=== PATIENT | female | born 1940 | race Caucasian/White ===

== ENCOUNTER 2021-05-23 02:06 | Emergency (ER) | payer MEDICARE, OTHER, SELFPAY ==
[2021-05-23 02:07] VITALS: BP 158/82; PULSE 76; RESP 21; TEMP 36.7; O2SAT 98; BMI 24.7
--- NOTE | 2021-05-23 02:25 | ECG_ITS ---
APPROVED REPORT Exam: Resting ECG HR:74 bpm ECG Measurements Heart Rate 74 AXES AR 174 P 32 QRSd 86 QRS 45 QT 436 T 42 QTc 483 Conclusion Normal sinus rhythm Nonspecific T wave abnormality Prolonged QT Abnormal ECG Electronically signed by : Lamont Dennison MD 05/25/2021 17:30:41
[2021-05-23 02:32] VITALS: BMI 24.7
--- NOTE | 2021-05-23 02:34 | XR_ITS ---
PROCEDURE INFORMATION: Exam: XR Chest Exam date and time: 05/23/2021 2:34 AM Age: 81 years old Clinical indication: Pain; Left-sided; Prior surgery; Surgery date: 6+ months; Surgery type: Stents; Additional info: Chest pain TECHNIQUE: Imaging protocol: XR of the chest. Views: 2 views. COMPARISON: No relevant prior studies available. FINDINGS: Lungs: Bilateral apical scarring. Peripheral reticular pulmonary opacities in the lower lungs may correlate with pulmonary venous congestion in the appropriate clinical setting. Pleural spaces: Unremarkable. No pleural effusion. No pneumothorax. Heart/Mediastinum: Unremarkable. No cardiomegaly. Vasculature: Vascular calcifications. Bones/joints: Unremarkable. IMPRESSION: Peripheral reticular pulmonary opacities in the lower lungs may correlate with pulmonary venous congestion in the appropriate clinical setting.
[2021-05-23 02:43] LABS: Basophils % 0.4 % (0.1-2.0); Eosinophils # 0.1 K/mm3 (0.0-0.4); Hematocrit 40.4 % (37.0-47.0); Lymphocytes % 35.8 % (10-50); Mean Corpuscular HGB Conc 32.3 g/dL (31.8-35.4); Mean Corpuscular Hemoglobin 29.5 pg (27.0-31.2); Mean Corpuscular Volume 91.4 fl (81-99); Mean Platelet Volume 7.7 fl (7.4-10.4); Monocytes # 0.5 K/mm3 (0.1-1.0); Neutrophils # 3.1 K/mm3 (1.8-7.8); Neutrophils % 53.8 % (37.0-80.0); Platelet Count 321 K/mm3 (142-424); Red Blood Count 4.41 M/mm3 (4.20-5.40); Red Cell Distribution Width 13.2 % (11.5-17.5); White Blood Count 5.7 K/mm3 (4.8-10.8)
[2021-05-23 02:53] LABS: Alanine Aminotransferase 7 U/L (12-78); Albumin Level 4.3 g/dl (3.5-5.0); Albumin/Globulin Ratio 1.3 (1.1-1.8); Alkaline Phosphatase 79 U/L (38-126); Anion Gap 10.8 mEq/L (5-15); Aspartate Amino Transferase 29 U/L (14-36); Bilirubin,Total 0.4 mg/dl (0.2-1.3); Blood Urea Nitrogen 13 mg/dl (7-17); Calcium 9.6 mg/dl (8.4-10.2); Carbon Dioxide 28 mmol/L (22.0-30.0); Chloride 105 mmol/L (98-107); Creatinine Clearance Estimated 40 mL/min (50-200); Estimated Glomerular Filt Rate 48 ml/min (>60); GFR (African American) 58 ML/MIN (>60); Globulin 3.2 g/dL (1.3-3.2); Glucose 126 mg/dl (74-100); Potassium 3.8 mmoL/L (3.5-5.1); Sodium 140 mmol/L (136-145); Total Protein,Serum 7.5 g/dl (6.3-8.2)
[2021-05-23 02:58] LABS: C-Reactive Protein 2.4 mg/L (0-4)
[2021-05-23 03:06] LABS: Erythrocyte Sedimentation Rate 26 mm/hr (0-30)
[2021-05-23 03:08] LABS: Troponin I < 0.01 ng/ml (0.00-0.034)
[2021-05-23 03:13] LABS: Procalcitonin 0.074 ng/mL (0.0-2.0)
[2021-05-23 03:29] VITALS: BP 151/71; PULSE 68; RESP 18; TEMP 36.8; O2SAT 96
--- NOTE | 2021-05-23 03:29 | [facility].EDCP ---
ED Disposition Clinical Impression: Chest pain Qualifiers: Chest pain type: precordial pain Qualified Code(s): R07.2 - Precordial pain Disposition: Home, Self-Care Condition on Discharge: Good Instructions: DI for Atypical Chest Pain Additional Instructions: call pcp for follow up Referrals: Kip Jordan [Primary Care Provider] - - Critical Care Critical Care Time: No Attestation: On 05/23/21, the high probability of a clinically significant, sudden or life threatening deterioration of the following system(s) required my full and direct attention, intervention and personal management. The time I documented below is in addition to time spent performing reported procedures but includes the following listed in this critical care notation. Medical Decision Making - Medical Records Medical records reviewed: Yes: I reviewed the patient's medical records. - [place] Inquiry Pt receiving controlled substance: No Vital Signs: 05/23/21 02:07 Temperature 98.1 F Temperature Source Oral Pulse Rate [Right] 76 Respiratory Rate 21 Blood Pressure [Right Arm] 158/82 H Blood Pressure Mean [Right Arm] 107 02 Sat by Pulse Oximetry 98 Oxygen Delivery Method Room Air - Lab Data Lab results reviewed: Yes: I reviewed the patient's lab results. Lab Results 05/23/21 02:20: WBC 5.7, RBC 4.41, Hgb 13.0, Hct 40.4, MCV 91.4, MCH 29.5, MCHC 32.3, RDW 13.2, Plt Count 321, MPV 7.7, Neut % (Auto) 53.8, Lymph % (Auto) 35.8, Trinity % (Auto) 9.0, Eos % (Auto) 1.0, Baso % (Auto) 0.4, Neut # (Auto) 3.1, Lymph # (Auto) 2.0, Trinity # (Auto) 0.5, Eos # (Auto) 0.1, Baso # (Auto) 0.0, ESR 26 05/23/21 02:20: Sodium 140, Potassium 3.8, Chloride 105, Carbon Dioxide 28, Anion Gap 10.8, BUN 13, Creatinine 1.10 H, Estimated Creat Clear 40, Estimated GFR 48 L, Est GFR ( Amer) 58 L, Glucose 126 H, Calcium 9.6, Magnesium 2.0, Total Bilirubin 0.4, AST 29, ALT 7 L, Alkaline Phosphatase 79, Troponin I < 0.01, C-Reactive Protein 2.4, Total Protein 7.5, Albumin 4.3, Globulin 3.2, Albumin/Globulin Ratio 1.3 Result diagrams: 05/23/21 02:20 05/23/21 02:20 Orders (Tests/Meds): ED MEDICATIONS Generic Name Dose Route Start Last Admin Trade Name Freq PRN Reason Stop Dose Admin Sodium Chloride 1,000 mls @ 999 mls/hr 05/23/21 03:00 05/23/21 03:18 Sod Chlor 0.9% 1000ml Bag IV 05/23/21 04:00 999 mls/hr .Q1H1M NALINI Administration ORDERS Category Date Time Status XR chest 2V Stat Exams 05/23/21 02:34 Taken Procalcitonin Stat Lab 05/23/21 02:20 Received Troponin I Q3H Lab 05/23/21 05:45 Ordered Troponin I Q3H Lab 05/23/21 08:45 Ordered ECG Request by /Aleksandar Stat Y 05/23/21 02:34 Ordered - Radiology Data #1 Image(s): Chest Image Reviewed: Yes I reviewed the patient's radiology image Preliminary Findings: Normal/NAD - ECG Data Tracing #1 Normal Sinus Rhythm: Yes Ischemic changes: non-specific ST-T wave changes Medical Decision Narrative: stable exam and labs Chest Pain HPI - General Chief Complaint: Anxiety Stated Complaint: High Blood Pressure Time Seen by Provider: 05/23/21 03:00 Mode of Arrival: Wheelchair Source of Information: Patient, Medical Record Limitations: No Limitations Description of Symptoms (Recalled from ER Triage Doc. by RN): Pt c/o shakiness, headache, and pain to her left axilla area that now is only numb. Pt states she normally takes Metoprolol tartrate 50mg BID but her new prescription is Metoprolol ER 50mg PO. She did take the 1st pill ~1am before attempting to go to bed and about 10 min later is when her symtoms started. Pt took her BP and it was SBP 190s and reports it is never that high . She denies any n/v/d, SOA, dizziness, or vision changes. - History of Present Illness HPI narrative: took different form of metoprolol and had episode of not feeling well has seen card recently with elevated bp but no focal changes MD complaint: chest pain indicative of cardiac Onset (ago)
== END 2021-05-23 03:42 | disposition home or self-care (01) ==
PROVIDERS: Emergency Provider Emergency Medicine; PCP Family Medicine
DX: R07.2 Precordial pain (principal); E78.5 Hyperlipidemia, unspecified; E03.9 Hypothyroidism, unspecified
CPT/HCPCS: 71046; 80053; 83735; 84145; 84484; 85025; 85651; 86140; 93005; 96365; 99283

== ENCOUNTER 2025-03-24 13:29 | Emergency (ER) | payer MEDICARE, SELFPAY ==
[2025-03-24] VITALS (9 sets, daily range): BP systolic 126–179; BP diastolic 54–88; PULSE 73–95; RESP 15–22; TEMP 37.1; O2SAT 95–98; BMI 24.7
--- NOTE | 2025-03-24 13:31 | ECG_ITS ---
APPROVED REPORT Exam: Resting ECG HR:83 bpm ECG Measurements Heart Rate 83 AXES OH 187 P 60 QRSd 86 QRS 75 QT 377 T 66 QTc 417 Conclusion Normal sinus rhythm Normal axis Normal intervals No STEMI Electronically signed by : Kenneth Wyman, 03/24/2025 16:31:49
--- NOTE | 2025-03-24 13:35 | ED_ITS ---
<Statement entered by Kenneth Wyman DO - 03/28/25 01:16> I was consulted by the DEN, and we discussed the complexity of problems being addressed. I approved the treatment and management plan for this patient's care in the emergency department, thus performing a substantive portion of the medical decision making. Kenneth Wyman DO Discharge Plan Disposition Patient Disposition: Home, Self-Care Condition: Good Prescriptions Prescriptions: No Action metoprolol succinate 50 MG tablet extended release 24 hr 50 mg PO DAILY omeprazole 40 MG capsule,delayed release(DR/EC) 40 mg PO DAILY levothyroxine 88 MCG tablet 88 mcg PO DAILY losartan 25 MG tablet 25 mg PO DAILY aspirin 81 MG tablet,chewable 81 mg PO DAILY rosuvastatin 40 MG tablet 40 mg PO DAILY niacin (inositol niacinate) 500 MG capsule 500 mg PO DAILY linaclotide 145 MCG capsule 145 mcg PO DAILY Referrals Follow up/Referrals: Kip Jordan [Primary Care Provider, Medical] - See instructions Nikita Mtz MD [Physician, Ear, Nose, Throat] - See instructions Activity Restrictions/Add. Instructions Additional Instructions/Restrictions: Please follow-up with your family physician in the upcoming days/weeks, please follow-up with/make appointment with ear nose throat doctor above. Please take your meclizine as prescribed. Please return to the emergency department with any worsening signs or symptoms. Clinical Impressions Clinical Impression: Vertigo Instructions Patient Instructions: DI for Vertigo, Combating Dizziness in Older Adults Print Language Print Language: Brazilian Discharge ED Provider: Kenneth Wyman General Adult HPI <MANUEL Rollins - Last Filed: 03/24/25 17:59> General Chief complaint: Dizziness Stated complaint: Dizziness Time Seen by Provider: 03/24/25 13:30 Mode of Arrival: EMS Source of Information: Patient Limitations: No Limitations History of Present Illness HPI narrative: 85-year-old female presents the emergency department via EMS for dizziness for the last 3 days, patient states she is has a difficulty ambulating due to the dizziness, patient is somewhat of a poor historian and has some degree of presbycusis, but is GCS of 15, patient tells me that she has had dizziness on and off for 20 years , worsened within the last 3 days, patient denies any fall, states that it is worse with certain movements especially movements of her head, denies any neck pain, admits to lightheadedness, but denies any presyncopal or syncopal event, does admit to headache, she tells me my head is about to explode , she denies any fever chills chest pain shortness of breath, some nausea no vomiting no abdominal pain no constipation no diarrhea no urinary type symptomatology, patient is a current everyday smoker, denies any alcohol or drug use, other past medical history is consistent with atrial fibrillation on Xarelto, and metoprolol, hypertension, IBS, CAD, status post 11 stents , GERD, hyperlipidemia. Initial triage vitals are unremarkable. Patient was recently seen by what sounds like her PCP, started on meclizine, unsure if she is taking medication as prescribed, also recently started on Keflex, for 2 lower extremity wounds/concern for cellulitis, patient has bilateral lower extremities bandaged, on her left knee, as well as her left posterior tibial region, with some active drainage and skin tear/wound on the right. Of note patient tells me that she had what sounds like a remote MRI of the brain performed several years ago at [facility] , she tells me that they said there is nothing wrong . Please note that above description of symptoms, in this electronic medical record under categorization of recalled from ER triage doctor by RN are reflective of an initial nursing assessment, however, is not reflective of my full history and physical exam that was personally taken and clarified. Consequentially, this preceding description of symptoms, which may include the patient's categorized chief complaint in the EMR, do not reflect my personal clinical impression, and the ultimate description of history of present illness and patient stated complaints should be deferred to this section of the note. Unless stated otherwise or congruent with this section of the note, additional signs, symptoms, or incongruence should be interpreted as inaccurate with my clinical impression. Onset (ago): day(s) Related Data Home Medications ?Medication ?Instructions ?Recorded ?Confirmed aspirin 81 mg chewable tablet 81 mg PO DAILY cardiac 1 05/23/21 levothyroxine 88 mcg tablet 88 mcg PO DAILY htypothy 1 05/23/21 linaclotide 145 mcg capsule 145 mcg PO DAILY . 1 05/23/21 losartan 25 mg tablet 25 mg PO DAILY . 05/23/21 metoprolol succinate 50 mg 50 mg PO DAILY bp 05/23/21 05/23/21 tablet,extended release 24 hr niacin (inositol niacinate) 500 mg 500 mg PO DAILY . 1 05/23/21 capsule omeprazole 40 mg capsule,delayed 40 mg PO DAILY GERD 1 05/23/21 release rosuvastatin 40 mg tablet 40 mg PO DAILY hld 05/23/21 05/23/21 Allergies Allergy/AdvReac Type Severity Reaction Status Date / Time Sulfa (Sulfonamide Allergy Verified 12/21/17 17:10 Antibiotics) [facility] <MANUEL Rollins - Last Filed: 03/24/25 17:59> [facility] Disclaimer: The information contained in this section may have been updated after the patient was seen, as this information can be updated by other users. Social History Smoking Status: Current every day smoker tobacco type: cigarettes alcohol intake: never current occupational status: other Travel in the last 8 weeks?: None Other Medical History Have you received the Flu Vaccine for this season: No Have you received the Pneumonia Vaccine: No <MANUEL Rollins - Last Filed: 03/24/25 17:59> ROS Obtained: Yes All systems reviewed & no additional complaints except as documented Physical Exam <MANUEL Rollins - Last Filed: 03/24/25 17:59> General General appearance: alert and in no apparent distress Comment: Somewhat of a poor historian but alert and oriented Head Head exam: atraumatic and normocephalic Eye Eye exam: Present PERRL and EOMI ENT ENT exam: Present mucous membranes moist Neck Neck exam: Present normal inspection Chest Chest inspection: Present normal inspection and symmetric chest wall rise Respiratory Respiratory exam: Present normal lung sounds bilaterally; Absent respiratory distress Cardiovascular Cardiovascular exam: Present regular rate and normal rhythm Abdominal Exam Abdominal exam: Present soft; Absent tenderness, guarding, rebound or rigidity Extremities Exam Extremities exam: Present normal inspection Neurological Exam Neurological exam: Present alert, oriented X3 and other (Moves extremities to command, no real global weakness noted and no focal neurological deficit noted, negative Irasema sign bilaterally) Psychiatric Psychiatric exam: Present normal affect Skin Skin exam: Present warm, dry and other (Area of skin breakdown and active drainage from wound/skin tear on the posterior tibial region on the right lower extremity) Medical Decision Making <MANUEL Rollins - Last Filed: 03/24/25 17:59> Medical Records Medical records reviewed: Yes I reviewed the patient's medical records. Screening: Per USPSTF and CDC recommendations, given the prevalence of disease in our region, it is our hospital?s policy to screen for HIV and viral Hepatitis for all patients aged 18 and over and those with ongoing risk factors. Tenzin Inquiry Pt receiving controlled substance: No Tenzin was queried for this patient: No Vital Signs: 03/24/25 13:39 03/24/25 13:45 03/24/25 14:31 Temperature 98.8 F Temperature Source Oral Pulse Rate 83 84 Pulse Rate [Right Brachial] 84 Respiratory Rate 18 22 22 Blood Pressure 142/68 H 126/80 Blood Pressure [Right Arm] 142/68 H Blood Pressure Mean [Right Arm] 92 Blood Pressure Source [Right Arm] Automatic Cuff Blood Pressure Position [Right Arm] Sitting 02 Sat by Pulse Oximetry 98 97 95 Oxygen Delivery Method Room Air Room Air Room Air 03/24/25 15:00 03/24/25 15:33 03/24/25 16:01 Temperature Temperature Source Pulse Rate 88 95 H 78 Pulse Rate [Right Brachial] Respiratory Rate 17 18 15 Blood Pressure 179/83 H 178/88 H 145/62 H Blood Pressure [Right Arm] Blood Pressure Mean [Right Arm] Blood Pressure Source [Right Arm] Blood Pressure Position [Right Arm] 02 Sat by Pulse Oximetry 95 98 96 Oxygen Delivery Method Room Air 03/24/25 17:02 03/24/25 17:49 Temperature Temperature Source Pulse Rate 91 H 73 Pulse Rate [Right Brachial] Respiratory Rate 20 21 Blood Pressure 130/54 L 126/59 L Blood Pressure [Right Arm] Blood Pressure Mean [Right Arm] Blood Pressure Source [Right Arm] Blood Pressure Position [Right Arm] 02 Sat by Pulse Oximetry 98 97 Oxygen Delivery Method Room Air Room Air Lab Data Lab results reviewed: Yes I reviewed the patient's lab results. Lab Results 03/24/25 13:26: WBC 12.9 H, RBC 2.92 L, Hgb 8.2 L, Hct 25.8 L, MCV 88.4, MCH 28.1, MCHC 31.8, RDW 17.1, Plt Count 458 H, MPV 9.4, Neut % (Auto) 66.5, Lymph % (Auto) 21.7, [place] % (Auto) 9.1, Eos % (Auto) 0.5, Baso % (Auto) 0.4, Neut # (Auto) 8.5 H, Lymph # (Auto) 2.8, [place] # (Auto) 1.2 H, Eos # (Auto) 0.1, Baso # (Auto) 0.1, D-Dimer 0.75 H, Sodium 132 L, Potassium 4.7, Chloride 98, Carbon Dioxide 27, Anion Gap 11.7, BUN 30 H, Creatinine 1.40 H, Estimated Creat Clear 29, Estimated GFR 36 L, Est GFR ( Amer) 43 L, Glucose 102 H, Calcium 8.9, Magnesium 3.0 H, Total Bilirubin 0.4, AST 28, ALT 8 L, Alkaline Phosphatase 76, Troponin I < 0.01, NT-Pro-B Natriuret Pep 268, Total Protein 6.4, Albumin 4.0, Globulin 2.4, Albumin/Globulin Ratio 1.7 03/24/25 15:33: Urine Color Yellow, Urine Appearance Clear, Urine pH 8.0, Ur Specific [place] 1.010, Urine Protein Negative, Urine Glucose (UA) Negative, Urine Ketones Negative, Urine Blood Negative, Urine Nitrate Negative, Urine Bilirubin Negative, Urine Urobilinogen 0.2, Ur Leukocyte Esterase Negative, Urine RBC None, Urine WBC None, Ur Squamous Epith Cells 5-10, Urine Bacteria Trace, Urine Opiates Screen Negative, Urine Methadone Screen Negative, Ur Barbituates Screen Negative, Ur Phencyclidine Scrn Negative, Ur Amphetamines Screen Negative, U Benzodiazepines Scrn Negative, Urine Cocaine Screen Negative, U Marijuana (THC) Screen Negative 03/24/25 16:55: Troponin I < 0.01 03/24/25 13:26 03/24/25 13:26 Orders (Tests/Meds): ED MEDICATIONS Discontinued Medications Generic Name Dose Route Start Last Admin Trade Name Freq PRN Reason Stop Dose Admin Sodium Chloride 1,000 mls @ 999 mls/hr 03/24/25 14:39 03/24/25 16:56 Sod Chlor 0.9% 1000ml Bag IV 03/24/25 15:39 Infused .Q1H1M ONE Infusion Iopamidol 80 ml 03/24/25 14:44 03/24/25 14:52 Iopamidol-370 (76%);100ml Bottle IV 03/24/25 14:45 80 ml ONCE ONE Administration Meclizine HCl 50 mg 03/24/25 16:42 03/24/25 17:19 Meclizine 25mg Tablet PO 03/24/25 16:43 50 mg ONCE ONE Administration Ondansetron HCl 4 mg 03/24/25 14:07 03/24/25 14:20 Ondansetron 4mg/2ml Vial IV 03/24/25 14:08 4 mg ONCE ONE Administration Sodium Chloride 50 ml 03/24/25 14:44 03/24/25 14:52 0.9 % Sodium Chloride 50 Ml Vial IV 03/24/25 14:45 50 ml ONCE ONE Administration ORDERS Category Date Time Status CT angio head Stat Cat Scan 03/24/25 14:[address] angio neck Stat Cat Scan 03/24/25 14:[address] head/brain wo con Stat Cat Scan 03/24/25 14:05 Completed Complete Blood Count Auto Diff Stat Lab 03/24/25 13:26 Completed Comprehensive Metabolic Panel Stat Lab 03/24/25 13:26 Completed D-Dimer Stat Lab 03/24/25 13:26 Completed Drug Screen,Urine Stat Lab 03/24/25 15:33 Completed Magnesium Stat Lab 03/24/25 13:26 Completed NT Pro Brain Natriuretic Pep. Stat Lab 03/24/25 13:26 Completed Troponin I Q3H Lab 03/24/25 16:55 Completed Troponin I Q3H Lab 03/24/25 20:00 Ordered Troponin I Stat Lab 03/24/25 13:26 Completed Urinalysis and Microscopic Stat Lab 03/24/25 15:33 Completed Medical Decision Narrative: 85-year-old female presents emerged part with dizziness and lightheadedness as well as headache, differential diagnose include but not limited to, cardiac arrhythmia, electrolyte disturbance, peripheral vertigo, central vertigo, hypovolemia, cellulitis, infection, medication side effect, acute UTI among others. I discussed this patient's case with the attending physician Dr. Wyman and Dr. Bunn they saw and examined the patient as well Obtain basic laboratory studies, UDS, urinalysis, magnesium, BNP, troponin, EKG, CT head without contrast, CTA head and neck without contrast, will give 4 mg Zofran for nausea. CBC is notable for leukocytosis 12.9, decreased hemoglobin hematocrit 8.2/25.8, thrombocytosis at 458, otherwise unremarkable CBC. CMP is notable for hyponatremia at 132, BUN and creatinine are elevated at 30/1.4, hypermagnesia at 3, thus will give IVF 1 L NS, for acute kidney injury and hypomagnesia. D-dimer is elevated at 0.75, however utilizing age-adjusted D-dimer criteria, negative for PE/VTE Initial troponin and proBNP within normal limits UA is unremarkable Of note, patient after returning from CT scan experience some chest pain, and had some belching , EKG was obtained, see interpretation by attending physician. UDS is unremarkable Reexamination of the patient at approximately 4:30 PM, patient still complaining of some dizziness, will give 50 mg p.o. meclizine for dizziness. I reviewed the patient's CT head without contrast along the corresponding radiologic report, no acute intracranial process I reviewed the patient's CTA head and neck without contrast, no acute process in the intracranial vessels,, there is 50% stenosis proximal right internal carotid artery, no significant stenosis on the left. Repeat troponin within normal limits at less than 0.01 Reexamination of the patient at 5:50 PM, patient states her dizziness is improved, after meclizine administration, walk test was able to ambulate with minimal assistance, I was also discussed this patient's case with the daughter at the bedside, patient's daughter states that she has had what sounds like multiple neurological workups, ruled out stroke, MRI brain, and seeing neurologist, thought to be more of an inner ear pathology/vertigo, has not yet seen ear nose throat provider, with relief with meclizine, and acute on chronic clinical manifestations I do believe this is more peripheral vertigo, as well as patient's symptoms get worse with certain head movements. Recommend follow-up with ear nose throat provider, continue take meclizine as prescribed, patient voiced understanding and agreement with the current treatment plan/discharge plan. Strict ED return precaution were given. <Kenneth Wyman, - Last Filed: 03/24/25 16:25> Vital Signs: 03/24/25 13:39 03/24/25 13:45 03/24/25 14:31 Temperature 98.8 F Temperature Source Oral Pulse Rate 83 84 Pulse Rate [Right Brachial] 84 Respiratory Rate 18 22 22 Blood Pressure 142/68 H 126/80 Blood Pressure [Right Arm] 142/68 H Blood Pressure Mean [Right Arm] 92 Blood Pressure Source [Right Arm] Automatic Cuff Blood Pressure Position [Right Arm] Sitting 02 Sat by Pulse Oximetry 98 97 95 Oxygen Delivery Method Room Air Room Air Room Air 03/24/25 15:00 03/24/25 15:33 03/24/25 16:01 Temperature Temperature Source Pulse Rate 88 95 H 78 Pulse Rate [Right Brachial] Respiratory Rate 17 18 15 Blood Pressure 179/83 H 178/88 H 145/62 H Blood Pressure [Right Arm] Blood Pressure Mean [Right Arm] Blood Pressure Source [Right Arm] Blood Pressure Position [Right Arm] 02 Sat by Pulse Oximetry 95 98 96 Oxygen Delivery Method Room Air 03/24/25 17:02 03/24/25 17:49 Temperature Temperature Source Pulse Rate 91 H 73 Pulse Rate [Right Brachial] Respiratory Rate 20 21 Blood Pressure 130/54 L 126/59 L Blood Pressure [Right Arm] Blood Pressure Mean [Right Arm] Blood Pressure Source [Right Arm] Blood Pressure Position [Right Arm] 02 Sat by Pulse Oximetry 98 97 Oxygen Delivery Method Room Air Room Air Lab Data Lab Results 03/24/25 13:26: WBC 12.9 H, RBC 2.92 L, Hgb 8.2 L, Hct 25.8 L, MCV 88.4, MCH 28.1, MCHC 31.8, RDW 17.1, Plt Count 458 H, MPV 9.4, Neut % (Auto) 66.5, Lymph % (Auto) 21.7, [place] % (Auto) 9.1, Eos % (Auto) 0.5, Baso % (Auto) 0.4, Neut # (Auto) 8.5 H, Lymph # (Auto) 2.8, [place] # (Auto) 1.2 H, Eos # (Auto) 0.1, Baso # (Auto) 0.1, D-Dimer 0.75 H, Sodium 132 L, Potassium 4.7, Chloride 98, Carbon Dioxide 27, Anion Gap 11.7, BUN 30 H, Creatinine 1.40 H, Estimated Creat Clear 29, Estimated GFR 36 L, Est GFR ( Amer) 43 L, Glucose 102 H, Calcium 8.9, Magnesium 3.0 H, Total Bilirubin 0.4, AST 28, ALT 8 L, Alkaline Phosphatase 76, Troponin I < 0.01, NT-Pro-B Natriuret Pep 268, Total Protein 6.4, Albumin 4.0, Globulin 2.4, Albumin/Globulin Ratio 1.7 03/24/25 15:33: Urine Color Yellow, Urine Appearance Clear, Urine pH 8.0, Ur Specific [place] 1.010, Urine Protein Negative, Urine Glucose (UA) Negative, Urine Ketones Negative, Urine Blood Negative, Urine Nitrate Negative, Urine Bilirubin Negative, Urine Urobilinogen 0.2, Ur Leukocyte Esterase Negative, Urine RBC None, Urine WBC None, Ur Squamous Epith Cells 5-10, Urine Bacteria Trace, Urine Opiates Screen Negative, Urine Methadone Screen Negative, Ur Barbituates Screen Negative, Ur Phencyclidine Scrn Negative, Ur Amphetamines Screen Negative, U Benzodiazepines Scrn Negative, Urine Cocaine Screen Negative, U Marijuana (THC) Screen Negative 03/24/25 16:55: Troponin I < 0.01 Orders (Tests/Meds): ED MEDICATIONS Discontinued Medications Generic Name Dose Route Start Last Admin Trade Name Freq PRN Reason Stop Dose Admin Sodium Chloride 1,000 mls @ 999 mls/hr 03/24/25 14:39 03/24/25 16:56 Sod Chlor 0.9% 1000ml Bag IV 03/24/25 15:39 Infused .Q1H1M ONE Infusion Iopamidol 80 ml 03/24/25 14:44 03/24/25 14:52 Iopamidol-370 (76%);100ml Bottle IV 03/24/25 14:45 80 ml ONCE ONE Administration Meclizine HCl 50 mg 03/24/25 16:42 03/24/25 17:19 Meclizine 25mg Tablet PO 03/24/25 16:43 50 mg ONCE ONE Administration Ondansetron HCl 4 mg 03/24/25 14:07 03/24/25 14:20 Ondansetron 4mg/2ml Vial IV 03/24/25 14:08 4 mg ONCE ONE Administration Sodium Chloride 50 ml 03/24/25 14:44 03/24/25 14:52 0.9 % Sodium Chloride 50 Ml Vial IV 03/24/25 14:45 50 ml ONCE ONE Administration ORDERS Category Date Time Status CT angio head Stat Cat Scan 03/24/25 14:[address] angio neck Stat Cat Scan 03/24/25 14:[address] head/brain wo con Stat Cat Scan 08/19/25 14:05 Completed Complete Blood Count Auto Diff Stat Lab 03/24/25 13:26 Completed Comprehensive Metabolic Panel Stat Lab 03/24/25 13:26 Completed D-Dimer Stat Lab 03/24/25 13:26 Completed Drug Screen,Urine Stat Lab 03/24/25 15:33 Completed Magnesium Stat Lab 03/24/25 13:26 Completed NT Pro Brain Natriuretic Pep. Stat Lab 03/24/25 13:26 Completed Troponin I Q3H Lab 03/24/25 16:55 Completed Troponin I Q3H Lab 03/24/25 20:00 Ordered Troponin I Stat Lab 03/24/25 13:26 Completed Urinalysis and Microscopic Stat Lab 03/24/25 15:33 Completed ECG Data Tracing #1: I reviewed this ECG and interpreted as documented below: EKG personally interpreted by me demonstrates normal sinus rhythm with a rate of 83 bpm, normal axis, no MD prolongation, narrow QRS, no QTc prolongation. No ST elevation or depression. No overt signs of ischemia or arrhythmia. Tracing #2: I reviewed this ECG and interpreted as documented below: Patient did begin having active chest pain on the way back from the CT scanner. At this time we did repeat an EKG EKG personally interpreted by me demonstrates normal sinus rhythm with a rate of 88 bpm, normal axis, no MD prolongation, narrow QRS, no QTc prolongation. There is now ST depression in leads II, III and aVF as well as leads V3 through V6. Critical Care <MANUEL Rollins - Last Filed: 03/24/25 17:59> Critical Care Time Critical Care Time: No
--- OUTSIDE RECORDS SUMMARY | 2025-03-24 13:40 | XMS_ITS | Clinical Summary ---
Author Organization [facility] Address [address] [place] [address] Care Team Providers Care Wire Transfer Clerk Name Role Phone Kip Jordan MD Primary Care Provider [phone] Allergies Active Allergy Reactions Criticality Noted Date Comments Sulfa Drugs Hives High 01/17/2019 Medications aspirin 81 MG EC tablet Take 1 tablet (81 mg) by mouth 1 (one) time each day. Active clopidogrel (Plavix) 75 MG tablet Take 1 tablet (75 mg) by mouth 1 (one) time each day. Active Docusate Sodium (DSS) 100 MG capsule Take 100 mg by mouth twice a day. Active ezetimibe (Zetia) 10 MG tablet Take 1 tablet (10 mg) by mouth 1 (one) time each day. Active metoprolol tartrate (Lopressor) 25 MG tablet Take 1 tablet (25 mg) by mouth 2 (two) times a day. 12/01/2023 Active omeprazole (PriLOSEC) [address] capsule Take 1 capsule (40 mg) by mouth 1 (one) time each day. Active simvastatin (Zocor) 80 MG tablet Take 1 tablet (80 mg) by mouth 1 (one) time each day in the evening. Active Multiple Vitamins-Minera ls (multivitamin with minerals) tablet Take 1 tablet by mouth 1 (one) time each day. Active levothyroxine (Synthroid, Levoxyl) 88 MCG tablet Take 1 tablet (88 mcg) by mouth 1 (one) time each day in the morning. 30 tablet 01/14/2024 Active Active Problems Problem Noted Date Diagnosed Date Altered mental status 01/04/2024 Social History Tobacco Use Types Packs/Day Years Used Date Smoking Tobacco: Every Day Cigarettes Smokeless Tobacco: Never Tobacco Cessation:Ready to Q uit: Not Asked; Counseling Given: Not Answered Alcohol Use Standard Drinks/Week Comments Never 0 (1 standard drink = 0.6 oz pur e alcohol) Humiliation, Afraid, Rape, and Kick questionnair e Answer Date Recorded Within the last year, have y ou been afraid of your partner or ex-partner? No 01/04/2024 Within the last year, have y ou been humiliated or emotionally abused in other ways by your partner or ex-partner? No Within the last year, have y ou been kicked, hit, slapped, or otherwise physically hurt by your partner or ex-partner? No 01/04/2024 Within the last year, have y ou been raped or forced to have any kind of sexual activity by your partner or ex-partner? No 01/04/2024 Hunger Vital Sign Answer Date Recorded Within the past 12 months, y ou worried that your food would run out before you got the money to buy more. Never true 01/04/20 24 Within the past 12 months, t he food you bought just didn't last and you didn't have money to get more. Never true 01/04/2024 PRAPARE - Transportation Answer Date Re corded In the past 12 months, has l ack of transportation kept you from medical appointments or from getting medications? No 12/06 In the past 12 months, has l ack of transportation kept you from meetings, work, or from getting things needed for daily living? No 01/04/2024 Housing Stability Vital Sign Answer Jaime e Recorded In the last 12 months, was t here a time when you were not able to pay the mortgage or rent on time? No 01/04/2024 In the last 12 months, how many places have you lived? 2 01/04/2024 In the last 12 months, was t here a time when you did not have a steady place to sleep or slept in a assisted (including now)? No 01/04/2024 Utilities Answer Date Recorded In the past 12 months has th e [employer], gas, oil, or water [employer] threatened to shut off services in your home? No 01/04/2024 Comments Unknown Sex and Gender Information Value Date Recorded Sex Assigned at Not on file Legal Sex Female 6:01 PM EDT Gender Identity Not on file Sexual Orientation Not on file Last Filed Vital Signs Vital Sign Reading Time Taken Comments Blood Pressure 143/73 01/13/2024 2:31 AM EDT Pulse 67 01/13/2024 2:31 AM EDT Temperature 36.7 C (98 F) 01/13/2024 2:31 AM EDT Respiratory Rate 16 01/13/2024 2:31 AM EDT Oxygen Saturation 93% 01/13/2024 2:31 AM EDT Inhaled Oxygen Concentration - - Weight 57.7 kg (127 lb 3.3 oz) 01/10/2024 3:00 P M EDT Height 172.7 cm (5' 7.99 ) 01/10/2024 3:00 PM ED T Body Mass Index 19.35 01/10/2024 3:00 PM EDT Plan of Treatment Health Maintenance Due Date Last Done Comments [facility]-Bone Density Scan 1942 [facility]-Depression Screening 1942 [facility]-Medicare Annual Wellness (AWV) 1942 [facility]-/Child/Adol SDOH Screenings 1942 [facility]- SDOH Screenings 1960 [facility]-Adult SDOH Screenings 1960 [facility]-DTaP,Tdap,and Td Vaccines (1 - Tdap) 1961 [facility]-Pneumococcal Vaccine: 50+ Years (1 of 1 - PCV) 1992 [facility]-RSV Vaccine: 60+ Years or (1 - 1-dose 75+ series) 2017 [id number] Vaccine (2 - season) 2024 10/14/2020 [facility]-Influenza Vaccine (#1) 04/06/202506/06, 06/25/2021, 06/16/2020 [facility]-Zoster Vaccines Completed 05/24/2023, 12/21/2022 HPV Vaccines Aged Out No longer eligi ble based on patient's age to complete this topic [facility]-HIB Vaccines Aged Out No longer e ligible based on patient's age to complete this topic [facility]-Hepatitis A Vaccines Aged Out No longer eligible based on patient's age to complete this topic [facility]-IPV Vaccines Aged Out No longer e ligible based on patient's age to complete this topic [facility]-Rotavirus Vaccines Aged Out No lo nger eligible based on patient's age to complete this topic Insurance MEDICARE Member Subscriber Plan / Payer (Ef fective 2007-Present) Name:Kathia Jordan Member ID:[id number] Relation to Subscriber:Self Name:Kathia Jordan Subscriber ID:[id number] Payer ID:MEDICARE Group ID:Not on file Type:Medicare Address: [address] [facility] Advance Directives Documents on File Type Date Recorded Patient Teaching Assistant Expl anation Advance Directives and Livin g Will 01/14/2024 8:59 AM * DNR/DNI (Latest Code Status on File) Date Activated Date Inactivated Comments 01/10/2024 12:30 PM 01/13/2024 12:25 PM Question Answer Comments DNR determined on/before admission date? No Patient has decision-making capacity? No Healthcare Surrogate: Adult child of the patient Name of Healthcare Surrogate: Son, daughter PAT * Full Code Date Activated Date Inactivated Comments 01/04/2024 12:43 AM 01/10/2024 12:30 PM Question Answer Comments Patient has decision-making capacity? Yes Care Teams Wire Transfer Clerk Relationship Specialty Start Date End Date Kip Jordan MD [facility] [place] [id number] [facility] - General 01/03/24
[2025-03-24 14:04] LABS: Hematocrit 25.8 % (37.0-47.0); Hemoglobin 8.2 g/dL (12.2-16.2); Immature Granulocytes % 1.8 %; Mean Corpuscular HGB Conc 31.8 g/dL (31.8-35.4); Mean Corpuscular Hemoglobin 28.1 pg (27.0-31.2); Mean Corpuscular Volume 88.4 fl (81-99); Nucleated Red Blood Cells % 0.2 %; Platelet Count 458 K/mm3 (142-424); Red Blood Count 2.92 M/mm3 (4.20-5.40); Red Cell Distribution Width-SD 54.6 fL; White Blood Count 12.9 K/mm3 (4.8-10.8)
--- NOTE | 2025-03-24 14:05 | CT_ITS ---
FINAL REPORT TECHNIQUE: NASCET technique utilized for stenosis evaluation. CLINICAL HISTORY: Dizziness COMPARISON: None FINDINGS: There are mild changes of centrilobular emphysema. RIGHT CAROTID: Moderate vascular calcifications. There is 50% stenosis of the proximal right internal carotid artery. LEFT CAROTID: [id number] vascular calcifications. No significant stenosis seen of the cervical common or internal carotid artery. VERTEBRALS: The vertebrals are patent. The right vertebral artery is dominant. No significant stenosis is present. IMPRESSION: 50% stenosis proximal right internal carotid artery. No significant stenosis on the left. Reviewed, Interpreted and Dictated by Gal Shaver MD Transcribed by Tess Gonzalez Authenticated and [facility]
--- NOTE | 2025-03-24 14:05 | CT_ITS ---
FINAL REPORT TECHNIQUE: Axial CT images were performed through the head. Coronal reformatted images were submitted. This study was performed with techniques to keep radiation doses as low as reasonably achievable (ALARA). Individualized dose reduction techniques using automated exposure control or adjustment of mA and/or kV according to the patient's size were employed. CLINICAL HISTORY: Altered mental status/dizziness FINDINGS: There is moderate atrophy with proportional ventriculomegaly. Decreased attenuation in the deep white matter is noted. There is no evidence of hemorrhage. There is no mass or edema identified. There is no abnormal extra-axial fluid seen. The paranasal sinuses are well aerated. IMPRESSION: No acute intracranial process. Reviewed, Interpreted and Dictated by Gal Shaver MD Transcribed by Tess Gonzalez Authenticated and . [facility]
--- NOTE | 2025-03-24 14:05 | CT_ITS ---
FINAL REPORT TECHNIQUE: thin section axial CT with and without IV contrast supplemented with multiplanar 3-D reconstruction of the head. This study was performed with techniques to keep radiation doses as low as reasonably achievable, (ALARA)individualized dose reduction techniques using automated exposure control or adjustment of mA and/or kV according to the patient's size were employed. CLINICAL HISTORY: Dizziness COMPARISON: None FINDINGS: CTA: The cranial circulation is unremarkable. The intracranial branching pattern is normal. There is no significant stenosis, aneurysm or occlusion. The paranasal sinuses are well aerated. IMPRESSION: No acute process. Reviewed, Interpreted and Dictated by Gal Shaver MD Transcribed by Tess Gonzalez Authenticated and [facility]
[2025-03-24] MEDS: ONDANSETRON 4MG/2ML VIAL 4 MG IV (14:20)
[2025-03-24 14:28] LABS: Alanine Aminotransferase 8 U/L (12-78); Albumin Level 4.0 g/dl (3.5-5.0); Albumin/Globulin Ratio 1.7 (1.1-1.8); Alkaline Phosphatase 76 U/L (38-126); Anion Gap 11.7 mEq/L (5-15); Aspartate Amino Transferase 28 U/L (14-36); Bilirubin,Total 0.4 mg/dl (0.2-1.3); Blood Urea Nitrogen 30 mg/dl (7-17); Calcium 8.9 mg/dl (8.4-10.2); Carbon Dioxide 27 mmol/L (22.0-30.0); Chloride 98 mmol/L (98-107); Creatinine Clearance Estimated 29 mL/min (50-200); Creatinine,Serum 1.40 mg/dl (0.52-1.04); Estimated Glomerular Filt Rate 36 ml/min (>60); GFR (African American) 43 ML/MIN (>60); Globulin 2.4 g/dL (1.3-3.2); Glucose 102 mg/dl (74-100); Magnesium 3.0 mg/dl (1.6-2.3); Potassium 4.7 mmoL/L (3.5-5.1); Sodium 132 mmol/L (136-145); Total Protein,Serum 6.4 g/dl (6.3-8.2)
[2025-03-24 14:33] LABS: D-Dimer 0.75 ug/mL (0.0-0.5)
[2025-03-24 14:39] LABS: NT Pro Brain Natriuretic Pep. 268 pg/mL (0-450)
[2025-03-24 14:46] LABS: Troponin I < 0.01 ng/ml (0.00-0.034)
[2025-03-24] MEDS: IOPAMIDOL-370 (76%);100ML BOTTLE 80 ML IV (14:52)
[2025-03-24] MEDS: 0.9 % SODIUM CHLORIDE 50 ML VIAL IV (14:52)
[2025-03-24] MEDS: 0.9 % SODIUM CHLORIDE 1000ML 1,000 ML 999 ML IV (14:56)
--- NOTE | 2025-03-24 14:59 | ECG_ITS ---
APPROVED REPORT Exam: Resting ECG HR:88 bpm ECG Measurements Heart Rate 88 AXES MI 184 P 34 QRSd 87 QRS 75 QT 371 T 33 QTc 417 Conclusion Normal sinus rhythm Normal axis Normal intervals ST depression in II, III, AVF, V3-V6 Electronically signed by : Kenneth Wyman, 03/24/2025 16:24:35
--- NOTE | 2025-03-24 14:59 | PC.NURSE ---
pt c/o being SOA, belching and chest pain. Provider notified and EKG obtain. VSS
--- NOTE | 2025-03-24 15:27 | PC.NURSE ---
pt ambulatory to restroom with assistance
[2025-03-24 15:36] LABS: Microscopic, Urine URINE MICROSCOPIC (MICROSCOPIC)
[2025-03-24 15:40] LABS: Bilirubin,Urine Negative (Negative); Color,Urine YELLOW (Yellow); Glucose,Urine (UA) Negative (Negative); Ketones,Urine Negative (Negative); Leukocyte Esterase,Urine Negative (Negative); PH,Urine 8.0 (5.0-8.5); Protein,Urine Negative (Negative); Specific Gravity, Urine 1.010 (1.005-1.030); Urobilinogen,Urine 0.2 EU/dl (0.2)
[2025-03-24 15:52] LABS: Barbiturates Screen,Urine Negative ng/ml (<200); Benzodiazepines Screen,Urine Negative ng/ml (<200)
[2025-03-24 15:53] LABS: Amphetamine/Metha Screen,Urine Negative ng/ml (<1000)
[2025-03-24 15:54] LABS: Methadone Screen,Urine Negative ng/ml (<300)
[2025-03-24 15:55] LABS: Bacteria,Urine Trace /lpf
[2025-03-24 15:56] LABS: Opiate Screen,Urine Negative ng/ml (<300); Phencyclidine Screen,Urine Negative ng/ml (<25)
[2025-03-24] MEDS: MECLIZINE 25MG TABLET 50 MG PO (17:19)
[2025-03-24 17:40] LABS: Troponin I < 0.01 ng/ml (0.00-0.034)
== END 2025-03-24 18:26 | disposition home or self-care (01) ==
PROVIDERS: Physician Assistant; Emergency Provider Student in an Organized Health Care Education/Training Program; PCP Family Medicine
DX: R42 Dizziness and giddiness (principal); E83.41 Hypermagnesemia; E87.1 Hypo-osmolality and hyponatremia; F17.210 Nicotine dependence, cigarettes, uncomplicated; I10 Essential (primary) hypertension; E78.5 Hyperlipidemia, unspecified; Z86.79 Personal history of other diseases of the circulatory system; Z79.01 Long term (current) use of anticoagulants
CPT/HCPCS: 70450; 70496; 70498; 80053; 80307; 81001; 83735; 83880; 84484; 85025; 85378; 93005; 96361; 96374; 99284; 99285; J2405; J7030; Q9967

== ENCOUNTER 2025-04-13 22:36 | Inpatient (IN) | payer MEDICARE, SELFPAY ==
--- NOTE | 2025-04-13 22:38 | HMH.EDGENADL ---
Discharge Plan Disposition Chief Complaint: Altered Mental Status Prescriptions Prescriptions: No Action meclizine 25 mg tablet PO TID PRN Patient Comments: TAKE 1 TABLET BY MOUTH THREE TIMES DAILY NEEDED FOR DIZZINESS cephalexin 500 mg capsule PO BID Patient Comments: TAKE 2 CAPSULES BY MOUTH TWICE DAILY Zyrtec 10 mg capsule 10 mg PO DAILY Xarelto 20 mg tablet PO DAILY Patient Comments: TAKE 1 TABLET BY MOUTH ONCE DAILY IN PLACE OF PLAVIX metoprolol succinate 50 MG tablet extended release 24 hr 50 mg PO DAILY omeprazole 40 MG capsule,delayed release(DR/EC) 40 mg PO DAILY levothyroxine 88 MCG tablet 88 mcg PO DAILY aspirin 81 MG tablet,chewable 81 mg PO DAILY rosuvastatin 40 MG tablet 40 mg PO DAILY Referrals Follow up/Referrals: Provider,Referral, [Primary Care Provider, Medical] - See instructions Instructions Patient Instructions: DI for Altered Mental Status Print Language Print Language: Sami Discharge ED Provider: Yesenia Hein General Adult HPI General Chief complaint: Altered Mental Status Stated complaint: AMS Time Seen by Provider: 04/13/25 22:38 History of Present Illness HPI narrative: Patient is a 85-year-old female with a past medical history of coronary artery disease with 11 stents, current smoker, thyroid disease, hypertension, on Xarelto who presented to the emergency department with altered mental status from home. For EMS, patient began screaming at home daughter went to bedside patient stiffened up, continued to yell help and became altered. When son arrived who lived across the street he said that she was fighting them and was not acting like herself. On arrival in the emergency department, patient was alert and oriented x 2 was reporting chest pain but denied any other symptoms. When son and daughter arrived, they state that patient had just gone to bed when she started yelling help. They state that she threw herself back on the bed there may have been a moment of loss of consciousness and patient was not acting like herself afterwards. Patient was fighting with the son when he arrived. They state that she is currently still not at her baseline. They deny that she has had any blood in her stools or any other symptoms. He has not had any recent fevers or other infectious symptoms. She has been taking her medications as prescribed no recent medication changes. Related Data Home Medications ?Medication ?Instructions ?Recorded ?Confirmed aspirin 81 mg chewable tablet 81 mg PO DAILY cardiac 05/23/21 03/31/25 levothyroxine 88 mcg tablet 88 mcg PO DAILY htypothy 05/23/21 03/31/25 metoprolol succinate 50 mg 50 mg PO DAILY bp 05/23/21 03/31/25 tablet,extended release 24 hr omeprazole 40 mg capsule,delayed 40 mg PO DAILY GERD 05/23/21 03/31/25 release rosuvastatin 40 mg tablet 40 mg PO DAILY hld 05/23/21 03/31/25 cephalexin 500 mg capsule mg PO BID 03/31/25 03/31/25 cetirizine 10 mg capsule (Zyrtec) 10 mg PO DAILY 03/31/25 03/31/25 meclizine 25 mg tablet mg PO TID PRN 03/31/25 03/31/25 rivaroxaban 20 mg tablet (Xarelto) mg PO DAILY 03/31/25 03/31/25 Allergies Allergy/AdvReac Type Severity Reaction Status Date / Time Sulfa (Sulfonamide Allergy Verified 03/31/25 13:16 Antibiotics) [facility] Disclaimer: The information contained in this section may have been updated after the patient was seen, as this information can be updated by other users. Social History Smoking Status: Smoker, status unknown tobacco type: cigarettes alcohol intake: never current occupational status: other Travel in the last 8 weeks?: None Have you lived/traveled outside US in past 30 days?: No Contact w/someone who lives/traveled outside US past 30 days?: No Exposure to someone with infectious disease in past 14 days?: No Do you have a fever (greater than 100.4 F or 38 C)?: No Have you tested positive for COVID-19?: No Exposed to someone with COVID-19 in past 14 days?: No Do you have a sore throat?: No Do you have a cough?: No Do you have any weakness?: No Do you have any diarrhea?: No Are you experiencing any unusual bleeding?: No Do you have any muscle aches/pain?: No Do you have any abdominal pain?: No Are you experiencing loss of taste or smell?: No Other Medical History Have you received the Flu Vaccine for this season: No Have you received the Pneumonia Vaccine: No ROS Obtained: Yes All systems reviewed & no additional complaints except as documented and Yes Systems reviewed as appropriate & no additional complaints except as documented Physical Exam General General appearance: alert and in distress Head Head exam: atraumatic, normocephalic and normal inspection Eye Eye exam: Present normal appearance, PERRL and EOMI; Absent scleral icterus ENT ENT exam: Present normal exam and normal external ear exam Neck Neck exam: Present normal inspection and full ROM Chest Chest inspection: Present normal inspection and symmetric chest wall rise Respiratory Respiratory exam: Present normal lung sounds bilaterally; Absent respiratory distress or wheezes Cardiovascular Cardiovascular exam: Present regular rate, normal rhythm and normal heart sounds Abdominal Exam Abdominal exam: Present soft and distention; Absent tenderness, guarding or rebound Extremities Exam Extremities exam: Present normal inspection and full ROM Back Exam Back exam: Present normal inspection and full ROM Neurological Exam Neurological exam: Present alert and other (AxOx2, non-focal exam, full strength and sensation) Psychiatric Psychiatric exam: Present normal affect and normal mood Skin Skin exam: Present warm and dry Medical Decision Making Medical Records Medical records reviewed: Yes I reviewed the patient's medical records. Screening: Per USPSTF and CDC recommendations, given the prevalence of disease in our region, it is our hospital?s policy to screen for HIV and viral Hepatitis for all patients aged 18 and over and those with ongoing risk factors. [place] Inquiry Pt receiving controlled substance: No Vital Signs: 04/13/25 23:02 04/13/25 23:12 Temperature 96.4 F L Temperature Source Core Oral Pulse Rate 98 H Pulse Rate [Left] 97 H Respiratory Rate 22 22 Blood Pressure 148/68 H Blood Pressure [Right Arm] 148/68 H Blood Pressure Mean [Right Arm] 94 Blood Pressure Source Automatic Cuff Blood Pressure Source [Right Arm] Automatic Cuff Blood Pressure Position Sitting 02 Sat by Pulse Oximetry 93 L 93 L Oxygen Delivery Method Room Air Room Air Lab Data Lab results reviewed: Yes I reviewed the patient's lab results. Lab Results 04/13/25 22:44: WBC 6.2, RBC 1.94 L*, Hgb 5.0 L*, Hct 16.4 L*, MCV 84.5, MCH 25.8 L, MCHC 30.5 L, RDW 16.2, Plt Count 423, MPV 9.2, Neut % (Auto) 65.4, Lymph % (Auto) 20.5, [place] % (Auto) 11.5 H, Eos % (Auto) 1.0, Baso % (Auto) 0.3, Neut # (Auto) 4.1, Lymph # (Auto) 1.3, [place] # (Auto) 0.7, Eos # (Auto) 0.1, Baso # (Auto) 0.0, PT 13.1 H, INR 1.20 H, VBG pH 7.38, VBG pCO2 34.3 L, VBG pO2 71.7 H, VBG HCO3 19.6 L, VBG Total CO2 20.7 L, VBG O2 Saturation 92.8 H, VBG Base Excess -5.6 L, VBG Lactic Acid 6.2 H, Sodium 135 L, Potassium 3.4 L, Chloride 104, Carbon Dioxide 19 L, Anion Gap 15.4 H, BUN 18 H, Creatinine 1.60 H, Estimated Creat Clear 30, Estimated GFR 31 L, Est GFR ( Amer) 37 L, Glucose 139 H, Calcium 9.5, Phosphorus 3.9, Magnesium 2.2, Total Bilirubin 0.3, AST 33, ALT 17, Alkaline Phosphatase 58, Troponin I 0.09 H, NT-Pro-B Natriuret Pep 1270 H, Total Protein 6.1 L, Albumin 3.8, Globulin 2.3, Albumin/Globulin Ratio 1.7, Lipase 149, TSH 12.20 H, Free T4 1.52, Salicylates < 1.0 L, Acetaminophen < 10 L 04/13/25 23:00: Urine Color Yellow, Urine Appearance Clear, Urine pH 6.0, Ur Specific [place] 1.025, Urine Protein 1+ A, Urine Glucose (UA) Negative, Urine Ketones Negative, Urine Blood Negative, Urine Nitrate Negative, Urine Bilirubin Negative, Urine Urobilinogen 0.2, Ur Leukocyte Esterase Negative, Urine RBC 5-10, Urine WBC 3-5, Ur Squamous Epith Cells 3-5, Urine Bacteria 1+, Hyaline Casts 3-5, Urine Mucus 1+ 04/13/25 23:02: Urine Opiates Screen Negative, Urine Methadone Screen Negative, Ur Barbituates Screen Negative, Ur Phencyclidine Scrn Negative, Ur Amphetamines Screen Negative, U Benzodiazepines Scrn Negative, Urine Cocaine Screen Negative, U Marijuana (THC) Screen Negative 04/13/25 22:44 04/13/25 22:44 Orders (Tests/Meds): ED MEDICATIONS Generic Name Dose Route Start Last Admin Trade Name Freq PRN Reason Stop Dose Admin Sodium Chloride 250 mls @ 25 mls/hr 04/13/25 23:30 Sod Chlor 0.9% 250ml Bag IV 04/14/25 23:29 .Q10H NALINI Sodium Chloride 250 mls @ 25 mls/hr 04/13/25 23:30 Sod Chlor 0.9% 250ml Bag IV 04/14/25 23:29 .Q10H NALINI Vancomycin/PEG/NADA/Lysine/Water 1.5 gm in 300 mls @ 150 mls/hr 04/14/25 23:45 Vancomycin 1.5gm/300ml (Peg) Premix IV 04/15/25 01:44 ONCE ONE Pantoprazole Sodium 80 mg/ 100 mls @ 100 mls/hr 04/14/25 00:16 Sodium Chloride IV 04/14/25 01:15 ONCE ONE Miscellaneous 1 each 04/13/25 23:45 Vancomycin Consult Request NOTAPPLIC 05/13/25 23:44 CONSULT PHARMACY [facility] Discontinued Medications Generic Name Dose Route Start Last Admin Trade Name Freq PRN Reason Stop Dose Admin Piperacillin Sod/Tazobactam 100 mls @ 200 mls/hr 04/13/25 23:45 Sod 4.5 gm/ Sodium Chloride IV 04/14/25 00:14 ONCE ONE Iopamidol 160 ml 04/13/25 23:46 04/13/25 23:47 Iopamidol-370 (76%);100ml Bottle IV 04/13/25 23:47 160 ml ONCE ONE Administration Midazolam HCl 2 mg 04/13/25 23:28 04/13/25 23:30 Midazolam 2mg/2ml Vial IV 04/13/25 23:29 2 mg ONCE ONE Administration Sodium Chloride 100 ml 04/13/25 23:46 04/13/25 23:48 0.9 % Sodium Chloride 50 Ml Vial IV 04/13/25 23:47 100 ml ONCE ONE Administration Sodium Chloride 10 ml 04/13/25 23:46 04/13/25 23:48 Sodium Chloride 0.9% 10ml Syr (Rad Only) IV 04/13/25 23:47 10 ml ONCE ONE Administration ORDERS Category Date Time Status Transfuse RBC's [Red Blood Cells] Stat BBK 04/13/25 23:27 Ordered Type and Screen Stat BBK 04/13/25 23:[address] abdomen pelvis w con Stat Cat Scan 04/13/25 22:[address] angio chest PE protocol Stat Cat Scan 04/13/25 22:[address] angio head Stat Cat Scan 04/13/25 22:[address] angio neck Stat Cat Scan 04/13/25 22:[address] head/brain wo con Stat Cat Scan 04/13/25 22:51 Completed Acetaminophen Stat Lab 04/13/25 22:44 Completed BNP [NT Pro Brain Natriuretic Pep.] Stat Lab 04/13/25 22:44 Completed Complete Blood Count Auto Diff Stat Lab 04/13/25 22:44 Completed Comprehensive Metabolic Panel Stat Lab 04/13/25 22:44 Completed Free T4 (Free Thyroxine) Stat Lab 04/13/25 22:44 Completed Lipase Stat Lab 04/13/25 22:44 Completed MAG [Magnesium] Stat Lab 04/13/25 22:44 Completed PHOS [Phosphorous] Stat Lab 04/13/25 22:44 Completed PT INR [Prothrombin Time INR] Stat Lab 04/13/25 22:44 Completed Salicylate Stat Lab 04/13/25 22:44 Completed TSH [Thyroid Stimulating Hormone] Stat Lab 04/13/25 22:44 Completed Trop I [Troponin I] Stat Lab 04/13/25 22:44 Completed Troponin I Q3H Lab 04/14/25 02:00 Ordered Troponin I Q3H Lab 04/14/25 05:00 Ordered UA [Urinalysis and Microscopic] Stat Lab 04/13/25 23:00 Completed UDS [Drug Screen,Urine] Stat Lab 04/13/25 23:02 Completed Blood Culture Stat Micro 04/14/25 00:09 Received Urine Culture Stat Micro 04/13/25 23:02 Received Venous Blood Gas Stat RT 04/13/25 22:44 Completed Medical Decision Narrative: Patient is an 85-year-old female with a past medical history of coronary artery disease with 11 stents, hypertension, current smoker, thyroid disease, on Xarelto who presented to the emergency department with concern for altered mental status from home. On arrival, patient was hemodynamically stable with unremarkable vital signs. Patient was afebrile. Differential included but not limited to: ACS/MO, pneumonia, pulmonary embolism, intra-abdominal process, electrolyte abnormalities, intracranial process including hemorrhage versus ischemia, polypharmacy, ingestion, amongst others. Patient's labs were reviewed and interpreted by myself: Patient's hemoglobin was 5 was 8.2 3 weeks ago. Patient's INR was 1.2. VBG showed no acidosis but did show an elevated lactate of 6.2. CMP was unremarkable except for mildly elevated anion gap of 15.4. Patient's initial troponin was 0.09. BNP mildly elevated at 1270. TSH elevated but free T4 normal. UA showed no evidence of infection. Tylenol aspirin level normal. Urine drug screen negative. CT head, CTA head and neck reviewed and interpreted by myself and showed no acute pathology per radiology there was no acute findings. EKG was reviewed and interpreted by myself and showed depressions in 2 3 aVF as well as V4 V5 and V6 however this is unchanged from prior EKG. Given patient significant anemia, patient was typed and crossed and patient was given 2 units of emergent blood. Patient CT scan of her chest was reviewed and interpreted by myself and showed concern for possible pneumonia therefore patient was treated with broad-spectrum antibiotics with vancomycin and Zosyn. Was given 80 of IV Protonix given concern for possible GI bleed or other source of acute anemia. Per patient's son who is patient's POA, she would want to be a DNR/DNI but does not have official paperwork. After discussion with the hospitalist team, patient was admitted to their service for significant anemia, altered mental status, possible sepsis. Patient CT scans of her chest and abdomen were not formally read by radiology prior to admission. Critical Care Critical Care Time Critical Care Time: Yes Attestation: On 04/13/25, the high probability of a clinically significant, sudden or life threatening deterioration of the following system(s) required my full and direct attention, intervention and personal management. The time I documented below is in addition to time spent performing reported procedures but includes the following listed in this critical care notation. Total Time Total Critical Care Time: 60
--- OUTSIDE RECORDS SUMMARY | 2025-04-13 22:40 | XMS_ITS | Clinical Summary ---
Author Organization [facility] Address [address] [place] [address] Care Team Providers Care Field Party Manager Name Role Phone Kip Jordan MD Primary Care Provider Allergies Active Allergy Reactions Criticality Noted Date [...] place to sleep or slept in a senior care (including now)? No 01/04/2024 Utilities Answer Date Recorded In the past 12 months has th e [employer], gas, oil, or water [employer] threatened to shut off services in your [...] Screening 1942 [facility]-Medicare Annual Wellness (AWV) 1942 [facility]-Infant/Child/Adol SDOH Screenings 1942 [facility]- SDOH Screenings 1960 [facility]-Adult SDOH Screenings 1960 [facility]-DTaP,Tdap,and Td Vaccines (1 - Tdap) 1961 [facility]-Pneumococcal Vaccine: 50+ Years (1 of 1 - PCV) 1992 [facility]-RSV Vaccine: 60+ Years or (1 - 1-dose 75+ series) 2017 [id number] Vaccine (2 - season) 2025 10/14/2020 [facility]-Influenza Vaccine (#1) 04/06/202506/06, 06/25/2021, 06/16/2020 [...] Payer (Ef fective 2007-Present) Name:Kathia Jordan Member ID:[id number] Relation to Subscriber:Self Name:Kathia Jordan Subscriber ID:[id number] Payer ID:MEDICARE Group ID:Not on file Type:Medicare Address: [address] [facility] Advance Directives Documents on File Type Date 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 Yes Care Teams Field Party Manager Relationship Specialty Start Date End Date Kip Jordan MD [facility] [place] [id number] [facility] - General 01/03/24
--- OUTSIDE RECORDS SUMMARY | 2025-04-13 22:40 | XMS_ITS | Clinical Summary ---
Author Organization [facility] Address [address] [place] [address] Care Team Providers Care Director Of Knowledge Management Name Role Phone Kip Jordan MD Primary Care Provider Allergies Active Allergy Reactions Criticality Noted Date Comments Sulfa Antibiotics Hives 01/17/2019 Medications rosuvastatin (CRESTOR) 40 MG tablet Take 40 mg by mouth Daily. Active metoprolol tartrate (LOPRESSOR) 50 MG tablet Take 50 mg by mouth 2 (Two) Times a Day. Active losartan (COZAAR) 25 MG tablet Take 25 mg by mouth Daily. Active omeprazole (priLOSEC) 40 MG capsule Take 40 mg by mouth Daily. Active levothyroxine (SYNTHROID, LEVOTHROID) 88 MCG tablet Take 88 mcg by mouth Daily. Active ezetimibe (ZETIA) 10 MG tablet Take 10 mg by mouth Daily. Active aspirin 81 MG EC tablet Take 325 mg by mouth Every 6 (Six) Hours As Needed. Active nitroglycerin (NITROSTAT) 0.[address] 0.4 mg under the tongue Every 5 (Five) Minutes As Needed for Chest Pain. Take no more than 3 doses in 15 minutes. Active acetaminophen-c odeine (TYLENOL #3) 300-30 MG per tablet Take 1 tablet by mouth Every 4 (Four) Hours As Needed for Moderate Pain . Active meloxicam (MOBIC) 15 MG tablet Take 1 tablet by mouth Daily. 30 tablet 1 09/07/2020 Active Active Problems Problem Noted Date Diagnosed Date Neck pain 08/11/2020 Family History Medical History Relation Name Comments No Known Problems Father No Known Problems Mother Relation Name Status Comments Father Mother Social History Tobacco Use Types Packs/Day Years Used Date Smoking Tobacco: Every Day Cigarettes Smokeless Tobacco: Never Alcohol Use Standard Drinks/Week Comments Yes 0 (1 standard drink = 0.6 oz pur e alcohol) Abuse Screen Answer Date Recorded Unsafe at Home or Work/School Not on file Feels Threatened by Someone? Not on file 04/2023 Does Anyone Keep You from Co ntacting Others or Doint Things Outside the Home? Not on file 05/14/2023 Physical Sign of Abuse Present Not on file 1 Housing Stability Answer Date Recorded Current Living Arrangements Not on file 04/2023 Potentially Unsafe Housing Conditions Not on jennifer e 05/14/2023 Family and Community Support Answer Jaime e Recorded Help with Day-to-Day Activities Not on file 05/14/2023 Lonely or Isolated Not on file 05/14/2023 Employment Answer Date Recorded Do you want help finding or keeping work or a bren b? Not on file 05/14/2023 Disabilities Answer Date Recorded Concentrating, Remembering, or Making Decisions Difficulty Not on file 05/14/2023 Doing Errands Independently Difficulty Not on fi le 05/14/2023 Education Answer Date Recorded Help with school or training? Not on file Preferred Language Not on file 05/14/2023 Comments No Sex and Gender Information Value Date Recorded Sex Assigned at Not on file Legal Sex Female 11:09 AM EDT Gender Identity Not on file Sexual Orientation Not on file Last Filed Vital Signs Vital Sign Reading Time Taken Comments Blood Pressure 130/78 09/07/2020 3:46 PM EST Pulse - - Temperature 35.8 C (96.4 F) 09/07/2020 3:46 PM EST Respiratory Rate - - Oxygen Saturation - - Inhaled Oxygen Concentration - - Weight 66 kg (145 lb 9.6 oz) 09/07/2020 3:46 PM EST Height 157.5 cm (5' 2 ) 09/07/2020 3:46 PM EST Body Mass Index 26.63 09/07/2020 3:46 PM EST Plan of Treatment Health Maintenance Due Date Last Done Comments DXA SCAN 1942 TDAP/TD VACCINES (1 - Tdap) 1961 Pneumococcal Vaccine 50+ (1 of 1 - PCV) 1992 ZOSTER VACCINE (1 of 2) 1992 RSV Vaccine - Adults (1 - 1- dose 75+ series) 2017 ANNUAL PHYSICAL 01/16/2019 COVID-19 Vaccine (2023-2 5 season) 2025 INFLUENZA VACCINE 05/06/2025 06/03/2019, , 05/16/2017, Additional history exists Insurance [id number] [id number] MEDICARE A & B Member Subscriber Plan / Payer (Ef fective 2007-Present) Name:Kathia Jordan Member ID:[id number] Relation to Subscriber:Self Name:Kathia Jordan Subscriber ID:[id number] Payer ID:[id number] Group ID:Not on file Type:Not on file Address: [address] Care Teams Director Of Knowledge Management Relationship Specialty Start Date End Date Kip Jordan MD [address] [place], [place] [id number] [place] [address] PCP - General Family Medicine 12/18/18
--- NOTE | 2025-04-13 22:47 | ECG_ITS ---
APPROVED REPORT Exam: Resting ECG HR:96 bpm ECG Measurements Heart Rate 96 AXES MA 186 P 63 QRSd 105 QRS 79 QT 380 T -22 QTc 434 Conclusion Normal sinus rhythm without acute ST or T wave changes concerning for ischemia Electronically signed by : Yesenia Hein, 04/15/2025 00:22:31
[2025-04-13 22:49] VITALS: BMI 24.7
--- NOTE | 2025-04-13 22:51 | CT_ITS ---
PROCEDURE INFORMATION: Exam: CTA Head With Contrast, Arteriography Exam date and time: 04/13/2025 11:24 PM Age: 85 years old Clinical indication: Stroke-like symptoms; Altered mental status/memory loss; Additional info: Confusion TECHNIQUE: Imaging protocol: Computed tomographic angiography of the head with contrast. Exam focused on the arteries. 3D rendering (Not supervised by radiologist): MIP and/or 3D reconstructed images were created by the technologist. Radiation optimization: All CT scans at this facility use at least one of these dose optimization techniques: automated exposure control; mA and/or kV adjustment per patient size (includes targeted exams where dose is matched to clinical indication); or iterative reconstruction. 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 There is no evidence of rupture. Right middle cerebral artery: No occlusion or significant stenosis. No aneurysm. Right anterior cerebral artery: Short segment narrowing of the distal branches of the right anterior cerebral artery. Good distal flow. Left internal carotid artery: Intracranial segment is patent with no significant stenosis. No aneurysm. Left middle cerebral artery: No occlusion or significant stenosis. No aneurysm. Left anterior cerebral artery: Short segment narrowing of the distal branches of the left anterior cerebral artery. Good distal flow. POSTERIOR CIRCULATION: Right vertebral artery: No occlusion or significant stenosis. No aneurysm. Left vertebral artery: No occlusion or significant stenosis. No aneurysm. Basilar artery: No occlusion or significant stenosis. No aneurysm. Right posterior cerebral artery: Mild narrowing of the mid to distal branches of the right posterior cerebral artery. There is good distal flow. Left posterior cerebral artery: No occlusion or significant stenosis. No aneurysm. Veins: No venous sinus thrombosis. Brain: Normal. No hemorrhage. Unremarkable white matter. No mass effect. Cerebral ventricles: Normal. No ventriculomegaly. Bones/joints: Unremarkable. No acute fracture. Soft tissues: Unremarkable. IMPRESSION: 1. 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 There is no evidence of rupture. 2. Mild narrowing of the mid to distal branches of the right posterior cerebral artery. There is good distal flow. 3. Mild stenoses of the distal bilateral anterior cerebral arteries. 4. The remainder of the vascular structures are unremarkable. There is no other significant stenosis or aneurysm. There is no occlusion.
--- NOTE | 2025-04-13 22:51 | CT_ITS ---
PROCEDURE INFORMATION: Exam: CT Head Without Contrast Exam date and time: 04/13/2025 11:20 PM Age: 85 years old Clinical indication: Stroke-like symptoms; Altered mental status/memory loss; Additional info: Confusion TECHNIQUE: Imaging protocol: Computed tomography of the head without contrast. Radiation optimization: All CT scans at this facility use at least one of these dose optimization techniques: automated exposure control; mA and/or kV adjustment per patient size (includes targeted exams where dose is matched to clinical indication); or iterative reconstruction. Other technique: STROKE PROTOCOL was implemented. COMPARISON: CT ANGIO HEAD 03/24/2025 2:46 PM FINDINGS: Brain: Small area of encephalomalacia of the right parietal lobe. Mild amount of periventricular white matter disease. No area of intraparenchymal or extra-axial hemorrhage. No intra-axial mass. No midline shift. Rooney-white matter junction is intact. Cerebral ventricles: No ventriculomegaly. Paranasal sinuses: Visualized sinuses are unremarkable. No fluid levels. Mastoid air cells: Visualized mastoid air cells are well aerated. Bones: Unremarkable. No acute fracture. Soft tissues: Unremarkable. IMPRESSION: 1. 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 2. Mild amount of periventricular white matter disease. 3. Otherwise unremarkable examination of the brain. There is no acute intracranial abnormality seen. ASSESSMENT: ASPECTS (Liz Stroke Program Early CT Score) is 10
--- NOTE | 2025-04-13 22:51 | CT_ITS ---
PROCEDURE INFORMATION: Exam: CTA Neck With Contrast Exam date and time: 04/13/2025 11:24 PM Age: 85 years old Clinical indication: Stroke-like symptoms; Altered mental status/memory loss; Additional info: Confusion TECHNIQUE: Imaging protocol: Computed tomographic angiography of the neck with contrast. Exam focused on the cervical segments of the vasculature. 3D rendering (Not supervised by radiologist): MIP and/or 3D reconstructed images were created by the technologist. Radiation optimization: All CT scans at this facility use at least one of these dose optimization techniques: automated exposure control; mA and/or kV adjustment per patient size (includes targeted exams where dose is matched to clinical indication); or iterative reconstruction. Contrast material: ISOVUE; Contrast volume: 80 ml; Contrast route: INTRAVENOUS (IV); COMPARISON: CT ANGIO NECK 03/24/2025 2:46 PM FINDINGS: Right common carotid artery: No stenosis. No dissection or occlusion. Right internal carotid artery: Moderate atherosclerotic disease of the right internal carotid artery bulb that results in stenosis measuring 60%. There is good distal flow. Right external carotid artery: No occlusion or stenosis of the origin. Left common carotid artery: No stenosis. No dissection or occlusion. Left internal carotid artery: Atherosclerotic disease of the left internal carotid bulb the results in stenosis measuring 70%. There is good distal flow. Left external carotid artery: No occlusion or stenosis of the origin. Right vertebral artery: No stenosis. No dissection or occlusion. Left vertebral artery: Atherosclerotic disease at the origin of left vertebral artery the results and stenosis measuring 60%. Good distal flow. Left subclavian artery: Moderate atherosclerotic disease at the origin of the left subclavian artery with stenosis measuring updated %. There is good distal flow. Soft tissues: Normal. No significant soft tissue swelling. Bones/joints: No acute fracture. IMPRESSION: 1. Moderate atherosclerotic disease at the origin of the left subclavian artery with stenosis measuring updated %. There is good distal flow. 2. Atherosclerotic disease of the left internal carotid bulb the results in stenosis measuring 70%. There is good distal flow. 3. Moderate atherosclerotic disease of the right internal carotid artery bulb that results in stenosis measuring 60%. There is good distal flow. 4. Atherosclerotic disease at the origin of left vertebral artery the results and stenosis measuring 60%. Good distal flow. 5. The remainder of the vascular structures are unremarkable. There is no other significant stenosis. There is no occlusion or aneurysm. REFERENCES: NASCET CRITERIA. The degree of stenosis in the cervical segment of the internal carotid artery is based on NASCET criteria. Normal is no stenosis. Mild is less than 50% stenosis. Moderate is 50-69% stenosis. Severe is 70% to 99% stenosis. Total occlusion is no detectable patent lumen.
--- NOTE | 2025-04-13 22:51 | CT_ITS ---
PROCEDURE INFORMATION: Exam: CTA Chest With Contrast Exam date and time: 04/13/2025 11:36 PM Age: 85 years old Clinical indication: Pain; Chest pressure; Additional info: Chest pain, hypoxia TECHNIQUE: Imaging protocol: Computed tomographic angiography of the chest with contrast. Exam focused on the arteries. 3D rendering (Not supervised by radiologist): MIP and/or 3D reconstructed images were created by the technologist. Radiation optimization: All CT scans at this facility use at least one of these dose optimization techniques: automated exposure control; mA and/or kV adjustment per patient size (includes targeted exams where dose is matched to clinical indication); or iterative reconstruction. Contrast material: ISOVUE; Contrast volume: 80 ml; Contrast route: INTRAVENOUS (IV); COMPARISON: CR XR CHEST 2V 05/23/2021 2:35 AM FINDINGS: Pulmonary arteries: Normal. No pulmonary emboli. Aorta: Dense atherosclerotic calcification throughout the aorta. No evidence of aneurysm or dissection. Lungs: There is complete right middle lobe atelectasis. Mild dependent atelectasis in the bilateral lower lobes. Lungs are otherwise clear. Pleural spaces: Unremarkable. No pneumothorax. No pleural effusion. Heart: Unremarkable. No cardiomegaly. No pericardial effusion. Lymph nodes: Unremarkable. No enlarged lymph nodes. Bones/joints: Multilevel degenerative disc changes in the lower cervical spine and upper lumbar spine. No acute fracture. Soft tissues: Unremarkable. IMPRESSION: Complete right middle lobe atelectasis. This raises concern for small endobronchial obstructing lesion such as mucous plug or small mass lesion. Otherwise incidental chronic appearing findings as noted
--- NOTE | 2025-04-13 22:51 | CT_ITS ---
PROCEDURE INFORMATION: Exam: CT Abdomen And Pelvis With Contrast Exam date and time: 04/13/2025 11:36 PM Age: 85 years old Clinical indication: Abdominal pain TECHNIQUE: Imaging protocol: Computed tomography of the abdomen and pelvis with contrast. 3D rendering (Not supervised by radiologist): MIP and/or 3D reconstructed images were created by the technologist. Radiation optimization: All CT scans at this facility use at least one of these dose optimization techniques: automated exposure control; mA and/or kV adjustment per patient size (includes targeted exams where dose is matched to clinical indication); or iterative reconstruction. Contrast material: ISOVUE; Contrast volume: 80 ml; Contrast route: IV; COMPARISON: CT ANGIO CHEST PE PROTOCOL 04/13/2025 11:36 PM FINDINGS: Liver: Normal. No mass. Gallbladder and biliary ducts: Normal. No calcified stones. No ductal dilation. Pancreas: Normal. No ductal dilation. Spleen: Normal. No splenomegaly. Adrenal glands: Normal. No mass. Kidneys and ureters: Normal. No hydronephrosis. Stomach and bowel: Significant diverticulosis throughout the distal colon. Fluid-filled proximal colon with diffuse mucosal enhancement raising concern for acute colitis. Small bowel loops are normal in caliber. No evidence of bowel obstruction. Appendix: The appendix is visualized and appears normal. Intraperitoneal space: Unremarkable. No free air. No significant fluid collection. Vasculature: Dense atherosclerotic calcification throughout the abdominal aorta and iliac arteries. Aneurysmal dilation of the distal abdominal aorta measuring maximum diameter 3.5 cm. No evidence of aortic dissection. Lymph nodes: Unremarkable. No enlarged lymph nodes. Urinary bladder: Cazares catheter in the urinary bladder. Anterior portion of the bladder wall appears thickened. Otherwise unremarkable appearance. Reproductive: Unremarkable as visualized. Bones/joints: Moderate to severe degenerative disc changes throughout the lumbar spine, most pronounced at the L1-L2 level where there is severe disc space narrowing and disc bulge producing at least moderate central canal stenosis. No vertebral body compression. No acute fracture. Soft tissues: Unremarkable. IMPRESSION: 1. Findings concerning for mild proximal colitis. 2. Anterior bladder wall thickening. This may be due to underdistention or represent cystitis 3. Other incidental chronic appearing findings as noted.
[2025-04-13 22:56] LABS: VBG HCO3 19.6 mmol/L (23-30); VBG PCO2 34.3 mmol/L (35-51); VBG PH 7.38 mmol/L (7.31-7.41); VBG PO2 71.7 mmol/L (28-40)
[2025-04-13 22:59] LABS: Lactate Venous 6.2 mmol/L (0.4-2.0)
--- NOTE | 2025-04-13 22:59 | PC.NURSE ---
reported lactic 6.[address] Hein
[2025-04-13 23:01] LABS: Albumin Level 3.8 g/dl (3.5-5.0); Chloride 104 mmol/L (98-107); Sodium 135 mmol/L (136-145)
[2025-04-13 23:02] VITALS: BP 148/68; PULSE 97; RESP 22; O2SAT 93; BMI 25.7
[2025-04-13 23:02] LABS: Potassium 3.4 mmoL/L (3.5-5.1)
[2025-04-13 23:04] LABS: Alanine Aminotransferase 17 U/L (12-78); Anion Gap 15.4 mEq/L (5-15); Aspartate Amino Transferase 33 U/L (14-36); Blood Urea Nitrogen 18 mg/dl (7-17); Carbon Dioxide 19 mmol/L (22.0-30.0); Creatinine,Serum 1.60 mg/dl (0.52-1.04); Estimated Glomerular Filt Rate 31 ml/min (>60); GFR (African American) 37 ML/MIN (>60)
[2025-04-13 23:05] LABS: Microscopic, Urine URINE MICROSCOPIC (MICROSCOPIC)
[2025-04-13 23:05] LABS: Albumin/Globulin Ratio 1.7 (1.1-1.8); Alkaline Phosphatase 58 U/L (38-126); Bilirubin,Total 0.3 mg/dl (0.2-1.3); Calcium 9.5 mg/dl (8.4-10.2); Globulin 2.3 g/dL (1.3-3.2); Glucose 139 mg/dl (74-100); Total Protein,Serum 6.1 g/dl (6.3-8.2)
[2025-04-13 23:06] LABS: INR 1.20 (0.9-1.1); Prothrombin Time 13.1 seconds (10.1-12.5)
--- NOTE | 2025-04-13 23:11 | PC.NURSE ---
SRNA at bedside attempting to collect 2nd set of blood cultures.
[2025-04-13 23:12] VITALS: BP 148/68; PULSE 98; RESP 22; TEMP 35.8; O2SAT 93
[2025-04-13 23:15] LABS: Lipase 149 U/L (23-300); Magnesium 2.2 mg/dl (1.6-2.3); Phosphorous 3.9 mg/dl (2.5-4.5)
[2025-04-13 23:17] LABS: Troponin I 0.09 ng/ml (0.00-0.034)
[2025-04-13 23:22] LABS: Acetaminophen < 10 ug/ml (10-30); Salicylate < 1.0 mg/dL (2.0-20.0)
[2025-04-13 23:23] LABS: Creatinine Clearance Estimated 30 mL/min (50-200); Immature Granulocytes % 1.3 %; Mean Corpuscular HGB Conc 30.5 g/dL (31.8-35.4); Mean Corpuscular Hemoglobin 25.8 pg (27.0-31.2); Mean Corpuscular Volume 84.5 fl (81-99); Nucleated Red Blood Cells % 0 %; Platelet Count 423 K/mm3 (142-424); Red Blood Count 1.94 M/mm3 (4.20-5.40); Red Cell Distribution Width-SD 49.7 fL; White Blood Count 6.2 K/mm3 (4.8-10.8)
[2025-04-13 23:25] LABS: Hematocrit 16.4 % (37.0-47.0)
--- NOTE | 2025-04-13 23:25 | PC.NURSE ---
reported critical H/H to to Dr Morillo
[2025-04-13 23:28] LABS: Bilirubin,Urine Negative (Negative); Color,Urine YELLOW (Yellow); Glucose,Urine (UA) Negative (Negative); Ketones,Urine Negative (Negative); Leukocyte Esterase,Urine Negative (Negative); PH,Urine 6.0 (5.0-8.5); Protein,Urine 1+ (Negative); Specific Gravity, Urine 1.025 (1.005-1.030); Urobilinogen,Urine 0.2 EU/dl (0.2)
[2025-04-13] MEDS: MIDAZOLAM 2MG/2ML VIAL 2 MG IV (23:30)
[2025-04-13 23:32] LABS: Free T4 (Free Thyroxine) 1.52 ng/dl (0.78-2.19)
[2025-04-13 23:35] LABS: Thyroid Stimulating Hormone 12.20 uIU/mL (0.465-4.68)
[2025-04-13 23:41] LABS: Barbiturates Screen,Urine Negative ng/ml (<200)
[2025-04-13 23:42] LABS: Amphetamine/Metha Screen,Urine Negative ng/ml (<1000); Benzodiazepines Screen,Urine Negative ng/ml (<200)
[2025-04-13 23:44] LABS: Methadone Screen,Urine Negative ng/ml (<300)
[2025-04-13 23:45] LABS: Opiate Screen,Urine Negative ng/ml (<300)
[2025-04-13 23:46] LABS: Phencyclidine Screen,Urine Negative ng/ml (<25)
[2025-04-13] MEDS: IOPAMIDOL-370 (76%);100ML BOTTLE 160 ML IV (23:47)
[2025-04-13] MEDS: 0.9 % SODIUM CHLORIDE 50 ML VIAL 100 ML IV (23:48)
[2025-04-13] MEDS: SODIUM CHLORIDE 0.9% 10ML SYR (RAD ONLY) 10 ML IV (23:48)
[2025-04-13 23:49] LABS: Hemoglobin 5.0 g/dL (12.2-16.2)
[2025-04-13 23:56] LABS: Bacteria,Urine 1+ /lpf; Mucus,Urine 1+ /lpf
[2025-04-14] VITALS (19 sets, daily range): BP systolic 96–169; BP diastolic 49–80; PULSE 80–94; RESP 14–23; TEMP 36.3–38.5; O2SAT 91–97; BMI 22.4
[2025-04-14 00:06] LABS: NT Pro Brain Natriuretic Pep. 1270 pg/mL (0-450)
[2025-04-14] MEDS: PIPERACILLIN/TAZO 4.5 GM in 0.9 % SODIUM CHLORIDE 100 ML IV (00:27)
--- NOTE | 2025-04-14 00:34 | P.HP_ITS ---
History of Present Illness *Admission Date: 04/14/25 *Reason for visit:: altered mental status *History of present illness: History obtained from ER documentation. Patient poor historian with no family at bedside by the time my evaluation. Ms. Jordan is an 85-year-old female with a past medical history of coronary artery disease with 11 stents, current smoker, thyroid disease, hypertension, on Xarelto who presented to the emergency department with altered mental status from home. For EMS, patient began screaming at home daughter went to bedside patient stiffened up, continued to yell help and became altered. When son arrived who lived across the street he said that she was fighting them and was not acting like herself. On arrival in the emergency department, patient was alert and oriented x 2 was reporting chest pain but denied any other symptoms. When son and daughter arrived, they state that patient had just gone to bed when she started yelling help. They state that she threw herself back on the bed there may have been a moment of loss of consciousness and patient was not acting like herself afterwards. Patient was fighting with the son when he arrived. They state that she is currently still not at her baseline. They deny that she has had any blood in her stools or any other symptoms. He has not had any recent fevers or other infectious symptoms. She has been taking her medications as prescribed no recent medication changes. Workup in the ER found severe anemia with hemoglobin of 5. Chest imaging showing right middle lobe consolidation. Meeting SIRS criteria with hypothermia and tachycardia. Transfused 2 units in the ED. Started on broad-spectrum antibiotics. Medicine consulted for further management of suspected sepsis, anemia of unknown etiology, and encephalopathy. On my evaluation she just tells me she hurts in her back and feels nauseous. Does not know where she is or why. Was pleasant on exam but is in mild to moderate discomfort. On 3 L nasal cannula oxygen satting 93%. Systolic blood pressure 150-160 PFSH [facility] Disclaimer: The information contained in this section may have been updated after the patient was seen, as this information can be updated by other users. Medical History (Updated 04/14/25 @ 01:52 by Nadeem Bellamy MD) Hypothyroid Social History Smoking Status: Smoker, status unknown tobacco type: cigarettes alcohol intake: never current occupational status: other Travel in the last 8 weeks?: None Have you lived/traveled outside US in past 30 days?: No Contact w/someone who lives/traveled outside US past 30 days?: No Exposure to someone with infectious disease in past 14 days?: No Do you have a fever (greater than 100.4 F or 38 C)?: No Have you tested positive for COVID-19?: No Exposed to someone with COVID-19 in past 14 days?: No Do you have a sore throat?: No Do you have a cough?: No Do you have any weakness?: No Do you have any diarrhea?: No Are you experiencing any unusual bleeding?: No Do you have any muscle aches/pain?: No Do you have any abdominal pain?: No Are you experiencing loss of taste or smell?: No Other Medical History Have you received the Flu Vaccine for this season: No Have you received the Pneumonia Vaccine: No Review of Systems Review of Systems Review of systems (narrative): 14 point review of systems performed, pertinent positives and negatives as per [facility] Meds Home Medications and Allergies Home Medications ?Medication ?Instructions ?Recorded ?Confirmed ?Type aspirin 81 mg chewable tablet 81 mg PO DAILY cardiac 1 03/31/25 History levothyroxine 88 mcg tablet 88 mcg PO DAILY htypothy 1 03/31/25 History metoprolol succinate 50 mg 50 mg PO DAILY bp 05/23/21 03/31/25 History tablet,extended release 24 hr omeprazole 40 mg capsule,delayed 40 mg PO DAILY GERD 1 03/31/25 History release rosuvastatin 40 mg tablet 40 mg PO DAILY hld 05/23/21 03/31/25 History cephalexin 500 mg capsule mg PO BID 03/31/25 03/31/25 History cetirizine 10 mg capsule (Zyrtec) 10 mg PO DAILY 03/3103/31/25 History meclizine 25 mg tablet mg PO TID PRN 03/31/2503/31 History rivaroxaban 20 mg tablet (Xarelto) mg PO DAILY 5 03/31/25 History New Prescriptions to Start Prescriptions: Allergies Allergy/AdvReac Type Severity Reaction Status Date / Time Sulfa (Sulfonamide Allergy Verified 08/26/25 13:16 Antibiotics) Exam Data for Last 24 hours Vital signs and Labs for Last 24 Hours: Temp Pulse Resp BP Pulse Ox O2 Del Method 96.4 F L 98 H 22 148/68 H 93 L Room Air 04/13/25 23:12 04/13/25 23:12 04/13/25 23:12 04/13/25 23:12 04/13/25 23:12 04/13/25 23:12 Laboratory Results - last 24 hr 04/13/25 22:44: WBC 6.2, RBC 1.94 L*, Hgb 5.0 L*, Hct 16.4 L*, MCV 84.5, MCH 25.8 L, MCHC 30.5 L, RDW 16.2, Plt Count 423, MPV 9.2, Neut % (Auto) 65.4, Lymph % (Auto) 20.5, [place] % (Auto) 11.5 H, Eos % (Auto) 1.0, Baso % (Auto) 0.3, Neut # (Auto) 4.1, Lymph # (Auto) 1.3, [place] # (Auto) 0.7, Eos # (Auto) 0.1, Baso # (Auto) 0.0, PT 13.1 H, INR 1.20 H, VBG pH 7.38, VBG pCO2 34.3 L, VBG pO2 71.7 H, VBG HCO3 19.6 L, VBG Total CO2 20.7 L, VBG O2 Saturation 92.8 H, VBG Base Excess -5.6 L, VBG Lactic Acid 6.2 H, Sodium 135 L, Potassium 3.4 L, Chloride 104, Carbon Dioxide 19 L, Anion Gap 15.4 H, BUN 18 H, Creatinine 1.60 H, Estimated Creat Clear 30, Estimated GFR 31 L, Est GFR ( Amer) 37 L, Glucose 139 H, Calcium 9.5, Phosphorus 3.9, Magnesium 2.2, Total Bilirubin 0.3, AST 33, ALT 17, Alkaline Phosphatase 58, Troponin I 0.09 H, NT-Pro-B Natriuret Pep 1270 H, Total Protein 6.1 L, Albumin 3.8, Globulin 2.3, Albumin/Globulin Ratio 1.7, Lipase 149, TSH 12.20 H, Free T4 1.52, Salicylates < 1.0 L, Acetaminophen < 10 L 04/13/25 23:00: Urine Color Yellow, Urine Appearance Clear, Urine pH 6.0, Ur Specific Maryneal 1.025, Urine Protein 1+ A, Urine Glucose (UA) Negative, Urine Ketones Negative, Urine Blood Negative, Urine Nitrate Negative, Urine Bilirubin Negative, Urine Urobilinogen 0.2, Ur Leukocyte Esterase Negative, Urine RBC 5- 10, Urine WBC 3-5, Ur Squamous Epith Cells 3-5, Urine Bacteria 1+, Hyaline Casts 3-5, Urine Mucus 1+ 04/13/25 23:02: Urine Opiates Screen Negative, Urine Methadone Screen Negative, Ur Barbituates Screen Negative, Ur Phencyclidine Scrn Negative, Ur Amphetamines Screen Negative, U Benzodiazepines Scrn Negative, Urine Cocaine Screen Negative, U Marijuana (THC) Screen Negative I & O for Last 24 hours: Intake & Output 04/11/25 04/12/25 04/13/25 04/14/25 23:59 23:59 23:59 23:59 Weight 70.307 kg Constitutional Constitutional: mild distress, average body habitus, chronically ill appearing and cooperative *Routine HEENT Exam Head: Present normocephalic Eye: Present EOMI and PERRL ENT: Present mucous membranes moist *Routine Neck Exam Neck: Present supple; Absent lymphadenopathy *Routine Respiratory Exam Respiratory: Present crackles (posterior lung gardiner) and normal respiratory effort; Absent rhonchi *Routine Cardiovascular Exam Cardiovascular: Present tachycardia *Routine Abdominal Exam Abdominal: Present soft, normoactive bowel sounds and tenderness (nonfocal); Absent distended *Routine Rectal Exam Rectal:: deferred *Routine Genitalia Exam Genitalia:: deferred Comment:: davis in place *Routine Extremities Exam Extremities: Present edema (1+ in LLE); Absent cyanosis or clubbing *Routine Skin Exam Skin: Present warm; Absent rash Comments: wound on left knee (abrasion dime sized) *Routine Neurological Exam Neurological: Present alert, altered mental status and moving all extremities Comments: oriented to self, confused on where she is and why, just says she hurts Assessment and Plan *Assessment and plan (1) Acute metabolic encephalopathy: Status: Acute Category: Medical Code(s): G93.41 - Metabolic encephalopathy (2) Anemia: Status: Acute Category: Medical Code(s): D64.9 - Anemia, unspecified (3) Hypothyroid: Status: Acute Category: Medical Code(s): E03.9 - Hypothyroidism, unspecified (4) Sepsis: Status: Suspected Category: Medical Code(s): A41.9 - Sepsis, unspecified organism (5) Right middle lobe pneumonia: Status: Acute Category: Medical Code(s): J18.9 - Pneumonia, unspecified organism (6) UTI (urinary tract infection): Status: Acute Category: Medical Code(s): N39.0 - Urinary tract infection, site not specified Plan 85-year-old female was brought to the ER because of confusion per family. On arrival, was found to be anemic, had elevated lactate on VBG, also concern for infection with possible pneumonia versus UTI. Meeting sepsis criteria with tachycardia in the 90s, body temperature 96.4 (less than 36 Celsius), right middle lobe consolidation and urine that is grossly abnormal suspicious for UTI. Initiated on vancomycin and Zosyn in the ED. Discussed case with ER physician, request admission for further management and workup of anemia, confusion, suspected sepsis. I decided to admit to stepdown for further care. Received 2 units in the ED. Awaiting repeat labs. Will monitor in stepdown level due to severity of current illness. Problems addressed as follows: SIRS for sepsis, present on admission Suspected pneumonia Suspected UTI Acute metabolic encephalopathy - White count normal at 6.2, urinalysis grossly abnormal, chest imaging with a right middle lobe consolidation, patient tachycardic with new oxygen requirement, lactate of 6, hypothermic. Blood cultures obtained - Received vancomycin and Zosyn in the ED. Will continue on renally dosed at 2.25 g every 6 hours - Treat for at least 48 hours pending culture results. - Tylenol IV for fever given patient's nausea. - Patient appears confused on exam. Not at baseline per family's report. Concern for this being secondary to infection and anemia. Monitor for improvement with treatment of infections and improvement in hemoglobin. - PT and OT to evaluate the morning - Initial lactate was 6, repeat lactate pending with 2-hour post H&H labs. Also has CBC, CMP, magnesium ordered for the morning along with procalcitonin and CRP Anemia Suspected blood loss secondary to anticoagulation - MCV normal at 84. Hemoglobin 5.0. White count 6.2. Platelets 423. Patient is on aspirin and appears to have been started on Xarelto within the past month. Unclear as to why at this time. - Will clarify with family when available. During history in the ER, denied melenic stools or bright red blood per rectum. BUN not disproportionately elevated to creatinine suggestive of upper GI bleed. - Initiated on Protonix however with 80 mg IV bolus in ED, continue 40 mg IV twice daily - Transfusion threshold hemoglobin less than 7. Received 2 units in the ED. - Hemoglobin 8.2 three months ago - Iron, TIBC, ferritin ordered for the morning Pneumonia versus pulmonary edema - Chest imaging per my review with bilateral dependent reticular density and complete opacification of right middle lobe. - In light of BNP of 1200, administer 80 mg IV once of Lasix after transfusion. Also has new oxygen requirement. Currently on 3 L in the ER for goal sats greater than 90%. Wean as tolerated Hypothyroid: TSH 12.2. Supposed to be on levothyroxine 88 mcg daily at home. Will increase to 100 mcg daily. Needs repeat TSH in 6-week Back pain: Appears to have significant degenerative L1/L2 disease on CT of her abdomen per my review. Initiate Tylenol IV as above due to n.p.o. status and nausea. Also consider morphine for more severe breakthrough pain. Monitor for toxicity with morphine 2 mg IV as needed every 4 hours DNR/DNI N.p.o. SCDs, VTE contraindicated given unclear etiology of anemia
--- NOTE | 2025-04-14 00:35 | PC.NURSE ---
EMERGENT RELEASED BLOOD DOCUMENTATION Product Unit Number: [id number], [id number] Start Time: 04/13/2025 23:57 Stop Time: 04/14/2025 00:29 Volume Infused 500 ml Vitals: Pre: 23:55 BP:153/75: Resp 16, O2:98%, Pulse 97, Temp 97.2 Start: 23:57 BP:145/68. Resp: 18, O2:95%, Pulse 97, 5 Minute: 00:02 BP: 141/74, Resp: 17, O2:95% Pulse:95 10 Minute 00:07 BP: 147/70, Resp:17, O2 :95%, Pulse 92 15 Minutes 00:12 BP 157/74, Resp:17, O2:95%, Pulse 91 30 Minutes 00:27 BP 147/74, Resp: 18, O2:96%, Pulse:92 Complete: 00:29 BP: 148/76, Resp: 18, O2: 96%, Pulse:90, Temp: 97.2 Pt shows not signs of reactions and tolerated blood transfusion well. Emergent Blood Transfusion Note Complete
[2025-04-14] MEDS: PANTOPRAZOLE SODIUM 80 MG in 0.9 % SODIUM CHLORIDE 100 ML 100 MG IV (01:12)
--- NOTE | 2025-04-14 01:54 | PC.NURSE ---
pt to icu unit via stretcher at 7140
[2025-04-14] MEDS: MORPHINE 2MG/ML SYRINGE 2 MG IV ×2 (02:19→12:28)
[2025-04-14] MEDS: FUROSEMIDE 40MG/4ML VIAL 80 MG IV (02:36)
[2025-04-14] MEDS: ONDANSETRON 4MG/2ML VIAL 4 MG IV ×2 (02:49→12:31)
[2025-04-14 02:56] LABS: Reflex Lactic Add Lactic Reflex
[2025-04-14 03:10] LABS: Hematocrit 30.3 % (37.0-47.0)
[2025-04-14 03:21] LABS: Hemoglobin 9.2 g/dL (12.2-16.2)
[2025-04-14 03:56] LABS: Lactic Acid Follow Up (RFLX 1) 2.2 mmol/L (0.7-2.1)
[2025-04-14 03:57] LABS: Troponin I 0.31 ng/ml (0.00-0.034)
--- NOTE | 2025-04-14 04:04 | ECG_ITS ---
APPROVED REPORT Exam: Resting ECG HR:85 bpm ECG Measurements Heart Rate 85 AXES NE 102 P 216 QRSd 102 QRS 58 QT 395 T -77 QTc 437 [address] ATRIAL PACEMAKER [address] DEVIATION AND MODERATE T-WAVE ABNORMALITY, CONSIDER ANTEROLATERAL ISCHEMIA [-0.1+ mV T-WAVE IN V3-V6] ST DEVIATION AND MODERATE T-WAVE ABNORMALITY, CONSIDER INFERIOR ISCHEMIA [-0.1+ mV T-WAVE IN II/aVF] ABNORMAL ECG UNCONFIRMED REPORT Electronically signed by : Lamont Dennison MD 04/14/2025 09:08:34
[2025-04-14] MEDS: METOCLOPRAMIDE HCL 10MG/2ML VIAL 5 MG IVP (04:14)
[2025-04-14] MEDS: NITROGLYCERIN 0.4MG SL TABLET 0.4 MG SL (04:17)
--- NOTE | 2025-04-14 04:24 | PC.NURSE ---
around 0300 pt started vomiting and complaining of LUQ pain in the abdomen. Zofran was given at that time. Pts vomiting subsided for a little while but pt started vomiting again. Provider was notified. See MAR for new orders. Provider also ordered an EKG at this time (0405) due to pts troponin. After the EKG was obtained provider then placed more orders. See MAR.
[2025-04-14 05:07] LABS: Reflex Lactic (2 hrs) Add Lactic Reflex
[2025-04-14 06:16] LABS: Hematocrit 29.2 % (37.0-47.0); Hemoglobin 9.1 g/dL (12.2-16.2); Immature Granulocytes % 0.9 %; Mean Corpuscular HGB Conc 31.2 g/dL (31.8-35.4); Mean Corpuscular Hemoglobin 27.2 pg (27.0-31.2); Mean Corpuscular Volume 87.2 fl (81-99); Nucleated Red Blood Cells % 0.3 %; Platelet Count 356 K/mm3 (142-424); Red Blood Count 3.35 M/mm3 (4.20-5.40); Red Cell Distribution Width-SD 49.1 fL; White Blood Count 9.1 K/mm3 (4.8-10.8)
[2025-04-14] MEDS: PIPERACILLIN/TAZO 2.25 GM in 0.9 % SODIUM CHLORIDE 50 ML IV ×4 (06:18→23:27)
[2025-04-14 06:26] LABS: Alanine Aminotransferase 13 U/L (12-78); Albumin Level 4.2 g/dl (3.5-5.0); Albumin/Globulin Ratio 1.6 (1.1-1.8); Alkaline Phosphatase 77 U/L (38-126); Anion Gap 14.3 mEq/L (5-15); Aspartate Amino Transferase 50 U/L (14-36); Bilirubin,Total 1.4 mg/dl (0.2-1.3); Blood Urea Nitrogen 17 mg/dl (7-17); Calcium 9.4 mg/dl (8.4-10.2); Carbon Dioxide 22 mmol/L (22.0-30.0); Chloride 102 mmol/L (98-107); Creatinine Clearance Estimated 26 mL/min (50-200); Creatinine,Serum 1.60 mg/dl (0.52-1.04); Estimated Glomerular Filt Rate 31 ml/min (>60); GFR (African American) 37 ML/MIN (>60); Globulin 2.7 g/dL (1.3-3.2); Glucose 131 mg/dl (74-100); Magnesium 2.2 mg/dl (1.6-2.3); Potassium 3.3 mmoL/L (3.5-5.1); Sodium 135 mmol/L (136-145); Total Protein,Serum 6.9 g/dl (6.3-8.2)
[2025-04-14 06:27] LABS: Lactic Acid Follow up (RFLX 2) 2.6 mmol/L (0.7-2.1)
[2025-04-14 06:33] LABS: C-Reactive Protein 4.9 mg/L (0-4)
[2025-04-14 07:05] LABS: Procalcitonin 0.180 ng/mL (0.0-2.0)
[2025-04-14 07:09] LABS: Troponin I 1.49 ng/ml (0.00-0.034)
--- NOTE | 2025-04-14 07:36 | CA_ITS ---
APPROVED REPORT EXAM: Comprehensive 2D, Doppler, and color-flow Echocardiogram Car Sealer: CYNTHIA Mendoza, RVS Ht: 5 ft 4 in Wt: 134lbs BSA: 1.65 BP: 130/69 mmHg Indications: CAD, Smoker, elevated troponin, anemia Hgb=5, Dizziness/vertigo, HTN, Hypothyroidism Echo Enhancing Agent Comments: TDS: due to patient factors scanned supine throughout exam. 2D Dimensions Left Atrium 3.54 cm LA Volume 38.80 mL LA Volume Index 23.00 mL/m2 (M/F) 16-34 M-Mode Dimensions RVDd 2.43 cm (0.9-2.6) LA Diam 3.26 cm (1.9-4.0) LVDd 4.52 cm (3.5-5.7) LVDs 3.24 cm (3.5-5.7) IVSd 1.09 cm (0.6-1.1) PWd 1.00 cm (0.6-1.1) EF (Teich) 54.80% EPSs 0.82 cm FS 28.30% EDV (Teich) 93.40 mL TAPSE 1.97 (<1.7) ESV (Teich) 42.20 mL LV Diastology E Decel Time 137 (160-240 msec) E/A Ratio 0.63 MED A' 10.10 cm/s LAT A' 10.60 cm/s Aortic Valve MACK Index 0.82 cm2/m2 AoV Peak Abelino. 212.0 (50-130 cm/s) AO Peak GR. 18.00 mmHg AO Mean GR. 10.80 (<5 mmHg) AO VTI 42.9 (18-25 cm) MACK (VTI) 1.39 (2.5-4.5 cm2) Mitral Valve MV A Velocity 101.0 (40-130 cm/s) E/A Ratio 0.63 Tricuspid Valve TR P. Velocity 250.00 cm/s RAP Estimate 10.00 mmHg RVSP 35.00 mmHg Left Ventricle The left ventricle is normal size. Left ventricular systolic function is normal. The left ventricular ejection fraction is within the normal range. There is increased left ventricular wall thickness. The septum is asynchronous. Transmitral Doppler flow pattern suggests impaired LV relaxation. LVEF is 50-55% Right Ventricle The right ventricle is mildly dilated. The right ventricular systolic function is mildly reduced. Atria The left atrium is mildly dilated. The right atrium is mildly dilated. There is no color Doppler evidence of interatrial shunt. Aortic Valve The aortic valve is mildly thickened. Mild aortic stenosis is present. MACK by continuity equation is 1.6 cm???. Peak velocity 2.1 m/s. Mean AV gradient 11 mmHg. Max AV gradient 16 mmHg. Trace aortic regurgitation is present. Mitral Valve The mitral valve is mildly thickened. No evidence of mitral valve stenosis. Moderate mitral regurgitation is present. Tricuspid Valve The tricuspid valve leaflets are thin and pliable. Mild tricuspid regurgitation. RVSP is 30-35 mmHg. Pulmonic Valve The pulmonary valve is grossly normal in structure. Trace pulmonic valve regurgitation is present. Great Vessels The aortic root is normal in size. IVC is normal in size and collapses >50% with inspiration. Pericardium There is no pericardial effusion. Other Information Study Quality: Fair Conclusion Normal LV systolic function. Mild RV dilation with mild reduction in RV function. Biatrial dilation. Mild (MACK by continuity equation is 1.6 cm???. Peak velocity 2.1 m/s. Mean AV gradient 11 mmHg. Max AV gradient 16 mmHg). Moderate MR. Mild TR. Electronically signed by : Kellie Waller MD 04/14/2025 12:19:24
[2025-04-14 07:54] LABS: Total Cells Counted 100
[2025-04-14 07:55] LABS: Hypochromasia 1+
[2025-04-14] MEDS: LEVOTHYROXINE 100MCG (0.1MG) TAB 100 MCG PO (08:17)
[2025-04-14] MEDS: PANTOPRAZOLE 40MG VIAL 40 MG IV ×2 (08:18→21:29)
[2025-04-14] MEDS: SODIUM CHLORIDE 0.9% 10ML VIAL 10 ML IV ×2 (08:18→21:29)
[2025-04-14] MEDS: POTASSIUM CHLORIDE 10 MEQ, LIDOCAINE HCL/PF 3 ML in 0.9 % SODIUM CHLORIDE 100 ML 108 MEQ IV ×6 (08:18→14:20)
[2025-04-14 08:29] LABS: Iron 127 ug/dL (37-170)
--- NOTE | 2025-04-14 08:41 | HMH.PHAINT1 ---
Pharmacy Intervention Comments: MEDICATION RECONCILIATION COMPLETED ON PATIENT USING EXTERNAL FILL HISTORY FROM PHARMACY AND LIST FROM PCP OFFICE. -[facility], PAC[facility]
[2025-04-14 08:56] LABS: Total Iron Binding Capacity 433 ug/dL (265-497)
[2025-04-14 09:22] LABS: Ferritin 10.6 ng/ml (11.1-264)
[2025-04-14 09:54] LABS: Lipase 139 U/L (23-300)
--- NOTE | 2025-04-14 09:55 | HMH.OTEV ---
OT Evaluation Rehab OT IP Evaluation Start: 04/14/25 01:53 Freq: ONCE Status: Active Protocol: Document 04/14/25 09:40 [place] (Rec: 04/14/25 09:55 [facility] [id number]) Rehab OT IP Assessment Subjective History Pt oriented x 2 on arrival. Pt admitted on 04/14/25 due to altered mental status and anemia. History and physical: Ms. Jordan is an 85-year-old female with a past medical history of coronary artery disease with 11 stents, current smoker, thyroid disease, hypertension, on Xarelto who presented to the emergency department with altered mental status from home. For EMS, patient began screaming at home daughter went to bedside patient stiffened up, continued to yell help and became altered. When son arrived who lived across the street he said that she was fighting them and was not acting like herself. On arrival in the emergency department, patient was alert and oriented x 2 was reporting chest pain but denied any other symptoms. When son and daughter arrived, they state that patient had just gone to bed when she started yelling help. They state that she threw herself back on the bed there may have been a moment of loss of consciousness and patient was not acting like herself afterwards. Patient was fighting with the son when he arrived. They state that she is currently still not at her baseline. They deny that she has had any blood in her stools or any other symptoms. He has not had any recent fevers or other infectious symptoms. She has been taking her medications as prescribed no recent medication changes. Workup in the ER found severe anemia with hemoglobin of 5. Chest imaging showing right middle lobe consolidation. Meeting SIRS criteria with hypothermia and tachycardia. Transfused 2 units in the ED. Started on broad-spectrum antibiotics. Medicine consulted for further management of suspected sepsis, anemia of unknown etiology, and encephalopathy. On my evaluation she just tells me she hurts in her back and feels nauseous. Does not know where she is or why. Was pleasant on exam but is in mild to moderate discomfort. On 3 L nasal cannula oxygen satting 93%. Systolic blood pressure 150-160 Subjective Pt unable to provide any prior level of functioning due to altered mental status I have edelmira cat in my garage. Pt was supine in bed and appeared to be confused upon arrival. Pt willingly participated in therapy session and engaged in transition from supine to sitting EoB Mod x2 requiring Max A verbal cueing for sequencing throughout task. Pt able to maintain static sitting balance with cga for ~3 minutes with cga; pt demonstrated fair activity tolerance. After sitting EoB, pt transitioned back to supine in bed with Mod A x2. Pt was left safely in bed with call button in reach . Objective Patient Orientation Name,Birthday Right Upper WFL Extremity Gross ROM Left Upper Extremity WFL Gross ROM Bed Mobility bed mobility-scooting,bed mobility - supine/sit Assist Level Moderate x 2 (50% assist) Rehab OT IP prob,goals,plan Problems Date of Evaluation: 04/14/25 OT IP Problems Bed Mobility,Transfers,Balance,Self care,Safety Rehab Potential Rehab Potential Fair Plan OT intervention Plan Bed Mobility,Transfers,Balance,Self care,Safety OT Plan Frequency Daily Duration LOS Discharge Goals Bed Mobility Ability Assistance x1 Sit to Stand Chair Moderate x 1 (50% assist) Transfer Ability Chair Transfer Moderate x 1 (50% assist) Ability Chair Transfer Stand Step Pivot Technique Chair Transfer Rolling Walker Assistive Devices Lower Body Dressing Moderate Assistance Ability Performing Toilet Moderate Assistance Hygiene Ability Overall Commode/ Moderate Assistance Toilet Transfer Ability Commode/Toilet Stand Step Pivot Transfer Technique Discharge Plan OT Discharge Plan Pt will continue to be seen for OT services while at [facility]. At this time, pt would benefit most from short term rehab at [facility]. Continued skilled therapy is important in order for patient to improve strength, safety, endurance, ADL independence, and functional transfers to reach PLOF. Eval Complexity Eval Charge Codes 52982 - Moderate Complexity PHYSICIAN CERTIFICATION: I certify the specified therapy services for Kathia Jordan are required, authorized, and reviewed every 30 days.
--- NOTE | 2025-04-14 09:59 | HMH.PTEV ---
Physical Therapy Evaluation Rehab PT IP Evaluation Start: 04/14/25 02:15 Freq: ONCE Status: Active Protocol: Document 04/14/25 09:56 GUY (Rec: 04/14/25 09:59 GUY [id number]) Subjective/History History History Per H&P: Ms. Jordan is an 85-year-old female with a past medical history of coronary artery disease with 11 stents, current smoker, thyroid disease, hypertension, on Xarelto who presented to the emergency department with altered mental status from home. For EMS, patient began screaming at home daughter went to bedside patient stiffened up, continued to yell help and became altered. When son arrived who lived across the street he said that she was fighting them and was not acting like herself. On arrival in the emergency department, patient was alert and oriented x 2 was reporting chest pain but denied any other symptoms. When son and daughter arrived, they state that patient had just gone to bed when she started yelling help. They state that she threw herself back on the bed there may have been a moment of loss of consciousness and patient was not acting like herself afterwards. Patient was fighting with the son when he arrived. They state that she is currently still not at her baseline. They deny that she has had any blood in her stools or any other symptoms. He has not had any recent fevers or other infectious symptoms. She has been taking her medications as prescribed no recent medication changes. Subjective Subjective Pt presents supine in bed and confused. No family at beside to provide hx. Pt reports I don't remember to most history questions . Confirm social history with CM. [facility] How much help from another person do you currently need... Turning from your A little back to your side while in a flat bed without using bedrails? Moving from lying on A little back to sitting on the side of a flat bed without using bedrails? Moving to and from a A little bed to a chair ( including a wheelchair)? Standing up from a A lot chair using your arms? (e.g., wheelchair, bedside chair) Walking in hospital A lot room? Climbing 3-5 steps A lot with a railing? Mobility Score 15 Mobility Level [facility] Mobility 4 Move to chair/commode Mobility Calculator Rehab PT IP Eval Objective Appearance Patient Behavior Appropriate,Cooperative Patient Orientation Person,Birthday Difficulty following moderate instructions Speech Pattern Mumbled Ambulation Patient Able to No Ambulate Balance Ability to Arise Able, uses arms to help Sitting Balance Steady, safe Standing Balance Unsteady Transfers Bed Transfer Ability Minimal x 2 (25% assist) Rehab PT IP prob,goals,plan Problems Date of Evaluation: 04/14/25 PT IP Problems Bed Mobility,Transfers,Gait,Balance,Self care,Safety Rehab Potential Rehab Potential Good Plan PT Intervention Plan Bed Mobility,Transfers,Gait,Balance,Self care,Safety, Therapeutic Exercise Other Intervention 1-2 times Plan PT Plan Frequency Daily Duration LOS Discharge Goals Bed Transfer Ability Minimal x 1 (25% assist) Sit to Stand Chair Minimal x 1 (25% assist) Transfer Ability Discharge Plan PT Discharge Plan Initial physical therapy evaluation performed. Patient presents below baseline at this time in functional mobility, transfers, and strength. Pt not safe to return home at this time d/t current level of functional mobility. PT recommending rehabilitation placement upon d/c from [facility]. Pt would benefit from skilled PT while at [facility] to prevent further functional decline and maximize safety with mobility. Eval Complexity Eval Charge Codes 33516 - Moderate Complexity PHYSICIAN CERTIFICATION: I certify the specified therapy services for Kathia Jordan are required, authorized, and reviewed every 30 days.
[2025-04-14] MEDS: SODIUM CHLORIDE 3% 15ML NEB 3 ML IH (10:05)
--- NOTE | 2025-04-14 10:52 | SW/DCPLANNER ---
Addendum entered by [facility] 04/17/25 11:55: I have updated patient's son regarding situation. Addendum entered by [facility] 04/17/25 09:35: Per Pro patient has been approved by insurance. I did update Pro that patient required restraints throughout the night due to agitation. Pro asked that we continue to monitor patient for 24 hours and if improved w/ mild confusion they do have a Memory Care bed open they could obtain for this patient under skilled care. I will continue to follow up w/ patient, family, and [facility]. Per Pro auth is good thru 04/20. Addendum entered by [facility] 04/16/25 12:35: Pro w/ [facility] has started auth on this patient. Addendum entered by [facility] 04/16/25 10:58: Pro pennington/ [facility] and Suri pennington/ [facility] will be at bedside today to evaluate this patient. Addendum entered by [facility] 04/15/25 13:55: I have updated [facility] and [facility] that patient is now more alert. Updated patient information has been faxed to both facilities. Addendum entered by [facility] 04/15/25 11:14: I spoke w/ patient's daughter at bedside regarding placement. Patient's children are still agreeable to placement at this time. [facility] is not able to accept due to insurance. [facility] and [facility] are reviewing information and waiting to see if AMS clears. CM will continue to follow up. Addendum entered by [facility] 04/14/25 11:15: [facility] plans to visit patient for evaluation tomorrow morning. Original Note: Due to patient's confusion this AM I spoke w/ her son regarding plans once medically stable for discharge. PT/OT evaluated patient and recommended SNF level of care. Son is agreeable to placement and prefers [facility], [facility] or [facility]. I will fax information to all facilities and continue to follow up. I will also follow up w/ patient once she is more alert. Discharge date is unknown at this time.
[2025-04-14 11:14] LABS: Vitamin B12 719 pg/mL (239-931)
--- NOTE | 2025-04-14 11:42 | P.CONCA_ITS ---
History of Present Illness History of Present Illness Consult date: 04/14/25 Requesting physician: Mingo Lim Chief complaint: AMS History of present illness: This is an 84-year-old white female who was brought to the emergency department due to an altered mental status. She has a past medical history of coronary artery disease with 11 stents per her family, hypertension and current tobacco user. She is on Xarelto but it is unclear why she takes Xarelto. Per EMS the patient was screaming at home and stiffened up her body. She was yelling for help and became mentally altered. Her care son who lives across the street came over and said that she was fighting them and not acting like herself. Her children then called EMS and had her transported to the hospital due to an altered mental status. When she got here to [facility] she was alert and oriented x 2 and reporting chest pain. During my evaluation today the patient states that she has been having a headache and abdominal pain. She states that this has been severe. She thinks she might be short of breath at times as well. She states that she has just not felt good. She states that she has been really tired and fatigued and does not feel good. In the emergency department she reported chest pain but she only complains of a headache and abdominal pain to me today and does not report having chest pain. She is alert and oriented x 3 today but she is very confused and cannot give me any of her medical history. All of her medical history had to be obtained from her chart. The patient was able to tell me that she has coronary disease but she does not know when she had her last stenting. She does report that she has seen Dr. Marie in the past but she does not know if she has seen a senior accounting associate recently or where she would have seen his senior accounting associate. No family is available at bedside to answer these questions today. She appears to be in no distress and her vital signs are stable this morning. On admission the patient had a hemoglobin of 5 in the emergency department. She was transfused with 2 units of packed red blood cells. Her hemoglobin is up to 9.1 this morning. The patient has had an elevated troponin with a troponin max of 1.49. Her lactate was elevated at 2.2 and went up to 2.6. Her TSH was also elevated at 12.2. She had an elevated BNP at 1270. The patient was started on IV antibiotics as well in the emergency department. She states that she is feeling better today but still feels very tired. [facility] Disclaimer: The information contained in this section may have been updated after the patient was seen, as this information can be updated by other users. Medical History (Updated 04/14/25 @ 12:22 by Sarahy Zarate APRN) NSTEMI (non-ST elevated myocardial infarction) Stenosis of carotid artery Hyperlipidemia HTN (hypertension) Smoker CAD (coronary artery disease) Hypothyroid Surgical History (Updated 04/14/25 @ 02:10 by Maggie Chavez, RN) Stented coronary artery Social History (Updated 04/14/25 @ 02:11 by Maggie Chavez RN) Smoking Status: Current every day smoker tobacco type: cigarettes alcohol intake: never current occupational status: other Travel in the last 8 weeks?: None Have you lived/traveled outside [place] in past 30 days?: No Contact w/someone who lives/traveled outside US past 30 days?: No Exposure to someone with infectious disease in past 14 days?: No Do you have a fever (greater than 100.4 F or 38 C)?: No Have you tested positive for COVID-19?: No Exposed to someone with COVID-19 in past 14 days?: No Do you have a sore throat?: No Do you have a cough?: No Do you have any weakness?: No Do you have any diarrhea?: No Are you experiencing any unusual bleeding?: No Do you have any muscle aches/pain?: No Do you have any abdominal pain?: No Are you experiencing loss of taste or smell?: No Review of Systems Review of Systems Review of systems:: pertinent systems reviewed and negative unless documented below Constitutional Constitutional: Reports system reviewed and no additional complaints, except as documented, Reports fatigue, Reports headache(s), Reports lethargy and Reports weakness Eyes Eyes: Reports system reviewed and no additional complaints, except as documented ENT Ears, Nose, Mouth, and Throat: Reports system reviewed and no additional complaints, except as documented and Reports headache(s) *Cardiovascular Cardiovascular: Reports system reviewed and no additional complaints, except as documented, Denies chest pain and Reports dyspnea *Respiratory Respiratory: Reports system reviewed and no additional complaints, except as documented and Reports dyspnea *Gastrointestinal Gastrointestinal: Reports system reviewed and no additional complaints, except as documented and Reports abdominal pain *Genitourinary Genitourinary: Reports system reviewed and no additional complaints, except as documented *Musculoskeletal Musculoskeletal: Reports system reviewed and no additional complaints, except as documented Integumentary/Breasts Skin/Breast: Reports system reviewed and no additional complaints, except as documented *Neurologic Neurologic: Reports system reviewed and no additional complaints, except as d ocumented, Reports headache(s) and Reports weakness Psychiatric Psychiatric: Reports system reviewed and no additional complaints, except as documented and Reports other (Altered mental status) Endocrine Endocrine: Reports system reviewed and no additional complaints, except as documented and Reports fatigue Hematologic/Lymphatic Hematologic/Lymphatic: Reports system reviewed and no additional complaints, except as documented Allergic/Immunologic Allergic/Immunologic: Reports system reviewed and no additional complaints, except as documented Exam Data for Last 24 hours Vital signs and Labs for Last 24 Hours: Temp Pulse Resp BP Pulse Ox O2 Del Method O2 Flow Rate 100.8 F H 89 18 121/52 L 95 Nasal Cannula 2 04/14/25 10:00 04/14/25 10:04/14/25 10:04/14/25 10:00 04/14/25 10:04/14/25 10:04/14/25 10:00 Laboratory Results - last 24 hr 04/13/25 22:44: WBC 6.2, RBC 1.94 L*, Hgb 5.0 L*, Hct 16.4 L*, MCV 84.5, MCH 25.8 L, MCHC 30.5 L, RDW 16.2, Plt Count 423, MPV 9.2, Neut % (Auto) 65.4, Lymph % (Auto) 20.5, [place] % (Auto) 11.5 H, Eos % (Auto) 1.0, Baso % (Auto) 0.3, Neut # (Auto) 4.1, Lymph # (Auto) 1.3, [place] # (Auto) 0.7, Eos # (Auto) 0.1, Baso # (Auto) 0.0, PT 13.1 H, INR 1.20 H, VBG pH 7.38, VBG pCO2 34.3 L, VBG pO2 71.7 H, VBG HCO3 19.6 L, VBG Total CO2 20.7 L, VBG O2 Saturation 92.8 H, VBG Base Excess -5.6 L, VBG Lactic Acid 6.2 H, Sodium 135 L, Potassium 3.4 L, Chloride 104, Carbon Dioxide 19 L, Anion Gap 15.4 H, BUN 18 H, Creatinine 1.60 H, Estimated Creat Clear 30, Estimated GFR 31 L, Est GFR ( Amer) 37 L, Glucose 139 H, Calcium 9.5, Phosphorus 3.9, Magnesium 2.2, Total Bilirubin 0.3, AST 33, ALT 17, Alkaline Phosphatase 58, Troponin I 0.09 H, NT-Pro-B Natriuret Pep 1270 H, Total Protein 6.1 L, Albumin 3.8, Globulin 2.3, Albumin/Globulin Ratio 1.7, Lipase 149, TSH 12.20 H, Free T4 1.52, Salicylates < 1.0 L, Acetaminophen < 10 L, Blood Type Confirm A Positive 04/13/25 23:00: Urine Color Yellow, Urine Appearance Clear, Urine pH 6.0, Ur Specific [place] 1.025, Urine Protein 1+ A, Urine Glucose (UA) Negative, Urine Ketones Negative, Urine Blood Negative, Urine Nitrate Negative, Urine Bilirubin Negative, Urine Urobilinogen 0.2, Ur Leukocyte Esterase Negative, Urine RBC 5- 10, Urine WBC 3-5, Ur Squamous Epith Cells 3-5, Urine Bacteria 1+, Hyaline Casts 3-5, Urine Mucus 1+ 04/13/25 23:02: Urine Opiates Screen Negative, Urine Methadone Screen Negative, Ur Barbituates Screen Negative, Ur Phencyclidine Scrn Negative, Ur Amphetamines Screen Negative, U Benzodiazepines Scrn Negative, Urine Cocaine Screen Negative, U Marijuana (THC) Screen Negative 04/13/25 23:53: Blood Type A Positive, Antibody Screen Negative, Crossmatch (AHG) See Detail 04/14/25 02:45: Hgb 9.2 L D, Hct 30.3 L, Lactate 2.2 H, Troponin I 0.31 H 04/14/25 05:01: WBC 9.1 D, RBC 3.35 L D, Hgb 9.1 L, Hct 29.2 L, MCV 87.2, MCH 27.2, MCHC 31.2 L, RDW 15.6, Plt Count 356, MPV 9.1, Neut % (Auto) 86.7 H, Lymph % (Auto) 5.8 L, [place] % (Auto) 6.3, Eos % (Auto) 0.2, Baso % (Auto) 0.1, Neut # (Auto) 7.9 H, Lymph # (Auto) 0.5 L, [place] # (Auto) 0.6, Eos # (Auto) 0.0, Baso # (Auto) 0.0, Total Counted 100, Neutrophils % (Manual) 89 H, Lymphocytes % (Manual) 8 L, Monocytes % (Manual) 3, Platelet Estimate Normal, Hypochromasia 1+, Sodium 135 L, Potassium 3.3 L, Chloride 102, Carbon Dioxide 22, Anion Gap 14.3, BUN 17, Creatinine 1.60 H, Estimated Creat Clear 26, Estimated GFR 31 L, Est GFR ( Amer) 37 L, Glucose 131 H, Lactate 2.6 H, Calcium 9.4, Magnesium 2.2, Iron 127, TIBC 433, Iron Saturation 29.03136, Ferritin 10.6 L, Total Bilirubin 1.4 H, AST 50 H D, ALT 13, Alkaline Phosphatase 77, Troponin I 1 .49 H, C-Reactive Protein 4.9 H, Total Protein 6.9, Albumin 4.2 D, Globulin 2.7, Albumin/Globulin Ratio 1.6, Lipase 139, Vitamin B12 719, Procalcitonin 0.180 I & O for Last 24 hours: Intake & Output 04/11/25 04/12/25 04/13/25 04/14/25 23:59 23:59 23:59 23:59 Intake Total 466.000 / 466.000 Output Total 1700 / 1700 Balance -1234.000 / -1234.000 Weight 155 lb 134 lb 7.994 oz Constitutional Constitutional: no acute distress and average body habitus *Routine HEENT Exam Head: Present normocephalic and atraumatic ENT: Present mucous membranes moist *Routine Neck Exam Neck: Present supple, full ROM and normal carotid upstroke; Absent JVD, carotid bruit or lymphadenopathy *Routine Respiratory Exam Respiratory: Present CTA bilaterally, normal respiratory effort, able to speak in complete sentences and symmetric chest movement *Routine Cardiovascular Exam Cardiovascular: Present RRR, Normal S1 and Normal S2; Absent murmur or gallop *Routine Abdominal Exam Abdominal: Present soft and normoactive bowel sounds; Absent tenderness, distended or organomegaly *Routine Extremities Exam Extremities: Present full ROM, pulses intact and normal capillary refill; Absent cyanosis, clubbing or edema *Routine Skin Exam Skin: Present intact and warm; Absent erythema *Routine Neurological Exam Neurological: Present alert, oriented X3 and altered mental status Routine Psychiatric Exam Psychiatric: Present normal affect Meds Home Medications and Allergies Home Medications ?Medication ?Instructions ?Recorded ?Confirmed ?Type aspirin 81 mg chewable tablet 81 mg PO DAILY 05/23/21 04/14/25 History levothyroxine 88 mcg tablet 88 mcg PO DAILY 05/23/21 0 04/14/25 History omeprazole 40 mg capsule,delayed 40 mg PO DAILY 04/14/25 History release rivaroxaban 20 mg tablet (Xarelto) 20 mg PO QPMWITHMEA L 03/31/25 04/14/25 Histo ry clopidogrel 75 mg tablet 75 mg PO DAILY 04/14/2504/30 History metoprolol tartrate 25 mg tablet 25 mg PO BID 04/14/25 04/14/25 History rosuvastatin 10 mg tablet 10 mg PO DAILY 04/14/2504/30 History New Prescriptions to Start Prescriptions: Allergies Allergy/AdvReac Type Severity Reaction Status Date / Time Sulfa (Sulfonamide Allergy Verified 03/31/25 13:16 Antibiotics) Assessment and Plan *Assessment and plan (1) NSTEMI (non-ST elevated myocardial infarction): Status: Acute Category: Medical Code(s): I21.4 - Non-ST elevation (NSTEMI) myocardial infarction (2) Anemia: Status: Acute Qualifiers: Anemia type: unspecified type Qualified Code(s): D64.9 - Anemia, unspecified Category: Medical Code(s): D64.9 - Anemia, unspecified (3) Sepsis: Status: Suspected Qualifiers: Sepsis acute organ dysfunction status: without acute organ dysfunction Sepsis type: sepsis due to unspecified organism Qualified Code(s): A41.9 - Sepsis, unspecified organism Category: Medical Code(s): A41.9 - Sepsis, unspecified organism (4) Right middle lobe pneumonia: Status: Acute Qualifiers: Pneumonia type: due to unspecified organism Qualified Code(s): J18.9 - Pneumonia, unspecified organism Category: Medical Code(s): J18.9 - Pneumonia, unspecified organism (5) UTI (urinary tract infection): Status: Acute Qualifiers: Hematuria presence: without hematuria Urinary tract infection type: site unspecified Qualified Code(s): N39.0 - Urinary tract infection, site not specified Category: Medical Code(s): N39.0 - Urinary tract infection, site not specified (6) HTN (hypertension): Status: Acute Qualifiers: Hypertension type: primary hypertension Qualified Code(s): I10 - Essential (primary) hypertension Category: Medical Code(s): I10 - Essential (primary) hypertension (7) CAD (coronary artery disease): Status: Acute Qualifiers: Associated angina: without angina Coronary Disease-Associated Artery/Lesion type: [place] artery [place] vs. transplanted heart: [place] heart Qualified Code(s): I25.10 - Atherosclerotic heart disease of [place] coronary artery without angina pectoris Category: Medical Code(s): I25.10 - Atherosclerotic heart disease of [place] coronary artery without angina pectoris (8) Smoker: Status: Acute Category: Social Hx Code(s): F17.200 - Nicotine dependence, unspecified, uncomplicated (9) Hyperlipidemia: Status: Acute Qualifiers: Hyperlipidemia type: mixed hyperlipidemia Qualified Code(s): E78.2 - Mixed hyperlipidemia Category: Medical Code(s): E78.5 - Hyperlipidemia, unspecified (10) Stenosis of carotid artery: Status: Acute Qualifiers: Laterality: bilateral Qualified Code(s): I65.23 - Occlusion and stenosis of bilateral carotid arteries Category: Medical Code(s): I65.29 - Occlusion and stenosis of unspecified carotid artery Plan Plan: 1. This is an [age]-year-old female who presented to the emergency department due to an altered mental status. She was found to have profound anemia with a hemoglobin of 5.0. She was transfused 2 units of packed red blood cells and her hemoglobin is 9.1 today. She does have a GI consult for her profound anemia. 2. The patient is currently being treated for UTI and pneumonia. She does have a fever today. She is getting IV antibiotics. Her lactate is elevated. Sepsis protocol has been initiated. 3. The patient did have an elevated troponin on admission with a troponin max of 1.49. She does have a history of coronary artery disease with reportedly 11 stents placed per her family. She does have an abnormal EKG but it is unclear whether or not this is her baseline. She is currently denying any chest pain or pressure. However, in the emergency department the patient indicated that she was having chest pain. Will obtain an echocardiogram to evaluate her LV functi on. 4. No plans for invasive left cardiac catheterization at this time until she recovers from her anemia, sepsis, pneumonia, UTI. It may be reasonable to proceed with further ischemic evaluation during this hospitalization once she is recovered from her acute illness and anemia, or wait and have this completed on an outpatient basis depending on the patient's symptoms and recovery. 5. Coronary artery disease is present. Her Plavix and aspirin are currently being held due to her anemia. 6. Her blood pressure is well-controlled. Once we know her ejection fraction and if it is normal we can restart her metoprolol as well. 7. Her LDL goal is less than 55. Will get a lipid panel in the morning. Continue her statin. 8. Her BNP was elevated on admission. She would likely benefit from diuresis. Will start her on Lasix 40 mg IV twice daily. 9. The patient is listed on Xarelto at home. It is unclear why she takes this medication. It is currently being held due to her anemia. 10. Carotid artery stenosis is present. This can be followed up on as an outpatient. 11. Further recommendations were made pending the patient's response to treatment and results of her echocardiogram. Thank you for the opportunity to help participate in the care of this patient. All recommendations and orders are per Dr. Waller. Addendum: Echocardiogram shows an ejection fraction of 55% with mild RV dilatation. There is mild and moderate MR. As mentioned above she would benefit from IV diuresis at this time. Will try to contact the patient's family to see what senior accounting associate she sees to [facility] records, and more specifically why she is taking Xarelto.
--- NOTE | 2025-04-14 12:04 | PC.NURSE ---
Pt left unit at 1158. attempted to call pt daughter Maureen to notify of room change, call [facility] to [employer] contacted pt son Gilbert at 1203 and notified him that pt was transferring to [facility] and will be in room [id number].
[2025-04-14 12:49] LABS: Adenovirus,PCR Not Detected (NotDetected); Chlamydophila Pneumoniae, PCR Not Detected (NotDetected); Coronavirus 19, PCR Not Detected (NotDetected); Coronovirus HKU1,PCR Not Detected (NotDetected); Influenza A, PCR Not Detected (NotDetected); Influenza AH1, 2009 Not Detected (NotDetected); Influenza AH1, PCR Not Detected (NotDetected); Influenza AH3,PCR Not Detected (NotDetected); Influenza B, PCR Not Detected (NotDetected); Mycoplasma Pneumoniae, PCR Not Detected (NotDetected); Parainfluenza 1, PCR Not Detected (NotDetected); Parainfluenza 2, PCR Not Detected (NotDetected); Parainfluenza 3, PCR Not Detected (NotDetected); Parainfluenza 4, PCR Not Detected (NotDetected)
--- NOTE | 2025-04-14 13:25 | EXP.GE.CONS ---
History of Present Illness *Admission Date: 04/14/25 *History of present illness: History obtained from ER documentation. Patient poor historian with no family at bedside by the time my evaluation. Ms. Jordan is an 85-year-old female with a past medical history of coronary artery disease with 11 stents, current smoker, thyroid disease, hypertension, on Xarelto who presented to the emergency department with altered mental status from home. For EMS, patient began screaming at home daughter went to bedside patient stiffened up, continued to yell help and became altered. When son arrived who lived across the street he said that she was fighting them and was not acting like herself. On arrival in the emergency department, patient was alert and oriented x 2 was reporting chest pain but denied any other symptoms. When son and daughter arrived, they state that patient had just gone to bed when she started yelling help. They state that she threw herself back on the bed there may have been a moment of loss of consciousness and patient was not acting like herself afterwards. Patient was fighting with the son when he arrived. They state that she is currently still not at her baseline. They deny that she has had any blood in her stools or any other symptoms. He has not had any recent fevers or other infectious symptoms. She has been taking her medications as prescribed no recent medication changes. Workup in the ER found severe anemia with hemoglobin of 5. Chest imaging showing right middle lobe consolidation. Meeting SIRS criteria with hypothermia and tachycardia. Transfused 2 units in the ED. Started on broad-spectrum antibiotics. Medicine consulted for further management of suspected sepsis, anemia of unknown etiology, and encephalopathy. Per admission H & P This is an 85-year-old female who presented to the ER from home with altered mental status. See above. She was found to have anemia with a hemoglobin of 5.0 and hematocrit of 16.4. 3 weeks ago the patient's hemoglobin was 8.2. INR 1.2 platelets 423. BUN within normal limits. LFTs within normal limits on initial lab draw. TSH is elevated at 12.2 with a normal free T4. She is iron deficient with a ferritin of 10.6. We are awaiting Hemoccult testing. She has been treated with Protonix 80 mg IV initially and now [address] noted fluid-filled proximal colon with diffuse mucosal enhancement concerning for acute colitis. She has had no vomiting or diarrhea or fever since admission and son denies that she has had any diarrhea at home that he is aware of. Initially the daughter denied that the patient had any blood in her stools or black stools at home. Son does not think she had any diarrhea or fevers. The patient is asleep but easily awakened and and oriented x 2. She has some nonsensical conversation but currently denies any pain. Nursing reports she received some morphine for her generalized pain. She complained of burning in her chest arm pain general body pain. Currently she reports being asymptomatic and is nontender to palpation throughout her abdomen. Her son is at bedside and has some minimal history for the patient. Her daughter is her caregiver at night and knows the full history and she is unfortunately not available currently. Per the son and medical history, patient is on Xarelto and has recently been struggling with a headache and diagnosed with vertigo through ENT. Had a single episode of confusion and stool accident a couple of weeks ago. Had much worsening altered mental status yesterday which prompted the visit to the ER. Son does not know when her last colonoscopy or EGD was. Reportedly the patient plan to be made DNI DNR. [facility] Disclaimer: The information contained in this section may have been updated after the patient was seen, as this information can be updated by other users. Medical History (Updated 04/14/25 @ 13:26 by Yvette Seals APRN) NSTEMI (non-ST elevated myocardial infarction) Stenosis of carotid artery Hyperlipidemia HTN (hypertension) Smoker CAD (coronary artery disease) Hypothyroid Surgical History (Updated 04/14/25 @ 02:10 by Maggie Chavez, RN) Stented coronary artery Social History (Updated 04/14/25 @ 02:11 by Maggie Chavez RN) Smoking Status: Current every day smoker tobacco type: cigarettes alcohol intake: never current occupational status: other Travel in the last 8 weeks?: None Have you lived/traveled outside [place] in past 30 days?: No Contact w/someone who lives/traveled outside US past 30 days?: No Exposure to someone with infectious disease in past 14 days?: No Do you have a fever (greater than 100.4 F or 38 C)?: No Have you tested positive for COVID-19?: No Exposed to someone with COVID-19 in past 14 days?: No Do you have a sore throat?: No Do you have a cough?: No Do you have any weakness?: No Do you have any diarrhea?: No Are you experiencing any unusual bleeding?: No Do you have any muscle aches/pain?: No Do you have any abdominal pain?: No Are you experiencing loss of taste or smell?: No Review of Systems Review of Systems Review of systems (narrative): Unable to obtain review of systems from patient due to altered mental status. Son can give some information and the remainder gleaned from medical records Constitutional Constitutional: Reports fatigue, Reports headache(s) and Reports weakness ENT Ears, Nose, Mouth, and Throat: Reports headache(s) *Gastrointestinal Gastrointestinal: Denies hematochezia and Denies melena *Neurologic Neurologic: Reports system reviewed and no additional complaints, except as documented, Reports headache(s) and Reports weakness Endocrine Endocrine: Reports fatigue Meds Home Medications and Allergies Home Medications ?Medication ?Instructions ?Recorded ?Confirmed ?Type aspirin 81 mg chewable tablet 81 mg PO DAILY 05/23/21 04/14/25 History levothyroxine 88 mcg tablet 88 mcg PO DAILY 05/23/21 04/14/25 History omeprazole 40 mg capsule,delayed 40 mg PO DAILY 05/23/21 04/14/25 History release rivaroxaban 20 mg tablet (Xarelto) 20 mg PO QPMWITHMEAL 03/31/25 04/14/25 History clopidogrel 75 mg tablet 75 mg PO DAILY 04/14/25 04/14/25 History metoprolol tartrate 25 mg tablet 25 mg PO BID 04/14/25 04/14/25 History rosuvastatin 10 mg tablet 10 mg PO DAILY 04/14/25 04/14/25 History New Prescriptions to Start Prescriptions: Allergies Allergy/AdvReac Type Severity Reaction Status Date / Time Sulfa (Sulfonamide Allergy Verified 03/31/25 13:16 Antibiotics) Exam (Inpt) Vital signs and Labs for Last 24 Hours: Temp Pulse Resp BP Pulse Ox O2 Del Method O2 Flow Rate 100.8 F H 89 18 121/52 L 95 Room Air 2 04/14/25 10:00 04/14/25 10:06 04/14/25 10:06 04/14/25 10:00 04/14/25 10:00 04/14/25 12:48 04/14/25 11:25 Laboratory Results - last 24 hr 04/13/25 22:44: WBC 6.2, RBC 1.94 L*, Hgb 5.0 L*, Hct 16.4 L*, MCV 84.5, MCH 25.8 L, MCHC 30.5 L, RDW 16.2, Plt Count 423, MPV 9.2, Neut % (Auto) 65.4, Lymph % (Auto) 20.5, Cameron % (Auto) 11.5 H, Eos % (Auto) 1.0, Baso % (Auto) 0.3, Neut # (Auto) 4.1, Lymph # (Auto) 1.3, Cameron # (Auto) 0.7, Eos # (Auto) 0.1, Baso # (Auto) 0.0, PT 13.1 H, INR 1.20 H, VBG pH 7.38, VBG pCO2 34.3 L, VBG pO2 71.7 H, VBG HCO3 19.6 L, VBG Total CO2 20.7 L, VBG O2 Saturation 92.8 H, VBG Base Excess -5.6 L, VBG Lactic Acid 6.2 H, Sodium 135 L, Potassium 3.4 L, Chloride 104, Carbon Dioxide 19 L, Anion Gap 15.4 H, BUN 18 H, Creatinine 1.60 H, Estimated Creat Clear 30, Estimated GFR 31 L, Est GFR ( Amer) 37 L, Glucose 139 H, Calcium 9.5, Phosphorus 3.9, Magnesium 2.2, Total Bilirubin 0.3, AST 33, ALT 17, Alkaline Phosphatase 58, Troponin I 0.09 H, NT-Pro-B Natriuret Pep 1270 H, Total Protein 6.1 L, Albumin 3.8, Globulin 2.3, Albumin/Globulin Ratio 1.7, Lipase 149, TSH 12.20 H, Free T4 1.52, Salicylates < 1.0 L, Acetaminophen < 10 L, Blood Type Confirm A Positive 04/13/25 23:00: Urine Color Yellow, Urine Appearance Clear, Urine pH 6.0, Ur Specific [place] 1.025, Urine Protein 1+ A, Urine Glucose (UA) Negative, Urine Ketones Negative, Urine Blood Negative, Urine Nitrate Negative, Urine Bilirubin Negative, Urine Urobilinogen 0.2, Ur Leukocyte Esterase Negative, Urine RBC 5-10, Urine WBC 3-5, Ur Squamous Epith Cells 3-5, Urine Bacteria 1+, Hyaline Casts 3-5, Urine Mucus 1+ 04/13/25 23:02: Urine Opiates Screen Negative, Urine Methadone Screen Negative, Ur Barbituates Screen Negative, Ur Phencyclidine Scrn Negative, Ur Amphetamines Screen Negative, U Benzodiazepines Scrn Negative, Urine Cocaine Screen Negative, U Marijuana (THC) Screen Negative 04/13/25 23:53: Blood Type A Positive, Antibody Screen Negative, Crossmatch (AHG) See Detail 04/14/25 02:45: Hgb 9.2 L D, Hct 30.3 L, Lactate 2.2 H, Troponin I 0.31 H 04/14/25 05:01: WBC 9.1 D, RBC 3.35 L D, Hgb 9.1 L, Hct 29.2 L, MCV 87.2, MCH 27.2, MCHC 31.2 L, RDW 15.6, Plt Count 356, MPV 9.1, Neut % (Auto) 86.7 H, Lymph % (Auto) 5.8 L, Cameron % (Auto) 6.3, Eos % (Auto) 0.2, Baso % (Auto) 0.1, Neut # (Auto) 7.9 H, Lymph # (Auto) 0.5 L, Cameron # (Auto) 0.6, Eos # (Auto) 0.0, Baso # (Auto) 0.0, Total Counted 100, Neutrophils % (Manual) 89 H, Lymphocytes % (Manual) 8 L, Monocytes % (Manual) 3, Platelet Estimate Normal, Hypochromasia 1+, Sodium 135 L, Potassium 3.3 L, Chloride 102, Carbon Dioxide 22, Anion Gap 14.3, BUN 17, Creatinine 1.60 H, Estimated Creat Clear 26, Estimated GFR 31 L, Est GFR ( Amer) 37 L, Glucose 131 H, Lactate 2.6 H, Calcium 9.4, Magnesium 2.2, Iron 127, TIBC 433, Iron Saturation 29.59639, Ferritin 10.6 L, Total Bilirubin 1.4 H, AST 50 H D, ALT 13, Alkaline Phosphatase 77, Troponin I 1.49 H, C-Reactive Protein 4.9 H, Total Protein 6.9, Albumin 4.2 D, Globulin 2.7, Albumin/Globulin Ratio 1.6, Lipase 139, Vitamin B12 719, Procalcitonin 0.180 I & O for Labs for Last 24 Hours: Intake & Output 04/12/25 04/13/25 04/14/25 04/15/25 11:59 11:59 11:59 11:59 Intake Total 574.000 108 Output Total 1700 900 Balance -1126.000 -792 Weight 61.008 kg Constitutional: no acute distress Comment:: Acutely confused Head: Present normocephalic and atraumatic Respiratory: Present CTA bilaterally Cardiac: Present Reg Rate and Rhythm and Audible Murmur GI: Present soft, distention (Mild soft distention) and normal bowel sounds; Absent tenderness Comment:: Extensive bruising bilateral upper extremities Neuro: Present awake Comment:: Oriented x 2 when fully awake but has some delusion/hallucinations confused conversation and nonsensical conversation currently Results Labs 04/14/25 05:01 04/14/25 05:01 Labs: Laboratory Results - last 24 hr 04/13/25 22:44: WBC 6.2, RBC 1.94 L*, Hgb 5.0 L*, Hct 16.4 L*, MCV 84.5, MCH 25.8 L, MCHC 30.5 L, RDW 16.2, Plt Count 423, MPV 9.2, Neut % (Auto) 65.4, Lymph % (Auto) 20.5, Cameron % (Auto) 11.5 H, Eos % (Auto) 1.0, Baso % (Auto) 0.3, Neut # (Auto) 4.1, Lymph # (Auto) 1.3, Cameron # (Auto) 0.7, Eos # (Auto) 0.1, Baso # (Auto) 0.0, PT 13.1 H, INR 1.20 H, VBG pH 7.38, VBG pCO2 34.3 L, VBG pO2 71.7 H, VBG HCO3 19.6 L, VBG Total CO2 20.7 L, VBG O2 Saturation 92.8 H, VBG Base Excess -5.6 L, VBG Lactic Acid 6.2 H, Sodium 135 L, Potassium 3.4 L, Chloride 104, Carbon Dioxide 19 L, Anion Gap 15.4 H, BUN 18 H, Creatinine 1.60 H, Estimated Creat Clear 30, Estimated GFR 31 L, Est GFR ( Amer) 37 L, Glucose 139 H, Calcium 9.5, Phosphorus 3.9, Magnesium 2.2, Total Bilirubin 0.3, AST 33, ALT 17, Alkaline Phosphatase 58, Troponin I 0.09 H, NT-Pro-B Natriuret Pep 1270 H, Total Protein 6.1 L, Albumin 3.8, Globulin 2.3, Albumin/Globulin Ratio 1.7, Lipase 149, TSH 12.20 H, Free T4 1.52, Salicylates < 1.0 L, Acetaminophen < 10 L, Blood Type Confirm A Positive 04/13/25 23:00: Urine Color Yellow, Urine Appearance Clear, Urine pH 6.0, Ur Specific [place] 1.025, Urine Protein 1+ A, Urine Glucose (UA) Negative, Urine Ketones Negative, Urine Blood Negative, Urine Nitrate Negative, Urine Bilirubin Negative, Urine Urobilinogen 0.2, Ur Leukocyte Esterase Negative, Urine RBC 5-10, Urine WBC 3-5, Ur Squamous Epith Cells 3-5, Urine Bacteria 1+, Hyaline Casts 3-5, Urine Mucus 1+ 04/13/25 23:02: Urine Opiates Screen Negative, Urine Methadone Screen Negative, Ur Barbituates Screen Negative, Ur Phencyclidine Scrn Negative, Ur Amphetamines Screen Negative, U Benzodiazepines Scrn Negative, Urine Cocaine Screen Negative, U Marijuana (THC) Screen Negative 04/13/25 23:53: Blood Type A Positive, Antibody Screen Negative, Crossmatch (AHG) See Detail 04/14/25 02:45: Hgb 9.2 L D, Hct 30.3 L, Lactate 2.2 H, Troponin I 0.31 H 04/14/25 05:01: WBC 9.1 D, RBC 3.35 L D, Hgb 9.1 L, Hct 29.2 L, MCV 87.2, MCH 27.2, MCHC 31.2 L, RDW 15.6, Plt Count 356, MPV 9.1, Neut % (Auto) 86.7 H, Lymph % (Auto) 5.8 L, Cameron % (Auto) 6.3, Eos % (Auto) 0.2, Baso % (Auto) 0.1, Neut # (Auto) 7.9 H, Lymph # (Auto) 0.5 L, Cameron # (Auto) 0.6, Eos # (Auto) 0.0, Baso # (Auto) 0.0, Total Counted 100, Neutrophils % (Manual) 89 H, Lymphocytes % (Manual) 8 L, Monocytes % (Manual) 3, Platelet Estimate Normal, Hypochromasia 1+, Sodium 135 L, Potassium 3.3 L, Chloride 102, Carbon Dioxide 22, Anion Gap 14.3, BUN 17, Creatinine 1.60 H, Estimated Creat Clear 26, Estimated GFR 31 L, Est GFR ( Amer) 37 L, Glucose 131 H, Lactate 2.6 H, Calcium 9.4, Magnesium 2.2, Iron 127, TIBC 433, Iron Saturation 29.76734, Ferritin 10.6 L, Total Bilirubin 1.4 H, AST 50 H D, ALT 13, Alkaline Phosphatase 77, Troponin I 1.49 H, C-Reactive Protein 4.9 H, Total Protein 6.9, Albumin 4.2 D, Globulin 2.7, Albumin/Globulin Ratio 1.6, Lipase 139, Vitamin B12 719, Procalcitonin 0.180 Assessment and Plan *Assessment and plan (1) Anemia: Status: Acute Qualifiers: Anemia type: unspecified type Qualified Code(s): D64.9 - Anemia, unspecified Category: Medical Code(s): D64.9 - Anemia, unspecified (2) Acute colitis: Status: Acute Category: Medical Code(s): K52.9 - Noninfective gastroenteritis and colitis, unspecified Plan 1. anemia Hemoglobin dropped from 8.2 to 5.0 in 3 weeks in a patient on Xarelto. No melena or hematochezia seen at home. Patient unable to answer most questions secondary to AMS. She is iron deficient. Received 2 units PRBC. We are awaiting Hemoccult testing. Discussed with Dr. Heck who feels like this might be inflammatory second to pneumonia. If Hemoccult positive, then an EGD. May check CEA and then if elevated may consider colonoscopy depending on when her last one was. Son does not know when her last colonoscopy was. I will try and speak with the daughter who has more information when she is available. Continue Protonix. Recommend n.p.o. at midnight. 2. Acute colitis Fluid-filled proximal colon with diffuse mucosal enhancement concerning for acute colitis seen on CT scan. Patient has not had diarrhea and is not complaining of abdominal pain she is nontender to palpation throughout her abdomen. No vomiting since admission no diarrhea since admission. No fever. She is already on Zosyn for pneumonia. I do not know that I would pursue this further unless symptoms change.
--- NOTE | 2025-04-14 13:49 | [facility].PTWOUND ---
Rehab Wound Evaluation Rehab IP Wound Evaluation Start: 04/14/25 02:15 Freq: ONCE Status: Active Protocol: Document 04/14/25 13:46 TEE (Rec: 04/14/25 13:49 TEE [id number]) Rehab PT Wound Assessment Subjective Subjective 85-year-old female with a past medical history of coronary artery disease with 11 stents, current smoker, thyroid disease, hypertension, on Xarelto who presented to the emergency department with altered mental status from home. For EMS, patient began screaming at home daughter went to bedside patient stiffened up, continued to yell help and became altered . When son arrived who lived across the street he said that she was fighting them and was not acting like herself. On arrival in the emergency department, patient was alert and oriented x 2 was reporting chest pain but denied any other symptoms. When son and daughter arrived, they state that patient had just gone to bed when she started yelling help. They state that she threw herself back on the bed there may have been a moment of loss of consciousness and patient was not acting like herself afterwards. Patient was fighting with the son when he arrived. They state that she is currently still not at her baseline. They deny that she has had any blood in her stools or any other symptoms. He has not had any recent fevers or other infectious symptoms. She has been taking her medications as prescribed no recent medication changes. Also presents upon adm with multiple skin tears to Saeed OTTO. Plan/Recommendation Comment Multiple skin tears noted with the largest being ~ 2.0 cm x 1.0 cm. [facility] [place] staff already dressing skin tears appropriately. No current need for acute PT wound care treatment. Eval Complexity Eval Charge Codes 33026 - Low Complexity PHYSICIAN CERTIFICATION: I certify the specified therapy services for Kathia Jordan are required, authorized, and reviewed every 30 days.
--- NOTE | 2025-04-14 17:29 | PC.NURSE ---
Pt remains confused. Has been restless at times. Family at bedside. Pt asks for coffee and cigarettes. Will get nicotine patch for pt. IV potassium and ABX administered. Call light within reach. Safety measures in place.
[2025-04-14] MEDS: NICOTINE 21MG/24HR PATCH 21 MG TD (17:42)
[2025-04-14] MEDS: FUROSEMIDE 40MG/4ML VIAL 40 MG IV (17:42)
--- NOTE | 2025-04-14 18:55 | PC.NURSE ---
skin tear to LLE skin tear to (L) leg skin tear to (R) wrist
[2025-04-14] MEDS: POLYETHYLENE GLYCOL 3350 17 GM PACKET PO (21:23)
[2025-04-14] MEDS: OLANZapine 5 MG ODT TABLET SL (23:04)
[2025-04-15] VITALS (11 sets, daily range): BP systolic 121–153; BP diastolic 55–78; PULSE 80–93; RESP 16–17; TEMP 36.4–37.1; O2SAT 90–97; BMI 22.5
[2025-04-15] MEDS: PIPERACILLIN/TAZO 2.25 GM in 0.9 % SODIUM CHLORIDE 50 ML IV ×3 (05:33→17:15)
[2025-04-15 08:52] LABS: Hematocrit 26.0 % (37.0-47.0); Hemoglobin 8.6 g/dL (12.2-16.2); Immature Granulocytes % 0.6 %; Mean Corpuscular HGB Conc 33.1 g/dL (31.8-35.4); Mean Corpuscular Hemoglobin 27.5 pg (27.0-31.2); Mean Corpuscular Volume 83.1 fl (81-99); Nucleated Red Blood Cells % 0 %; Platelet Count 326 K/mm3 (142-424); Red Blood Count 3.13 M/mm3 (4.20-5.40); Red Cell Distribution Width-SD 48.0 fL; White Blood Count 9.9 K/mm3 (4.8-10.8)
[2025-04-15 09:02] LABS: Alanine Aminotransferase 11 U/L (12-78); Albumin Level 3.7 g/dl (3.5-5.0); Alkaline Phosphatase 49 U/L (38-126); Anion Gap 12.3 mEq/L (5-15); Aspartate Amino Transferase 43 U/L (14-36); Bilirubin,Direct 0.2 mg/dl (0.0-0.4); Bilirubin,Indirect 0.6 mg/dL (0.0-0.9); Bilirubin,Total 0.8 mg/dl (0.2-1.3); Bilirubin,Unconjugated 0.6 mg/dL (0.0-1.1); Blood Urea Nitrogen 23 mg/dl (7-17); Calcium 9.5 mg/dl (8.4-10.2); Carbon Dioxide 28 mmol/L (22.0-30.0); Chloride 104 mmol/L (98-107); Cholesterol 111 mg/dl (140-200); Creatinine Clearance Estimated 23 mL/min (50-200); Creatinine,Serum 1.80 mg/dl (0.52-1.04); Estimated Glomerular Filt Rate 27 ml/min (>60); GFR (African American) 33 ML/MIN (>60); Glucose 92 mg/dl (74-100); HDL Cholesterol 33 mg/dl (40-60); Potassium 4.3 mmoL/L (3.5-5.1); Sodium 140 mmol/L (136-145); Total Protein,Serum 6.3 g/dl (6.3-8.2); Triglycerides 165 mg/dl (30-150)
[2025-04-15] MEDS: LEVOTHYROXINE 100MCG (0.1MG) TAB 100 MCG PO (09:28)
[2025-04-15] MEDS: POLYETHYLENE GLYCOL 3350 17 GM PACKET PO ×2 (09:29→17:15)
[2025-04-15] MEDS: PANTOPRAZOLE 40MG VIAL 40 MG IV ×2 (09:29→20:33)
[2025-04-15 09:32] LABS: Thyroid Stimulating Hormone 1.83 uIU/mL (0.465-4.68)
[2025-04-15] MEDS: NICOTINE 21MG/24HR PATCH 21 MG TD (09:32)
[2025-04-15] MEDS: FUROSEMIDE 40MG/4ML VIAL 40 MG IV ×2 (09:32→17:14)
--- NOTE | 2025-04-15 09:40 | EXP.PULM.CON ---
History of Present Illness History of present illness: Ms. Jordan is a 85-year-old male with prior history of COPD greater than [id number] smoking history CAD status post stenting presented to the ER with altered mentation, found to having the right middle lobe collapse on her CT chest and pulmonary was called for further evaluation and management. [facility] Disclaimer: The information contained in this section may have been updated after the patient was seen, as this information can be updated by other users. Medical History (Updated 04/15/25 @ 10:44 by Odalis Tatum MD) Atelectasis of right lung NSTEMI (non-ST elevated myocardial infarction) Stenosis of carotid artery Hyperlipidemia HTN (hypertension) Smoker CAD (coronary artery disease) Hypothyroid Surgical History (Updated 04/14/25 @ 02:10 by Maggie Chavez RN) Stented coronary artery Social History (Updated 04/14/25 @ 02:11 by Maggie Chavez RN) Smoking Status: Current every day smoker tobacco type: cigarettes alcohol intake: never current occupational status: other Travel in the last 8 weeks?: None Have you lived/traveled outside US in past 30 days?: No Contact w/someone who lives/traveled outside US past 30 days?: No Exposure to someone with infectious disease in past 14 days?: No Do you have a fever (greater than 100.4 F or 38 C)?: No Have you tested positive for COVID-19?: No Exposed to someone with COVID-19 in past 14 days?: No Do you have a sore throat?: No Do you have a cough?: No Do you have any weakness?: No Do you have any diarrhea?: No Are you experiencing any unusual bleeding?: No Do you have any muscle aches/pain?: No Do you have any abdominal pain?: No Are you experiencing loss of taste or smell?: No Review of Systems Review of Systems Review of systems (narrative): Limited given patient's confusion and not responding appropriately to verbal commands Constitutional Constitutional: Reports fatigue Eyes Eyes: Denies eye discharge, Denies dry eyes, Denies irritation and Denies itchy eyes ENT Ears, Nose, Mouth, and Throat: Denies lip swelling and Denies throat swelling *Cardiovascular Cardiovascular: Reports dyspnea on exertion *Respiratory Respiratory: Reports chest congestion, Reports cough, Reports dyspnea on exertion, Denies excessive phlegm production, Denies hemoptysis, Denies pain on inspiration, Denies pain with cough and Denies wheezing *Gastrointestinal Gastrointestinal: Denies abdominal pain, Denies belching and Denies cramping *Neurologic Neurologic: Reports system reviewed and no additional complaints, except as documented Psychiatric Psychiatric: Denies homicidal ideation and Denies suicidal ideation Endocrine Endocrine: Reports fatigue and Denies heat intolerance Hematologic/Lymphatic Hematologic/Lymphatic: Denies easy bleeding and Denies lymphadenopathy Allergic/Immunologic Allergic/Immunologic: Denies itchy eyes, Denies lip swelling, Denies throat swelling and Denies wheezing Pulmonology Exam Inpatient Vital signs and Labs for Last 24 Hours: Temp Pulse Resp BP Pulse Ox O2 Del Method O2 Flow Rate 97.9 F 90 17 146/68 H 92 L Nasal Cannula 2 04/15/25 08:00 04/15/25 08:00 04/15/25 08:00 04/15/25 08:00 04/15/25 08:00 04/15/25 08:00 04/15/25 08:00 Laboratory Results - last 24 hr 04/14/25 05:01: Lipase 139, Vitamin B12 719 04/14/25 12:48: Chlamy pneumoniae PCR Not detected, Adenovirus (PCR) Not detected, B. pertussis DNA (PCR) Not detected, Coronavirus OC43 (PCR) Not detected, Coronavirus HKU1 (PCR) Not detected, Coronavirus 229E (PCR) Not detected, SARS-CoV-2 (PCR) Not detected, Coronavirus NL63 (PCR) Not detected, Human Metapneumovir PCR Not detected, Influenza A (H1) PCR Not detected, Influ A (H1N1/09) PCR Not detected, Influenza A (H3) PCR Not detected, Influenza Type A (PCR) Not detected, Influenza Type B (PCR) Not detected, M. pneumoniae (PCR) Not detected, Parainfluenza 1 (PCR) Not detected, Parainfluenza 2 (PCR) Not detected, Parainfluenza 3 (PCR) Not detected, Parainfluenza 4 (PCR) Not detected, RSV (PCR) Not detected, Entero/Rhino (PCR) Not detected 04/15/25 08:41: WBC 9.9, RBC 3.13 L, Hgb 8.6 L, Hct 26.0 L, MCV 83.1, MCH 27.5, MCHC 33.1, RDW 15.9, Plt Count 326, MPV 9.2, Neut % (Auto) 66.5, Lymph % (Auto) 18.2, [place] % (Auto) 14.0 H, Eos % (Auto) 0.5, Baso % (Auto) 0.2, Neut # (Auto) 6.6, Lymph # (Auto) 1.8, [place] # (Auto) 1.4 H, Eos # (Auto) 0.1, Baso # (Auto) 0.0, Sodium 140, Potassium 4.3 D, Chloride 104, Carbon Dioxide 28, Anion Gap 12.3, BUN 23 H D, Creatinine 1.80 H, Estimated Creat Clear 23, Estimated GFR 27 L, Est GFR ( Amer) 33 L, Glucose 92, Calcium 9.5, Total Bilirubin 0.8, Direct Bilirubin 0.2, Conjugated Bilirubin 0.0, Indirect Bilirubin 0.6, Unconjugated Bilirubin 0.6, AST 43 H, ALT 11 L, Alkaline Phosphatase 49, Total Protein 6.3, Albumin 3.7 D, Triglycerides 165 H, Cholesterol 111 L, LDL Cholesterol Direct 40.83 L, VLDL Cholesterol 33, HDL Cholesterol 33 L, Cholesterol/HDL Ratio 3.4, TSH 1.83 D I & O for Labs for Last 24 Hours: Intake & Output 04/12/25 04/13/25 04/14/25 04/15/25 23:59 23:59 23:59 23:59 Intake Total 1048.000 / 1048.000 50 / 50 Output Total 2600 / 6225 3925 / 3925 Balance -1552.000 / -5177.000 -3875 / -3875 Weight 155 lb 134 lb 7.994 oz 135 lb 3.2 oz Microbiology Reports for the Last 24 Hours: Microbiology 04/14/25 00:09 Blood Blood Culture - Preliminary NO GROWTH AFTER 24 HOURS 04/13/25 23:09 Blood Blood Culture - Preliminary NO GROWTH AFTER 24 HOURS Constitutional: Present moderate distress Head: Present normocephalic and atraumatic ENT: Present normal exam, normal oropharynx and mucous membranes moist Neck: Present normal inspection and full ROM Respiratory: Present normal respiratory effort and able to speak in complete sentences; Absent respiratory distress, rhonchi, wheezes, crackles or diminished air movement Cardiac: Present S1/S2, Tachycardia and radial pulses present GI: Present soft and distention; Absent tenderness or guarding Rectal (female): Present deferred (female): Present deferred Skin: Present intact; Absent cyanosis or jaundice Neuro: Absent alert, awake or oriented x 3 Extremities: Present normal inspection; Absent clubbing or cyanosis Psychiatric: Present normal affect and cooperative Meds Home Medications and Allergies Home Medications ?Medication ?Instructions ?Recorded ?Confirmed ?Type aspirin 81 mg chewable tablet 81 mg PO DAILY 05/23/21 04/14/25 History levothyroxine 88 mcg tablet 88 mcg PO DAILY 05/23/21 04/14/25 History omeprazole 40 mg capsule,delayed 40 mg PO DAILY 05/23/21 04/14/25 History release rivaroxaban 20 mg tablet (Xarelto) 20 mg PO QPMWITHMEAL 03/31/25 04/14/25 History clopidogrel 75 mg tablet 75 mg PO DAILY 04/14/25 04/14/25 History metoprolol tartrate 25 mg tablet 25 mg PO BID 04/14/25 04/14/25 History rosuvastatin 10 mg tablet 10 mg PO DAILY 04/14/25 04/14/25 History New Prescriptions to Start Prescriptions: Allergies Allergy/AdvReac Type Severity Reaction Status Date / Time Sulfa (Sulfonamide Allergy Verified 03/31/25 13:16 Antibiotics) Results Laboratory Findings 04/15/25 08:41 04/15/25 08:41 PT/INR, D-dimer PT 13.1 seconds (10.1-12.5) H 04/13/25 22:44 INR 1.20 (0.9-1.1) H 04/13/25 22:44 Abnormal lab findings: Abnormal Labs 04/13/25 04/13/25 04/13/25 22:44 23:00 23:53 RBC 1.94 L* Hgb 5.0 L* Hct 16.4 L* MCH 25.8 L MCHC 30.5 L Neut % (Auto) Lymph % (Auto) [place] % (Auto) 11.5 H Neut # (Auto) Lymph # (Auto) [place] # (Auto) Neutrophils % (Manual) Lymphocytes % (Manual) PT 13.1 H INR 1.20 H VBG pCO2 34.3 L VBG pO2 71.7 H VBG HCO3 19.6 L VBG Total CO2 20.7 L VBG O2 Saturation 92.8 H VBG Base Excess -5.6 L VBG Lactic Acid 6.2 H Sodium 135 L Potassium 3.4 L Carbon Dioxide 19 L Anion Gap 15.4 H BUN 18 H Creatinine 1.60 H Estimated GFR 31 L Est GFR ( Amer) 37 L Glucose 139 H Lactate Ferritin Total Bilirubin AST ALT Troponin I 0.09 H C-Reactive Protein NT-Pro-B Natriuret Pep 1270 H Total Protein 6.1 L Triglycerides Cholesterol LDL Cholesterol Direct HDL Cholesterol TSH 12.20 H Urine Protein 1+ A Salicylates < 1.0 L Acetaminophen < 10 L Crossmatch (AHG) See Detail 04/14/25 04/14/25 04/15/25 02:45 05:01 08:41 RBC 3.35 L D 3.13 L Hgb 9.2 L D 9.1 L 8.6 L Hct 30.3 L 29.2 L 26.0 L MCH MCHC 31.2 L Neut % (Auto) 86.7 H Lymph % (Auto) 5.8 L [place] % (Auto) 14.0 H Neut # (Auto) 7.9 H Lymph # (Auto) 0.5 L [place] # (Auto) 1.4 H Neutrophils % (Manual) 89 H Lymphocytes % (Manual) 8 L PT INR VBG pCO2 VBG pO2 VBG HCO3 VBG Total CO2 VBG O2 Saturation VBG Base Excess VBG Lactic Acid Sodium 135 L Potassium 3.3 L Carbon Dioxide Anion Gap BUN 23 H D Creatinine 1.60 H 1.80 H Estimated GFR 31 L 27 L Est GFR ( Amer) 37 L 33 L Glucose 131 H Lactate 2.2 H 2.6 H Ferritin 10.6 L Total Bilirubin 1.4 H AST 50 H D 43 H ALT 11 L Troponin I 0.31 H 1.49 H C-Reactive Protein 4.9 H NT-Pro-B Natriuret Pep Total Protein Triglycerides 165 H Cholesterol 111 L LDL Cholesterol Direct 40.83 L HDL Cholesterol 33 L TSH Urine Protein Salicylates Acetaminophen Crossmatch (AHG) Assessment and Plan *Assessment and plan (1) Atelectasis of right lung: Status: Acute Category: Medical Code(s): J98.11 - Atelectasis Plan Ms. Jordan is a 85-year-old male with prior history of COPD greater than 30-ccnn-lzsv smoking history CAD status post stenting presented to the ER with altered mentation, found to having the right middle lobe collapse on her CT chest and pulmonary was called for further evaluation and management. Afebrile. Hemodynamically stable. No evidence of leukocytosis. Comprehensive respiratory viral PCR panel negative. Anemia s/p transfusion. Blood gas venous upon admission did not show any evidence of hypercarbic respiratory failure, 7.38, pCO2 34.3 and O2 of 71.7 CTA PE protocol upon admission no evidence of pulmonary embolism. Right middle lobe collapse. Bilateral lower lobe interstitial changes. No dense consolidative changes noted. Near complete occlusion of the right middle lobe bronchus noted.. No mediastinal or hilar lymphadenopathy appreciated. No recent prior imaging available for review. Chest x-ray from 2020 within normal limits. On examination confused. Arousable to verbal commands. Not responding appropriately. Chest clear to auscultate with no significant wheezing. On room air saturating 90% and above Plan: -Antibiotics can be weaned to Augmentin to complete a total of 5-day course from pulmonary standpoint -DuoNebs every 6 hours on a scheduled basis -Incentive spirometry and flutter valve -Evaluate for other possible etiologies of altered mentation as per primary team # For the noted right middle lobe collapse and possible endobronchial lesion will evaluate as an outpatient basis and determine further need for bronchoscopy airway examination.
--- NOTE | 2025-04-15 09:58 | P.PN_ITS ---
Subjective Subjective Date: 04/15/25 Time: 10:00 Principal diagnosis: nonstemi, GI bleed Interval history: This is an 84-year-old white female who was brought to the emergency department due to an altered mental status. She is alert and oriented x 1 today, she is more confused today than yesterday. All of her medical history had to be obtained from her chart. On admission the patient had a hemoglobin of 5 in the emergency department. She was transfused with 2 units of packed red blood cells. Her hemoglobin is 8.6 this morning. The patient has had an elevated troponin with a troponin max of 1.49. Her lactate was elevated at 2.2 and went up to 2.6. Her TSH was also elevated at 12.2. She had an elevated BNP at 1270. The patient has had a blood transfusion and has been consulted by GI. They are waiting on an occult stool. If this is positive they will likely plan for EGD and/or colonoscopy. She is getting IV antibiotics for questionable pneumonia. Patient is also getting diuresed for acute on chronic HFpEF. This morning she denies any chest pain, pressure, shortness of breath or edema. She denies any fever, chills, nausea, vomiting, diarrhea, PND or orthopnea. She is more confused today and slightly combative at times. Exam Data for Last 24 hours Vital signs and Labs for Last 24 Hours: Temp Pulse Resp BP Pulse Ox O2 Del Method O2 Flow Rate 97.9 F 90 17 146/68 H 92 L Nasal Cannula 2 04/15/25 08:00 04/15/25 08:00 04/15/25 08:00 04/15/25 08:00 04/15/25 08:00 04/15/25 08:00 04/15/25 08:00 Laboratory Results - last 24 hr 04/14/25 05:01: Vitamin B12 719 04/14/25 12:48: Chlamy pneumoniae PCR Not detected, Adenovirus (PCR) Not detected, B. pertussis DNA (PCR) Not detected, Coronavirus OC43 (PCR) Not detected, Coronavirus HKU1 (PCR) Not detected, Coronavirus 229E (PCR) Not detected, SARS-CoV-2 (PCR) Not detected, Coronavirus NL63 (PCR) Not detected, Human Metapneumovir PCR Not detected, Influenza A (H1) PCR Not detected, Influ A (H1N1/09) PCR Not detected, Influenza A (H3) PCR Not detected, Influenza Type A (PCR) Not detected, Influenza Type B (PCR) Not detected, M. pneumoniae (PCR) Not detected, Parainfluenza 1 (PCR) Not detected, Parainfluenza 2 (PCR) Not detected, Parainfluenza 3 (PCR) Not detected, Parainfluenza 4 (PCR) Not detected, RSV (PCR) Not detected, Entero/Rhino (PCR) Not detected 04/15/25 08:41: WBC 9.9, RBC 3.13 L, Hgb 8.6 L, Hct 26.0 L, MCV 83.1, MCH 27.5, MCHC 33.1, RDW 15.9, Plt Count 326, MPV 9.2, Neut % (Auto) 66.5, Lymph % (Auto) 18.2, [place] % (Auto) 14.0 H, Eos % (Auto) 0.5, Baso % (Auto) 0.2, Neut # (Auto) 6.6, Lymph # (Auto) 1.8, [place] # (Auto) 1.4 H, Eos # (Auto) 0.1, Baso # (Auto) 0.0, Sodium 140, Potassium 4.3 D, Chloride 104, Carbon Dioxide 28, Anion Gap 12.3, BUN 23 H D, Creatinine 1.80 H, Estimated Creat Clear 23, Estimated GFR 27 L, Est GFR ( Amer) 33 L, Glucose 92, Calcium 9.5, Total Bilirubin 0.8, Direct Bilirubin 0.2, Conjugated Bilirubin 0.0, Indirect Bilirubin 0.6, Unconjugated Bilirubin 0.6, AST 43 H, ALT 11 L, Alkaline Phosphatase 49, Total Protein 6.3, Albumin 3.7 D, Triglycerides 165 H, Cholesterol 111 L, LDL Cholesterol Direct 40.83 L, VLDL Cholesterol 33, HDL Cholesterol 33 L, Cholesterol/HDL Ratio 3.4, TSH 1.83 D I & O for Last 24 hours: Intake & Output 04/12/25 04/13/25 04/14/25 04/15/25 23:59 23:59 23:59 23:59 Intake Total 1048.000 / 1048.000 50 / 50 Output Total 2600 / 6225 3925 / 3925 Balance -1552.000 / -5177.000 -3875 / -3875 Weight 155 lb 134 lb 7.994 oz 135 lb 3.2 oz Microbiology Reports for the Last 24 Hours: Microbiology 04/14/25 00:09 Blood Blood Culture - Preliminary NO GROWTH AFTER 24 HOURS 04/13/25 23:09 Blood Blood Culture - Preliminary NO GROWTH AFTER 24 HOURS Constitutional Constitutional: no acute distress, average body habitus and agitated *Routine HEENT Exam Head: Present normocephalic and atraumatic ENT: Present mucous membranes moist *Routine Neck Exam Neck: Present supple, full ROM and normal carotid upstroke; Absent JVD, carotid bruit or lymphadenopathy *Routine Respiratory Exam Respiratory: Present CTA bilaterally, normal respiratory effort, able to speak in complete sentences and symmetric chest movement *Routine Cardiovascular Exam Cardiovascular: Present RRR, Normal S1 and Normal S2; Absent murmur or gallop *Routine Abdominal Exam Abdominal: Present soft and normoactive bowel sounds; Absent tenderness, distended or organomegaly *Routine Extremities Exam Extremities: Present full ROM, pulses intact and normal capillary refill; Absent cyanosis, clubbing or edema *Routine Skin Exam Skin: Present intact and warm; Absent erythema *Routine Neurological Exam Neurological: Present alert and altered mental status Routine Psychiatric Exam Psychiatric: Present agitated Progress Note: A&P Assessment and plan (1) NSTEMI (non-ST elevated myocardial infarction): Status: Acute (2) Anemia: Status: Acute (3) Acute colitis: Status: Acute (4) Sepsis: Status: Suspected (5) CAD (coronary artery disease): Status: Acute (6) HTN (hypertension): Status: Acute (7) Stenosis of carotid artery: Status: Acute (8) Hyperlipidemia: Status: Acute (9) Smoker: Status: Acute (10) UTI (urinary tract infection): Status: Acute (11) Right middle lobe pneumonia: Status: Acute Assessment and Plan Assessment and Plan for All Diagnoses:: Plan: 1. This is an 85-year-old female who presented to the emergency department due to an altered mental status. She was found to have profound anemia with a hemoglobin of 5.0. She was transfused 2 units of packed red blood cells and her hemoglobin is 8.6 today. She was evaluated by GI yesterday. If she has a positive occult stool then they will consider EGD/colonoscopy. 2. The patient is currently being treated for UTI and pneumonia. She has been afebrile overnight. She is getting IV antibiotics. Her lactate is elevated. Sepsis protocol has been initiated. 3. The patient also appears to have a right middle lobe collapse. She may undergo bronchoscopy today. However this will be left up to pulmonology. 4. The patient did have an elevated troponin on admission with a troponin max of 1.49. She does have a history of coronary artery disease with reportedly 11 stents placed per her family. She does have an abnormal EKG but it is unclear whether or not this is her baseline. She is currently denying any chest pain or pressure. However, in the emergency department the patient indicated that she was having chest pain. Her EF is normal. No plans for invasive left cardiac catheterization at this time until she recovers from her anemia, sepsis, pneumonia and UTI 5. It may be reasonable to proceed with further ischemic evaluation during this hospitalization once she is recovered from her acute illness and anemia, or wait and have this completed on an outpatient basis depending on the patient's symptoms and recovery. 6. Coronary artery disease is present. Her Plavix and aspirin are currently being held due to her anemia. 7. Her blood pressure is well-controlled. Will restart metoprolol. 8. Her LDL goal is less than 55. Her LDL is 40. Continue her statin. 9. Her BNP was elevated on admission. She is getting IV diuresis. Will continue IV Lasix. 10. Her creatinine is 1.8 today. Will continue to follow. 11. The patient is listed on Xarelto at home. It is unclear why she takes this medication. It is currently being held due to her anemia. We are still awaiting records on this patient to see why she is on triple therapy. 12. Carotid artery stenosis is present. This can be followed up on as an outpatient. 13. Further recommendations will be made pending the patient's response to treatment. Thank you for the opportunity to help participate in the care of this patient. All recommendations and orders are per Dr. Waller.
[2025-04-15] MEDS: METOPROLOL TARTRATE 25MG TABLET 25 MG PO ×2 (10:44→20:33)
[2025-04-15] MEDS: IPRATROPIUM/ALBUTEROL 3 ML NEB IH ×3 (11:08→23:04)
--- NOTE | 2025-04-15 12:49 | P.PN_ITS ---
Subjective *Date: 04/15/25 *Time: 12:49 Interval history: Patient asleep but easily awoken. Has no complaints of pain. Benign abdominal exam. Daughter is in the room today who knows her history. Denies any melena or hematochezia. No NSAIDs or alcohol. Has been complaining of epigastric pain and reflux that is worsening more recently, especially at night. Resolves with [place] chewables or sitting up in a chair. Reports her last colonoscopy was between 5 and 10 years ago. Hemoglobin gone from 9.1 down to 8.6 today. No bowel movement yet. Awaiting Hemoccult. Exam Data for Last 24 hours Vital signs and Labs for Last 24 Hours: Temp Pulse Resp BP Pulse Ox O2 Del Method O2 Flow Rate 97.9 F 88 17 146/68 H 92 L Nasal Cannula 2 04/15/25 08:00 04/15/25 11:12 04/15/25 08:00 04/15/25 08:00 04/15/25 08:00 04/15/25 08:00 04/15/25 08:00 Laboratory Results - last 24 hr 04/14/25 12:48: Chlamy pneumoniae PCR Not detected, Adenovirus (PCR) Not detected, B. pertussis DNA (PCR) Not detected, Coronavirus OC43 (PCR) Not detected, Coronavirus HKU1 (PCR) Not detected, Coronavirus 229E (PCR) Not detected, SARS-CoV-2 (PCR) Not detected, Coronavirus NL63 (PCR) Not detected, Human Metapneumovir PCR Not detected, Influenza A (H1) PCR Not detected, Influ A (H1N1/09) PCR Not detected, Influenza A (H3) PCR Not detected, Influenza Type A (PCR) Not detected, Influenza Type B (PCR) Not detected, M. pneumoniae (PCR) Not detected, Parainfluenza 1 (PCR) Not detected, Parainfluenza 2 (PCR) Not detected, Parainfluenza 3 (PCR) Not detected, Parainfluenza 4 (PCR) Not detected, RSV (PCR) Not detected, Entero/Rhino (PCR) Not detected 04/15/25 08:41: WBC 9.9, RBC 3.13 L, Hgb 8.6 L, Hct 26.0 L, MCV 83.1, MCH 27.5, MCHC 33.1, RDW 15.9, Plt Count 326, MPV 9.2, Neut % (Auto) 66.5, Lymph % (Auto) 18.2, [place] % (Auto) 14.0 H, Eos % (Auto) 0.5, Baso % (Auto) 0.2, Neut # (Auto) 6.6, Lymph # (Auto) 1.8, [place] # (Auto) 1.4 H, Eos # (Auto) 0.1, Baso # (Auto) 0.0, Sodium 140, Potassium 4.3 D, Chloride 104, Carbon Dioxide 28, Anion Gap 12.3, BUN 23 H D, Creatinine 1.80 H, Estimated Creat Clear 23, Estimated GFR 27 L, Est GFR ( Amer) 33 L, Glucose 92, Calcium 9.5, Total Bilirubin 0.8, Direct Bilirubin 0.2, Conjugated Bilirubin 0.0, Indirect Bilirubin 0.6, Unconjugated Bilirubin 0.6, AST 43 H, ALT 11 L, Alkaline Phosphatase 49, Total Protein 6.3, Albumin 3.7 D, Triglycerides 165 H, Cholesterol 111 L, LDL Cholesterol Direct 40.83 L, VLDL Cholesterol 33, HDL Cholesterol 33 L, Cholesterol/HDL Ratio 3.4, TSH 1.83 D I & O for Last 24 hours: Intake & Output 04/13/25 04/14/25 04/15/25 04/16/25 11:59 11:59 11:59 11:59 Intake Total 574.000 524 Output Total 1700 4825 Balance -1126.000 -4301 Weight 61.008 kg 61.326 kg Microbiology Reports for the Last 24 Hours: Microbiology 04/14/25 00:09 Blood Blood Culture - Preliminary NO GROWTH AFTER 24 HOURS 04/13/25 23:09 Blood Blood Culture - Preliminary NO GROWTH AFTER 24 HOURS Constitutional Constitutional: no acute distress and cooperative Comments: ANO x 1. *Routine HEENT Exam Head: Present normocephalic and atraumatic *Routine Neck Exam Neck: Present supple and full ROM *Routine Respiratory Exam Respiratory: Present rhonchi (Mild bilateral lower lobe) *Routine Cardiovascular Exam Cardiovascular: Present Normal S1 and Normal S2 *Routine Abdominal Exam Abdominal: Present soft and distended (Mild soft distention); Absent tenderness *Routine Neurological Exam Comments: Asleep but easily awoken, oriented x 1. Can follow some directions. Assessment and Plan *Assessment and plan (1) Anemia: Status: Acute Qualifiers: Anemia type: unspecified type Qualified Code(s): D64.9 - Anemia, unspecified Category: Medical Code(s): D64.9 - Anemia, unspecified (2) Acid reflux: Status: Acute Category: Medical Code(s): K21.9 - Gastro-esophageal reflux disease without esophagitis (3) Epigastric pain: Status: Acute Category: Medical Code(s): R10.13 - Epigastric pain Plan 1. Anemia Hemoglobin dropped from 8.2 to 5.0 in 3 weeks in a patient on Xarelto. Went up to 9.2 with 2 units packed red cells. At 8.6 today. No melena or hematochezia seen at home. Has had acid reflux that had been getting progressively worse with some epigastric pain that resolves with [place] chewables at night. Patient unable to answer most questions secondary to AMS but daughter is at bedside and knows most of her history. She is iron deficient. Received 2 units PRBC. Nursing denies bowel movement since admission but is on MiraLAX. We are still awaiting Hemoccult testing and CEA result. Continue Protonix. Again recommend n.p.o. at midnight. Daughter does not think patient is ever had an EGD. If Hemoccult is negative, patient may still benefit from an outpatient EGD given her persistent acid reflux.
[2025-04-15 14:11] LABS: Folate 7.62 ng/mL
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
--- NOTE | 2025-04-15 16:50 | EXP.PN ---
Subjective *Date: 04/15/25 *Time: 16:57 Interval history: Patient pleasantly confused this morning, but not in acute distress. No overnight events. Mentation improved this afternoon. Follow-up FOBT. Possible EGD in the morning if positive. Exam Data for Last 24 hours Vital signs and Labs for Last 24 Hours: Temp Pulse Resp BP Pulse Ox O2 Del Method O2 Flow Rate 98 F 80 16 135/55 L 96 Nasal Cannula 2 04/15/25 15:52 04/15/25 16:00 04/15/25 15:52 04/15/25 15:52 04/15/25 15:52 04/15/25 15:52 04/15/25 08:00 Laboratory Results - last 24 hr 04/15/25 08:41: WBC 9.9, RBC 3.13 L, Hgb 8.6 L, Hct 26.0 L, MCV 83.1, MCH 27.5, MCHC 33.1, RDW 15.9, Plt Count 326, MPV 9.2, Neut % (Auto) 66.5, Lymph % (Auto) 18.2, [place] % (Auto) 14.0 H, Eos % (Auto) 0.5, Baso % (Auto) 0.2, Neut # (Auto) 6.6, Lymph # (Auto) 1.8, [place] # (Auto) 1.4 H, Eos # (Auto) 0.1, Baso # (Auto) 0.0, Sodium 140, Potassium 4.3 D, Chloride 104, Carbon Dioxide 28, Anion Gap 12.3, BUN 23 H D, Creatinine 1.80 H, Estimated Creat Clear 23, Estimated GFR 27 L, Est GFR ( Amer) 33 L, Glucose 92, Calcium 9.5, Total Bilirubin 0.8, Direct Bilirubin 0.2, Conjugated Bilirubin 0.0, Indirect Bilirubin 0.6, Unconjugated Bilirubin 0.6, AST 43 H, ALT 11 L, Alkaline Phosphatase 49, Total Protein 6.3, Albumin 3.7 D, Triglycerides 165 H, Cholesterol 111 L, LDL Cholesterol Direct 40.83 L, VLDL Cholesterol 33, HDL Cholesterol 33 L, Cholesterol/HDL Ratio 3.4, Folate 7.62, TSH 1.83 D I & O for Last 24 hours: Intake & Output 04/12/25 04/13/25 04/14/25 04/15/25 23:59 23:59 23:59 23:59 Intake Total 1048.000 / 1048.000 100 / 100 Output Total 2600 / 6225 4825 / 4825 Balance -1552.000 / -5177.000 -4725 / -4725 Weight 70.307 kg 61.008 kg 61.326 kg Microbiology Reports for the Last 24 Hours: Microbiology 04/14/25 00:09 Blood Blood Culture - Preliminary NO GROWTH AFTER 24 HOURS 04/13/25 23:09 Blood Blood Culture - Preliminary NO GROWTH AFTER 24 HOURS Constitutional Constitutional: no acute distress Comments: Pleasantly confused. *Routine HEENT Exam Head: Present normocephalic Eye: Present EOMI and PERRL ENT: Present mucous membranes moist *Routine Neck Exam Neck: Present supple; Absent lymphadenopathy *Routine Respiratory Exam Respiratory: Present CTA bilaterally *Routine Cardiovascular Exam Cardiovascular: Present RRR *Routine Abdominal Exam Abdominal: Present soft and normoactive bowel sounds; Absent tenderness *Routine Extremities Exam Extremities: Absent cyanosis, clubbing or edema *Routine Skin Exam Skin: Present warm; Absent rash *Routine Neurological Exam Neurological: Present alert Assessment and Plan *Assessment and plan (1) Acute metabolic encephalopathy: Status: Acute Category: Medical Code(s): G93.41 - Metabolic encephalopathy (2) Anemia: Status: Acute Category: Medical Code(s): D64.9 - Anemia, unspecified (3) Hypothyroid: Status: Acute Category: Medical Code(s): E03.9 - Hypothyroidism, unspecified (4) Sepsis: Status: Suspected Qualifiers: Sepsis acute organ dysfunction status: without acute organ dysfunction Sepsis type: sepsis due to unspecified organism Qualified Code(s): A41.9 - Sepsis, unspecified organism Category: Medical Code(s): A41.9 - Sepsis, unspecified organism (5) Right middle lobe pneumonia: Status: Acute Qualifiers: Pneumonia type: due to unspecified organism Qualified Code(s): J18.9 - Pneumonia, unspecified organism Category: Medical Code(s): J18.9 - Pneumonia, unspecified organism (6) UTI (urinary tract infection): Status: Acute Qualifiers: Hematuria presence: without hematuria Urinary tract infection type: site unspecified Qualified Code(s): N39.0 - Urinary tract infection, site not specified Category: Medical Code(s): N39.0 - Urinary tract infection, site not specified Plan Kathia Jordan is a 85-year-old female was brought to the ER because of confusion per family, found to be profoundly anemic hemoglobin 5.0 with RML collapse/pneumonia, mild proximal colitis with NSTEMI. #Sepsis, resolved #Right middle lobe collapse, suspected underlying pneumonia #Colitis #Acute metabolic encephalopathy ? Presented with confusion, CT chest shows right middle lobe collapse. Unable to rule out underlying pneumonia. Patient was initially hypothermic, with fever of 101.3. Received vancomycin, Zosyn in the ED. - WBC stable, 9.9 today. Afebrile last 24 hours. Mentation improved this afternoon. Respiratory panel normal. ? Discussed with pulmonology today, no plans for bronchoscopy as RML atelectasis is chronic. Recommended weaning antibiotics from Zosyn to Augmentin. ? Started Augmentin 500 mg 3 times daily day 2 antibiotics. - PT/OT consulted, recommend SNF. Case management assisting with placement. ? Follow-up morning CBC, CMP, CRP. #Acute on chronic anemia #Suspected blood loss secondary to anticoagulation - Initial hemoglobin 5.0. Patient is on aspirin and appears to have been started on Xarelto within the past month. Unclear as to why at this time, cardiology is assisting with investigation. ? Patient received 2 units PRBC transfusion, hemoglobin improved to 9.2. Hemoglobin 8.6 today. Stable. No signs of obvious bleeding. ? GI consulted, recommended FOBT and if positive and EGD in the morning. Patient has not had a bowel movement, ordered MiraLAX, bisacodyl, lactulose. - Family denied melenic stools or bright red blood per rectum. BUN not disproportionately elevated to creatinine suggestive of upper GI bleed. - Initiated on Protonix however with 80 mg IV bolus in ED, continue 40 mg IV twice daily - Ferritin low at 10.6, B12 and folate normal. ? Ordered IV Venofer 200 mg. ? N.p.o. at midnight for possible EGD if FOBT positive. #NSTEMI likely type II #History of CAD with 11 stents ? Troponins peaked at 1.49, in the setting of profound anemia. ? Cardiology consulted, considering inpatient ischemic versus outpatient workup with [facility] once more stable. #HFpEF #Mild reduction in RV function ? BNP elevated to 1270, patient has new oxygen requirement. Cardiology recommends IV Lasix 40 mg twice daily at this time. ? Net -6 L. Creatinine bumped from 1.6-1.8 today. Will transition from IV Lasix to p.o. tomorrow. Hypothyroid: TSH 12.2. Supposed to be on levothyroxine 88 mcg daily at home. Will increase to 100 mcg daily. Needs repeat TSH in 6-week. 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 Initiate Tylenol IV as above due to n.p.o. status and nausea. Also consider morphine for more severe breakthrough pain. Monitor for toxicity with morphine 2 mg IV as needed every 4 hours DNR/DNI N.p.o. SCDs, VTE contraindicated given unclear etiology of anemia
[2025-04-15] MEDS: BISACODYL 5MG TABLET 10 MG PO (17:15)
[2025-04-15] MEDS: AMOXICILLIN/POT CLAVULAN 500MG TABLET 1 EACH PO (20:33)
[2025-04-15] MEDS: SODIUM CHLORIDE 0.9% 10ML VIAL 10 ML IV (20:33)
[2025-04-16] VITALS (23 sets, daily range): BP systolic 111–152; BP diastolic 51–85; PULSE 78–96; RESP 16–20; TEMP 36.3–37; O2SAT 2–99; BMI 20.5
[2025-04-16] MEDS: IPRATROPIUM/ALBUTEROL 3 ML NEB IH ×3 (06:11→18:57)
[2025-04-16] MEDS: LEVOTHYROXINE 100MCG (0.1MG) TAB 100 MCG PO (06:33)
[2025-04-16] MEDS: AMOXICILLIN/POT CLAVULAN 500MG TABLET 1 EACH PO ×3 (08:31→20:26)
[2025-04-16] MEDS: NICOTINE 21MG/24HR PATCH 21 MG TD (08:31)
[2025-04-16] MEDS: METOPROLOL TARTRATE 25MG TABLET 25 MG PO ×2 (08:31→20:26)
[2025-04-16] MEDS: IRON SUCROSE COMPLEX 200 MG in 0.9 % SODIUM CHLORIDE 100 ML 220 MG IV (08:31)
[2025-04-16] MEDS: PANTOPRAZOLE 40MG VIAL 40 MG IV ×2 (08:32→20:25)
[2025-04-16] MEDS: SODIUM CHLORIDE 0.9% 10ML VIAL 10 ML IV ×2 (08:32→20:25)
[2025-04-16] MEDS: POLYETHYLENE GLYCOL 3350 17 GM PACKET PO (08:32)
[2025-04-16 08:42] LABS: Alanine Aminotransferase 16 U/L (12-78); Albumin Level 4.2 g/dl (3.5-5.0); Albumin/Globulin Ratio 1.4 (1.1-1.8); Alkaline Phosphatase 51 U/L (38-126); Anion Gap 14.2 mEq/L (5-15); Aspartate Amino Transferase 41 U/L (14-36); Bilirubin,Total 0.9 mg/dl (0.2-1.3); Blood Urea Nitrogen 25 mg/dl (7-17); Calcium 9.3 mg/dl (8.4-10.2); Carbon Dioxide 29 mmol/L (22.0-30.0); Chloride 96 mmol/L (98-107); Creatinine Clearance Estimated 22 mL/min (50-200); Creatinine,Serum 1.70 mg/dl (0.52-1.04); Estimated Glomerular Filt Rate 29 ml/min (>60); GFR (African American) 35 ML/MIN (>60); Globulin 3.1 g/dL (1.3-3.2); Glucose 119 mg/dl (74-100); Potassium 3.2 mmoL/L (3.5-5.1); Sodium 136 mmol/L (136-145); Total Protein,Serum 7.3 g/dl (6.3-8.2)
[2025-04-16 08:47] LABS: Hematocrit 31.0 % (37.0-47.0); Immature Granulocytes % 0.7 %; Mean Corpuscular HGB Conc 31.3 g/dL (31.8-35.4); Mean Corpuscular Hemoglobin 26.4 pg (27.0-31.2); Mean Corpuscular Volume 84.5 fl (81-99); Nucleated Red Blood Cells % 0.2 %; Platelet Count 384 K/mm3 (142-424); Red Blood Count 3.67 M/mm3 (4.20-5.40); Red Cell Distribution Width-SD 48.6 fL; White Blood Count 12.2 K/mm3 (4.8-10.8)
[2025-04-16 09:20] LABS: Occult Blood,Stool Positive (Negative)
[2025-04-16 09:40] LABS: Hemoglobin 9.7 g/dL (12.2-16.2)
--- NOTE | 2025-04-16 09:42 | P.PN_ITS ---
Subjective *Date: 04/16/25 *Time: 10:56 Interval history: No acute respiratory events overnight. Patient more awake today. However not oriented Pulmonology Exam Inpatient Vital signs and Labs for Last 24 Hours: Temp Pulse Resp BP Pulse Ox O2 Del Method O2 Flow Rate 98.6 F 80 17 115/59 L 90 L Room Air 2 04/16/25 07:26 04/16/25 08:00 04/16/25 07:26 04/16/25 07:26 04/16/25 08:00 04/16/25 09:00 04/16/25 06:45 Laboratory Results - last 24 hr 04/13/25 23:53: Blood Type A Positive, Antibody Screen Negative, Crossmatch (AHG) See Detail 04/15/25 08:41: Folate 7.62 04/16/25 08:25: WBC 12.2 H, RBC 3.67 L, Hgb 9.7 L D, Hct 31.0 L, MCV 84.5, MCH 26.4 L, MCHC 31.3 L, RDW 15.9, Plt Count 384, MPV 9.3, Neut % (Auto) 71.9, Lymph % (Auto) 14.1, [place] % (Auto) 12.5 H, Eos % (Auto) 0.6, Baso % (Auto) 0.2, Neut # (Auto) 8.8 H, Lymph # (Auto) 1.7, [place] # (Auto) 1.5 H, Eos # (Auto) 0.1, Baso # (Auto) 0.0, Sodium 136, Potassium 3.2 L D, Chloride 96 L, Carbon Dioxide 29, Anion Gap 14.2, BUN 25 H, Creatinine 1.70 H, Estimated Creat Clear 22, Estimated GFR 29 L, Est GFR ( Amer) 35 L, Glucose 119 H D, Calcium 9.3, Total [place] irubin 0.9, AST 41 H, ALT 16 D, Alkaline Phosphatase 51, Total Protein 7.3, Albumin 4.2 D, Globulin 3.1, Albumin/Globulin Ratio 1.4, Stool Occult Blood Positive A Temp Pulse Resp BP Pulse Ox O2 Del Method O2 Flow Rate 97.9 F 90 17 146/68 H 92 L Nasal Cannula 2 04/15/25 08:00 04/15/25 08:00 04/15/25 08:00 04/15/25 08:00 04/15/25 08:00 04/15/25 08:00 04/15/25 08:00 Laboratory Results - last 24 hr 04/14/25 05:01: Lipase 139, Vitamin B12 719 04/14/25 12:48: Chlamy pneumoniae PCR Not detected, Adenovirus (PCR) Not detected, B. pertussis DNA (PCR) Not detected, Coronavirus OC43 (PCR) Not d etected, Coronavirus HKU1 (PCR) Not detected, Coronavirus 229E (PCR) Not detected, SARS-CoV-2 (PCR) Not detected, Coronavirus NL63 (PCR) Not detected, Human Metapneumovir PCR Not detected, Influenza A (H1) PCR Not detected, Influ A (H1N1/09) PCR Not detected, Influenza A (H3) PCR Not detected, Influenza Type A (PCR) Not detected, Influenza Type B (PCR) Not detected, M. pneumoniae (PCR) Not detected, Parainfluenza 1 (PCR) Not detected, Parainfluenza 2 (PCR) Not detected, Parainfluenza 3 (PCR) Not detected, Parainfluenza 4 (PCR) Not detected, RSV (PCR) Not detected, Entero/Rhino (PCR) Not detected 04/15/25 08:41: WBC 9.9, RBC 3.13 L, Hgb 8.6 L, Hct 26.0 L, MCV 83.1, MCH 27.5, MCHC 33.1, RDW 15.9, Plt Count 326, MPV 9.2, Neut % (Auto) 66.5, Lymph % (Auto) 18.2, [place] % (Auto) 14.0 H, Eos % (Auto) 0.5, Baso % (Auto) 0.2, Neut # (Auto) 6.6, Lymph # (Auto) 1.8, [place] # (Auto) 1.4 H, Eos # (Auto) 0.1, Baso # (Auto) 0.0, Sodium 140, Potassium 4.3 D, Chloride 104, Carbon Dioxide 28, Anion Gap 12.3, BUN 23 H D, Creatinine 1.80 H, Estimated Creat Clear 23, Estimated GFR 27 L, Est GFR ( Amer) 33 L, Glucose 92, Calcium 9.5, Total Bilirubin 0.8, Direct Bilirubin 0.2, Conjugated Bilirubin 0.0, Indirect Bilirubin 0.6, Unconjugated Bilirubin 0.6, AST 43 H, ALT 11 L, Alkaline Phosphatase 49, Total Protein 6.3, Albumin 3.7 D, Triglycerides 165 H, Cholesterol 111 L, LDL Cholesterol Direct 40.83 L, VLDL Cholesterol 33, HDL Cholesterol 33 L, Cholesterol/HDL Ratio 3.4, TSH 1.83 D I & O for Labs for Last 24 Hours: Intake & Output 04/13/25 04/14/25 04/15/25 04/16/25 23:59 23:59 23:59 23:59 Intake Total 1048.000 / 1048.000 350 / 700 1000 / 1000 Output Total 2600 / 6225 5250 / 5250 900 / 900 Balance -1552.000 / -5177.000 -4900 / -4550 100 / 100 Weight 155 lb 134 lb 7.994 oz 135 lb 3.2 oz 123 lb 5 oz Intake & Output 04/12/25 04/13/25 04/14/25 04/15/25 23:59 23:59 23:59 23:59 Intake Total 1048.000 / 1048.000 50 / 50 Output Total 2600 / 6225 3925 / 3925 Balance -1552.000 / -5177.000 -3875 / -3875 Weight 155 lb 134 lb 7.994 oz 135 lb 3.2 oz Microbiology Reports for the Last 24 Hours: Microbiology 04/14/25 00:09 Blood Blood Culture - Preliminary NO GROWTH AFTER 48 HOURS 04/13/25 23:09 Blood Blood Culture - Preliminary NO GROWTH AFTER 48 HOURS 04/13/25 23:02 Urine,Catheterized Urine Culture - Final No growth. Microbiology 04/14/25 00:09 Blood Blood Culture - Preliminary NO GROWTH AFTER 24 HOURS 04/13/25 23:09 Blood Blood Culture - Preliminary NO GROWTH AFTER 24 HOURS Constitutional: Present mild distress Head: Present normocephalic and atraumatic ENT: Present normal exam, normal oropharynx and mucous membranes moist Neck: Present normal inspection and full ROM Respiratory: Present normal respiratory effort and able to speak in complete sentences; Absent respiratory distress, rhonchi, wheezes, crackles or diminished air movement Cardiac: Present S1/S2, Tachycardia and radial pulses present GI: Present soft and distention; Absent tenderness or guarding Rectal (female): Present deferred (female): Present deferred Skin: Present intact; Absent cyanosis or jaundice Neuro: Present alert and awake; Absent oriented x 3 Extremities: Present normal inspection; Absent clubbing or cyanosis Psychiatric: Present normal affect and cooperative Assessment and Plan *Assessment and plan (1) Atelectasis of right lung: Status: Acute Category: Medical Code(s): J98.11 - Atelectasis Plan Ms. Jordan is a 85-year-old male with prior history of COPD greater than [id number] smoking history CAD status post stenting presented to the ER with altered mentation, found to having the right middle lobe collapse on her CT ch est and pulmonary was called for further evaluation and management. Afebrile. Hemodynamically stable. No evidence of leukocytosis. Comprehensive respiratory viral PCR panel negative. Anemia s/p transfusion. Blood gas venous upon admission did not show any evidence of hypercarbic respiratory failure, 7.38, pCO2 34.3 and O2 of 71.7 CTA PE protocol upon admission no evidence of pulmonary embolism. Right middle lobe collapse. Bilateral lower lobe interstitial changes. No dense consolidative changes noted. Near complete occlusion of the right middle lobe bronchus noted.. No mediastinal or hilar lymphadenopathy appreciated. No recent prior imaging available for review. Chest x-ray from 2020 within normal limits. On examination confused. Arousable to verbal commands. Not responding a ppropriately. Chest clear to auscultate with no significant wheezing. On room air saturating 90% and above. Interval update: No acute respiratory vents overnight. Continue to remain on room air. Slight worsening leukocytosis. Blood cultures no growth 48 hours. Plan: -Augmentin to complete a total of 5-day course from pulmonary standpoint -DuoNebs every 6 hours on a scheduled basis. Can be discharged home on Anoro inhaler along with DuoNebs 4 times daily. -Incentive spirometry and flutter valve -Evaluate for other possible etiologies of altered mentation as per primary team # For the noted right middle lobe collapse and possible endobronchial lesion will evaluate as an outpatient basis and determine further need for bronchoscopy airway examination.
--- NOTE | 2025-04-16 10:51 | P.PN_ITS ---
Subjective Subjective Date: 04/16/25 Time: 09:30 Principal diagnosis: nonstemi, GI bleed Interval history: This is an 85-year-old white female who was brought to the emergency department due to an altered mental status. Today she is alert and oriented x 3. She still has some slight confusion but her mentation is much better today. All of her medical history had to be obtained from her chart. On admission the patient had a hemoglobin of 5 in the emergency department. She was transfused with 2 units of packed red blood cells. Her hemoglobin is 8.6 this morning. The patient has had an elevated troponin with a troponin max of 1.49. Her lactate was elevated at 2.2 and went up to 2.6. Her TSH was also elevated at 12.2. She had an elevated BNP at 1270. The patient has had a blood transfusion and has been consulted by GI. They are waiting on an occult stool. If this is positive they will likely plan for EGD and/or colonoscopy. She is getting IV antibiotics for questionable pneumonia. Patient is also getting diuresed for acute on chronic HFpEF. This morning she denies any chest pain, pressure, shortness of breath or edema. She denies any fever, chills, nausea, vomiting, diarrhea, PND or orthopnea. Exam Data for Last 24 hours Vital signs and Labs for Last 24 Hours: Temp Pulse Resp BP Pulse Ox O2 Del Method O2 Flow Rate 98.6 F 80 17 115/59 L 90 L Room Air 2 04/16/25 07:26 04/16/25 08:00 04/16/25 07:26 04/16/25 07:26 04/16/25 08:00 04/16/25 09:00 04/16/25 06:45 Laboratory Results - last 24 hr 04/13/25 23:53: Blood Type A Positive, Antibody Screen Negative, Crossmatch (AHG) See Detail 04/15/25 08:41: Folate 7.62 04/16/25 08:25: WBC 12.2 H, RBC 3.67 L, Hgb 9.7 L D, Hct 31.0 L, MCV 84.5, MCH 26.4 L, MCHC 31.3 L, RDW 15.9, Plt Count 384, MPV 9.3, Neut % (Auto) 71.9, Lymph % (Auto) 14.1, [place] % (Auto) 12.5 H, Eos % (Auto) 0.6, Baso % (Auto) 0.2, Neut # (Auto) 8.8 H, Lymph # (Auto) 1.7, [place] # (Auto) 1.5 H, Eos # (Auto) 0.1, Baso # (Auto) 0.0, Sodium 136, Potassium 3.2 L D, Chloride 96 L, Carbon Dioxide 29, Anion Gap 14.2, BUN 25 H, Creatinine 1.70 H, Estimated Creat Clear 22, Estimated GFR 29 L, Est GFR ( Amer) 35 L, Glucose 119 H D, Calcium 9.3, Total Bilirubin 0.9, AST 41 H, ALT 16 D, Alkaline Phosphatase 51, Total Protein 7.3, Albumin 4.2 D, Globulin 3.1, Albumin/Globulin Ratio 1.4, Stool Occult Blood Positive A I & O for Last 24 hours: Intake & Output 04/13/25 04/14/25 04/15/25 04/16/25 23:59 23:59 23:59 23:59 Intake Total 1048.000 / 1048.000 350 / 700 1000 / 1000 Output Total 2600 / 6225 5250 / 5250 900 / 900 Balance -1552.000 / -5177.000 -4900 / -4550 100 / 100 Weight 155 lb 134 lb 7.994 oz 135 lb 3.2 oz 123 lb 5 oz Microbiology Reports for the Last 24 Hours: Microbiology 04/14/25 00:09 Blood Blood Culture - Preliminary NO GROWTH AFTER 48 HOURS 04/13/25 23:09 Blood Blood Culture - Preliminary NO GROWTH AFTER 48 HOURS 04/13/25 23:02 Urine,Catheterized Urine Culture - Final No growth. Constitutional Constitutional: no acute distress and average body habitus Comments: Pleasantly confused. *Routine HEENT Exam Head: Present normocephalic Eye: Present EOMI and PERRL ENT: Present mucous membranes moist *Routine Neck Exam Neck: Present supple; Absent lymphadenopathy *Routine Respiratory Exam Respiratory: Present CTA bilaterally and normal respiratory effort *Routine Cardiovascular Exam Cardiovascular: Present RRR, Normal S1 and Normal S2; Absent murmur *Routine Abdominal Exam Abdominal: Present soft and normoactive bowel sounds; Absent tenderness *Routine Extremities Exam Extremities: Absent cyanosis, clubbing or edema *Routine Skin Exam Skin: Present warm; Absent rash *Routine Neurological Exam Neurological: Present alert and oriented X3 Routine Psychiatric Exam Psychiatric: Present normal affect Progress Note: A&P Assessment and plan (1) NSTEMI (non-ST elevated myocardial infarction): Status: Acute (2) Anemia: Status: Acute (3) CAD (coronary artery disease): Status: Acute (4) HTN (hypertension): Status: Acute (5) Hyperlipidemia: Status: Acute (6) Stenosis of carotid artery: Status: Acute (7) Smoker: Status: Acute (8) UTI (urinary tract infection): Status: Acute (9) Right middle lobe pneumonia: Status: Acute (10) Sepsis: Status: Suspected (11) Acute metabolic encephalopathy: Status: Acute (12) Atelectasis of right lung: Status: Acute Assessment and Plan Assessment and Plan for All Diagnoses:: Plan: 1. This is an 85-year-old female who presented to the emergency department due to an altered mental status. She was found to have profound anemia with a hemoglobin of 5.0. She was transfused 2 units of packed red blood cells and her hemoglobin is 9.7 today. She was evaluated by GI. The patient still febrile did come back fecal occult positive. She will likely have a scope today. 2. The patient is currently being treated for UTI and pneumonia. She has been afebrile overnight. She is getting IV antibiotics. Her lactate is elevated. Sepsis protocol has been initiated. 3. The patient also appears to have a right middle lobe collapse. She did not have a bronchoscopy. Pulmonology is following the patient. 4. The patient did have an elevated troponin on admission with a troponin max of 1.49. She does have a history of coronary artery disease with reportedly 11 stents placed per her family. She does have an abnormal EKG but it is unclear whether or not this is her baseline. She is currently denying any chest pain or pressure. However, in the emergency department the patient indicated that she was having chest pain. Her EF is normal. No plans for invasive left cardiac catheterization at this time until she recovers from her anemia, sepsis, pneumonia and UTI. 5. She will likely need left cardiac catheterization during this hospitalization once she has recovered from her anemia, sepsis, pneumonia and UTI. 6. Coronary artery disease is present. Her Plavix and aspirin are currently being held due to her anemia. 7. Her blood pressure is well-controlled. Continue metoprolol. 8. Her LDL goal is less than 55. Her LDL is 40. Continue her statin. 9. Her BNP was elevated on admission. She has been getting IV diuretics. She has diuresed significantly. Will stop IV Lasix and start Lasix 40 mg p.o. daily. 10. Her creatinine is 1.7 today. Will continue to follow. 11. The patient is listed on Xarelto at home. It is unclear why she takes this medication. It is currently being held due to her anemia. Records were received from her primary solar pool heating installer at [facility]. The patient is listed as taking Plavix and aspirin for dual antiplatelet therapy. She was not on Xarelto when she saw cardiology last. She has no history of atrial fibrillation as far as their documentation goes. There is also no evidence of a DVT or PE. The family reports that she was on Xarelto because she was not tolerating Plavix well. We can likely stop Xarelto at this time since she does not have atrial fibrillation or an active DVT or PE. 12. Carotid artery stenosis is present. This can be followed up on as an outpatient. Review of her records from her previous solar pool heating installer she has known carotid artery stenosis in the 50 to 69% range and this has been unchanged. 13. Further recommendations will be made pending the patient's response to treatment. Following her scope she will likely need to be restarted on Plavix and aspirin only. No Xarelto. Thank you for the opportunity to help participate in the care of this patient. All recommendations and orders are per Dr. Waller.
[2025-04-16 12:15] LABS: CEA 3.1 ng/mL (0.0-4.7)
[2025-04-16] MEDS: FUROSEMIDE 40 MG TABLET PO (12:17)
--- NOTE | 2025-04-16 14:56 | P.PN_ITS ---
Subjective *Date: 04/16/25 *Time: 14:56 Interval history: Patient mentating better this morning, alert and oriented x 2 this morning and x 3 this afternoon. Very pleasant, conversational. Pending EGD. Exam Data for Last 24 hours Vital signs and Labs for Last 24 Hours: Temp Pulse Resp BP Pulse Ox O2 Del Method O2 Flow Rate 98.5 F 90 19 132/73 91 L Nasal Cannula 1 04/16/25 11:36 04/16/25 12:00 04/16/25 11:36 04/16/25 11:36 04/16/25 11:36 04/16/25 13:00 04/16/25 13:00 Laboratory Results - last 24 hr 04/13/25 23:53: Blood Type A Positive, Antibody Screen Negative, Crossmatch (G) See Detail 04/14/25 05:01: Carcinoembryonic Ag 3.1 04/16/25 08:25: WBC 12.2 H, RBC 3.67 L, Hgb 9.7 L D, Hct 31.0 L, MCV 84.5, MCH 26.4 L, MCHC 31.3 L, RDW 15.9, Plt Count 384, MPV 9.3, Neut % (Auto) 71.9, Lymph % (Auto) 14.1, [place] % (Auto) 12.5 H, Eos % (Auto) 0.6, Baso % (Auto) 0.2, Neut # (Auto) 8.8 H, Lymph # (Auto) 1.7, [place] # (Auto) 1.5 H, Eos # (Auto) 0.1, Baso # (Auto) 0.0, Sodium 136, Potassium 3.2 L D, Chloride 96 L, Carbon Dioxide 29, Anion Gap 14.2, BUN 25 H, Creatinine 1.70 H, Estimated Creat Clear 22, Estimated GFR 29 L, Est GFR ( Amer) 35 L, Glucose 119 H D, Calcium 9.3, Total Bilirubin 0.9, AST 41 H, ALT 16 D, Alkaline Phosphatase 51, Total Protein 7.3, Albumin 4.2 D, Globulin 3.1, Albumin/Globulin Ratio 1.4, Stool Occult Blood Positive A I & O for Last 24 hours: Intake & Output 04/13/25 04/14/25 04/15/25 04/16/25 23:59 23:59 23:59 23:59 Intake Total 1048.000 / 1048.000 350 / 700 1000 / 1000 Output Total 2600 / 6225 5250 / 5250 1170 / 1170 Balance -1552.000 / -5177.000 -4900 / -4550 -170 / -170 Weight 70.307 kg 61.008 kg 61.326 kg 55.934 kg Microbiology Reports for the Last 24 Hours: Microbiology 04/14/25 00:09 Blood Blood Culture - Preliminary NO GROWTH AFTER 48 HOURS 04/13/25 23:09 Blood Blood Culture - Preliminary NO GROWTH AFTER 48 HOURS 04/13/25 23:02 Urine,Catheterized Urine Culture - Final No growth. Constitutional Constitutional: no acute distress Comments: Pleasantly confused. *Routine HEENT Exam Head: Present normocephalic Eye: Present EOMI and PERRL ENT: Present mucous membranes moist *Routine Neck Exam Neck: Present supple; Absent lymphadenopathy *Routine Respiratory Exam Respiratory: Present CTA bilaterally *Routine Cardiovascular Exam Cardiovascular: Present RRR *Routine Abdominal Exam Abdominal: Present soft and normoactive bowel sounds; Absent tenderness *Routine Extremities Exam Extremities: Absent cyanosis, clubbing or edema *Routine Skin Exam Skin: Present warm; Absent rash *Routine Neurological Exam Neurological: Present alert Assessment and Plan *Assessment and plan (1) Acute metabolic encephalopathy: Status: Acute Category: Medical Code(s): G93.41 - Metabolic encephalopathy (2) Anemia: Status: Acute Category: Medical Code(s): D64.9 - Anemia, unspecified (3) Hypothyroid: Status: Acute Category: Medical Code(s): E03.9 - Hypothyroidism, unspecified (4) Sepsis: Status: Suspected Qualifiers: Sepsis type: sepsis due to unspecified organism Sepsis acute organ dysfunction status: without acute organ dysfunction Qualified Code(s): A41.9 - Sepsis, unspecified organism Category: Medical Code(s): A41.9 - Sepsis, unspecified organism (5) Right middle lobe pneumonia: Status: Acute Qualifiers: Pneumonia type: due to unspecified organism Qualified Code(s): J18.9 - Pneumonia, unspecified organism Category: Medical Code(s): J18.9 - Pneumonia, unspecified organism (6) UTI (urinary tract infection): Status: Acute Qualifiers: Urinary tract infection type: site unspecified Hematuria presence: without hematuria Qualified Code(s): N39.0 - Urinary tract infection, site not specified Category: Medical Code(s): N39.0 - Urinary tract infection, site not specified Plan Kathia Jordan is a 85-year-old female was brought to the ER because of confusion per family, found to be profoundly anemic hemoglobin 5.0 with RML collapse/pneumonia, mild proximal colitis with NSTEMI. #Sepsis, resolved #Right middle lobe collapse, suspected underlying pneumonia #Colitis #Acute metabolic encephalopathy ? Presented with confusion, CT chest shows right middle lobe collapse. Unable to rule out underlying pneumonia. Patient was initially hypothermic, with fever of 96.4F. Received vancomycin, Zosyn in the ED. - WBC has been stable, bumped slightly to 12.2. Afebrile last 48 hours. Me ntation waxing and waning, but overall improving. Respiratory panel normal. ? Discussed with pulmonology, no plans for bronchoscopy as RML atelectasis is chronic. Recommended weaning antibiotics from Zosyn to Augmentin. ? Continue Augmentin 500 mg 3 times daily day 3 antibiotics. - PT/OT consulted, recommend SNF. Case management assisting with placement. ? Follow-up morning CBC, CMP. #Acute on chronic anemia #Suspected blood loss secondary to anticoagulation - Initial hemoglobin 5.0. Patient is on aspirin and appears to have been started on Xarelto within the past month reportedly for bruising. ? Patient received 2 units PRBC transfusion during admission, hemoglobin improved to 9.2. Hemoglobin improved to 9.7 today. Stable. No signs of obvious bleeding. ? GI consulted, given FOBT is nor positive mal proceed to EGD this afternoon. - Family denied melanotic stools or bright red blood per rectum. BUN not disproportionately elevated to creatinine suggestive of upper GI bleed. - Continue 40 mg IV twice daily pending EGD - Ferritin low at 10.6, B12 and folate normal. ? Given IV Venofer 200 mg. #NSTEMI likely type II #History of CAD with 11 stents ? Troponins peaked at 1.49, in the setting of profound anemia. ? Cardiology consulted, considering inpatient ischemic versus outpatient workup with [facility] once more stable. ? Recommend restarting aspirin, Plavix and discontinuing Xarelto after EGD. No indication found for Xarelto per [facility] obtained by cardiology. #HFpEF #Mild reduction in RV function ? BNP elevated to 1270, patient has new oxygen requirement. ? Net -6 L. Creatinine stabilized at 1.7 today. ? Transitioned to Lasix 40 mg daily. Diuresed with IV Lasix 40 mg twice daily during admission. Hypothyroid: TSH 12.2. Free T4 normal. Supposed to be on levothyroxine 88 mcg daily at home. Will increase to 100 mcg daily. Needs repeat TSH in 6-week. 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 Initiate Tylenol IV as above due to n.p.o. status and nausea. Also consider morphine for more severe breakthrough pain. Monitor for toxicity with morphine 2 mg IV as needed every 4 hours DNR/DNI N.p.o. SCDs, VTE contraindicated given unclear etiology of anemia
--- NOTE | 2025-04-16 15:15 | P.PCN_ITS ---
[facility] Procedure Note Date: 04/16/25 Time: 15:45 Procedure Note:: Upper Endoscopy Procedure Report: Esophagogastroduodenoscopy with cold biopsies Endoscopost: Kendell Heck II, MD Referring Physician: Nadeem Bellamy MD Date of Procedure: April 16, 2025 Equipment: Olympus GIF-1100 standard upper endoscope Sedation: MAC sedation Indications: Mrs. Jordan is an 85-year-old female who is here for diagnostic EGD because of profound anemia on admission. On 04/13/2025 she presented to the ED with hemoglobin 5.0 and hematocrit 16.4. Her serum iron was 127, ferritin 10.6 and iron saturation of 29.33%. This was still most suggestive of iron deficiency anemia because of the low ferritin. The patient did have a CT scan of the abdomen and pelvis that showed what appeared to be mild proximal colitis and extensive diverticulosis in the left colon. Her pancreas and liver were normal. The patient reports no melena, hematochezia or bright red blood per rectum. She has been complaining of some epigastric abdominal pain especially at night according to her daughter. She was also on Plavix and Xarelto. Hemoccult testing at [facility] shows Hemoccult positive stools. She has had a colonoscopy within the last 5 to 10 years. The patient's CEA level was 3.1. Procedure: Prior to the procedure, a history and physical exam was performed, and patient's medications and allergies were reviewed. The risks, benefits and alternatives of the sedation and procedure were discussed with the patient. All questions were answered and informed consent was obtained. The patient was brought to the procedure room. Patient identification and proposed procedure were verified by the physician and the nurse. The patient was placed in a left lateral decubitus position and the scope was passed under direct vision. Throughout the procedure, the patient's blood pressure, pulse, and oxygen saturations were monitored continuously. The upper GI endoscopy was accomplished without difficulty. The patient tolerated the procedure well. Findings: The scope was passed directly into the upper esophagus and advanced to the third portion of the duodenum. The post bulbar duodenum, ampulla and duodenal bulb were normal with normal mucosa and conniventes. There were no duodenal ulcerations, AVMs or erosions.. The scope was withdrawn through a normal duodenal bulb and pylorus into the stomach. There was some linear antral gastropathy. The body and fundus of the stomach were normal. There was no evidence of any gastric ulcerations, AVMs, Tho's erosions, or any bleeding etiology. Upon retroflexion there was no hiatal hernia. Cold biopsies were taken from the lesser curvature in the antrum. The scope was then withdrawn into the esophagus. There was no evidence of reflux esophagitis or Harris's. The remainder of the esophageal mucosa was normal. Impression: 1. Mild linear antral gastropathy with bile reflux Plan: There was no clear source for the patient's iron deficiency and anemia. The next step would be bidirectional evaluation with colonoscopy. This will certainly depend on patient's advanced directives and wishes of family. Her CEA level was normal at 3.1. I do not expect any advanced pathology of the colon based upon her normal colonoscopy within the last 5 to 10 years, normal CEA level and CAT scan showing no colonic masses. However, most sensitive and specific way to ascertain etiology would be colonoscopy.
--- NOTE | 2025-04-16 15:21 | P.PNANES_ITS ---
[facility] Disclaimer: The information contained in this section may have been updated after the patient was seen, as this information can be updated by other users. Medical History Atelectasis of right lung NSTEMI (non-ST elevated myocardial infarction) Stenosis of carotid artery Hyperlipidemia HTN (hypertension) Smoker CAD (coronary artery disease) Hypothyroid Surgical History Stented coronary artery Social History Smoking Status: Current every day smoker tobacco type: cigarettes alcohol intake: never substance use type: unknown current occupational status: other Travel in the last 8 weeks?: None [facility] Anesthesia Checklist Patient Identification Patient Identification: Arm Band and Verbal (Name & ) Structural Data Admitted From: Home Planned Operative Procedure/s: EGD Consent for Planned Operative Procedure(s) Verified: Yes Verified Documents: Surgical Consent and History and Physical NPO Status Verified Time NPO: 07:30 Additional verifications Anesthesia Reactions: No Previous Colonoscopy: Yes Airway Assessment Mallampati Score:: Class II Dentition: Good Dentition Neurological Assessment Level of Consciousness: Awake, Alert and Appropriate Hx Seizures: No Numbness or tingling in extremities: No Anesthesia Plan Anesthesia Risk discussed: Yes Anesthesia Plan: Verified ASA Class: III Anesthesia Type: MAC
[2025-04-16] MEDS: OLANZapine 5 MG ODT TABLET 2.5 MG SL (18:49)
--- NOTE | 2025-04-16 19:00 | PC.NURSE ---
Pt placed on 1:1 observation due to increasing agitation, pt is at risk for harm to self and other as she is unstable and continues to attempt to get out of bed by herself. Pt is combative with staff, and is refusing all care. Attempts to redirect pt are unsuccessful.
[2025-04-16] MEDS: OLANZapine 10 MG VIAL 5 MG IM (19:55)
--- NOTE | 2025-04-16 20:45 | PC.NURSE ---
Pt was agitated with a 1:1 sitter upon the beginning of this shift, in an attempt to calm pt SRNA was walking with pt in hallway. SRNA assisted pt to floor as pt lost her balance and began to fall. Pt has no injuries nor any complaints. Charge nurse, lead warehouse associate, and hospitalist contacted and present. Pt remains on 1:1 observation, medications for agitation given.
[2025-04-16] MEDS: HALOPERIDOL LACTATE 5 MG/ML VIAL 1 MG IV (20:57)
--- NOTE | 2025-04-16 22:30 | PC.NURSE ---
Pt remains agitated and combative with staff. Sade antonio contacted due to pt increasing agitation additional dose of medication given for agitation.
[2025-04-16] MEDS: HALOPERIDOL LACTATE 5 MG/ML VIAL 2 MG IV (22:34)
[2025-04-17] VITALS (8 sets, daily range): BP systolic 120–154; BP diastolic 49–102; PULSE 75–92; RESP 14–19; TEMP 36.4–36.9; O2SAT 90–99; BMI 20.9
--- NOTE | 2025-04-17 00:03 | PC.NURSE ---
Addendum entered by Regina Saxena RN 04/17/25 02:03: 0041: 2nd attempt made to contact pt next of kin was unsuccessful. Original Note: Attempted to contact Pt next of kin (daughter) and son. No answer at either number.
--- NOTE | 2025-04-17 00:33 | PC.NURSE ---
Pt increased agitation, Jtravis at bedside to assess pt, additional meds given and restraints applied (upper extremities), charge nurse and warehouse analyst notified. continued 1:1 obs.
[2025-04-17] MEDS: diazePAM 10MG/2ML SYRINGE 2 MG IV (00:35)
--- NOTE | 2025-04-17 04:45 | PC.NURSE ---
restraints removed at this time, pt is resting and calm
[2025-04-17] MEDS: IPRATROPIUM/ALBUTEROL 3 ML NEB IH ×2 (06:39→23:56)
--- NOTE | 2025-04-17 06:47 | EXP.EVENT.NO ---
Patient with substantial combativeness overnight and high risk for falls even with one-to-one sitter at bedside. Medications attempted Zyprexa, Haldol and Valium without agitation relief. Upon my arrival to the bedside at approximately 00 30, patient with 4 staff members at bedside attempting to keep patient in bed. At this time decision was made to place patient in upper limb soft restraints. Oxygen applied to patient with continuous pulse oximeter attached to foot. Patient oxygenating at 98% on 4 L nasal cannula. Per nursing, restraints removed that a 0500 AM and rested well For couple hours until patient required restraint replacement around 6:45 AM. Upon reassessment, patient oxygenating well but altered and agitated.
--- NOTE | 2025-04-17 06:53 | PC.NURSE ---
Contacted Gabriel Masters, USABILITY STRATEGIST, Restraints reapplied @ [phone] due to pt hitting and kicking staff and a risk to harm self.
[2025-04-17 08:14] LABS: Hematocrit 29.0 % (37.0-47.0); Hemoglobin 9.4 g/dL (12.2-16.2); Immature Granulocytes % 1.3 %; Mean Corpuscular HGB Conc 32.4 g/dL (31.8-35.4); Mean Corpuscular Hemoglobin 26.8 pg (27.0-31.2); Mean Corpuscular Volume 82.6 fl (81-99); Nucleated Red Blood Cells % 0.3 %; Platelet Count 323 K/mm3 (142-424); Red Blood Count 3.51 M/mm3 (4.20-5.40); Red Cell Distribution Width-SD 46.3 fL; White Blood Count 7.8 K/mm3 (4.8-10.8)
[2025-04-17 08:21] LABS: Alanine Aminotransferase 10 U/L (12-78); Albumin Level 4.1 g/dl (3.5-5.0); Albumin/Globulin Ratio 1.5 (1.1-1.8); Alkaline Phosphatase 66 U/L (38-126); Anion Gap 12.0 mEq/L (5-15); Aspartate Amino Transferase 29 U/L (14-36); Bilirubin,Total 0.9 mg/dl (0.2-1.3); Blood Urea Nitrogen 19 mg/dl (7-17); Calcium 9.3 mg/dl (8.4-10.2); Carbon Dioxide 28 mmol/L (22.0-30.0); Chloride 99 mmol/L (98-107); Creatinine Clearance Estimated 24 mL/min (50-200); Creatinine,Serum 1.60 mg/dl (0.52-1.04); Estimated Glomerular Filt Rate 31 ml/min (>60); GFR (African American) 37 ML/MIN (>60); Globulin 2.8 g/dL (1.3-3.2); Glucose 92 mg/dl (74-100); Sodium 136 mmol/L (136-145); Total Protein,Serum 6.9 g/dl (6.3-8.2)
[2025-04-17 08:27] LABS: Potassium 3.0 mmoL/L (3.5-5.1)
--- NOTE | 2025-04-17 08:33 | EXP.PULM.PN ---
Subjective *Date: 04/17/25 *Time: 12:50 Interval history: No aggressive events overnight. Patient appears more confused today. Pulmonology Exam Inpatient Vital signs and Labs for Last 24 Hours: Temp Pulse Resp BP Pulse Ox O2 Del Method O2 Flow Rate 98.4 F 91 H 18 133/62 97 Nasal Cannula 4 04/17/25 07:35 04/17/25 07:35 04/17/25 07:35 04/17/25 07:35 04/17/25 07:35 04/17/25 07:35 04/17/25 07:35 Laboratory Results - last 24 hr 04/14/25 05:01: Carcinoembryonic Ag 3.1 04/16/25 08:25: WBC 12.2 H, RBC 3.67 L, Hgb 9.7 L D, Hct 31.0 L, MCV 84.5, MCH 26.4 L, MCHC 31.3 L, RDW 15.9, Plt Count 384, MPV 9.3, Neut % (Auto) 71.9, Lymph % (Auto) 14.1, [place] % (Auto) 12.5 H, Eos % (Auto) 0.6, Baso % (Auto) 0.2, Neut # (Auto) 8.8 H, Lymph # (Auto) 1.7, [place] # (Auto) 1.5 H, Eos # (Auto) 0.1, Baso # (Auto) 0.0, Sodium 136, Potassium 3.2 L D, Chloride 96 L, Carbon Dioxide 29, Anion Gap 14.2, BUN 25 H, Creatinine 1.70 H, Estimated Creat Clear 22, Estimated GFR 29 L, Est GFR ( Amer) 35 L, Glucose 119 H D, Calcium 9.3, Total Bilirubin 0.9, AST 41 H, ALT 16 D, Alkaline Phosphatase 51, Total Protein 7.3, Albumin 4.2 D, Globulin 3.1, Albumin/Globulin Ratio 1.4, Stool Occult Blood Positive A 04/17/25 07:55: WBC 7.8 D, RBC 3.51 L, Hgb 9.4 L, Hct 29.0 L, MCV 82.6, MCH 26.8 L, MCHC 32.4, RDW 15.4, Plt Count 323, MPV 9.3, Neut % (Auto) 68.1, Lymph % (Auto) 12.8, [place] % (Auto) 16.9 H, Eos % (Auto) 0.6, Baso % (Auto) 0.3, Neut # (Auto) 5.3, Lymph # (Auto) 1.0, [place] # (Auto) 1.3 H, Eos # (Auto) 0.1, Baso # (Auto) 0.0, Sodium 136, Potassium 3.0 L, Chloride 99, Carbon Dioxide 28, Anion Gap 12.0, BUN 19 H, Creatinine 1.60 H, Estimated Creat Clear 24, Estimated GFR 31 L, Est GFR ( Amer) 37 L, Glucose 92 D, Calcium 9.3, Total Bilirubin 0.9, AST 29 D, ALT 10 L D, Alkaline Phosphatase 66, Total Protein 6.9, Albumin 4.1, Globulin 2.8, Albumin/Globulin Ratio 1.5 Temp Pulse Resp BP Pulse Ox O2 Del Method O2 Flow Rate 97.9 F 90 17 146/68 H 92 L Nasal Cannula 2 04/15/25 08:00 04/15/25 08:00 04/15/25 08:00 04/15/25 08:00 04/15/25 08:00 04/15/25 08:00 04/15/25 08:00 Laboratory Results - last 24 hr 04/14/25 05:01: Lipase 139, Vitamin B12 719 04/14/25 12:48: Chlamy pneumoniae PCR Not detected, Adenovirus (PCR) Not detected, B. pertussis DNA (PCR) Not detected, Coronavirus OC43 (PCR) Not detected, Coronavirus HKU1 (PCR) Not detected, Coronavirus 229E (PCR) Not detected, SARS-CoV-2 (PCR) Not detected, Coronavirus NL63 (PCR) Not detected, Human Metapneumovir PCR Not detected, Influenza A (H1) PCR Not detected, Influ A (H1N1/09) PCR Not detected, Influenza A (H3) PCR Not detected, Influenza Type A (PCR) Not detected, Influenza Type B (PCR) Not detected, M. pneumoniae (PCR) Not detected, Parainfluenza 1 (PCR) Not detected, Parainfluenza 2 (PCR) Not detected, Parainfluenza 3 (PCR) Not detected, Parainfluenza 4 (PCR) Not detected, RSV (PCR) Not detected, Entero/Rhino (PCR) Not detected 04/15/25 08:41: WBC 9.9, RBC 3.13 L, Hgb 8.6 L, Hct 26.0 L, MCV 83.1, MCH 27.5, MCHC 33.1, RDW 15.9, Plt Count 326, MPV 9.2, Neut % (Auto) 66.5, Lymph % (Auto) 18.2, [place] % (Auto) 14.0 H, Eos % (Auto) 0.5, Baso % (Auto) 0.2, Neut # (Auto) 6.6, Lymph # (Auto) 1.8, [place] # (Auto) 1.4 H, Eos # (Auto) 0.1, Baso # (Auto) 0.0, Sodium 140, Potassium 4.3 D, Chloride 104, Carbon Dioxide 28, Anion Gap 12.3, BUN 23 H D, Creatinine 1.80 H, Estimated Creat Clear 23, Estimated GFR 27 L, Est GFR ( Amer) 33 L, Glucose 92, Calcium 9.5, Total Bilirubin 0.8, Direct Bilirubin 0.2, Conjugated Bilirubin 0.0, Indirect Bilirubin 0.6, Unconjugated Bilirubin 0.6, AST 43 H, ALT 11 L, Alkaline Phosphatase 49, Total Protein 6.3, Albumin 3.7 D, Triglycerides 165 H, Cholesterol 111 L, LDL Cholesterol Direct 40.83 L, VLDL Cholesterol 33, HDL Cholesterol 33 L, Cholesterol/HDL Ratio 3.4, TSH 1.83 D I & O for Labs for Last 24 Hours: Intake & Output 04/14/25 04/15/25 04/16/25 04/17/25 23:59 23:59 23:59 23:59 Intake Total 1048.000 / 1048.000 350 / 700 1000 / 1000 Output Total 2600 / 6225 5250 / 5250 1170 / 1170 Balance -1552.000 / -5177.000 -4900 / -4550 -170 / -170 Weight 134 lb 7.994 oz 135 lb 3.2 oz 123 lb 5 oz 126 lb Intake & Output 04/12/25 04/13/25 04/14/25 04/15/25 23:59 23:59 23:59 23:59 Intake Total 1048.000 / 1048.000 50 / 50 Output Total 2600 / 6225 3925 / 3925 Balance -1552.000 / -5177.000 -3875 / -3875 Weight 155 lb 134 lb 7.994 oz 135 lb 3.2 oz Microbiology Reports for the Last 24 Hours: Microbiology 04/14/25 00:09 Blood Blood Culture - Preliminary NO GROWTH AFTER 24 HOURS 04/13/25 23:09 Blood Blood Culture - Preliminary NO GROWTH AFTER 24 HOURS Constitutional: Present mild distress Head: Present normocephalic and atraumatic ENT: Present normal exam, normal oropharynx and mucous membranes moist Neck: Present normal inspection and full ROM Respiratory: Present normal respiratory effort and able to speak in complete sentences; Absent respiratory distress, rhonchi, wheezes, crackles or diminished air movement Cardiac: Present S1/S2, Tachycardia and radial pulses present GI: Present soft and distention; Absent tenderness or guarding Rectal (female): Present deferred (female): Present deferred Skin: Present intact; Absent cyanosis or jaundice Neuro: Present alert and awake; Absent oriented x 3 Extremities: Present normal inspection; Absent clubbing or cyanosis Psychiatric: Present normal affect and cooperative Assessment and Plan *Assessment and plan (1) Atelectasis of right lung: Status: Acute Category: Medical Code(s): J98.11 - Atelectasis Plan Ms. Jordan is a 85-year-old male with prior history of COPD greater than [id number] smoking history CAD status post stenting presented to the ER with altered mentation, found to having the right middle lobe collapse on her CT chest and pulmonary was called for further evaluation and management. Afebrile. Hemodynamically stable. No evidence of leukocytosis. Comprehensive respiratory viral PCR panel negative. Anemia s/p transfusion. Blood gas venous upon admission did not show any evidence of hypercarbic respiratory failure, 7.38, pCO2 34.3 and O2 of 71.7 CTA PE protocol upon admission no evidence of pulmonary embolism. Right middle lobe collapse. Bilateral lower lobe interstitial changes. No dense consolidative changes noted. Near complete occlusion of the right middle lobe bronchus noted.. No mediastinal or hilar lymphadenopathy appreciated. No recent prior imaging available for review. Chest x-ray from 2020 within normal limits. On examination confused. Arousable to verbal commands. Not responding appropriately. Chest clear to auscultate with no significant wheezing. On room air saturating 90% and above. Interval update: No acute respiratory events overnight. Normalized white count. Continue to receive Augmentin along with DuoNebs every 6 hours on a scheduled basis. Intermittently needing oxygen supplementation to maintain O2 saturation goal of 90% and above. Plan: Chest x-ray PA lateral Encouraged to use Incentive spirometry and flutter valve. -Augmentin to complete a total of 5-day course from pulmonary standpoint -DuoNebs every 6 hours on a scheduled basis. Can be discharged home on Anoro inhaler along with DuoNebs 4 times daily. -Evaluate for other possible etiologies of altered mentation as per primary team # For the noted right middle lobe collapse and possible endobronchial lesion will evaluate as an outpatient basis and determine further need for bronchoscopy airway examination.
--- NOTE | 2025-04-17 08:50 | P.PN_ITS ---
Subjective Subjective Date: 04/17/25 Time: 07:00 Principal diagnosis: nonstemi, GI bleed Interval history: This is an 85-year-old female who was brought to the emergency department due to altered mental status. Today she is oriented to self and time. She is disoriented to place. She is very combative and in restraints this morning. She is babbling and mumbling incomprehensible words. She is just randomly talking about things and not really answering my questions appropriately today. She appears to be in no distress. I was unable to complete a review of systems this morning. She was found to be profoundly anemic on admission and did receive 2 units of packed red blood cells. She underwent EGD yesterday with no active signs of bleeding. The patient will likely need a colonoscopy to further evaluate her anemia. She did have an elevated troponin consistent with a non- STEMI. She is also being treated for acute on chronic HFpEF. Her IV diuretics were switched over to oral Lasix yesterday. Exam Data for Last 24 hours Vital signs and Labs for Last 24 Hours: Temp Pulse Resp BP Pulse Ox O2 Del Method O2 Flow Rate 98.4 F 91 H 18 133/62 97 Nasal Cannula 4 04/17/25 07:35 04/17/25 07:35 04/17/25 07:35 04/17/25 07:35 04/17/25 07:35 04/17/25 07:35 04/17/25 07:35 Laboratory Results - last 24 hr 04/14/25 05:01: Carcinoembryonic Ag 3.1 04/16/25 08:25: WBC 12.2 H, RBC 3.67 L, Hgb 9.7 L D, Hct 31.0 L, MCV 84.5, MCH 26.4 L, MCHC 31.3 L, RDW 15.9, Plt Count 384, MPV 9.3, Neut % (Auto) 71.9, Lymph % (Auto) 14.1, [place] % (Auto) 12.5 H, Eos % (Auto) 0.6, Baso % (Auto) 0.2, Neut # (Auto) 8.8 H, Lymph # (Auto) 1.7, [place] # (Auto) 1.5 H, Eos # (Auto) 0.1, Baso # (Auto) 0.0, Stool Occult Blood Positive A 04/17/25 07:55: WBC 7.8 D, RBC 3.51 L, Hgb 9.4 L, Hct 29.0 L, MCV 82.6, MCH 26.8 L, MCHC 32.4, RDW 15.4, Plt Count 323, MPV 9.3, Neut % (Auto) 68.1, Lymph % (Auto) 12.8, [place] % (Auto) 16.9 H, Eos % (Auto) 0.6, Baso % (Auto) 0.3, Neut # (Auto) 5.3, Lymph # (Auto) 1.0, [place] # (Auto) 1.3 H, Eos # (Auto) 0.1, Baso # (Auto) 0.0, Sodium 136, Potassium 3.0 L, Chloride 99, Carbon Dioxide 28, Anion Gap 12.0, BUN 19 H, Creatinine 1.60 H, Estimated Creat Clear 24, Estimated GFR 31 L, Est GFR ( Amer) 37 L, Glucose 92 D, Calcium 9.3, Total Bilirubin 0.9, AST 29 D, ALT 10 L D, Alkaline Phosphatase 66, Total Protein 6.9, Albumin 4.1, Globulin 2.8, Albumin/Globulin Ratio 1.5 I & O for Last 24 hours: Intake & Output 04/14/25 04/15/25 04/16/25 04/17/25 23:59 23:59 23:59 23:59 Intake Total 1048.000 / 1048.000 350 / 700 1000 / 1000 Output Total 2600 / 6225 5250 / 5250 1170 / 1170 Balance -1552.000 / -5177.000 -4900 / -4550 -170 / -170 Weight 134 lb 7.994 oz 135 lb 3.2 oz 123 lb 5 oz 126 lb Constitutional Constitutional: no acute distress, average body habitus, combative and agitated Comments: Pleasantly confused. *Routine HEENT Exam Head: Present normocephalic Eye: Present EOMI and PERRL ENT: Present mucous membranes moist *Routine Neck Exam Neck: Present supple; Absent lymphadenopathy *Routine Respiratory Exam Respiratory: Present CTA bilaterally and normal respiratory effort *Routine Cardiovascular Exam Cardiovascular: Present RRR, Normal S1 and Normal S2; Absent murmur *Routine Abdominal Exam Abdominal: Present soft and normoactive bowel sounds; Absent tenderness *Routine Extremities Exam Extremities: Absent cyanosis, clubbing or edema *Routine Skin Exam Skin: Present warm; Absent rash *Routine Neurological Exam Neurological: Present alert and altered mental status; Absent oriented X3 Routine Psychiatric Exam Psychiatric: Present agitated Progress Note: A&P Assessment and plan (1) NSTEMI (non-ST elevated myocardial infarction): Status: Acute (2) CAD (coronary artery disease): Status: Acute (3) HTN (hypertension): Status: Acute (4) Smoker: Status: Acute (5) Hyperlipidemia: Status: Acute (6) Stenosis of carotid artery: Status: Acute (7) Acute colitis: Status: Acute (8) UTI (urinary tract infection): Status: Acute (9) Right middle lobe pneumonia: Status: Acute (10) Sepsis: Status: Suspected (11) Anemia: Status: Acute (12) Acute metabolic encephalopathy: Status: Acute (13) (HFpEF) heart failure with preserved ejection fraction: Status: Acute Assessment and Plan Assessment and Plan for All Diagnoses:: Plan: 1. This is an 85-year-old female who presented to the emergency department due to an altered mental status. She was found to have profound anemia with a hemoglobin of 5.0. She was transfused 2 units of packed red blood cells and her hemoglobin is 9.7 today. She was evaluated by GI. The patient still febrile did come back fecal occult positive. EGD showed no active signs of bleeding. She would likely need a colonoscopy for further evaluation of her profound anemia. 2. The patient is currently being treated for UTI and pneumonia. She has been afebrile overnight. She is getting IV antibiotics. 3. The patient also appears to have a right middle lobe collapse. She did not have a bronchoscopy. Pulmonology is following the patient. 4. The patient did have an elevated troponin on admission with a troponin max of 1.49. She does have a history of coronary artery disease with reportedly 11 stents placed per her family. She does have an abnormal EKG but it is unclear whether or not this is her baseline. She is currently denying any chest pain or pressure. However, in the emergency department the patient indicated that she was having chest pain. Her EF is normal. No plans for invasive left cardiac catheterization at this time until she recovers from her anemia, sepsis, pneumonia and UTI. This will likely need to be done on an outpatient basis once she has had a colonoscopy to find the source of her profound anemia. 5. Coronary artery disease is present. Restart aspirin 81 mg daily only as long as she is on a PPI. We did get records from her primary evening sitter and she has not had any stenting since before 2022. Stop Plavix. 6. Her blood pressure is well-controlled. Continue metoprolol. 7. Her LDL goal is less than 55. Her LDL is 40. Continue her statin. 8. Her BNP was elevated on admission. She is being diuresed for acute on chronic HFpEF. She is currently on oral Lasix. 9. Her creatinine is 1.6 today. Will continue to follow. 10. The patient is listed on Xarelto at home. It is unclear why she takes this medication. It is currently being held due to her anemia. Records were received from her primary evening sitter at [facility]. The patient is listed as taking Plavix and aspirin for dual antiplatelet therapy. She was not on Xarelto when she saw cardiology last. She has no history of atrial fibrillation as far as their documentation goes. There is also no evidence of a DVT or PE. The family reports that she was on Xarelto because she was not tolerating Plavix well. We can likely stop Xarelto at this time since she does not have atrial fibrillation or an active DVT or PE. 11. Carotid artery stenosis is present. This can be followed up on as an outpatient. Review of her records from her previous evening sitter she has known carotid artery stenosis in the 50 to 69% range and this has been unchanged. 12. Further recommendations will be made pending the patient's response to treatment. Following her scope she will likely need to be restarted on Plavix and aspirin only. No Xarelto. Thank you for the opportunity to help participate in the care of this patient. All recommendations and orders are per Dr. Waller.
[2025-04-17] MEDS: PANTOPRAZOLE 40MG VIAL 40 MG IV ×2 (09:15→20:27)
[2025-04-17] MEDS: AMOXICILLIN/POT CLAVULAN 500MG TABLET 1 EACH PO ×2 (09:15→20:27)
[2025-04-17] MEDS: LEVOTHYROXINE 100MCG (0.1MG) TAB 100 MCG PO (09:15)
[2025-04-17] MEDS: METOCLOPRAMIDE HCL 10MG/2ML VIAL 5 MG IVP (09:15)
[2025-04-17] MEDS: SODIUM CHLORIDE 0.9% 10ML VIAL 10 ML IV (09:15)
[2025-04-17] MEDS: FUROSEMIDE 40 MG TABLET PO (09:16)
[2025-04-17] MEDS: POLYETHYLENE GLYCOL 3350 17 GM PACKET PO (09:16)
[2025-04-17] MEDS: ASPIRIN EC 81MG TABLET 81 MG PO (09:16)
[2025-04-17] MEDS: METOPROLOL TARTRATE 25MG TABLET 25 MG PO ×2 (09:16→20:27)
[2025-04-17] MEDS: NICOTINE 21MG/24HR PATCH 21 MG TD (09:17)
--- NOTE | 2025-04-17 09:26 | EXP.ACUTE.PN ---
Subjective *Date: 04/17/25 *Time: 09:26 Interval history: Patient is lying in bed, is in one-on-one observation. Per report from last night patient was very confused and combative, ended up needing soft restraints. Patient was given multiple antipsychotic medications, which helped briefly. Patient seems to be doing better this morning, is able to tell me her name and her birthday. Still very confused as to what is going on around her or where she is. Will continue one-to-one observation. Medical Exam Vital signs and Labs for Last 24 Hours: Vital Signs Temp Pulse Pulse Resp BP Pulse Ox O2 Del Method 04/17/25 07:35 98.4 F 91 H 18 133/62 97 Nasal Cannula 04/17/25 06:52 Nasal Cannula 04/17/25 06:40 87 04/17/25 06:40 89 04/17/25 06:40 99 Nasal Cannula 04/17/25 05:00 Nasal Cannula 04/17/25 03:54 98.3 F 92 H 19 154/102 H 92 L Nasal Cannula 04/17/25 03:00 Nasal Cannula 04/17/25 00:51 Nasal Cannula 04/16/25 23:00 Room Air 04/16/25 21:00 Nasal Cannula 04/16/25 20:00 95 H 04/16/25 20:00 2 L Nasal Cannula 04/16/25 20:00 97.8 F 96 H 16 125/62 97 Nasal Cannula 04/16/25 19:00 Nasal Cannula 04/16/25 18:57 90 L Nasal Cannula 04/16/25 18:20 89 16 138/69 94 L Nasal Cannula 04/16/25 17:50 91 H 16 134/51 L 92 L Nasal Cannula 04/16/25 17:20 84 16 118/84 92 L Nasal Cannula 04/16/25 17:10 Nasal Cannula 04/16/25 17:05 85 16 111/71 95 Nasal Cannula 04/16/25 16:50 84 16 121/85 92 L Nasal Cannula 04/16/25 16:35 83 16 127/73 95 Nasal Cannula 04/16/25 16:20 98.5 F 84 16 147/67 H 93 L Nasal Cannula 04/16/25 16:19 80 139/61 91 L Room Air 04/16/25 16:09 79 137/60 90 L Room Air 04/16/25 15:59 81 151/65 H 91 L Room Air 04/16/25 15:49 97.4 F L 78 20 126/73 92 L Room Air 04/16/25 15:37 78 18 152/63 H 99 Nasal Cannula 04/16/25 15:01 98.5 F 86 19 132/73 91 L Nasal Cannula 04/16/25 15:00 Nasal Cannula 04/16/25 13:00 Nasal Cannula 04/16/25 12:00 90 04/16/25 11:36 98.5 F 86 19 132/73 91 L Room Air 04/16/25 11:26 79 04/16/25 11:26 79 04/16/25 11:26 86 L Room Air 04/16/25 11:00 Room Air O2 Flow Rate 04/17/25 07:35 4 04/17/25 06:52 4 04/17/25 06:40 04/17/25 06:40 04/17/25 06:40 4 04/17/25 05:00 4 04/17/25 03:54 4 04/17/25 03:00 4 04/17/25 00:51 4 04/16/25 23:00 04/16/25 21:00 2 04/16/25 20:00 04/16/25 20:00 04/16/25 20:00 2 04/16/25 19:00 2 04/16/25 18:57 2 04/16/25 18:20 2 04/16/25 17:50 2 04/16/25 17:20 2 04/16/25 17:10 2 04/16/25 17:05 2 04/16/25 16:50 2 04/16/25 16:35 2 04/16/25 16:20 2 04/16/25 16:19 04/16/25 16:09 04/16/25 15:59 04/16/25 15:49 04/16/25 15:37 5 04/16/25 15:01 1 04/16/25 15:00 1 04/16/25 13:00 1 04/16/25 12:00 04/16/25 11:36 04/16/25 11:26 04/16/25 11:26 04/16/25 11:26 04/16/25 11:00 Intake and Output 04/16/25 04/17/2504/17/25 23:59 07:59 15:59 Intake Total 0 / 1000 Output Total 0 1170 Balance 0 / -170 Intake: Intake, Oral Amount 0 890 Output: Output, Urine Amount 0 1170 Other: Number of Unmeasured Voids 1 Number of Bowel Movements 1 Weight 57.153 kg Patient Weight 04/17/25 23:59 Weight 57.153 kg Laboratory Results - last 24 hr 04/14/25 05:01: Carcinoembryonic Ag 3.1 04/16/25 08:25: WBC 12.2 H, RBC 3.67 L, Hgb 9.7 L D, Hct 31.0 L, MCV 84.5, MCH 26.4 L, MCHC 31.3 L, RDW 15.9, Plt Count 384, MPV 9.3, Neut % (Auto) 71.9, Lymph % (Auto) 14.1, [place] % (Auto) 12.5 H, Eos % (Auto) 0.6, Baso % (Auto) 0.2, Neut # (Auto) 8.8 H, Lymph # (Auto) 1.7, [place] # (Auto) 1.5 H, Eos # (Auto) 0.1, Baso # (Auto) 0.0 04/17/25 07:55: WBC 7.8 D, RBC 3.51 L, Hgb 9.4 L, Hct 29.0 L, MCV 82.6, MCH 26.8 L, MCHC 32.4, RDW 15.4, Plt Count 323, MPV 9.3, Neut % (Auto) 68.1, Lymph % (Auto) 12.8, [place] % (Auto) 16.9 H, Eos % (Auto) 0.6, Baso % (Auto) 0.3, Neut # (Auto) 5.3, Lymph # (Auto) 1.0, [place] # (Auto) 1.3 H, Eos # (Auto) 0.1, Baso # (Auto) 0.0, Sodium 136, Potassium 3.0 L, Chloride 99, Carbon Dioxide 28, Anion Gap 12.0, BUN 19 H, Creatinine 1.60 H, Estimated Creat Clear 24, Estimated GFR 31 L, Est GFR ( Amer) 37 L, Glucose 92 D, Calcium 9.3, Total Bilirubin 0.9, AST 29 D, ALT 10 L D, Alkaline Phosphatase 66, Total Protein 6.9, Albumin 4.1, Globulin 2.8, Albumin/Globulin Ratio 1.5 I & O for Labs for Last 24 Hours: Intake & Output 04/14/25 04/15/25 04/16/25 04/17/25 23:59 23:59 23:59 23:59 Intake Total 1048.000 / 1048.000 350 / 700 1000 / 1000 Output Total 2600 / 6225 5250 / 5250 1170 / 1170 Balance -1552.000 / -5177.000 -4900 / -4550 -170 / -170 Weight 61.008 kg 61.326 kg 55.934 kg 57.153 kg Constitutional: Present mild distress, chronically ill appearing and cooperative Head: Present atraumatic Eyes: Present as per HPI ENT: Present normal exam Neck: Present normal inspection Respiratory: Present CTA bilaterally, able to speak in complete sentences and symmetric chest movement; Absent wheezes or crackles Cardiac: Present Reg Rate and Rhythm; Absent No Murmur GI: Present soft and normal bowel sounds; Absent distention or tenderness Rectal (female): Present deferred (female): Present deferred Extremities: Present normal inspection and full ROM Skin: Present intact, dry and warm Comment:: scattered brusing Neuro: Present alert, awake and oriented x 3; Absent Weakness Assessment and Plan *Assessment and plan (1) Acute metabolic encephalopathy: Status: Acute Category: Medical Code(s): G93.41 - Metabolic encephalopathy (2) Anemia: Status: Acute Category: Medical Code(s): D64.9 - Anemia, unspecified (3) Hypothyroid: Status: Acute Category: Medical Code(s): E03.9 - Hypothyroidism, unspecified (4) Sepsis: Status: Suspected Qualifiers: Sepsis type: sepsis due to unspecified organism Sepsis acute organ dysfunction status: without acute organ dysfunction Qualified Code(s): A41.9 - Sepsis, unspecified organism Category: Medical Code(s): A41.9 - Sepsis, unspecified organism (5) Right middle lobe pneumonia: Status: Acute Qualifiers: Pneumonia type: due to unspecified organism Qualified Code(s): J18.9 - Pneumonia, unspecified organism Category: Medical Code(s): J18.9 - Pneumonia, unspecified organism (6) UTI (urinary tract infection): Status: Acute Qualifiers: Urinary tract infection type: site unspecified Hematuria presence: without hematuria Qualified Code(s): N39.0 - Urinary tract infection, site not specified Category: Medical Code(s): N39.0 - Urinary tract infection, site not specified Plan Kathia Jordan is a 85-year-old female was brought to the ER because of confusion per family, found to be profoundly anemic hemoglobin 5.0 with RML collapse/pneumonia, mild proximal colitis with NSTEMI. #Sepsis, resolved #Right middle lobe collapse, suspected underlying pneumonia #Colitis #Acute metabolic encephalopathy ?Per nursing patient was very confused and combative overnight. Patient was placed in soft restraints overnight due to combativeness. Patient assessment this morning reveals she is much more pleasant, still confused but able to tell me her name and her birthday. Discussion with Peter Fowler they require 24-hour monitoring. Hopefully plans to DC tomorrow. ? Presented with confusion, CT chest shows right middle lobe collapse. Unable to rule out underlying pneumonia. Patient was initially hypothermic, with fever of 96.4F. Received vancomycin, Zosyn in the ED. - WBC has been stable, bumped slightly to 7.8. Afebrile last 72 hours. Mentation waxing and waning, but overall improving. Respiratory panel normal. ? Discussed with pulmonology, no plans for bronchoscopy as RML atelectasis is chronic. Recommended weaning antibiotics from Zosyn to Augmentin. ? Continue Augmentin 500 mg 3 times daily day 4 antibiotics. - PT/OT consulted, recommend SNF. Case management assisting with placement. ? Follow-up morning CBC, CMP. #Acute on chronic anemia #Suspected blood loss secondary to anticoagulation - Initial hemoglobin 5.0. Patient is on aspirin and appears to have been started on Xarelto within the past month reportedly for bruising. ? Patient received 2 units PRBC transfusion during admission, hemoglobin improved to 9.2. Hemoglobin improved to 9.4 today. Stable. No signs of obvious bleeding. ? GI consulted, given FOBT is positive, EGD negative for active signs of bleeding. GI recommending possible colonoscopy based on patient and family wishes. Currently hemoglobin stable. - Ferritin low at 10.6, B12 and folate normal. ? Given IV Venofer 200 mg. #NSTEMI likely type II #History of CAD with 11 stents ? Troponins peaked at 1.49, in the setting of profound anemia. ? Cardiology consulted, considering inpatient ischemic versus outpatient workup with [facility] once more stable. ? Recommend restarting aspirin, discontinue Xarelto and Plavix per cardiology. #HFpEF #Mild reduction in RV function ? BNP elevated to 1270, patient has new oxygen requirement. Currently on 1 L nasal cannula oxygen saturation 97% wean as tolerated. ? Net -6 L. Creatinine stabilized at 1.6 today. ? Transitioned to Lasix 40 mg daily. Diuresed with IV Lasix 40 mg twice daily during admission. Hypothyroid: TSH 12.2. Free T4 normal. Supposed to be on levothyroxine 88 mcg daily at home. Will increase to 100 mcg daily. Needs repeat TSH in 6-week. 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 Initiate Tylenol IV as above due to n.p.o. status and nausea. Also consider morphine for more severe breakthrough pain. Monitor for toxicity with morphine 2 mg IV as needed every 4 hours DNR/DNI N.p.o. SCDs, VTE contraindicated given unclear etiology of anemia
--- NOTE | 2025-04-17 12:39 | DIET.NUTRFU ---
Nutrition consult for Mathew score received. Nutrition assessment completed on 04/16/25. Pt refused breakfast this morning but consumed 75% of the previous recorded meal. Pt is still confused per MD progress note. Will add Ensure at breakfast to help supplement diet and continue to monitor.
--- NOTE | 2025-04-17 12:52 | XR_ITS ---
FINAL REPORT CLINICAL HISTORY: increased SOB FINDINGS: CHEST SINGLE VIEW COMPARISON: None FINDINGS: The lungs are hyperlucent hyperexpanded with flattening of the hemidiaphragms, consistent with chronic obstructive pulmonary disease. Increased markings in lung bases are seen probably due to scarring and/or atelectasis. There is no evidence of effusion or other pleural disease. The mediastinum has a normal appearance. The cardiac silhouette is unremarkable. IMPRESSION: 1. No evidence of pneumonia or edema 2. Underlying emphysema. Mild atelectasis or scarring pick 3 Authenticated and ERN
[2025-04-17] MEDS: MELATONIN 5MG TABLET 5 MG PO (20:27)
[2025-04-17] MEDS: TRAZODONE 50MG TABLET 50 MG PO (20:27)
[2025-04-18 03:59] VITALS: BMI 20.8
[2025-04-18 04:00] VITALS: BP 124/51; PULSE 80; RESP 15; TEMP 36.8; O2SAT 95
--- NOTE | 2025-04-18 04:55 | PC.NURSE ---
Pt has remained only alert to self. She has remained on 1:1 observation. She was a bit agitated at the beginning of the shift but has slept well since. Bed alarm in place.
[2025-04-18 07:30] VITALS: BP 100/61; PULSE 83; RESP 14; TEMP 36.4; O2SAT 97
[2025-04-18 08:45] VITALS: O2SAT 97
[2025-04-18 08:57] LABS: Albumin Level 4.0 g/dl (3.5-5.0); Chloride 100 mmol/L (98-107)
[2025-04-18 08:58] LABS: Potassium 3.4 mmoL/L (3.5-5.1); Sodium 137 mmol/L (136-145)
[2025-04-18 09:00] VITALS: BMI 210068.0
[2025-04-18 09:00] LABS: Alanine Aminotransferase 8 U/L (12-78); Anion Gap 16.4 mEq/L (5-15); Aspartate Amino Transferase 32 U/L (14-36); Bilirubin,Total 0.9 mg/dl (0.2-1.3); Blood Urea Nitrogen 22 mg/dl (7-17); Carbon Dioxide 24 mmol/L (22.0-30.0); Creatinine Clearance Estimated 27 mL/min (50-200); Creatinine,Serum 1.40 mg/dl (0.52-1.04); Estimated Glomerular Filt Rate 36 ml/min (>60); GFR (African American) 43 ML/MIN (>60)
[2025-04-18 09:01] LABS: Albumin/Globulin Ratio 1.5 (1.1-1.8); Alkaline Phosphatase 58 U/L (38-126); Calcium 9.3 mg/dl (8.4-10.2); Globulin 2.7 g/dL (1.3-3.2); Glucose 83 mg/dl (74-100); Total Protein,Serum 6.7 g/dl (6.3-8.2)
[2025-04-18 09:21] LABS: Hematocrit 28.6 % (37.0-47.0); Hemoglobin 9.0 g/dL (12.2-16.2); Immature Granulocytes % 1.1 %; Mean Corpuscular HGB Conc 31.5 g/dL (31.8-35.4); Mean Corpuscular Hemoglobin 26.4 pg (27.0-31.2); Mean Corpuscular Volume 83.9 fl (81-99); Nucleated Red Blood Cells % 0 %; Platelet Count 324 K/mm3 (142-424); Red Blood Count 3.41 M/mm3 (4.20-5.40); Red Cell Distribution Width-SD 47.8 fL; White Blood Count 7.0 K/mm3 (4.8-10.8)
[2025-04-18] MEDS: METOPROLOL TARTRATE 25MG TABLET 25 MG PO (09:42)
[2025-04-18] MEDS: POLYETHYLENE GLYCOL 3350 17 GM PACKET PO (09:42)
[2025-04-18] MEDS: ASPIRIN EC 81MG TABLET 81 MG PO (09:42)
[2025-04-18] MEDS: NICOTINE 21MG/24HR PATCH 21 MG TD (09:42)
[2025-04-18] MEDS: FUROSEMIDE 40 MG TABLET PO (09:42)
[2025-04-18] MEDS: LEVOTHYROXINE 100MCG (0.1MG) TAB 100 MCG PO (09:42)
[2025-04-18] MEDS: AMOXICILLIN/POT CLAVULAN 500MG TABLET 1 EACH PO ×2 (09:42→13:55)
[2025-04-18 11:49] VITALS: BP 90/48; PULSE 79; RESP 16; TEMP 36.9; O2SAT 92
--- NOTE | 2025-04-18 12:43 | PC.NURSE ---
pt is alert this morning. she got up and walked to the bathroom and back to the bed. she is answering all questions and understands that she needs therapy to get stronger. she has not needed any one on one from the nurse aide this shift. she has been pleasant and not combative at all towards staff this shift. she has been napping on and off but arouses easily. pt has no other needs at this time. call light is within reach.
--- NOTE | 2025-04-18 15:30 | EXP.DC.SUM ---
General Admission date:: 04/14/25 HPI HPI HPI: History obtained from ER documentation. Patient poor historian with no family at bedside by the time my evaluation. Ms. Jordan is an 85-year-old female with a past medical history of coronary artery disease with 11 stents, current smoker, thyroid disease, hypertension, on Xarelto who presented to the emergency department with altered mental status from home. For EMS, patient began screaming at home daughter went to bedside patient stiffened up, continued to yell help and became altered. When son arrived who lived across the street he said that she was fighting them and was not acting like herself. On arrival in the emergency department, patient was alert and oriented x 2 was reporting chest pain but denied any other symptoms. When son and daughter arrived, they state that patient had just gone to bed when she started yelling help. They state that she threw herself back on the bed there may have been a moment of loss of consciousness and patient was not acting like herself afterwards. Patient was fighting with the son when he arrived. They state that she is currently still not at her baseline. They deny that she has had any blood in her stools or any other symptoms. He has not had any recent fevers or other infectious symptoms. She has been taking her medications as prescribed no recent medication changes. Workup in the ER found severe anemia with hemoglobin of 5. Chest imaging showing right middle lobe consolidation. Meeting SIRS criteria with hypothermia and tachycardia. Transfused 2 units in the ED. Started on broad-spectrum antibiotics. Medicine consulted for further management of suspected sepsis, anemia of unknown etiology, and encephalopathy. Per admission H & P This is an 85-year-old female who presented to the ER from home with altered mental status. See above. She was found to have anemia with a hemoglobin of 5.0 and hematocrit of 16.4. 3 weeks ago the patient's hemoglobin was 8.2. INR 1.2 platelets 423. BUN within normal limits. LFTs within normal limits on initial lab draw. TSH is elevated at 12.2 with a normal free T4. She is iron deficient with a ferritin of 10.6. We are awaiting Hemoccult testing. She has been treated with Protonix 80 mg IV initially and now [address] noted fluid-filled proximal colon with diffuse mucosal enhancement concerning for acute colitis. She has had no vomiting or diarrhea or fever since admission and son denies that she has had any diarrhea at home that he is aware of. Initially the daughter denied that the patient had any blood in her stools or black stools at home. Son does not think she had any diarrhea or fevers. The patient is asleep but easily awakened and and oriented x 2. She has some nonsensical conversation but currently denies any pain. Nursing reports she received some morphine for her generalized pain. She complained of burning in her chest arm pain general body pain. Currently she reports being asymptomatic and is nontender to palpation throughout her abdomen. Her son is at bedside and has some minimal history for the patient. Her daughter is her caregiver at night and knows the full history and she is unfortunately not available currently. Per the son and medical history, patient is on Xarelto and has recently been struggling with a headache and diagnosed with vertigo through ENT. Had a single episode of confusion and stool accident a couple of weeks ago. Had much worsening altered mental status yesterday which prompted the visit to the ER. Son does not know when her last colonoscopy or EGD was. Reportedly the patient plan to be made DNI DNR. Hospital Course Hospital Course Hospital Course: Kathia Jordan is a 85-year-old female was brought to the ER because of confusion per family, found to be profoundly anemic hemoglobin 5.0 with RML collapse/pneumonia, mild proximal colitis with NSTEMI. #Sepsis, resolved #Right middle lobe collapse, suspected underlying pneumonia #Colitis #Acute metabolic encephalopathy ? Presented with confusion, CT chest shows right middle lobe collapse, CT abdomen showing mild colitis. Unable to rule out underlying pneumonia. Patient was initially hypothermic, with fever of 96.4F. Received vancomycin, Zosyn in the ED. ? Confusion/encephalopathy likely more sequelae of sundowning and sleep deprivation. See separate problem. ? Discussed with pulmonology, no plans for bronchoscopy as RML atelectasis is chronic. Recommended weaning antibiotics from Zosyn to Augmentin. ? Treated with Augmentin and Zosyn, will need 1 more day of Augmentin, no milligrams 3 times daily. #Physical deconditioning ? PT/OT recommended SNF, graciously accepted by [facility]. Patient will be transported in stable condition. #Sundowning #Insomnia #Hospital-acquired delirium ? Patient had significant sundowning on admission, in addition to hospital-acquired delirium. Very pleasant, but became confused and agitated later in the afternoon and overnight. ? Compounded and complicated by sleep deprivation, insomnia. ? Symptoms significantly improved with a good night sleep with melatonin 5 mg, trazodone 50 mg. Patient did have residual drowsiness, so we will decrease dosages. ? Discharged with melatonin 3 mg nightly, can start trazodone 25 mg as needed for insomnia. #Acute on chronic anemia #Suspected blood loss secondary to anticoagulation #Iron deficiency anemia - Initial hemoglobin 5.0. Patient was on aspirin and Plavix, appears to have been started on Xarelto and discontinued on DAPT within the past month reportedly for bruising. ? Patient received 2 units PRBC transfusion during admission, hemoglobin improved to 9.2. Hemoglobin improved to 9.8 on day of discharge. Stable. No signs of obvious bleeding. ? GI consulted, EGD 04/16/2025 negative for active signs of bleeding. GI recommends outpatient colonoscopy if patient continues to have worsening anemia. - Ferritin low at 10.6, B12 and folate normal. Given IV Venofer 200 mg. ? Discharged with ferrous sulfate 325 mg daily, MiraLAX daily. #NSTEMI likely type II #History of CAD with 11 stents ? Troponins peaked at 1.49, in the setting of profound anemia. ? Cardiology consulted, recommend further outpatient ischemic workup. Follow-up within 2 weeks. ? Recommend restarting aspirin, discontinue Xarelto and Plavix per cardiology as there is no indication for Xarelto. #HFpEF #Mild reduction in RV function ? BNP elevated to 1270, patient had new oxygen requirement. Improved with IV Lasix diuresis. ? Cardiology recommended Lasix 40 mg daily. Hypothyroid: TSH 12.2. Free T4 normal. Supposed to be on levothyroxine 88 mcg daily at home. Will increase to 100 mcg daily. Needs repeat TSH in 6 weeks. Total time spent on discharge: 35 minutes on chart review, counseling, documentation, and direct care with patient. Exam Data for Last 24 hours Vital signs and Labs for Last 24 Hours: Temp Pulse Resp BP Pulse Ox O2 Del Method O2 Flow Rate 98.5 F 79 16 90/48 L 92 L Room Air 1 04/18/25 11:49 04/18/25 11:49 04/18/25 11:49 04/18/25 11:49 04/18/25 11:49 04/18/25 15:10 04/17/25 09:00 Laboratory Results - last 24 hr 04/18/25 08:15: WBC 7.0, RBC 3.41 L, Hgb 9.0 L, Hct 28.6 L, MCV 83.9, MCH 26.4 L, MCHC 31.5 L, RDW 15.6, Plt Count 324, MPV 9.5, Neut % (Auto) 62.4, Lymph % (Auto) 18.1, [place] % (Auto) 17.2 H, Eos % (Auto) 0.9, Baso % (Auto) 0.3, Neut # (Auto) 4.4, Lymph # (Auto) 1.3, [place] # (Auto) 1.2 H, Eos # (Auto) 0.1, Baso # (Auto) 0.0, Sodium 137, Potassium 3.4 L, Chloride 100, Carbon Dioxide 24, Anion Gap 16.4 H, BUN 22 H, Creatinine 1.40 H, Estimated Creat Clear 27, Estimated GFR 36 L, Est GFR ( Amer) 43 L, Glucose 83, Calcium 9.3, Total Bilirubin 0.9, AST 32, ALT 8 L, Alkaline Phosphatase 58, Total Protein 6.7, Albumin 4.0, Globulin 2.7, Albumin/Globulin Ratio 1.5 I & O for Last 24 hours: Intake & Output 04/15/25 04/16/25 04/17/25 04/18/25 23:59 23:59 23:59 23:59 Intake Total 350 / 700 1000 / 1000 120 / 120 170 / 170 Output Total 5250 / 5250 1170 / 1170 200 / 200 100 / 100 Balance -4900 / -4550 -170 / -170 -80 / -80 70 / 70 Weight 61.326 kg 55.934 kg 56.869 kg 57.266 kg Microbiology Reports for the Last 24 Hours: Microbiology 04/14/25 00:09 Blood Blood Culture - Preliminary NO GROWTH AFTER 4 DAYS 04/13/25 23:09 Blood Blood Culture - Preliminary NO GROWTH AFTER 4 DAYS Constitutional Constitutional: no acute distress *Routine HEENT Exam Head: Present normocephalic Eye: Present EOMI and PERRL ENT: Present mucous membranes moist *Routine Neck Exam Neck: Present supple; Absent lymphadenopathy *Routine Respiratory Exam Respiratory: Present CTA bilaterally *Routine Cardiovascular Exam Cardiovascular: Present RRR *Routine Abdominal Exam Abdominal: Present soft and normoactive bowel sounds; Absent tenderness *Routine Extremities Exam Extremities: Absent cyanosis, clubbing or edema *Routine Skin Exam Skin: Present warm; Absent rash Comments: Stable lower and upper extremity bruises noted. *Routine Neurological Exam Neurological: Present alert Results Data Completed and Pending Labs on day of discharge: Labs from last 24 hours 04/18/25 08:15 WBC 7.0 RBC 3.41 L Hgb 9.0 L Hct 28.6 L MCV 83.9 MCH 26.4 L MCHC 31.5 L RDW 15.6 Plt Count 324 MPV 9.5 Neut % (Auto) 62.4 Lymph % (Auto) 18.1 [place] % (Auto) 17.2 H Eos % (Auto) 0.9 Baso % (Auto) 0.3 Neut # (Auto) 4.4 Lymph # (Auto) 1.3 [place] # (Auto) 1.2 H Eos # (Auto) 0.1 Baso # (Auto) 0.0 Sodium 137 Potassium 3.4 L Chloride 100 Carbon Dioxide 24 Anion Gap 16.4 H BUN 22 H Creatinine 1.40 H Estimated Creat Clear 27 Estimated GFR 36 L Est GFR ( Amer) 43 L Glucose 83 Calcium 9.3 Total Bilirubin 0.9 AST 32 ALT 8 L Alkaline Phosphatase 58 Total Protein 6.7 Albumin 4.0 Globulin 2.7 Albumin/Globulin Ratio 1.5 Preliminary micro results at discharge 04/14/25 00:09 Blood Culture - Preliminary Blood NO GROWTH AFTER 4 DAYS 04/13/25 23:09 Blood Culture - Preliminary Blood NO GROWTH AFTER 4 DAYS DS: Diagnosis Discharge Diagnosis (1) Atelectasis of right lung: Status: Acute Code(s): J98.11 - Atelectasis Meds Home Medications and Allergies Home Medications ?Medication ?Instructions ?Recorded ?Confirmed ?Type aspirin 81 mg chewable tablet 81 mg PO DAILY 05/23/21 04/14/25 History levothyroxine 88 mcg tablet 88 mcg PO DAILY 05/23/21 04/14/25 History omeprazole 40 mg capsule,delayed 40 mg PO DAILY 05/23/21 04/14/25 History release metoprolol tartrate 25 mg tablet 25 mg PO BID 04/14/25 04/14/25 History rosuvastatin 10 mg tablet 10 mg PO DAILY 04/14/25 04/14/25 History amoxicillin 500 mg-potassium 1 tab PO TID 1 day #3 tabs 04/18/25 Rx clavulanate 125 mg tablet ferrous sulfate 325 mg (65 mg 325 mg PO DAILY #30 tabs 04/18/25 Rx iron) tablet furosemide 40 mg tablet 40 mg PO DAILY 30 days #30 tabs 04/18/25 Rx melatonin 3 mg tablet 3 mg PO HS sleep #30 tabs 04/18/25 Rx polyethylene glycol 3350 17 17 g PO DAILY #119 grams 04/18/25 Rx gram/dose oral powder (Miralax) trazodone 50 mg tablet 25 mg (1/2 x 50 mg) PO HS PRN 04/18/25 Rx insomnia 30 days #25 tabs New Prescriptions to Start Prescriptions: amoxicillin-pot clavulanate Raphael,Mingo ferrous sulfate Raphael,Mingo furosemide Raphael,Mingo melatonin Raphael,Mingo polyethylene glycol 3350 [Miralax] Raphael,Mingo trazodone Mingo Lim Allergies Allergy/AdvReac Type Severity Reaction Status Date / Time Sulfa (Sulfonamide Allergy Verified 03/31/25 13:16 Antibiotics) Discharge Plan Disposition Patient Disposition: Xfer SNF Condition: Fair Discharge Order Discharge Orders: Discharge Order (Routine); Ordered 04/18/25 Ordered By: Mingo Lim Follow up Plan Follow up with: Sarahy Zarate APRN [Nurse Practitioner, Cardiology] - 2 weeks Yvette Seals APRN [Nurse Practitioner, Gastroenterology] - 2 weeks Prescriptions/Medication Reconciliation: New furosemide 40 mg Tablet 40 mg PO DAILY 30 Days Qty: 30 0RF trazodone 50 mg Tablet 25 mg PO HS PRN (Reason: insomnia) 30 Days Qty: 25 0RF amoxicillin-pot clavulanate 500-125 mg Tablet 1 tab PO TID 1 Days Qty: 3 0RF melatonin 3 mg tablet 3 mg PO HS Qty: 30 0RF ferrous sulfate 325 mg (65 mg iron) tablet 325 mg PO DAILY Qty: 30 0RF polyethylene glycol 3350 [Miralax] 17 gram/dose powder 17 g PO DAILY Qty: 119 0RF Continued omeprazole 40 MG capsule,delayed release(DR/EC) 40 mg PO DAILY levothyroxine 88 MCG tablet 88 mcg PO DAILY aspirin 81 MG tablet,chewable 81 mg PO DAILY rosuvastatin 10 mg tablet 10 mg PO DAILY metoprolol tartrate 25 mg tablet 25 mg PO BID Discontinued Xarelto 20 mg tablet 20 mg PO QPMWITHMEAL Patient Comments: TAKE 1 TABLET BY MOUTH ONCE DAILY IN PLACE OF [place] clopidogrel 75 mg tablet 75 mg PO DAILY Problem Reconciliation Problems Reviewed?: Yes Patient Discharge Instructions Patient Instructions: Nicotine Addiction (Alternative Therapy), Urinary Tract Infection, Anemia, DI for Colitis, Catheter-Associated Urinary Tract Infection, Stop Light Infection Print Language: [place] Providers Primary Care Provider: Provider,Referral Admit Provider: Nadeem Bellamy Attending Provider: Nadeem Bellamy
[2025-04-18 16:00] VITALS: BP 116/61; PULSE 89; RESP 18; TEMP 37.2; O2SAT 95
== END 2025-04-18 17:00 | DRG 871 ==
LOC: ER 04-14 00:22 → ICU 04-14 00:33 → 2ND 04-14 11:23
PROVIDERS: Emergency Medicine; Internal Medicine Gastroenterology; Nurse Practitioner Family; Student in an Organized Health Care Education/Training Program; Admitting Provider Internal Medicine Adolescent Medicine; Emergency Provider Student in an Organized Health Care Education/Training Program; Visit Provider Internal Medicine Adolescent Medicine
PROC: 0DJ08ZZ Inspection of Upper Intestinal Tract, Via Natural or Artificial Opening Endoscopic (ICD-10-PCS; principal; 2025-04-16 15:30)
DX: A41.9 Sepsis, unspecified organism (principal); G93.41 Metabolic encephalopathy; J18.9 Pneumonia, unspecified organism; I21.A1 Myocardial infarction type 2; I50.33 Acute on chronic diastolic (congestive) heart failure; J98.11 Atelectasis; F05 Delirium due to known physiological condition; D62 Acute posthemorrhagic anemia; D68.32 Hemorrhagic disorder due to extrinsic circulating anticoagulants; N39.0 Urinary tract infection, site not specified; J44.0 Chronic obstructive pulmonary disease with (acute) lower respiratory infection; I11.0 Hypertensive heart disease with heart failure; E03.9 Hypothyroidism, unspecified; I65.23 Occlusion and stenosis of bilateral carotid arteries; I25.10 Atherosclerotic heart disease of native coronary artery without angina pectoris; K52.9 Noninfective gastroenteritis and colitis, unspecified; G47.00 Insomnia, unspecified; F17.210 Nicotine dependence, cigarettes, uncomplicated; T45.515A Adverse effect of anticoagulants, initial encounter; M51.369 Other intervertebral disc degeneration, lumbar region without mention of lumbar back pain or lower extremity pain; E78.2 Mixed hyperlipidemia; K31.9 Disease of stomach and duodenum, unspecified; K21.9 Gastro-esophageal reflux disease without esophagitis; R53.81 Other malaise; R45.1 Restlessness and agitation; Z78.1 Physical restraint status; Z66 Do not resuscitate; Z95.5 Presence of coronary angioplasty implant and graft; Z79.82 Long term (current) use of aspirin; Z79.890 Hormone replacement therapy; Z79.01 Long term (current) use of anticoagulants; Z79.899 Other long term (current) drug therapy; Z88.2 Allergy status to sulfonamides
CPT/HCPCS: 0223U; 36415; 36430; 70450; 70496; 70498; 71045; 71275; 74177; 80048; 80053; 80061; 80076; 80307; 80329; 81001; 82272; 82378; 82607; 82728; 82746; 82803; 83540; 83550; 83605; 83690; 83735; 83880; 84100; 84145; 84439; 84443; 84484; 85007; 85014; 85018; 85025; 85610; 86140; 86850; 87040; 87086; 89220; 93005; 93306; 94640; 94761; 97162; 97166; 97530; 99285; G0328; J1630; J1650; J1756; J1938; J2003; J2250; J2270; J2359; J2405; J2470; J2543; J2704; J2765; J3360; J3480; P9016; Q9967

== ENCOUNTER 2025-07-14 18:30 | Observation (INO) | payer MEDICARE, SELFPAY ==
--- OUTSIDE RECORDS SUMMARY | 2025-05-27 20:43 | XMS_ITS | Encounter Summary ---
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 05/27/2025 10:50 PM EDT documented in this encounter Results * POCT Drugs of Abuse (05/28/2025 4:37 AM EDT) POC Amphetamine Screen, Urine Negative Negative POC Amphetamine Internal QC OK? Yes Positive results should be sent to laboratory for confirmation. POC Barbiturate Screen, Urine Negative Negative POC Barbiturates Internal QC OK? Yes Positive results should be sent to laboratory for confirmation. POC Buprenorphine Screen, Urine Negative Negative POC Buprenorphine Internal QC OK? Yes Positive results should be sent to laboratory for confirmation. POC Benzodiazepines Screen, Urine Negative Negative POC Benzodiazepines Internal QC OK? Yes Positive results should be sent to laboratory for confirmation. POC Cocaine Screen, Urine Negative Negative POC Cocaine Internal QC OK? Yes Positive results should be sent to laboratory for confirmation. POC Methamphetamine Screen, Urine Negative Negative POC Methamphetamine Internal QC OK? Yes Positive results should be sent to laboratory for confirmation. POC Methadone Screen, Urine Negative Negative POC Methadone Internal QC OK? Yes Positive results should be sent to laboratory for confirmation. POC Opiate Screen, Urine Negative Negative POC Opiates Internal QC OK? Yes Positive results should be sent to laboratory for confirmation. POC Oxycodone Screen, Urine Negative Negative POC Oxycodone Internal QC OK? Yes Positive results should be sent to laboratory for confirmation. POC THC Screen, Urine Negative Negative POC THC Internal QC OK? Yes Positive results should be sent to laboratory for confirmation. POC Urine Temperature Normal Normal POC UDS Kit Lot Number [id number] POC UDS Kit Expiration 12/25/2026 POC UDS Collection Observed? Not Observed Urine 05/28/2025 4:37 AM EDT us Annette JACKSON POINT OF CARE TEST ENTER/ED IT ORDERABLES Final Result * Urine Rooney Panel (05/28/2025 1:47 AM EDT) Extra Reflex urine culture not indicated 05/28/2025 10:01 AM EDT [facility] Comment: Previously prelim verified as Specimen evaluation in progress on 05/28/2025 at 0501 EDT. Previously prelim verified as Specimen evaluation in progress on 05/28/2025 at 0601 EDT. Previously prelim verified as Specimen evaluation in progress on 05/28/2025 at 0701 EDT. Previously prelim verified as Specimen evaluation in progress on 05/28/2025 at 0802 EDT. Previously prelim verified as Specimen evaluation in progress on 05/28/2025 at 0901 EDT. Urine Urine specimen obtained by clean catch procedure / Unknown Non-blood Collection / Unknown 05/28/2025 1:47 AM EDT 05/28/2025 1:48 AM EDT us Annette JACKSON LAB URINE ORDERABLES Final Result [facility] [address] [place] [address] * Urinalysis with reflex microscopic (Culture NOT Included) (05/28/2025 1:47 AM EDT) Color, Urine Yellow LAB URINALYSIS - AUTOMATED METHOD 05/28/2025 4:41 AM EDT [facility] Clarity, Urine Clear LAB URINALYSIS - AUTOMATED METHOD 05/28/2025 4:41 AM EDT [facility] Spec [place], Urine <=1.005 1.005 - 1.030 LAB URINALYSIS - AUTOMATED METHOD 05/28/2025 4:41 AM EDT [facility] pH, Urine 6.5 5.0 - 8.0 LAB URINALYSIS - AUTOMATED METHOD 05/28/2025 4:41 AM EDT [facility] Protein, Urine Negative Negative mg/dL LAB URINALYSIS - AUTOMATED METHOD 05/28/2025 4:41 AM EDT [facility] Glucose, Urine Negative Negative mg/dL LAB URINALYSIS - AUTOMATED METHOD 05/28/2025 4:41 AM EDT [facility] Ketones, Urine Negative Negative mg/dL LAB URINALYSIS - AUTOMATED METHOD 05/28/2025 4:41 AM EDT [facility] Blood, Urine Negative Negative LAB URINALYSIS - AUTOMATED METHOD 05/28/2025 4:41 AM EDT [facility] Bilirubin, Urine Negative Negative LAB URINALYSIS - AUTOMATED METHOD 05/28/2025 4:41 AM EDT [facility] Urobilinogen, Urine 0.2 0.2 to 1.0 mg/dL LAB URINALYSIS - AUTOMATED METHOD 05/28/2025 4:41 AM EDT [facility] Leukocytes, Urine Negative Negative LAB URINALYSIS - AUTOMATED METHOD 05/28/2025 4:41 AM EDT [facility] Nitrite, Urine Negative Negative LAB URINALYSIS - AUTOMATED METHOD 05/28/2025 4:41 AM EDT [facility] Urine Urine specimen obtained by clean catch procedure / Unknown Non-blood Collection / Unknown 05/28/2025 1:47 AM EDT 05/28/2025 1:48 AM EDT us Annette JACKSON LAB URINE ORDERABLES Final Result [facility] [address] [place] [address] * HIV 1 & 2 Antibody/Antigen Screen (05/27/2025 10:50 PM EDT) Pathologist [facility] HIV 1 & 2 Antibody/Antigen Screen Non Reactive Non Reactive 05/28/2025 12:29 AM EDT [facility] Comment:Screening for HIV 1 & 2 antibodies, and P24 antigen is NONREACTIVE. No confirmatory testing is required. Blood Venous blood specimen / Unknown Venipuncture / Unknown 05/27/2025 10:50 PM EDT 05/27/2025 10:51 PM EDT us Annette JACKSON LAB BLOOD ORDERABLES Final Result [facility] [address] [place] [address] * Hepatitis C Antibody with Reflex to HCV Quant PCR - [facility] (05/27/2025 10:50 PM EDT) Hepatitis C Antibody Negative Negative 05/28/2025 12:29 AM EDT [facility] Blood Venous blood specimen / Unknown Venipuncture / Unknown 05/27/2025 10:50 PM EDT 05/27/2025 10:51 PM EDT us Annette JACKSON LAB BLOOD ORDERABLES Final Result [facility] [address] [place] [address] * Hepatitis B Surface Antigen - [facility] (05/27/2025 10:50 PM EDT) Hepatitis B Surf Antigen Negative Negative 05/28/2025 1:12 AM EDT [facility] Blood Venous blood specimen / Unknown Venipuncture / Unknown 05/27/2025 10:50 PM EDT 05/27/2025 10:51 PM EDT us Annette JACKSON LAB BLOOD ORDERABLES Final Result [facility] [address] [place] [address] documented in this encounter Visit Diagnoses Diagnosis Dementia with psychotic disturbance, unspecified dementia severity, unspecified dementia type (CMS/HCC)- Primary Dementia with psychotic disturbance (CMS/HCC) documented in this encounter Administered Medications Inactive Administered Medications - up to 3 most recent administrations Medication Order MAR Action Action Date Dose Rate Site acetaminophen (Tylenol) tablet 650 mg 650 mg, Oral, Every 6 hours PRN, Starting on Sun05/27/25 at 2026, Until Sun05/28/25 at 1948, Routine, Mild + Pain > or =1: CPOT, DVPRS, FLACC, PAINAD, NPASS, NRS, Bray-Doan Faces; > or =2: NIPS , Moderate/Severe Pain > or =3: CPOT; > or =4: FLACC, PAINAD, NPASS, NRS, Bray-Doan Faces; > or =5: DVPRS, NIPS ALPRAZolam (Xanax) tablet 0.5 mg 0.5 mg, Oral, 4 times daily PRN, Starting on Sun05/27/25 at 2248, Until Angelita 05/28/25 at 194, Routine, anxiety aluminum & magnesium hydroxide-simethicone (Mylanta) 200-200-20 MG/5ML oral suspension 10 mL 10 mL, Oral, Every 6 hours PRN, Starting on Sun05/27/25 at 2026, Until Sun05/28/25 at 1948, Routine, indigestion, heartburnIndications:UGI Symptoms aspirin chewable tablet 81 mg 81 mg, Oral, Daily, First dose on Sun05/28/25 at 0900, Until Discontinued, Routine Given 05/28/2025 9:34 AM EDT 81 mg hydrOXYzine pamoate (Vistaril) capsule 50 mg 50 mg, Oral, Every 6 hours PRN, Starting on Sun05/27/25 at 2026, Until Sun05/28/25 at 194, Routine, anxietyIndications:Anxiety levothyroxine (Synthroid, Levoxyl) tablet 100 mcg 100 mcg, Oral, Once, 1 dose, On Sun05/28/25 at 0800, Routine Given 05/28/2025 8:36 AM EDT 100 mcg magnesium hydroxide (Milk of Magnesia) 400 MG/5ML suspension 10 mL 10 mL, Oral, Daily PRN, Starting on Sun05/27/25 at 2026, Until Sun05/28/25 at 194, Routine, constipationIndications:Constipat ion metoprolol tartrate (Lopressor) tablet 25 mg 25 mg, Oral, 2 times daily, First dose on Sun05/27/25 at 2300, Until Discontinued, Routine Given 05/28/2025 9:34 AM EDT 25 mg Given 05/27/2025 10:59 PM EDT 25 mg nicotine (Nicoderm CQ) 14 MG/24HR patch 1 patch 1 patch, Transdermal, Once, 1 dose, On Sun05/28/25 at 1300, STAT Medication Applied 05/28/2025 1:41 PM EDT 1 patch Left Arm QUEtiapine (SEROquel) tablet 50 mg 50 mg, Oral, Once, 1 dose, On Sun05/27/25 at 2145, STAT Given 05/27/2025 10:59 PM EDT 50 mg traZODone (Desyrel) tablet 100 mg 100 mg, Oral, Once, 1 dose, On Sun05/27/25 at 2300, STAT Given 05/27/2025 10:59 PM EDT 100 mg documented in this encounter Active and Recently Administered Medications Times are shown in EDT. Scheduled Medication Order 05/26/2025 05/27/2025 05/28/2025 aspirin chewable tablet 81 mg 81 mg, Oral, Daily, First dose on Sun05/28/25 at 0900, Until Discontinued, Routine 933 (Given - Provid er: Julissa N House, RN) levothyroxine (Synthroid, Levoxyl) tablet 100 mcg (COMPLETED) 100 mcg, Oral, Once, 1 dose, On Sun05/28/25 at 0800, Routine 0836 (Given - Provid er: Julissa Durbin RN) metoprolol tartrate (Lopressor) tablet 25 mg 25 mg, Oral, 2 times daily, First dose on Sun05/27/25 at 2300, Until Discontinued, Routine 2259 (Given - Provider: Hardeep Bravo RN) 0934 (Given - Provider: Julissa Durbin RN) nicotine (Nicoderm CQ) 14 MG/24HR patch 1 patch 1 patch, Transdermal, Once, 1 dose, On Sun05/28/25 at 1300, STAT 1341 (Medication Den lied - Provider: Julissa Durbin RN)1600 (Due: Medication Removed - Provider: Automatic Discharge Provider - Comment: Time automatically adjusted from order being discontinued) QUEtiapine (SEROquel) tablet 50 mg (COMPLETED) 50 mg, Oral, Once, 1 dose, On Sun05/27/25 at 2145, STAT 2259 (Given - Provider: Hardeep Bravo RN) traZODone (Desyrel) tablet 100 mg (COMPLETED) 100 mg, Oral, Once, 1 dose, On Sun05/27/25 at 2300, STAT 2259 (Given - Provider: Hardeep Bravo RN) PRN Medication Order 05/26/2025 05/27/2025 05/28/2025 acetaminophen (Tylenol) tablet 650 mg 650 mg, Oral, Every 6 hours PRN, Starting on Sun05/27/25 at 2027, Until Sun05/28/25 at 1948, Routine, Mild + Pain > or =1: CPOT, DVPRS, FLACC, PAINAD, NPASS, NRS, Bray-Doan Faces; > or =2: NIPS , Moderate/Severe Pain > or =3: CPOT; > or =4: FLACC, PAINAD, NPASS, NRS, Bray-Doan Faces; > or =5: DVPRS, NIPS ALPRAZolam (Xanax) tablet 0.5 mg 0.5 mg, Oral, 4 times daily PRN, Starting on Sun05/27/25 at 2248, Until Sun05/28/25 at 1948, Routine, anxiety aluminum & magnesium hydroxide-simethicone (Mylanta) 200-200-20 MG/5ML oral suspension 10 mL 10 mL, Oral, Every 6 hours PRN, Starting on Sun05/27/25 at 2026, Until Sun05/28/25 at 1947, Routine, indigestion, heartburn hydrOXYzine pamoate (Vistaril) capsule 50 mg 50 mg, Oral, Every 6 hours PRN, Starting on Sun05/27/25 at 2026, Until Sun05/28/25 at 1947, Routine, anxiety magnesium hydroxide (Milk of Magnesia) 400 MG/5ML suspension 10 mL 10 mL, Oral, Daily PRN, Starting on Sun05/27/25 at 2026, Until Sun05/28/25 at 1947, Routine, constipation documented in this encounter Additional Health Concerns Assessment Noted Time A Body Mass Index follow-up plan has been documented for the patient 01/13/2024 9:29 AM EDT documented as of this encounter Care Teams Manager Education Relationship Specialty Start Date End Date Kip Jordan MD [facility] [place] [address] PCP - General 01/03/24 documented as of this encounter
[2025-07-14 18:32] VITALS: PULSE 89; O2SAT 95
--- OUTSIDE RECORDS SUMMARY | 2025-07-14 18:39 | XMS_ITS | Referral Summary ---
Author Organization [employer] ([place], [place], [place], [place], [place]) Address [address] [place] [address] Care Team Providers Care Clockmaker Name Role Phone Kip Jordan MD Primary Care Provider [phone] Christine Lucia PA-C Unavailable [phone] Encounters Date Type Department Care Team Description 06/08/2025 Telephone [facility] [place] [address] [place] [address] Gopal Hazel MD Appointment from Last 3 Months Allergies Active Allergy Reactions Criticality Noted Date Comments Sulfa (Sulfonamide Antibiotics) Hives High 01/04 Medications omeprazole (PriLOSEC) 40 MG capsule Take 1 capsule (40 mg total) by mouth daily. 08/31/2022 Active levothyroxine (SYNTHROID, LEVOTHROID) 75 MCG tablet Take 1 tablet (75 mcg total) by mouth Every morning on an empty stomach. 10/11/2022 Active aspirin 81 MG EC tablet Take 1 tablet (81 mg total) by mouth daily. Active cetirizine (ZyrTEC) 10 MG tablet Take 1 tablet (10 mg total) by mouth daily. Active metoprolol tartrate (LOPRESSOR) 25 MG tablet Take 1 tablet (25 mg total) by mouth 2 (two) times daily. Active melatonin 3 mg tablet Take by mouth nightly. Active Active Problems Problem Noted Date Diagnosed Date Bruit of right carotid artery 06/05/2024 Dizziness and giddiness 06/17/2023 Gastroesophageal reflux disease 05/22/2023 Thyroid disease 05/22/2023 Coronary artery disease invo lving nooksack coronary artery of nooksack heart without angina pectoris 05/22/2023 PVD (peripheral vascular disease) 05/22/2023 Arteriosclerosis of carotid artery 04/28/2021 Hyperlipidemia 04/28/2021 Intermittent claudication 04/28/2021 Hypertension 04/28/2021 Stenosis of subclavian artery 04/28/2021 Social History Tobacco Use Types Packs/Day Years Used Date Smoking Tobacco: Every Day Cigarettes Smokeless Tobacco: Never Tobacco Cessation:Ready to Q uit: Not Asked; Counseling Given: Not Answered Alcohol Use Standard Drinks/Week Comments Never 0 (1 standard drink = 0.6 oz pur e alcohol) Family and Community Support Answer Jaime e Recorded Help with Day to Day Activities Not on file 08/17/2023 Feeling Lonely or Isolated Not on file 08/17 Educational Attainment Answer Date Abdirahman rded Speak language other than Serbian at home Not on file 08/17/2023 Want help with school or training Not on file 08/17/2023 Substance Use Answer Date Recorded Used prescription meds for non-medical reasons N ot on file 08/17/2023 Used illegal drugs past 12 months Not on file 08/17/2023 Comments Unknown Sex and Gender Information Value Date Recorded Sex Assigned at Not on file Legal Sex Female 7:29 PM CDT Gender Identity Not on file Sexual Orientation Not on file Last Filed Vital Signs Vital Sign Reading Time Taken Comments Blood Pressure 112/71 06/06/2024 2:56 PM EDT Pulse 77 06/06/2024 2:56 PM EDT Temperature 36.6 C (97.9 F) 06/06/2024 2:56 PM EDT Respiratory Rate 16 06/06/2024 2:56 PM EDT Oxygen Saturation 94% 06/06/2024 2:56 PM EDT Inhaled Oxygen Concentration - - Weight 58.6 kg (129 lb 3.2 oz) 06/06/2024 2:56 P M EDT Height 157.5 cm (5' 2 ) 06/06/2024 2:56 PM EDT Body Mass Index 23.63 06/06/2024 2:56 PM EDT Functional Status * Are you deaf or do you have serious difficulty hearing? Answer Date of Assessment Author No 06/20/2023 3:44 PM Christine Devi RN * Are you blind or do you have serious difficulty seeing, even when wearing glasses? Answer Date of Assessment Author No 06/20/2023 3:44 PM Christine Devi RN Mental Status * Because of a physical, mental, or emotional condition, do you have serious difficulty concentrating, remembering, or making decisions? (5 years old or older) Answer Entry Date Author No 06/20/2023 3:44 PM Christine Devi RN Plan of Treatment Not on file Insurance [employer] [place] [id number] MEDICARE PART A B [employer] [place] [address] Care Teams Clockmaker Relationship Specialty Start Date End Date Kip Jordan MD [address] [place] [address] [place] [address] PCP - General Family Medicine 05/22/23 Christine Lucia, PA-C [address] [facility] [address] [place] [address] Cardiology 12/06/23
--- OUTSIDE RECORDS SUMMARY | 2025-07-14 18:40 | XMS_ITS | Encounter Summary ---
Author Organization [facility] Address [address] [place] [address] Care Team Providers Care Card Feeder Name Role Phone Kip Jordan MD Primary Care Provider [phone] Encounter Details Date Type Department Care Team (Latest Contact Info) Description 05/27/2025 Travel Social History Tobacco Use Types Packs/Day Years [...] place to sleep or slept in a chcf (including now)? No 01/04/2024 Utilities Answer Date [...] on file documented as of this encounter Plan of Treatment Not on file documented as of this encounter Visit Diagnoses Not on filedocumented in this encounter Additional Health Concerns Assessment Noted Time A Body Mass Index follow-up plan has been documented for the patient 01/13/2024 9:29 AM EDT documented as of this encounter Care Teams Card Feeder Relationship Specialty Start Date End Date Kip Jordan MD [address] [place] [address] PCP - General 01/03/24 documented as of this encounter
--- OUTSIDE RECORDS SUMMARY | 2025-07-14 18:40 | XMS_ITS | Clinical Summary ---
Author Organization [employer] ([place], [place], [place], [place], [place]) Address [address] [place] [address] Care Team Providers Care Ramp Supervisor Name Role Phone Kip Jordan MD Primary Care Provider [phone] Christine Lucia PA-C Unavailable [phone] Allergies Active Allergy Reactions Criticality Noted Date [...] disease 05/22/2023 Coronary artery disease invo lving craig coronary artery of craig heart without angina pectoris 05/22/2023 PVD (peripheral vascular disease) 05/22/2023 Arteriosclerosis of carotid artery 04/28/2021 Hyperlipidemia 04/28/2021 Intermittent claudication 04/28/2021 Hypertension 04/28/2021 Stenosis of subclavian artery 04/28/2021 Encounters Date Type Department Care Team Description 06/08/2025 Telephone [facility] [place] [address] [place] [address] Gopal Hazel MD Appointment from Last 3 Months Social History Tobacco Use Types Packs/Day Years [...] Date Abdirahman rded Speak language other than Albanian at home Not on file 08/17/2023 Want [...] Mass Index 23.63 06/06/2024 2:56 PM EDT Plan of Treatment Health Maintenance Due Date Last Done Comments Medicare Initial AWV G0438 DXA SCAN 1942 Depression Screening (12+) 1954 DTAP/TDAP/TD VACCINES (1 - Tdap) 1961 Pneumococcal 50+ years (1 of 2 - PCV) 1961 Shingles Vaccine (Zoster) (1 of 2) 1992 Respiratory Syncytial Virus (RSV) Adult or (1 - 1-dose 75+ series) 2017 Falls Risk Screening 08/06/2024 COVID-19 VACCINE (2 - 2024-2 6 season) 2025 10/14/2020 Influenza Vaccine (#1) 2025 , 06/25/2021, 06/16/2020, Additional history exists Tobacco Cessation Counseling and Screening (12+) 06/06/2025 06/06/2024 [place] [address] [place] [address] [address] [address] MEDICARE PPO Care Teams Ramp Supervisor Relationship Specialty Start Date End Date Kip Jordan MD [address] [place] [address] [place] [address] PCP - General Family Medicine 05/22/23 Christine Lucia PA-C [address] [place] [address] [address] Cardiology 12/06/23
[2025-07-14 18:41] VITALS: BP 123/73; PULSE 87; RESP 16; TEMP 36.4; O2SAT 95; BMI 22.8
--- OUTSIDE RECORDS SUMMARY | 2025-07-14 18:41 | XMS_ITS | Clinical Summary ---
Author Organization [facility] Address [address] [place] [address] Care Team Providers Care State Game Protector Name Role Phone Kip Jordan MD Primary Care Provider [phone] Allergies Active Allergy Reactions Criticality Noted Date [...] dose 75+ series) 2017 ANNUAL PHYSICAL 01/16/2019 INFLUENZA VACCINE 03/06/2025 06/03/2019, , 05/16/2017, Additional history exists COVID-19 Vaccine (1 - 2023-2 5 season) 2025 Insurance [id number] [id number] MEDICARE A & B Member Subscriber Plan / Payer (Ef fective 2007-Present) Name:Kathia Jordan Member ID:[id number] Relation to Subscriber:Self Name:Kathia Jordan Subscriber ID:[id number] Payer ID:[id number] Group ID:Not on file Type:Not on file Address: [address] Care Teams State Game Protector Relationship Specialty Start Date End Date Kip Jordan MD [address] [place], [place] [address] [place] [address] PCP - General Family Medicine 12/18/18
--- OUTSIDE RECORDS SUMMARY | 2025-07-14 18:41 | XMS_ITS | Clinical Summary ---
Author Organization [facility] Address [address] [place] [address] Care Team Providers Care Cleat Blanker Name Role Phone Kip Jordan MD Primary Care Provider [phone] Allergies Active Allergy Reactions Criticality Noted Date [...] Active Problems Problem Noted Date Diagnosed Date Dementia with psychotic disturbance 05/28/2025 Resolved Problems Problem Noted Date Diagnosed Date Resolved Date Altered mental status 01/04/20242024 Encounters Date Type Department Care Team Description 05/27/2025 9:43 PM EDT - 05/28/2025 4:00 PM EDT Hospital Encounter [facility] [place] [address] [place] [address] Zulay Tillman MD Dementia with psychotic disturbance, unspecified dementia severity, unspecified dementia type (CMS/HCC) (Primary Dx) Discharge Disposition: Home or Self Care 05/27/2025 Travel from Last 3 Months Social History Tobacco [...] Recorded In the past 12 months has [employer], gas, oil, or water [employer] threatened to shut off services in your [...] Mass Index 19.33 05/28/2025 11:06 AM EDT Plan of Treatment Health Maintenance Due Date Last Done Comments [facility]-Bone Density Scan 1942 [facility]-Depression Screening 1942 [facility]-Medicare Annual Wellness (AWV) 1942 [facility]-Infant/Child/Adol SDOH Screenings 1942 [facility]- SDOH Screenings 1960 [facility]-Adult SDOH Screenings 1960 [facility]-DTaP,Tdap,and Td Vaccines (1 - Tdap) 1961 [facility]-Pneumococcal Vaccine: 50+ Years (1 of 2 - PCV) 1961 [facility]-RSV Vaccine: 60+ Years or (1 - 1-dose 75+ series) 2017 UPS-[id number]-33 Vaccine (2 - season) 2025 10/14/2020 [facility]-Influenza [...] on patient's age to complete this topic Procedures Procedure Name Priority Date/Time Associated Diagnosis Comments POCT DRUGS OF ABUSE, URINE STAT 05/28/2025 4:37 AM EDT URINE ROONEY PANEL STAT 05/28/2025 1:47 AM EDT URINALYSIS WITH REFLEX MICROSCOPIC STAT 05/28/2025 1:47 AM EDT URINALYSIS WITH REFLEX MICROSCOPIC AND CULTURE STAT 05/28/2025 1:47 AM EDT HIV 1/2 ANTIBODY/ANTIGEN SCREEN WITH REFLEX TO HIV I/II DIFFERENTIATION STAT 05/27/2025 10:50 PM EDT HIV 1/2 ANTIBODY/ANTIGEN SCREEN W/REFLEX TO HIV 1/2 ANTIBODY DIFFERENTIATION STAT 05/27/2025 10:50 PM EDT HEPATITIS C ANTIBODY WITH REFLEX TO HCV QUANT PCR - EMPATH STAT 05/27/2025 10:50 PM EDT HEPATITIS B SURFACE ANTIGEN - EMPATH STAT 05/27/2025 10:50 PM EDT from Last 3 Months Results * POCT Drugs of Abuse (05/28/2025 [...] Normal Normal POC UDS Kit Lot Number [id number] POC UDS Kit Expiration 12/25/2026 POC UDS Collection Observed? Not Observed Urine 05/28/2025 4:37 AM EDT us Annette JACKSON POINT OF CARE TEST ENTER/ED IT ORDERABLES Final Result * Urine Rooney Panel (05/28/2025 1:47 AM EDT) Extra Reflex urine culture not indicated 05/28/2025 10:01 AM EDT [facility] Comment: Previously prelim verified as Specimen [...] Annette JACKSON LAB URINE ORDERABLES Final Result [facility] [address] [place] [address] * Urinalysis with reflex microscopic (Culture NOT Included) (05/28/2025 1:47 AM EDT) Color, Urine Yellow LAB URINALYSIS - AUTOMATED METHOD 05/28/2025 4:41 AM EDT [facility] Clarity, Urine Clear LAB URINALYSIS - AUTOMATED METHOD 05/28/2025 4:41 AM EDT [facility] Spec [place], Urine <=1.005 1.005 - 1.030 LAB URINALYSIS - AUTOMATED METHOD 05/28/2025 4:41 AM EDT [facility] pH, Urine 6.5 5.0 - 8.0 LAB URINALYSIS - AUTOMATED METHOD 05/28/2025 4:41 AM EDT [facility] Protein, Urine Negative Negative mg/dL LAB URINALYSIS - AUTOMATED METHOD 05/28/2025 4:41 AM EDT [facility] Glucose, Urine Negative Negative mg/dL LAB URINALYSIS - AUTOMATED METHOD 05/28/2025 4:41 AM EDT [facility] Ketones, Urine Negative Negative mg/dL LAB URINALYSIS - AUTOMATED METHOD 05/28/2025 4:41 AM EDT [facility] Blood, Urine Negative Negative LAB URINALYSIS - AUTOMATED METHOD 05/28/2025 4:41 AM EDT [facility] Bilirubin, Urine Negative Negative LAB URINALYSIS - AUTOMATED METHOD 05/28/2025 4:41 AM EDT [facility] Urobilinogen, Urine 0.2 0.2 to 1.0 mg/dL LAB URINALYSIS - AUTOMATED METHOD 05/28/2025 4:41 AM EDT [facility] Leukocytes, Urine Negative Negative LAB URINALYSIS - AUTOMATED METHOD 05/28/2025 4:41 AM EDT [facility] Nitrite, Urine Negative Negative LAB URINALYSIS - AUTOMATED METHOD 05/28/2025 4:41 AM EDT [facility] Urine Urine specimen obtained by clean catch procedure / Unknown Non-blood Collection / Unknown 05/28/2025 1:47 AM EDT 05/28/2025 1:48 AM EDT Annette JACKSON LAB URINE ORDERABLES Final Result [facility] [address] [place] [address] * Hepatitis B Surface Antigen - Empath (05/27/2025 10:50 PM EDT) Hepatitis B Surf Antigen Negative Negative 05/28/2025 1:12 AM EDT [facility] Blood Venous blood specimen / Unknown Venipuncture / Unknown 05/27/2025 10:50 PM EDT 05/27/2025 10:51 PM EDT us Annette JACKSON LAB BLOOD ORDERABLES Final Result [facility] [address] [place] [address] * Hepatitis C Antibody with Reflex to HCV Quant PCR - Empath (05/27/2025 10:50 PM EDT) Pathologist [facility] Hepatitis C Antibody Negative Negative 05/28/2025 12:29 AM EDT [facility] Blood Venous blood specimen / Unknown Venipuncture / Unknown 05/27/2025 10:50 PM EDT 05/27/2025 10:51 PM EDT us Annette JACKSON LAB BLOOD ORDERABLES Final Result Performing Organization Address City/[facility]/ZIP Co de Phone Number [facility] [address] [place] [address] * HIV 1 & 2 Antibody/Antigen Screen (05/27/2025 10:50 PM EDT) Pathologist [facility] HIV 1 & 2 Antibody/Antigen Screen Non Reactive Non Reactive 05/28/2025 12:29 AM EDT [facility] Comment:Screening for HIV 1 & 2 antibodies, and P24 antigen is NONREACTIVE. No confirmatory testing is required. Blood Venous blood specimen / Unknown Venipuncture / Unknown 05/27/2025 10:50 PM EDT 05/27/2025 10:51 PM EDT us Annette JACKSON LAB BLOOD ORDERABLES Final Result [facility] [address] [place] [address] from Last 3 Months Insurance MEDICARE Advance Directives Documents on File Type Date Recorded Patient Pipe Stripper Expl anation Advance Directives and Livin g [...] Patient has decision-making capacity? Yes Care Teams Cleat Blanker Relationship Specialty Start Date End Date Kip Jordan MD [facility] [place] [address] PCP - General 01/03/24
--- OUTSIDE RECORDS SUMMARY | 2025-07-14 18:41 | XMS_ITS | Encounter Summary ---
Author Organization [employer] ([place], [place], [place], [place], [place]) Address [address] [place] [address] Care Team Providers Care On Site Nurse Name Role Phone Kip Jordan MD Primary Care Provider [phone] Christine Lucia PA-C Unavailable [phone] Reason for Visit * Reason Onset Date Comments Appointment 06/08/2025 Encounter Details Date Type Department Care Team (Late st Contact Info) Description 06/08/2025 Telephone [facility] [address] [place] [address] [address] [place] [address] Gopal Hazel MD [address] [facility] [address] [place] [address] Appointment Social History Tobacco Use Types Packs/Day Years [...] Date Abdirahman rded Speak language other than Uzbek at home Not on file 08/17/2023 Want [...] on file documented as of this encounter Functional Status * Are you deaf or do you have serious difficulty hearing? Answer Date of Assessment Author No 06/20/2023 3:44 PM Christine Devi RN * Are you blind or do you have serious difficulty seeing, even when wearing glasses? Answer Date of Assessment Author No 06/20/2023 3:44 PM Christine Devi RN documented as of this encounter Mental Status * Because of a physical, mental, or emotional condition, do you have serious difficulty concentrating, remembering, or making decisions? (5 years old or older) Answer Entry Date Author No 06/20/2023 3:44 PM Christine Devi RN documented in this encounter Miscellaneous Notes * Telephone Encounter - Silvia Ortiz - 06/08/2025 2:44 PM EST Attempted to call pt to confirm appt on 06/09/2025 with Ilir, Pt was UR/LVM for pt to confirm appt ERSITY PRESIDENT documented in this encounter Plan of Treatment Not on file documented as of this encounter Visit Diagnoses Not on filedocumented in this encounter Care Teams On Site Nurse Relationship Specialty Start Date End Date Kip Jordan MD [address] [place] [address] PCP - General Family Medicine 05/22/23 Christine Lucia PA-C [address] [facility] [address] [place] [address] Cardiology 12/06/23 documented as of this encounter
--- NOTE | 2025-07-14 18:42 | HMH.EDGENADL ---
Discharge Plan Disposition Patient Disposition: Admitted Clinical Impressions Clinical Impression: Encephalopathy Discharge ED Provider: Yesenia Hein Adult HPI General Chief complaint: Altered Mental Status Stated complaint: Combative Time Seen by Provider: 07/14/25 18:42 History of Present Illness HPI narrative: Patient is an 85-year-old female with a past medical history of dementia who presents to the emergency department with altered mental status from [place]. Per EMS and per [place], patient has had an acute mental status change since the weekend. They state that patient is typically functionally independent but over the weekend, patient was requiring a one-to-one. They state that today patient's behavior became much more aggressive patient was attempting to bite hit and yell at staff. They attempted to give her some oral medications but patient refused to take oral medications. Patient was then brought here to the emergency department for further evaluation. Patient was able to give me her name but is unable to provide any further history. Patient's daughter is at bedside who is able to help provide for history, she states that patient has some dementia at baseline but reports that her behavior over the last weekend is a new change for her. They state that they have been trying to increase some of her medications including her risperidone which does not seem to have had any effect. Patient fell a couple weeks ago but has had no associated trauma. Patient has not been sick at all recently. Patient has not had any fevers. Related Data Home Medications ?Medication ?Instructions ?Recorded ?Confirmed aspirin 81 mg chewable tablet 81 mg PO DAILY 05/23/21 07/15/25 omeprazole 40 mg capsule,delayed 40 mg PO DAILY 05/23/21 07/15/25 release metoprolol tartrate 25 mg tablet 25 mg PO BID 04/14/25 07/15/25 rosuvastatin 10 mg tablet 10 mg PO DAILY 04/14/25 07/15/25 acetaminophen 500 mg tablet 500 mg PO QID PRN Pain (Scale 07/15/25 07/15/25 Score 1-3) lorazepam 0.5 mg tablet 0.5 mg PO HS anxiety 07/15/25 07/15/25 risperidone 1 mg tablet (Risperdal) 1 mg PO DAILY 07/15/25 07/15/25 risperidone 2 mg tablet (Risperdal) 2 mg PO HS 07/15/25 07/15/25 sodium chloride 1 gram tablet 1,000 mg PO DAILY 07/15/25 07/15/25 tramadol 50 mg tablet 50 mg PO Q6H PRN Pain (Scale Score 07/15/25 07/15/25 4-6) trazodone 50 mg tablet 100 mg PO HS PRN insomnia 07/15/25 07/15/25 Previous Rx's ?Medication ?Instructions ?Recorded ferrous sulfate 325 mg (65 mg 325 mg PO DAILY #30 tabs 04/18/25 iron) tablet melatonin 3 mg tablet 3 mg PO HS sleep #30 tabs 04/18/25 polyethylene glycol 3350 17 17 g PO DAILY #119 grams 04/18/25 gram/dose oral powder (Miralax) Allergies Allergy/AdvReac Type Severity Reaction Status Date / Time Sulfa (Sulfonamide Allergy Mild Unknown Verified 04/22/25 14:26 Antibiotics) allergy reaction PFSH [facility] Disclaimer: The information contained in this section may have been updated after the patient was seen, as this information can be updated by other users. Medical History (Updated 07/15/25 @ 00:57 by Charlotte Dunn RN) Diverticulosis Iron deficiency Myocardial infarction type 2 COPD (chronic obstructive pulmonary disease) Metabolic encephalopathy Hearing loss (HFpEF) heart failure with preserved ejection fraction Atelectasis of right lung NSTEMI (non-ST elevated myocardial infarction) Stenosis of carotid artery Hyperlipidemia HTN (hypertension) Smoker CAD (coronary artery disease) Hypothyroid Surgical History Stented coronary artery Social History Smoking Status: Never smoker alcohol intake: never substance use type: unknown current occupational status: other Travel in the last 8 weeks?: None Have you lived/traveled outside [place] in past 30 days?: No Contact w/someone who lives/traveled outside [place] past 30 days?: No Exposure to someone with infectious disease in past 14 days?: No Do you have a fever (greater than 100.4 F or 38 C)?: No Have you tested positive for COVID-19?: No Exposed to someone with COVID-19 in past 14 days?: No Do you have a sore throat?: No Do you have a cough?: No Do you have any weakness?: No Do you have any diarrhea?: No Are you experiencing any unusual bleeding?: No Do you have any muscle aches/pain?: No Do you have any abdominal pain?: No Are you experiencing loss of taste or smell?: No Other Medical History Have you received the Flu Vaccine for this season: No Have you received the Pneumonia Vaccine: No ROS Obtained: Yes All systems reviewed & no additional complaints except as documented and Yes Systems reviewed as appropriate & no additional complaints except as documented Physical Exam General General appearance: alert and in no apparent distress Head Head exam: atraumatic, normocephalic and normal inspection Eye Eye exam: Present normal appearance, PERRL and EOMI; Absent scleral icterus ENT ENT exam: Present normal exam and normal external ear exam Neck Neck exam: Present normal inspection and full ROM Chest Chest inspection: Present normal inspection and symmetric chest wall rise Respiratory Respiratory exam: Present normal lung sounds bilaterally; Absent respiratory distress or wheezes Cardiovascular Cardiovascular exam: Present regular rate, normal rhythm and normal heart sounds Abdominal Exam Abdominal exam: Present soft and distention; Absent tenderness, guarding or rebound Extremities Exam Extremities exam: Present normal inspection and full ROM Back Exam Back exam: Present normal inspection and full ROM Neurological Exam Neurological exam: Present alert and other (alert and oriented x1, non-focal exam) Psychiatric Psychiatric exam: Present normal affect and normal mood Skin Skin exam: Present warm and dry Medical Decision Making Medical Records Medical records reviewed: Yes I reviewed the patient's medical records. Screening: Per USPSTF and CDC recommendations, given the prevalence of disease in our region, it is our hospital?s policy to screen for HIV and viral Hepatitis for all patients aged 18 and over and those with ongoing risk factors. [place] Inquiry Pt receiving controlled substance: No Vital Signs: 07/14/25 18:32 07/14/25 18:41 07/14/25 21:00 Temperature 97.6 F Temperature Source Oral Pulse Rate 89 96 H Pulse Rate [Right Radial] 87 Respiratory Rate 16 20 Blood Pressure 126/78 Blood Pressure [Right Arm] 123/73 Blood Pressure Mean [Right Arm] 89 Blood Pressure Source [Right Arm] Automatic Cuff Blood Pressure Position [Right Arm] Supine 02 Sat by Pulse Oximetry 95 95 97 Oxygen Delivery Method Room Air Room Air Room Air 07/15/25 00:38 Temperature 98.0 F Temperature Source Pulse Rate 94 H Pulse Rate [Right Radial] Respiratory Rate 22 Blood Pressure 123/73 Blood Pressure [Right Arm] Blood Pressure Mean [Right Arm] Blood Pressure Source [Right Arm] Blood Pressure Position [Right Arm] 02 Sat by Pulse Oximetry Oxygen Delivery Method Room Air Lab Data Lab results reviewed: Yes I reviewed the patient's lab results. Lab Results 07/14/25 18:35: WBC 7.0, RBC 3.92 L, Hgb 10.9 L, Hct 32.9 L, MCV 83.9, MCH 27.8, MCHC 33.1, RDW 17.0, Plt Count 375, MPV 9.2, Neut % (Auto) 69.1, Lymph % (Auto) 15.0, Arroyo % (Auto) 13.6 H, Eos % (Auto) 1.0, Baso % (Auto) 0.6, Neut # (Auto) 4.9, Lymph # (Auto) 1.1, Arroyo # (Auto) 1.0, Eos # (Auto) 0.1, Baso # (Auto) 0.0, Sodium 135 L, Potassium 3.7, Chloride 100, Carbon Dioxide 22, Anion Gap 16.7 H, BUN 17, Creatinine 1.10 H, Estimated Creat Clear 35, Estimated GFR 47 L, Est GFR ( Amer) 57 L, Glucose 108 H, Calcium 9.1, Phosphorus 4.3, Magnesium 2.0, Total Bilirubin 0.5, AST 25, ALT 8 L, Alkaline Phosphatase 81, Total Protein 6.8, Albumin 3.9, Globulin 2.9, Albumin/Globulin Ratio 1.3, TSH 15.30 H, Free T4 1.32, HCV Ab MARCIE w/Rflx PCR Qn Negative, HIV Ag/Ab Combo Qual Negative 07/14/25 19:30: Urine Color Yellow, Urine Appearance Clear, Urine pH 6.5, Ur Specific [place] 1.020, Urine Protein Negative, Urine Glucose (UA) Negative, Urine Ketones Negative, Urine Blood Negative, Urine Nitrate Negative, Urine Bilirubin Negative, Urine Urobilinogen 1.0, Ur Leukocyte Esterase Negative, Urine RBC 5-10, Urine WBC 3-5, Ur Squamous Epith Cells 10-20, Urine Bacteria Trace, Urine Mucus 2+ 07/14/25 18:35 07/14/25 18:35 Orders (Tests/Meds): ED MEDICATIONS Generic Name Dose Route Start Last Admin Trade Name Freq PRN Reason Stop Dose Admin Acetaminophen 650 mg 07/14/25 23:50 Acetaminophen 325mg Tab PO 08/13/25 23:49 Q4HP PRN Fever or Mild Pain (1-3) Hydromorphone HCl 0.5 mg 07/14/25 23:30 07/14/25 23:45 Hydromorphone 2mg/Ml Syringe IV 07/14/25 23:31 0.5 mg ONCE ONE Administration Olanzapine 5 mg 07/14/25 23:50 Olanzapine 10 Mg Vial IM 07/14/25 23:51 Q2HP ONE Discontinued Medications Generic Name Dose Route Start Last Admin Trade Name Freq PRN Reason Stop Dose Admin Haloperidol Lactate 2 mg 07/14/25 19:11 07/14/25 19:30 Haloperidol Lactate 5 Mg/Ml Vial IV 07/14/25 19:12 2 mg ONCE ONE Administration Haloperidol Lactate 2 mg 07/14/25 20:18 07/14/25 20:18 Haloperidol Lactate 5 Mg/Ml Vial IV 07/14/25 20:19 2 mg ONCE ONE Administration Sodium Chloride 1,000 mls @ 999 mls/hr 07/14/25 19:12 07/14/25 21:12 Sod Chlor 0.9% 1000ml Bag IV 07/14/25 20:12 Infused .Q1H1M ONE Infusion Levothyroxine Sodium 25 mcg 07/14/25 23:35 07/15/25 00:02 Levothyroxine Sodium 100 Mcg Vial IV 07/14/25 23:36 25 mcg ONCE ONE Administration Midazolam HCl 2 mg 07/14/25 20:37 07/14/25 20:51 Midazolam 2mg/2ml Vial IV 07/14/25 20:38 2 mg ONCE ONE Administration Midazolam HCl 5 mg 07/14/25 22:00 07/14/25 22:08 Midazolam 2mg/2ml Vial IV 07/14/25 22:01 5 mg ONCE ONE Administration Olanzapine 5 mg 07/15/25 01:00 Olanzapine 10 Mg Vial IM Q2HP PRN Agitation ORDERS Category Date Time Status CT head/brain wo con Stat Cat Scan 07/14/25 18:43 Completed CXR --portable [XR chest portable] Stat Exams 07/14/25 19:11 Completed CBC w/Auto Diff [Complete Blood Count Auto Diff] Stat Lab 07/14/25 18:35 Completed CMP [Comprehensive Metabolic Panel] Stat Lab 07/14/25 18:35 Completed Free T4 (Free Thyroxine) Stat Lab 07/14/25 18:35 Completed HIV Combo Stat Lab 07/14/25 18:35 Completed Hepatitis C Ab Qual. W/ RFX Stat Lab 07/14/25 18:35 Completed MAG [Magnesium] Stat Lab 07/14/25 18:35 Completed PHOS [Phosphorous] Stat Lab 07/14/25 18:35 Completed TSH [Thyroid Stimulating Hormone] Stat Lab 07/14/25 18:35 Completed UA [Urinalysis and Microscopic] Stat Lab 07/14/25 19:30 Completed Urine Culture Stat Micro 07/14/25 19:30 Received Medical Decision Narrative: Patient is a 85-year-old female who presented to the emergency department from [place] for altered mental status. On arrival, patient was hemodynamically stable with unremarkable vital signs. Differential includes but not limited to: Progression of dementia, intracranial pathology, urinary tract infection, electrolyte abnormalities, pneumonia, arrhythmia, amongst others. Patient's labs were reviewed and interpreted by myself: CBC showed no leukocytosis, hemoglobin was stable. CMP was unremarkable. Glucose was normal. UA showed no evidence of infection. Chest x-ray was obtained which showed no acute focal consolidation, pneumothorax, pleural effusion or other acute cardiopulmonary process. CT head was obtained which showed no acute intracranial process. EKG was obtained which showed normal sinus rhythm without acute ST or T wave changes concerning for ischemia. Patient required multiple doses of Haldol as well as Versed in the emergency department. After further discussion with Peter Fowler and the daughter given patient's significant change in behavior I felt the patient warranted admission. I discussed the case with the hospitalist and patient was ultimately admitted for encephalopathy. Critical Care Critical Care Time Critical Care Time: No
--- NOTE | 2025-07-14 18:43 | CT_ITS ---
PROCEDURE INFORMATION: Exam: CT Head Without Contrast Exam date and time: 07/14/2025 10:20 PM Age: 85 years old Clinical indication: Altered mental status/memory loss; Additional info: AMS TECHNIQUE: Imaging protocol: Computed tomography of the head without contrast. Radiation optimization: All CT scans at this facility use at least one of these dose optimization techniques: automated exposure control; mA and/or kV adjustment per patient size (includes targeted exams where dose is matched to clinical indication); or iterative reconstruction. COMPARISON: CT ANGIO HEAD 04/13/2025 11:24 PM FINDINGS: Brain: There is moderate diffuse cerebral volume loss present. Multiple subcortical and deep hypoattenuating white matter foci are present, likely related to small vessel senescent changes and can also be seen with prior infectious / inflammatory insult, or prior traumatic events. No hyperattenuating foci are identified to suggest acute intracranial hemorrhage. Cerebral ventricles: No ventriculomegaly. Paranasal sinuses: Visualized sinuses are unremarkable. No fluid levels. Mastoid air cells: Visualized mastoid air cells are well aerated. Bones: Unremarkable. No acute fracture. Soft tissues: Unremarkable. IMPRESSION: 1. Multiple subcortical and deep hypoattenuating white matter foci are present, likely related to small vessel senescent changes and can also be seen with prior infectious / inflammatory insult, or prior traumatic events. 2. No hyperattenuating foci are identified to suggest acute intracranial hemorrhage.
[2025-07-14 18:48] LABS: Hematocrit 32.9 % (37.0-47.0); Hemoglobin 10.9 g/dL (12.2-16.2); Immature Granulocytes % 0.7 %; Mean Corpuscular HGB Conc 33.1 g/dL (31.8-35.4); Mean Corpuscular Hemoglobin 27.8 pg (27.0-31.2); Mean Corpuscular Volume 83.9 fl (81-99); Nucleated Red Blood Cells % 0 %; Platelet Count 375 K/mm3 (142-424); Red Blood Count 3.92 M/mm3 (4.20-5.40); Red Cell Distribution Width-SD 52.0 fL; White Blood Count 7.0 K/mm3 (4.8-10.8)
[2025-07-14 18:57] LABS: Alanine Aminotransferase 8 U/L (12-78); Albumin Level 3.9 g/dl (3.5-5.0); Albumin/Globulin Ratio 1.3 (1.1-1.8); Alkaline Phosphatase 81 U/L (38-126); Anion Gap 16.7 mEq/L (5-15); Aspartate Amino Transferase 25 U/L (14-36); Bilirubin,Total 0.5 mg/dl (0.2-1.3); Blood Urea Nitrogen 17 mg/dl (7-17); Calcium 9.1 mg/dl (8.4-10.2); Carbon Dioxide 22 mmol/L (22.0-30.0); Chloride 100 mmol/L (98-107); Creatinine Clearance Estimated 35 mL/min (50-200); Creatinine,Serum 1.10 mg/dl (0.52-1.04); Estimated Glomerular Filt Rate 47 ml/min (>60); GFR (African American) 57 ML/MIN (>60); Globulin 2.9 g/dL (1.3-3.2); Glucose 108 mg/dl (74-100); Magnesium 2.0 mg/dl (1.6-2.3); Phosphorous 4.3 mg/dl (2.5-4.5); Potassium 3.7 mmoL/L (3.5-5.1); Sodium 135 mmol/L (136-145); Total Protein,Serum 6.8 g/dl (6.3-8.2)
--- NOTE | 2025-07-14 19:11 | XR_ITS ---
PROCEDURE INFORMATION: Exam: XR Chest Exam date and time: 07/14/2025 9:57 PM Age: 85 years old Clinical indication: Other: AMS TECHNIQUE: Imaging protocol: Radiologic exam of the chest. Views: 1 view. COMPARISON: CR XR CHEST PORTABLE 04/17/2025 1:20 PM FINDINGS: Lungs: Pleuroparenchymal scarring of the lung bases with subsegmental atelectasis is present without consolidations or pleural effusions that project above the diaphragm. Pleural spaces: Unremarkable. No pleural effusion. No pneumothorax. Heart/Mediastinum: Unremarkable. No cardiomegaly. Bones/joints: Unremarkable. IMPRESSION: Pleuroparenchymal scarring of the lung bases with subsegmental atelectasis is present without consolidations or pleural effusions that project above the diaphragm.
--- NOTE | 2025-07-14 19:15 | PC.NURSE ---
pt arriving back to room with [employer] delisa. pt is attempting to get out of bed multiple times and pulled her iv out that was in her left ac and right wrist.
[2025-07-14 19:24] LABS: Free T4 (Free Thyroxine) 1.32 ng/dl (0.78-2.19)
[2025-07-14 19:27] LABS: Thyroid Stimulating Hormone 15.30 uIU/mL (0.465-4.68)
[2025-07-14] MEDS: HALOPERIDOL LACTATE 5 MG/ML VIAL 2 MG IV ×2 (19:30→20:18)
[2025-07-14] MEDS: 0.9 % SODIUM CHLORIDE 1000ML 1,000 ML 999 ML IV (19:40)
--- NOTE | 2025-07-14 19:50 | PC.NURSE ---
urine obtained via straight cath. new IV placed to Right AC and wrapped with coban and kerlix. clip/bed alarm placed as well as seizure pads to side rails for safety.
[2025-07-14 19:56] LABS: Hepatitis C Ab Qual. W/ RFX NEGATIVE (Negative)
[2025-07-14 20:02] LABS: Microscopic, Urine URINE MICROSCOPIC (MICROSCOPIC)
[2025-07-14 20:04] LABS: Bilirubin,Urine Negative (Negative); Color,Urine YELLOW (Yellow); Glucose,Urine (UA) Negative (Negative); Ketones,Urine Negative (Negative); Leukocyte Esterase,Urine Negative (Negative); PH,Urine 6.5 (5.0-8.5); Protein,Urine Negative (Negative); Specific Gravity, Urine 1.020 (1.005-1.030); Urobilinogen,Urine 1.0 EU/dl (0.2)
[2025-07-14 20:19] LABS: Bacteria,Urine Trace /lpf; Mucus,Urine 2+ /lpf
--- NOTE | 2025-07-14 20:30 | PC.NURSE ---
daughter at bedside
[2025-07-14] MEDS: MIDAZOLAM 2MG/2ML VIAL 2 MG IV (20:51)
[2025-07-14 21:00] VITALS: BP 126/78; PULSE 96; RESP 20; O2SAT 97
--- NOTE | 2025-07-14 21:23 | PC.NURSE ---
pt resting after versed. son at bedside. no needs at this time. pads on bedrails for safety and clip/bed alarm utilized
[2025-07-14] MEDS: MIDAZOLAM 2MG/2ML VIAL 5 MG IV (22:08)
--- NOTE | 2025-07-14 22:15 | PC.NURSE ---
pt's son & daughter back to bedside
--- NOTE | 2025-07-14 22:29 | ECG_ITS ---
APPROVED REPORT Exam: Resting ECG HR:81 bpm ECG Measurements Heart Rate 81 AXES VT 221 P 77 QRSd 98 QRS 80 QT 392 T 60 QTc 429 Conclusion SINUS RHYTHM WITH FIRST DEGREE AV BLOCK NONSPECIFIC ST & T-WAVE ABNORMALITY ABNORMAL ECG Artifact limits interpretation, no STEMI within the limitations of this study Electronically signed by : RUDOLPH RAMOS, 07/17/2025 06:52:22
--- NOTE | 2025-07-14 23:10 | PC.NURSE ---
Michelle Masters APRN at bedside for admission
[2025-07-14] MEDS: HYDROMORPHONE 2MG/ML SYRINGE 0.5 MG IV (23:45)
[2025-07-15] VITALS (7 sets, daily range): BP systolic 95–140; BP diastolic 40–98; PULSE 66–94; RESP 16–22; TEMP 36.4–36.7; O2SAT 90–96; BMI 22.6
[2025-07-15] MEDS: LEVOTHYROXINE SODIUM 100 MCG VIAL 25 MCG IV (00:02)
--- NOTE | 2025-07-15 01:01 | P.HP_ITS ---
<Statement entered by Nadeem Bellamy MD - 07/15/25 16:12> Rounded on patient after nurse practitioner. Personally examined and interviewed patient. Agree with exam findings and care plan as documented. History of Present Illness *Admission Date: 07/14/25 *Reason for visit:: Altered mental status *History of present illness: This is an 85-year-old female with a past medical history of dementia, behavioral disturbance, HFpEF, hypertension, hyperlipidemia, CAD, hypothyroidism who presents from [facility] for further evaluation of significant encephalopathy and agitation. Family is at bedside and provides collateral and states the patient has had a recent diagnosis of dementia and has steadily had increasing behavioral disturbances recently. They state that it is been worsening for several days and the physician at [facility] increased her risperidone but they do not feel like that it has taken effect yet. Today at [facility] she was noted to have significant behavioral disturbances and agitation requiring multiple staff members to manage to keep her safe They eventually called 911 to have her brought to the emergency department due to inability to care for her and safety. Upon arrival to the emergency department she was extremely agitated requiring multiple doses of medication to help control her agitation. Broad workup obtained including head CT chest x-ray which were both negative for infection. TSH 15 with a normal free T4. Otherwise workup negative. Patient with difficulty keeping in bed in the emergency department requiring Versed and Haldol administration with little effect. After conversation with family and attempting to send back to [facility], given concerns for her safety and ability to care for her, she is admitted to the hospitalist service here for further evaluation and management. [facility] Disclaimer: The information contained in this section may have been updated after the patient was seen, as this information can be updated by other users. Medical History (Updated 07/15/25 @ 00:57 by Charlotte Dunn RN) Diverticulosis Iron deficiency Myocardial infarction type 2 COPD (chronic obstructive pulmonary disease) Metabolic encephalopathy Hearing loss (HFpEF) heart failure with preserved ejection fraction Atelectasis of right lung NSTEMI (non-ST elevated myocardial infarction) Stenosis of carotid artery Hyperlipidemia HTN (hypertension) Smoker CAD (coronary artery disease) Hypothyroid Surgical History Stented coronary artery Social History Smoking Status: Never smoker alcohol intake: never substance use type: unknown current occupational status: other Travel in the last 8 weeks?: None Have you lived/traveled outside US in past 30 days?: No Contact w/someone who lives/traveled outside US past 30 days?: No Exposure to someone with infectious disease in past 14 days?: No Do you have a fever (greater than 100.4 F or 38 C)?: No Have you tested positive for COVID-19?: No Exposed to someone with COVID-19 in past 14 days?: No Do you have a sore throat?: No Do you have a cough?: No Do you have any weakness?: No Do you have any diarrhea?: No Are you experiencing any unusual bleeding?: No Do you have any muscle aches/pain?: No Do you have any abdominal pain?: No Are you experiencing loss of taste or smell?: No Other Medical History Have you received the Flu Vaccine for this season: No Have you received the Pneumonia Vaccine: No Review of Systems Review of Systems Review of systems:: pertinent systems reviewed and negative unless documented below Review of systems (narrative): FREDY secondary to mental status Meds Home Medications and Allergies Home Medications ?Medication ?Instructions ?Recorded ?Confirmed ?Type aspirin 81 mg chewable tablet 81 mg PO DAILY 05/23/21 07/15/25 History omeprazole 40 mg capsule,delayed 40 mg PO DAILY 07/15/25 History release metoprolol tartrate 25 mg tablet 25 mg PO BID 04/14/25 07/15/25 History rosuvastatin 10 mg tablet 10 mg PO DAILY 04/14/2507/06 History ferrous sulfate 325 mg (65 mg 325 mg PO DAILY #30 tabs 04/18/25 07/15/25 Rx iron) tablet melatonin 3 mg tablet 3 mg PO HS sleep #30 tabs 07/15/25 Rx polyethylene glycol 3350 17 17 g PO DAILY #119 grams 0 04/18/25 07/15/25 Rx gram/dose oral powder (Miralax) acetaminophen 500 mg tablet 500 mg PO QID PRN Pain (Sc liza 07/15/25 07/15/25 History Score 1-3) lorazepam 0.5 mg tablet 0.5 mg PO HS anxiety 5 07/15/25 History risperidone 1 mg tablet (Risperdal) 1 mg PO DAILY 07/0607/15/25 History risperidone 2 mg tablet (Risperdal) 2 mg PO HS 5 07/15/25 History sodium chloride 1 gram tablet 1,000 mg PO DAILY 07/15/25 History tramadol 50 mg tablet 50 mg PO Q6H PRN Pain (Scale Score 07/15/25 07/15/25 History 4-6) trazodone 50 mg tablet 100 mg PO HS PRN insomnia 07/15/25 History New Prescriptions to Start Prescriptions: Allergies Allergy/AdvReac Type Severity Reaction Status Date / Time Sulfa (Sulfonamide Allergy Mild Unknown Verified 04/22/25 14:26 Antibiotics) allergy reaction Exam Data for Last 24 hours Vital signs and Labs for Last 24 Hours: Temp Pulse Resp BP Pulse Ox O2 Del Method 98.0 F 94 H 22 123/73 97 Room Air 07/15/25 00:38 07/15/25 00:38 07/15/25 00:38 07/15/25 00:38 07/14/25 21:00 07/15/25 00:38 Laboratory Results - last 24 hr 07/14/25 18:35: WBC 7.0, RBC 3.92 L, Hgb 10.9 L, Hct 32.9 L, MCV 83.9, MCH 27.8, MCHC 33.1, RDW 17.0, Plt Count 375, MPV 9.2, Neut % (Auto) 69.1, Lymph % (Auto) 15.0, [place] % (Auto) 13.6 H, Eos % (Auto) 1.0, Baso % (Auto) 0.6, Neut # (Auto) 4.9, Lymph # (Auto) 1.1, [place] # (Auto) 1.0, Eos # (Auto) 0.1, Baso # (Auto) 0.0, Sodium 135 L, Potassium 3.7, Chloride 100, Carbon Dioxide 22, Anion Gap 16.7 H, BUN 17, Creatinine 1.10 H, Estimated Creat Clear 35, Estimated GFR 47 L, Est GFR ( Amer) 57 L, Glucose 108 H, Calcium 9.1, Phosphorus 4.3, Magnesium 2.0, Total Bilirubin 0.5, AST 25, ALT 8 L, Alkaline Phosphatase 81, Total Protein 6.8, Albumin 3.9, Globulin 2.9, Albumin/Globulin Ratio 1.3, TSH 15.30 H, Free T4 1.32, HCV Ab MARCIE w/Rflx PCR Qn Negative, HIV Ag/Ab Combo Qual Negative 07/14/25 19:30: Urine Color Yellow, Urine Appearance Clear, Urine pH 6.5, Ur Specific [place] 1.020, Urine Protein Negative, Urine Glucose (UA) Negative, Urine Ketones Negative, Urine Blood Negative, Urine Nitrate Negative, Urine Bilirubin Negative, Urine Urobilinogen 1.0, Ur Leukocyte Esterase Negative, Urine RBC 5-10, Urine WBC 3-5, Ur Squamous Epith Cells 10-20, Urine Bacteria Trace, Urine Mucus 2+ I & O for Last 24 hours: Intake & Output 07/12/25 07/13/25 07/14/25 07/15/25 23:59 23:59 23:59 23:59 Intake Total 1000 / 1000 Balance 1000 / 1000 Weight 56.699 kg Constitutional Constitutional: no acute distress *Routine HEENT Exam Head: Present normocephalic; Absent atraumatic (Area of green and yellow bruising to the left forehead/orbit) Eye: Present EOMI and PERRL ENT: Present mucous membranes moist *Routine Neck Exam Neck: Present supple; Absent lymphadenopathy *Routine Respiratory Exam Respiratory: Present CTA bilaterally *Routine Cardiovascular Exam Cardiovascular: Present RRR *Routine Abdominal Exam Abdominal: Present soft and normoactive bowel sounds; Absent tenderness *Routine Rectal Exam Rectal:: deferred *Routine Genitalia Exam Genitalia:: deferred *Routine Extremities Exam Extremities: Absent cyanosis, clubbing or edema *Routine Skin Exam Skin: Present warm; Absent rash *Routine Neurological Exam Neurological: Present alert and altered mental status Comments: Moves all extremities with good strength Assessment and Plan *Assessment and plan (1) Encephalopathy: Status: Acute Category: Medical Code(s): G93.40 - Encephalopathy, unspecified Plan #Acute metabolic encephalopathy #Dementia #Behavioral disturbances Behavior and agitation likely secondary to progressing dementia. Infectious workup thus far negative. Does have elevated TSH of 15. Will give dose of IV levothyroxine to see if patient does have improvement in symptoms. Does have some moaning and groaning on exam, 1 dose of Dilaudid given with some improvement in restlessness. Does have chronic back pain with L1/L2 disease on prior CT Patient unable to swallow medications at this time. One-to-one observation for safety Will have Zyprexa on hand as needed for worsening agitation. Spoke with family about resources for her worsening dementia. They are willing to entertain idea of palliative/hospice if that would benefit her for resource purposes. Will engage case management and social work in a.m. to facilitate further conversations regarding resources for worsening dementia #hypothyroidism TSH 15, free t4 normal sublinical hypothyroidism. unsure if pt has been able to take daily meds will give a dose of IV levothyroxine now at reduced IV dose #Iron deficiency anemia Prior history of requiring blood transfusions and IV Venofer Hemoglobin stable today #HFpEF Not in exacerbation at this time. Not hypoxic, no overt shortness of breath #Dementia Would ultimately benefit from continuing oral doses of medications, will reorder those once patient is able to swallow safe
[2025-07-15] MEDS: HYDROMORPHONE 2MG/ML SYRINGE 0.5 MG IV (03:00)
--- NOTE | 2025-07-15 08:44 | SW/DCPLANNER ---
Addendum entered by Fallon Jones 07/17/25 10:43: Per [facility] patient can return to [facility] level of care today. Addendum entered by Fallon Jones 07/17/25 10:06: Updated patient information faxed to [facility] w/ [facility]. I have updated [facility] that patient is improved and medically stable for discharge today. [facility] has requested to review updates prior to returning. Addendum entered by Fallon Jones 07/16/25 10:58: Updated patient information faxed to Sabina pennington/ [facility]. Addendum entered by Fallon Livermore 07/15/25 14:55: I did reach out to several inpatient psychiatric facilities regarding this patient. The following facilities are not able to accept patient: [facility] in [place] and [facility] is [place] are not able to accept this patient. Dr Bellamy and myself did update patient's daughter. CM will continue to follow up. Original Note: I spoke w/ [facility]ina pennington/ [facility]: patient is currently private pay retirement at [facility]. Sabina stated that pending alerted mental status patient could return once medically stable for discharge. Discharge date is unknown at this time.
--- NOTE | 2025-07-15 09:56 | HMH.PTEV ---
Physical Therapy Evaluation Rehab PT IP Evaluation Start: 07/15/25 01:10 Freq: ONCE Status: Active Protocol: Document 07/15/25 09:51 GUY (Rec: 07/15/25 09:55 GUY [id number]) Subjective/History History History Per H&P: This is an 85-year-old female with a past medical history of dementia, behavioral disturbance, HFpEF, hypertension, hyperlipidemia, CAD, hypothyroidism who presents from [facility] for further evaluation of significant encephalopathy and agitation. Family is at bedside and provides collateral and states the patient has had a recent diagnosis of dementia and has steadily had increasing behavioral disturbances recently. They state that it is been worsening for several days and the physician at [facility] increased her risperidone but they do not feel like that it has taken effect yet. Today at [facility] she was noted to have significant behavioral disturbances and agitation requiring multiple staff members to manage to keep her safe They eventually called 911 to have her brought to the emergency department due to inability to care for her and safety. Upon arrival to the emergency department she was extremely agitated requiring multiple doses of medication to help control her agitation. Broad workup obtained including head CT chest x-ray which were both negative for infection. TSH 15 with a normal free T4. Otherwise workup negative. Patient with difficulty keeping in bed in the emergency department requiring Versed and Haldol administration with little effect. After conversation with family and attempting to send back to [facility], given concerns for her safety and ability to care for her, she is admitted to the hospitalist service here for further evaluation and management. Subjective Subjective Pt not able to engage with PT, follow simple one-step commands, or answer questions at this time. Confirm hx with CM. New diagnosis of No cancer in past 12 months? [facility] How much help from another person do you currently need... Turning from your None back to your side while in a flat bed without using bedrails? Moving from lying on None back to sitting on the side of a flat bed without using bedrails? Moving to and from a None bed to a chair ( including a wheelchair)? Standing up from a A little chair using your arms? (e.g., wheelchair, bedside chair) Walking in hospital A little room? Climbing 3-5 steps A little with a railing? Mobility Score 21 Mobility Level [facility] Mobility 6 Walk 10 steps or more Mobility Calculator Rehab PT IP Eval Objective Appearance Patient Behavior Wandering,Confused Difficulty following severe instructions Speech Pattern No Speech Balance Ability to Arise Able, uses arms to help Sitting Balance Steady, safe Rehab PT IP prob,goals,plan Problems Date of Evaluation: 07/15/25 PT IP Problems Bed Mobility,Transfers,Gait,Balance,Self care,Safety Rehab Potential Rehab Potential Fair Plan PT Intervention Plan Bed Mobility,Transfers,Gait,Balance,Self care,Safety, Therapeutic Exercise Other Intervention 1-2 times Plan PT Plan Frequency Daily Duration Goals Met Discharge Goals Bed Transfer Ability Independent Sit to Stand Chair Independent Transfer Ability Ambulation Distance 15 (feet) Discharge Plan PT Discharge Plan PT evaluation limited by pt's current impaired cognition. [facility] to [facility]. Pt would benefit from skilled acute care OT while at [facility] to prevent further functional decline. Eval Complexity Eval Charge Codes 66987 - Moderate Complexity PHYSICIAN CERTIFICATION: I certify the specified therapy services for Kathia Jordan are required, authorized, and reviewed every 30 days.
--- NOTE | 2025-07-15 09:57 | HMH.PHAAMS2 ---
- Antimicrobial Stewardship Review culture & sensitivity review Stewardship interventions: culture & sensitivity review, reviewed - no change Comments: URINE CX PENDING, PATIENT STARTED ON [facility] EMPIRICALLY FOR SUSPECTED UTI.
--- NOTE | 2025-07-15 10:45 | HMH.OTEV ---
OT Evaluation Rehab OT IP Evaluation Start: 07/15/25 01:10 Freq: ONCE Status: Active Protocol: Document 07/15/25 10:40 [facility] (Rec: 07/15/25 10:45 [facility] [id number]) Rehab OT IP Assessment Subjective History Per H&P: This is an 85-year-old female with a past medical history of dementia, behavioral disturbance, HFpEF, hypertension, hyperlipidemia, CAD, hypothyroidism who presents from [facility] for further evaluation of significant encephalopathy and agitation. Family is at bedside and provides collateral and states the patient has had a recent diagnosis of dementia and has steadily had increasing behavioral disturbances recently. They state that it is been worsening for several days and the physician at [facility] increased her risperidone but they do not feel like that it has taken effect yet. Today at [facility] she was noted to have significant behavioral disturbances and agitation requiring multiple staff members to manage to keep her safe They eventually called 911 to have her brought to the emergency department due to inability to care for her and safety. Upon arrival to the emergency department she was extremely agitated requiring multiple doses of medication to help control her agitation. Broad workup obtained including head CT chest x-ray which were both negative for infection. TSH 15 with a normal free T4. Otherwise workup negative. Patient with difficulty keeping in bed in the emergency department requiring Versed and Haldol administration with little effect. After conversation with family and attempting to send back to [facility], given concerns for her safety and ability to care for her, she is admitted to the hospitalist service here for further evaluation and management. Subjective Pt very confused and agitated on arrival. Pt currently has to have 1 on 1 due to restlessness and attempting to get out of bed. Pt unable to provide any orientation questions or prior level of functioning. Pt was at [facility] prior to being admitted to hospital. Therapist unsure about prior level of functioning. Pt able to sit up at eob independently during observation, but attempts to get out of bed, grabbing at people, and moaning. Therapist unable to complete full evaluation due to pt's mentation at this time. Objective Bed Mobility bed mobility-scooting,bed mobility - supine/sit Assist Level Supervision/Stand by Rehab OT IP prob,goals,plan Problems Date of Evaluation: 07/15/25 OT IP Problems Bed Mobility,Transfers,Balance,Self care,Safety Rehab Potential Rehab Potential Fair Equipment Needs Assistive Devices Rolling / Wheeled Walker Plan OT intervention Plan Bed Mobility,Transfers,Balance,Self care,Safety, Therapeutic Exercise OT Plan Frequency Daily Duration LOS Discharge Goals Bed Mobility Ability Standby Assistance Sit to Stand Chair Minimal x 1 (25% assist) Transfer Ability Chair Transfer Minimal x 1 (25% assist) Ability Chair Transfer Sit to/from Ambulatory Technique Chair Transfer Rolling Walker Assistive Devices Lower Body Dressing Moderate Assistance Ability Upper Body Dressing Minimal Assistance Ability Performing Toilet Moderate Assistance Hygiene Ability Overall Commode/ Minimal Assistance Toilet Transfer Ability Commode/Toilet Sit to/from Ambulatory Transfer Technique Discharge Plan OT Discharge Plan Therapist will continue to see patient for OT services while at [facility] if patient becomes more appropriate for therapy and is able to follow simple commands. Once she is medically stable, pt is most appropriate to return to [facility] for continued assistance. Eval Complexity Eval Charge Codes 16881 - Moderate Complexity PHYSICIAN CERTIFICATION: I certify the specified therapy services for Kathia Jordan are required, authorized, and reviewed every 30 days.
[2025-07-15 11:29] LABS: Hematocrit 34.9 % (37.0-47.0); Hemoglobin 11.4 g/dL (12.2-16.2); Immature Granulocytes % 0.5 %; Mean Corpuscular HGB Conc 32.7 g/dL (31.8-35.4); Mean Corpuscular Hemoglobin 27.3 pg (27.0-31.2); Mean Corpuscular Volume 83.7 fl (81-99); Nucleated Red Blood Cells % 0 %; Platelet Count 350 K/mm3 (142-424); Red Blood Count 4.17 M/mm3 (4.20-5.40); Red Cell Distribution Width-SD 52.4 fL; White Blood Count 9.6 K/mm3 (4.8-10.8)
[2025-07-15 11:58] LABS: Anion Gap 13.7 mEq/L (5-15); Blood Urea Nitrogen 13 mg/dl (7-17); Calcium 9.1 mg/dl (8.4-10.2); Carbon Dioxide 22 mmol/L (22.0-30.0); Chloride 105 mmol/L (98-107); Cholesterol 132 mg/dl (140-200); Creatinine Clearance Estimated 37 mL/min (50-200); Creatinine,Serum 1.00 mg/dl (0.52-1.04); Estimated Glomerular Filt Rate 53 ml/min (>60); GFR (African American) 64 ML/MIN (>60); Glucose 107 mg/dl (74-100); HDL Cholesterol 41 mg/dl (40-60); Potassium 3.7 mmoL/L (3.5-5.1); Sodium 137 mmol/L (136-145); Triglycerides 141 mg/dl (30-150)
--- NOTE | 2025-07-15 13:20 | P.CONPHA_ITS ---
Pharmacy Intervention Comments: MEDICATION RECONCILIATION COMPLETED ON PATIENT USING [facility] -[facility]
--- NOTE | 2025-07-15 13:20 | HMH.PHAINT1 ---
Pharmacy Intervention Comments: MEDICATION RECONCILIATION COMPLETED ON PATIENT USING [facility] FROM [facility]. -[facility], [facility]
[2025-07-15] MEDS: OLANZapine 10 MG VIAL 5 MG IM ×2 (14:07→16:35)
--- NOTE | 2025-07-15 16:41 | EXP.ACUTE.PN ---
Subjective *Date: 07/15/25 *Time: 21:19 Interval history: Frankly confused today. Responding to internal stimuli. Not following commands. Agitated but not combative. Stable on room air. Afebrile Medical Exam Vital signs and Labs for Last 24 Hours: Vital Signs Temp Pulse Pulse Resp BP BP Pulse Ox 07/15/25 12:00 98.1 F 87 22 140/98 H 92 L 07/15/25 11:44 07/15/25 11:00 07/15/25 09:00 07/15/25 08:00 07/15/25 08:00 97.8 F 89 20 137/87 93 L 07/15/25 06:56 07/15/25 05:00 07/15/25 04:00 97.5 F L 85 16 95/40 L 93 L 07/15/25 03:00 07/15/25 01:00 07/15/25 00:38 98.0 F 94 H 22 123/73 07/15/25 00:00 97.5 F L 84 16 137/86 07/14/25 23:36 07/14/25 21:00 96 H 20 126/78 97 07/14/25 18:41 97.6 F 87 16 123/73 95 07/14/25 18:32 89 95 O2 Del Method 07/15/25 12:00 Room Air 07/15/25 11:44 Room Air 07/15/25 11:00 Room Air 07/15/25 09:00 Room Air 07/15/25 08:00 Room Air 07/15/25 08:00 Room Air 07/15/25 06:56 Room Air 07/15/25 05:00 Room Air 07/15/25 04:00 Room Air 07/15/25 03:00 Room Air 07/15/25 01:00 Room Air 07/15/25 00:38 Room Air 07/15/25 00:00 07/14/25 23:36 Room Air 07/14/25 21:00 Room Air 07/14/25 18:41 Room Air 07/14/25 18:32 Room Air Intake and Output 07/15/25 07/15/25 07/15/25 07:59 15:59 23:59 Output Total 0 / 0 0 / 0 Balance 0 / 0 0 / 0 Output: Output, Urine Amount 0 / 0 0 / 0 Other: Number of Voids 0 Number of Unmeasured Voids 1 1 Weight 55.656 kg Patient Weight 07/15/25 23:59 Weight 55.656 kg Laboratory Results - last 24 hr 07/14/25 18:35: WBC 7.0, RBC 3.92 L, Hgb 10.9 L, Hct 32.9 L, MCV 83.9, MCH 27.8, MCHC 33.1, RDW 17.0, Plt Count 375, MPV 9.2, Neut % (Auto) 69.1, Lymph % (Auto) 15.0, [place] % (Auto) 13.6 H, Eos % (Auto) 1.0, Baso % (Auto) 0.6, Neut # (Auto) 4.9, Lymph # (Auto) 1.1, [place] # (Auto) 1.0, Eos # (Auto) 0.1, Baso # (Auto) 0.0, Sodium 135 L, Potassium 3.7, Chloride 100, Carbon Dioxide 22, Anion Gap 16.7 H, BUN 17, Creatinine 1.10 H, Estimated Creat Clear 35, Estimated GFR 47 L, Est GFR ( Amer) 57 L, Glucose 108 H, Calcium 9.1, Phosphorus 4.3, Magnesium 2.0, Total Bilirubin 0.5, AST 25, ALT 8 L, Alkaline Phosphatase 81, Total Protein 6.8, Albumin 3.9, Globulin 2.9, Albumin/Globulin Ratio 1.3, TSH 15.30 H, Free T4 1.32, HCV Ab MARCIE w/Rflx PCR Qn Negative, HIV Ag/Ab Combo Qual Negative 07/14/25 19:30: Urine Color Yellow, Urine Appearance Clear, Urine pH 6.5, Ur Specific [place] 1.020, Urine Protein Negative, Urine Glucose (UA) Negative, Urine Ketones Negative, Urine Blood Negative, Urine Nitrate Negative, Urine Bilirubin Negative, Urine Urobilinogen 1.0, Ur Leukocyte Esterase Negative, Urine RBC 5-10, Urine WBC 3-5, Ur Squamous Epith Cells 10-20, Urine Bacteria Trace, Urine Mucus 2+ 07/15/25 11:20: WBC 9.6 D, RBC 4.17 L, Hgb 11.4 L, Hct 34.9 L, MCV 83.7, MCH 27.3, MCHC 32.7, RDW 17.1, Plt Count 350, MPV 9.1, Neut % (Auto) 72.4, Lymph % (Auto) 11.4, [place] % (Auto) 14.9 H, Eos % (Auto) 0.4, Baso % (Auto) 0.4, Neut # (Auto) 6.9, Lymph # (Auto) 1.1, [place] # (Auto) 1.4 H, Eos # (Auto) 0.0, Baso # (Auto) 0.0, Sodium 137, Potassium 3.7, Chloride 105, Carbon Dioxide 22, Anion Gap 13.7, BUN 13, Creatinine 1.00, Estimated Creat Clear 37, Estimated GFR 53 L, Est GFR ( Amer) 64, Glucose 107 H, Calcium 9.1, Triglycerides 141, Cholesterol 132 L, LDL Cholesterol Direct 68.11 L, VLDL Cholesterol 28, HDL Cholesterol 41, Cholesterol/HDL Ratio 3.2 I & O for Labs for Last 24 Hours: Intake & Output 07/12/25 07/13/25 07/14/25 07/15/25 23:59 23:59 23:59 23:59 Intake Total 1000 / 1000 Output Total 0 / 0 Balance 1000 / 1000 0 / 0 Weight 56.699 kg 55.656 kg Constitutional: Present mild distress, thin, chronically ill appearing and agitated Head: Present atraumatic Eyes: Present as per HPI ENT: Present normal exam Neck: Present normal inspection Respiratory: Present CTA bilaterally, able to speak in complete sentences and symmetric chest movement; Absent wheezes or crackles Cardiac: Present Reg Rate and Rhythm; Absent No Murmur GI: Present soft and normal bowel sounds Rectal (female): Present deferred (female): Present deferred Extremities: Present normal inspection and full ROM Skin: Present intact, dry and warm Comment:: scattered brusing Neuro: Present alert, awake and moves all extremities Comment:: Frankly altered and delirious. Not following commands. Unable to assess orientation Assessment and Plan *Assessment and plan (1) Encephalopathy: Status: Acute Category: Medical Code(s): G93.40 - Encephalopathy, unspecified (2) (HFpEF) heart failure with preserved ejection fraction: Status: Acute Category: Medical Code(s): I50.30 - Unspecified diastolic (congestive) heart failure (3) Hypothyroid: Status: Acute Category: Medical Code(s): E03.9 - Hypothyroidism, unspecified (4) HTN (hypertension): Status: Acute Qualifiers: Hypertension type: primary hypertension Qualified Code(s): I10 - Essential (primary) hypertension Category: Medical Code(s): I10 - Essential (primary) hypertension Plan 85-year-old female with progressing dementia and behavioral disturbance. Given her response to antipsychotics and benzodiazepines along with increased behavioral disturbance and inhibition, suspect dementia versus dementia with Lewy body. Continues to have significant agitation today but is not combative. Not following commands however. Has not had very much to eat today. Initially in restraints on morning rounds, restraints removed and has been without them for the rest of the day. Currently one-on-one sitter. Administer 1 L IV fluids as she has had poor p.o. intake to promote clearance of sedating meds and blood products for urine production. Afebrile, on room air. Hemodynamically stable. Labs continue to show no acute signs of infection. Cultures pending. Mother at bedside today, discussion about current condition, plan, goals of care. Continues to require patient management. Case management assisting with referral to [facility], no success as of yet for placement. Problems addressed as follows: #Acute metabolic encephalopathy #Dementia w/ Behavioral disturbances Behavior and agitation likely secondary to progressing dementia. Infectious workup thus far negative. Does have elevated TSH of 15. Received IV dose levothyroxine x 1. Transition to oral levothyroxine 100 micrograms daily - Has had worsening agitation through the day, received 2 doses of 5 mg IM olanzapine. Had short benefit for 1 to 2 hours but proceeded to have continued agitation - After discussion with daughter, concern patient may have not just dementia but potentially dementia with Lewy body given her hallucinations and increasing agitation with adjustment of medications including benzos and Resporal in the outpatient setting. - Will hold on benzodiazepines at this time. Hold on further antipsychotics. - Will attempt to treat pain as she does appear uncomfortable with morphine 2 mg IV as needed every 2-4 hours. - Does have chronic back pain with L1/L2 disease on prior CT - Patient unable to swallow medications at this time. - One-to-one observation for safety - Spoke with family about resources for her worsening dementia. They are willing to entertain idea of palliative/hospice if that would benefit her for resource purposes. - further conversations regarding resources for worsening dementia pending response over the next 1-2 days #hypothyroidism TSH 15, free t4 normal; sublinical hypothyroidism. unsure if pt has been able to take daily meds Received 1 dose IV levothyroxine. Resume 100 mcg daily p.o. in the morning. Unable to tolerate, will resume 100 mcg daily until tolerating p.o. #Iron deficiency anemia Prior history of requiring blood transfusions and IV Venofer; Hemoglobin stable today White count normal at 9.6, hemoglobin 11.4. Kidney function normal with BUN 13, creatinine 1. Potassium 3.7. No active signs of bleeding. Obtain BMP to monitor kidney function in the morning. Hold all other labs #HFpEF Not in exacerbation at this time. Not hypoxic, no overt shortness of breath DNI/DNR Regular diet
--- NOTE | 2025-07-15 17:41 | EXP.EVENT.NO ---
Advance care planning note: Active diagnosis: Dementia with behavioral disturbance, delirium, hypertension CAD, hypothyroid The patient's active diagnoses are of sufficient risk that focused discussion on advanced care planning is indicated in order to allow the patient to thoughtfully consider personal goals of care; and, if situations arise that prevent the ability to personally give input, to ensure appropriate representation of their personal desires through documentation or informed surrogate decision makers. Discussion: Persons present and participating in discussion: Daughter, patient, social work, attending (myself) Discussion: Discussed patient's diagnosis including dementia with behavioral disturbance. Explained what this means. Discussed the progressive nature of this condition. Discussed complexity of controlling her symptoms and managing her psychiatric symptoms. Discussed potential need for transfer to psychiatric hospital for further care. Discussed that as this is progressive, there are times in which considering hospice consult is of benefit. Daughter at bedside. Understanding of discussion. Asked numerous questions about current treatment plan, long-term prognosis, goals moving forward during admission. States understanding of difficulty in treating current condition. Does not appear ready to discuss hospice further at this time. Time spent: Total time spent [id number] in education and discussion directly related to advance care plannin minutes Nadeem Bellamy 07/15/2025
[2025-07-15] MEDS: LACTATED RINGERS 1000ML 1,000 ML 500 ML IV (18:03)
[2025-07-15] MEDS: MORPHINE 2MG/ML SYRINGE 2 MG IV (20:23)
[2025-07-16 04:00] VITALS: BP 148/84; PULSE 105; RESP 20; BMI 22.4
[2025-07-16 08:00] VITALS: BP 167/78; PULSE 111; RESP 16; TEMP 37; O2SAT 93
--- NOTE | 2025-07-16 09:15 | HMH.PHAAMS2 ---
- Antimicrobial Stewardship Review culture & sensitivity review Stewardship interventions: culture & sensitivity review (CURRENTLY ON ROCEPHIN FOR UTI, WBC WNL, AFEBRILE, NO GROWTH IN URINE CX)
--- NOTE | 2025-07-16 10:36 | P.PN_ITS ---
Subjective *Date: 07/16/25 *Time: 16:28 Interval history: Patient opened eyes on exam this morning. Attempted to answer questions. Stated she was hungry. Did achieve some sleep overnight. Will attempt to reset the night routine today. Encourage nursing to stimulate patient with conver sation. Would like patient out of bed today and either in a wheelchair to mobilize or bedside chair. Encourage p.o. intake. Remained stable on room air and afebrile. Not combative Medical Exam Vital signs and Labs for Last 24 Hours: Vital Signs Temp Pulse Resp BP Pulse Ox O2 Del Method 07/16/25 09:54 Room Air 07/16/25 08:36 Room Air 07/16/25 08:00 Room Air 07/16/25 08:00 98.6 F 111 H 16 167/78 H 93 L Room Air 07/16/25 06:25 Room Air 07/16/25 05:00 Room Air 07/16/25 04:00 105 H 20 148/84 H 07/16/25 02:56 Room Air 07/16/25 01:00 Room Air 07/15/25 23:30 97.5 F L 79 18 127/74 90 L Room Air 07/15/25 23:00 Room Air 07/15/25 21:00 Room Air 07/15/25 20:00 Room Air 07/15/25 20:00 97.9 F 66 17 113/70 96 Room Air 07/15/25 19:00 Room Air 07/15/25 15:00 Room Air 07/15/25 12:00 98.1 F 87 22 140/98 H 92 L Room Air 07/15/25 11:44 Room Air 07/15/25 11:00 Room Air Intake and Output 07/15/25 07/16/25 07/16/25 23:59 07:59 15:59 Intake Total 100 / 100 0 / 0 Output Total 0 / 0 0 / 0 Balance 100 / 100 0 / 0 0 / 0 Intake: Intake, Oral Amount 0 / 0 Intake, Total IV Amount 100 / 100 Ceftriaxone Sodium 2 gm In 0.9 100 / 100 % Sodium Chloride 100 ml @ 200 mls/hr IV Q24H [facility] Rx#:[id number] Output: Output, Urine Amount 0 / 0 0 / 0 Other: Number of Voids 1 Number of Unmeasured Voids 1 1 Weight 55.202 kg Patient Weight 07/16/25 23:59 Weight 55.202 kg Laboratory Results - last 24 hr 07/15/25 11:20: WBC 9.6 D, RBC 4.17 L, Hgb 11.4 L, Hct 34.9 L, MCV 83.7, MCH 27.3, MCHC 32.7, RDW 17.1, Plt Count 350, MPV 9.1, Neut % (Auto) 72.4, Lymph % (Auto) 11.4, [place] % (Auto) 14.9 H, Eos % (Auto) 0.4, Baso % (Auto) 0.4, Neut # (Auto) 6.9, Lymph # (Auto) 1.1, [place] # (Auto) 1.4 H, Eos # (Auto) 0.0, Baso # (Auto) 0.0, Sodium 137, Potassium 3.7, Chloride 105, Carbon Dioxide 22, Anion Gap 13.7, BUN 13, Creatinine 1.00, Estimated Creat Clear 37, Estimated GFR 53 L, Est GFR ( Amer) 64, Glucose 107 H, Calcium 9.1, Triglycerides 141, Cholesterol 132 L, LDL Cholesterol Direct 68.11 L, VLDL Cholesterol 28, HDL Cholesterol 41, Cholesterol/HDL Ratio 3.2 I & O for Labs for Last 24 Hours: Intake & Output 07/13/25 07/14/25 07/15/25 07/16/25 23:59 23:59 23:59 23:59 Intake Total 1000 / 1000 100 / 100 0 / 0 Output Total 0 / 0 0 / 0 Balance 1000 / 1000 100 / 100 0 / 0 Weight 56.699 kg 55.656 kg 55.202 kg Microbiology Reports for the Last 24 Hours: Microbiology 07/14/25 19:30 Urine,Clean Catch Urine Culture - Final No growth. Constitutional: Present no acute distress, thin and chronically ill appearing; Absent combative Head: Present atraumatic Eyes: Present as per HPI ENT: Present normal exam Neck: Present normal inspection Respiratory: Present CTA bilaterally, able to speak in complete sentences and symmetric chest movement; Absent wheezes or crackles Cardiac: Present Reg Rate and Rhythm; Absent No Murmur GI: Present soft and normal bowel sounds Rectal (female): Present deferred (female): Present deferred Extremities: Present normal inspection and full ROM Skin: Present intact, dry and warm Comment:: scattered brusing Neuro: Present alert, awake and moves all extremities Comment:: Alert to self. Responds to verbal stimuli Assessment and Plan *Assessment and plan (1) Encephalopathy: Status: Acute Category: Medical Code(s): G93.40 - Encephalopathy, unspecified (2) (HFpEF) heart failure with preserved ejection fraction: Status: Acute Category: Medical Code(s): I50.30 - Unspecified diastolic (congestive) heart failure (3) Hypothyroid: Status: Acute Category: Medical Code(s): E03.9 - Hypothyroidism, unspecified (4) HTN (hypertension): Status: Acute Qualifiers: Hypertension type: primary hypertension Qualified Code(s): I10 - Essential (primary) hypertension Category: Medical Code(s): I10 - Essential (primary) hypertension Plan 85-year-old female with progressing dementia and behavioral disturbance. Given her response to antipsychotics and benzodiazepines along with increased behavioral disturbance and inhibition, suspect dementia versus dementia with Lewy body. Somewhat more alert today. Still confused and demented. Not as agitated today as yesterday. Afebrile, on room air. Hemodynamically stable. Labs continue to show no acute signs of infection. Cultures pending. Daughter was at bedside yesterday, not at bedside today. Will encourage ambulation and movement. Holding on further fluids. Advance diet. Continues to require patient management. Case management assisting with referral to [facility], no success as of yet for placement. Problems addressed as follows: #Acute metabolic encephalopathy #Dementia w/ Behavioral disturbances Behavior and agitation likely secondary to progressing dementia. Infectious workup thus far negative. Does have elevated TSH of 15. Received IV dose levothyroxine x 1. Transition to oral levothyroxine 100 micrograms daily - Had worsening agitation through the day yesterday. Did receive 2 doses of olanzapine. Holding benzos and antipsychotics at this time. - Encouraged a night routine. More interactive today. - No stimulation after 10:00 PM until 6 or 7 AM. Holding on further labs. - Advance diet as tolerated - After discussion with daughter on 07/15, concern patient may have not just dementia but potentially dementia with Lewy body given her hallucinations and increasing agitation with adjustment of medications including benzos and Resporal in the outpatient setting. - Will hold on benzodiazepines at this time. Hold on further antipsychotics. - Will attempt to treat pain as she does appear uncomfortable with morphine 2 mg IV as needed every 2-4 hours. - Does have chronic back pain with L1/L2 disease on prior CT - One-to-one observation for safety #hypothyroidism TSH 15, free t4 normal; sublinical hypothyroidism. unsure if pt has been able to take daily meds Received 1 dose IV levothyroxine. Resume 100 mcg daily p.o. in the morning. #Iron deficiency anemia Prior history of requiring blood transfusions and IV Venofer; Hemoglobin stable today Unable to to obtain labs today. Will administer lab holiday. Hemoglobin stable #HFpEF Not in exacerbation at this time. Not hypoxic, no overt shortness of breath DNI/DNR Regular diet
--- NOTE | 2025-07-16 11:06 | DIET.NUTRFU ---
[facility] will start ensure with meals. She refused breakfast this morning but reported she feels hungry during rounds.
[2025-07-16 11:13] VITALS: BMI 22.4
[2025-07-16 11:56] VITALS: BP 132/97; PULSE 107; RESP 18; TEMP 36.8; O2SAT 96
[2025-07-16] MEDS: MORPHINE 2MG/ML SYRINGE 2 MG IV (14:13)
--- NOTE | 2025-07-16 14:38 | PC.NURSE ---
Confused, on RA, 20G r ac sl, bed alarm active with seizure pads and a sitter, from [facility] would like no interruptions between 10PM AND 6AM for patient to get some sleep.
[2025-07-16 20:00] VITALS: BP 136/88; PULSE 107; RESP 14; TEMP 36.6; O2SAT 96
[2025-07-16] MEDS: MELATONIN 5MG TABLET 5 MG PO (20:07)
[2025-07-16] MEDS: PANTOPRAZOLE 40MG TABLET 40 MG PO (20:07)
[2025-07-16 21:12] LABS: Chloride 101 mmol/L (98-107); Sodium 138 mmol/L (136-145)
[2025-07-16 21:13] LABS: Potassium 3.7 mmoL/L (3.5-5.1)
[2025-07-16 21:15] LABS: Blood Urea Nitrogen 13 mg/dl (7-17); Creatinine Clearance Estimated 34 mL/min (50-200); Creatinine,Serum 1.10 mg/dl (0.52-1.04); Estimated Glomerular Filt Rate 47 ml/min (>60); GFR (African American) 57 ML/MIN (>60)
[2025-07-16 21:16] LABS: Anion Gap 18.7 mEq/L (5-15); Calcium 9.1 mg/dl (8.4-10.2); Carbon Dioxide 22 mmol/L (22.0-30.0); Glucose 107 mg/dl (74-100)
[2025-07-17] VITALS: BP 149/87; PULSE 109; RESP 16; TEMP 36.2; O2SAT 92
[2025-07-17 04:00] VITALS: BP 135/76; PULSE 99; RESP 16; TEMP 35.8; O2SAT 94; BMI 22.1
[2025-07-17 08:00] VITALS: BP 113/59; PULSE 103; RESP 15; TEMP 36.5; O2SAT 94
--- NOTE | 2025-07-17 08:48 | HMH.PHAAMS2 ---
- Antimicrobial Stewardship Review culture & sensitivity review Stewardship interventions: culture & sensitivity review (CURRENTLY ON ROCEPHIN FOR UTI, WBC WNL. NO GROWTH IN URINE CX.)
--- NOTE | 2025-07-17 10:05 | PC.NURSE ---
PATIENT HAS BEEN CONFUSED BUT HAS REMAINED CALM AND COOPERATIVE SINCE MY ARRIVAL THIS MORNING. ONE ON ONE OBSERVATION CONTINUES AT THIS TIME.
--- NOTE | 2025-07-17 10:42 | EXP.DC.SUM ---
General Admission date:: 07/14/25 Discharge date: 07/17/25 HPI HPI HPI: This is an 85-year-old female with a past medical history of dementia, behavioral disturbance, HFpEF, hypertension, hyperlipidemia, CAD, hypothyroidism who presents from [facility] for further evaluation of significant encephalopathy and agitation. Family is at bedside and provides collateral and states the patient has had a recent diagnosis of dementia and has steadily had increasing behavioral disturbances recently. They state that it is been worsening for several days and the physician at [facility] increased her risperidone but they do not feel like that it has taken effect yet. Today at [facility] she was noted to have significant behavioral disturbances and agitation requiring multiple staff members to manage to keep her safe They eventually called 911 to have her brought to the emergency department due to inability to care for her and safety. Upon arrival to the emergency department she was extremely agitated requiring multiple doses of medication to help control her agitation. Broad workup obtained including head CT chest x-ray which were both negative for infection. TSH 15 with a normal free T4. Otherwise workup negative. Patient with difficulty keeping in bed in the emergency department requiring Versed and Haldol administration with little effect. After conversation with family and attempting to send back to [facility], given concerns for her safety and ability to care for her, she is admitted to the hospitalist service here for further evaluation and management. Hospital Course Hospital Course Hospital Course: 85-year-old female with progressing dementia and behavioral disturbance. Given her response to antipsychotics and benzodiazepines along with increased behavioral disturbance and inhibition, suspect dementia versus dementia with Lewy body with delirium and toxic encephalopathy secondary to medications. Held antipsychotics and benzodiazepines with gradual improvement in her mentation. By morning of discharge, patient is cooperative, answering questions, making eye contact, tolerating p.o. intake. Ambulating with assistance. Stable on room air. Workup for infectious etiology negative. Completed 3 days of empiric antibiotics with ceftriaxone. Blood and urine cultures negative. Stable discharge back to her memory care unit with adjustments made to her medications. Needs close follow-up with psychiatry at her nursing facility for further management of her dementia and behavioral symptoms. Overall pleased with her response during admission. Stable to discharge at this time. Would benefit from therapy to improve mobility. Problems addressed as follows: #Acute toxic encephalopathy secondary to antipsychotics and benzodiazepines Metabolic encephalopathy less likely. Encephalopathy superimposed on Dementia w/ Behavioral disturbances Behavior and agitation likely secondary to progressing dementia with acute toxic component secondary to her medications after improvement with holding benzodiazepines and antipsychotics. Infectious workup thus far negative. Does have elevated TSH of 15. Received IV dose levothyroxine x 1. Resumed oral levothyroxine during admission. Transition to oral levothyroxine 100 micrograms daily. Agitation initially worsened after attempting sedation with respite all and Versed. Decision made to hold antipsychotics after receiving 2 doses of olanzapine the night after admission with minimal benefit. Treated pain with morphine out of concern that pain from arthritis may be an underlying etiology for some of her confusion. Showed gradual improvement during admission. On the she was eating with the assistance of staff and walking. More cooperative. Resumed today night routine. By the morning of the , patient interactive. Making eye contact. Requiring 1 person assist to ambulate to the bathroom. Eating 25 to 50% of her trays. Overall doing well. Recommend when she returns to the nursing facility to have no stimulation between the hours of 10 PM and 8 AM if at all possible to promote day night routine and sleep. Encourage lights out and quiet environment. - Recommend discontinuing at this time the Risperdal and benzodiazepines as her agitation from conversation with family appears to have gotten worse over the past several months with addition and adjustment of these medications. - Recommend reevaluation by psychiatry within the next week at her memory care unit to evaluate for alternate modalities of treatment. - After discussion with daughter on 07/15, concern patient may have not just dementia but potentially dementia with Lewy body given her hallucinations and increasing agitation with adjustment of medications including benzos and Resporal in the outpatient setting. - Does have chronic back pain with L1/L2 disease on prior CT - Continue melatonin 3 mg nightly for sleep. Continue trazodone as needed but not scheduled. - Initiate short course of hydrocodone if patient has severe pain or agitation as treatment of her pain seem to help some of her agitation and discomfort. Short course of hydrocodone prescribed and sent to facility's pharmacy. De-escalated medications based on necessity given patient's comorbidities, age, current condition and goals of care. Recommend reevaluating medications on a monthly basis for de-escalation if possible. #hypothyroidism TSH 15, free t4 normal; subclinical hypothyroidism. unsure if pt has been able to take daily meds. Continue oral levothyroxine 100 mcg daily. Transition her PPI to nighttime to decrease interaction and improve absorption GERD: Continue omeprazole, transition to nightly #Iron deficiency anemia: Prior history of requiring blood transfusions and IV Venofer; Hemoglobin stable during admission. No transfusion needed during admission. Continue iron supplementation at discharge. #HFpEF: Not in exacerbation at this time. Not hypoxic, no overt shortness of breath Total time spent on discharge 35 minutes in counseling, documentation, chart review, medication adjustment, and direct care with patient. Exam Data for Last 24 hours Vital signs and Labs for Last 24 Hours: Temp Pulse Resp BP Pulse Ox O2 Del Method 97.7 F 103 H 15 113/59 L 94 L Room Air 07/17/25 08:00 07/17/25 08:00 07/17/25 08:00 07/17/25 08:00 07/17/25 08:00 07/17/25 09:00 Laboratory Results - last 24 hr 07/16/25 20:48: Sodium 138, Potassium 3.7, Chloride 101, Carbon Dioxide 22, Anion Gap 18.7 H, BUN 13, Creatinine 1.10 H, Estimated Creat Clear 34, Estimated GFR 47 L, Est GFR ( Amer) 57 L, Glucose 107 H, Calcium 9.1 I & O for Last 24 hours: Intake & Output 07/14/25 07/15/25 07/16/25 07/17/25 23:59 23:59 23:59 23:59 Intake Total 1000 / 1000 100 / 100 580 / 580 220 / 220 Output Total 0 / 0 0 / 0 0 / 0 Balance 1000 / 1000 100 / 100 580 / 580 220 / 220 Weight 56.699 kg 55.656 kg 55.202 kg 54.613 kg Microbiology Reports for the Last 24 Hours: Microbiology 07/14/25 19:30 Urine,Clean Catch Urine Culture - Final No growth. Constitutional Constitutional: no acute distress, thin, chronically ill appearing and cooperative *Routine HEENT Exam Head: Present normocephalic Eye: Present EOMI and PERRL ENT: Present mucous membranes moist *Routine Neck Exam Neck: Present supple; Absent lymphadenopathy *Routine Respiratory Exam Respiratory: Present CTA bilaterally; Absent respiratory distress, rhonchi or stridor *Routine Cardiovascular Exam Cardiovascular: Present RRR *Routine Abdominal Exam Abdominal: Present soft and normoactive bowel sounds; Absent tenderness *Routine Rectal Exam Patient deferred: visual exam *Routine Exam Patient deferred: external exam *Routine Extremities Exam Extremities: Absent cyanosis, clubbing or edema *Routine Skin Exam Skin: Present warm; Absent rash Comments: Stable lower and upper extremity bruises noted. *Routine Neurological Exam Neurological: Present alert and moving all extremities; Absent altered mental status Comments: Oriented to self. Interactive on exam. Making eye contact. Answering questions appropriately. Does have some tangential speech. Results Data Completed and Pending Labs on day of discharge: Labs from last 24 hours 07/16/25 20:48 Sodium 138 Potassium 3.7 Chloride 101 Carbon Dioxide 22 Anion Gap 18.7 H BUN 13 Creatinine 1.10 H Estimated Creat Clear 34 Estimated GFR 47 L Est GFR ( Amer) 57 L Glucose 107 H Calcium 9.1 DS: Diagnosis Discharge Diagnosis (1) Encephalopathy: Status: Acute Code(s): G93.40 - Encephalopathy, unspecified Problem details: Toxic secondary to medications in the setting of dementia with delirium (2) (HFpEF) heart failure with preserved ejection fraction: Status: Chronic Code(s): I50.30 - Unspecified diastolic (congestive) heart failure Qualifiers: Heart failure chronicity: chronic Qualified Code(s): I50.32 - Chronic diastolic (congestive) heart failure (3) Hypothyroid: Status: Chronic Code(s): E03.9 - Hypothyroidism, unspecified Qualifiers: Hypothyroidism type: acquired Qualified Code(s): E03.9 - Hypothyroidism, unspecified (4) HTN (hypertension): Status: Chronic Code(s): I10 - Essential (primary) hypertension Qualifiers: Hypertension type: primary hypertension Qualified Code(s): I10 - Essential (primary) hypertension (5) Severe protein-calorie malnutrition: Status: Acute Code(s): E43 - Unspecified severe protein-calorie malnutrition (6) Dementia with behavioral disturbance: Status: Acute Code(s): F03.918 - Unspecified dementia, unspecified severity, with other behavioral disturbance Meds Home Medications and Allergies Home Medications ?Medication ?Instructions ?Recorded ?Confirmed ?Type ferrous sulfate 325 mg (65 mg 325 mg PO DAILY #30 tabs 04/18/25 07/15/25 Rx iron) tablet polyethylene glycol 3350 17 17 g PO DAILY #119 grams 04/18/25 07/15/25 Rx gram/dose oral powder (Miralax) acetaminophen 500 mg tablet 500 mg PO Q4HP PRN Mild Pain 07/15/25 07/15/25 History (Scale Score 1-4) levothyroxine 100 mcg tablet 100 mcg PO DAILY 07/15/25 07/15/25 History melatonin 3 mg tablet 3 mg PO HS 07/15/25 07/15/25 History hydrocodone 5 mg-acetaminophen 325 0.5 tab PO Q8H PRN moderate pain 07/17/25 Rx mg tablet (scale score 5-6) #30 tabs metoprolol tartrate 25 mg tablet 12.5 mg (1/2 x 25 mg) PO BID 30 07/17/25 07/15/25 Rx days #0 tabs omeprazole 40 mg capsule,delayed 40 mg PO HS 30 days #0 caps 07/17/25 07/15/25 Rx release trazodone 100 mg tablet 100 mg PO HSP PRN insomnia 30 days 07/17/25 07/15/25 Rx #0 tabs New Prescriptions to Start Prescriptions: hydrocodone-acetaminophen Nadeem Bellamy Allergies Allergy/AdvReac Type Severity Reaction Status Date / Time Sulfa (Sulfonamide Allergy Mild Unknown Verified 04/22/25 14:26 Antibiotics) allergy reaction Discharge Plan Disposition Patient Disposition: [facility] Condition: Fair Discharge Order Discharge Orders: Discharge Order (Routine); Ordered 07/17/25 Ordered By: Nadeem Bellamy Follow up Plan Follow up with: Alex Zhou MD [Primary Care Provider, Medical] - Enter time for follow up Referral Note: follow at [facility], no appt needed Prescriptions/Medication Reconciliation: New hydrocodone-acetaminophen 5-325 mg tablet 0.5 tab PO Q8H PRN (Reason: moderate pain (scale score 5-6)) Qty: 30 0RF Continued ferrous sulfate 325 mg (65 mg iron) tablet 325 mg PO DAILY Qty: 30 0RF polyethylene glycol 3350 [Miralax] 17 gram/dose powder 17 g PO DAILY Qty: 119 0RF acetaminophen 500 mg Tablet 500 mg PO Q4HP PRN (Reason: Mild Pain (Scale Score 1-4)) levothyroxine 100 mcg Tablet 100 mcg PO DAILY melatonin 3 mg tablet 3 mg PO HS Changed omeprazole 40 MG capsule,delayed release(DR/EC) 40 mg PO HS 30 Days Qty: 0 0RF trazodone 100 mg Tablet 100 mg PO HSP PRN (Reason: insomnia) 30 Days Qty: 0 0RF metoprolol tartrate 25 mg tablet 12.5 mg PO BID 30 Days Qty: 0 0RF Discontinued aspirin 81 MG tablet,chewable 81 mg PO DAILY rosuvastatin 10 mg tablet 10 mg PO HS tramadol 50 mg Tablet 50 mg PO Q6HP PRN (Reason: Moderate Pain (Scale Score 5-6)) risperidone [Risperdal] 2 mg Tablet 2 mg PO HS lorazepam 0.5 mg tablet 0.5 mg PO HS risperidone [Risperdal] 1 mg Tablet 1 mg PO DAILY sodium chloride 1,000 mg Tablet,Soluble 1,000 mg PO DAILY Problem Reconciliation Problems Reviewed?: Yes Patient Discharge Instructions ACTIVITY: Continue current activity DIET: continue same diet Patient Instructions: DI for Malnutrition - Older Adults, Encephalopathy, DI for Encephalopathy Print Language: Setswana Providers Primary Care Provider: Alex Zhou Admjunie Provider: Nadeem Bellamy Attending Provider: Nadeem Bellamy
--- NOTE | 2025-07-17 11:39 | PC.NURSE ---
Current Medications Kathia Julian 1940 Acetaminophen (Acetaminophen 325mg Tab) 650 mg PO Q4HP PRN PRN Reason: Fever or Mild Pain (1-3) Stop: 08/13/25 23:49 Ceftriaxone Sodium 2 gm/ (Sodium Chloride) 100 mls @ 200 mls/hr IV Q24H NALINI Stop: 07/25/25 08:59 Last Infusion: 07/17/25 10:41 Dose: Infused Levothyroxine Sodium (Levothyroxine 100mcg (0.1mg) Tab) 100 mcg PO DAILYDM [facility] Stop: 08/15/25 06:59 Last Admin: 07/17/25 10:04 Dose: Not Given Melatonin (Melatonin 5mg Tablet) 5 mg PO HS [facility] Stop: 08/15/25 20:59 Last Admin: 07/16/25 20:07 Dose: 5 mg Morphine Sulfate (Morphine 2mg/Ml Syringe) 2 mg IV Q4HP PRN PRN Reason: Moderate to Severe Pain (4-10) Stop: 08/14/25 18:23 Last Admin: 07/16/25 14:13 Dose: 2 mg Pantoprazole Sodium (Pantoprazole 40mg Tablet) 40 mg PO HS [facility] Stop: 08/14/25 20:59 Last Admin: 07/16/25 20:07 Dose: 40 mg Sodium Chloride (Sodium Chloride 0.9% 10ml Flush Syringe) 10 ml IV NEEDED PRN PRN Reason: Maintain IV Site Stop: 08/15/25 08:13
[2025-07-17 12:00] VITALS: BP 106/51; PULSE 104; RESP 18; TEMP 36.9; O2SAT 95
== END 2025-07-17 13:15 ==
LOC: ER 18:39 → 2ND 23:33
PROVIDERS: Nurse Practitioner Acute Care; Admitting Provider Internal Medicine Adolescent Medicine; Emergency Provider Student in an Organized Health Care Education/Training Program; PCP Family Medicine Hospice and Palliative Medicine; Visit Provider Internal Medicine Adolescent Medicine
DX: G92.8 Other toxic encephalopathy (principal); E03.9 Hypothyroidism, unspecified; I50.32 Chronic diastolic (congestive) heart failure; E43 Unspecified severe protein-calorie malnutrition; F03.918 Unspecified dementia, unspecified severity, with other behavioral disturbance; I11.0 Hypertensive heart disease with heart failure; I25.10 Atherosclerotic heart disease of native coronary artery without angina pectoris; J44.9 Chronic obstructive pulmonary disease, unspecified; I25.2 Old myocardial infarction; Z88.2 Allergy status to sulfonamides; Z79.890 Hormone replacement therapy; Z79.899 Other long term (current) drug therapy; I44.0 Atrioventricular block, first degree; Z68.22 Body mass index [BMI] 22.0-22.9, adult
CPT/HCPCS: 70450; 71045; 80048; 80053; 80061; 81001; 83735; 84100; 84439; 84443; 85025; 86803; 87086; 87389; 93005; 97162; 97166; 97530; 99285; G0378; J0650; J0696; J1171; J1630; J2250; J2270; J2359; J7030; J7120

== ENCOUNTER 2025-07-26 23:14 | Emergency (ER) | payer MEDICARE, SELFPAY ==
--- OUTSIDE RECORDS SUMMARY | 2025-05-27 20:43 | XMS_ITS | Encounter Summary ---
Author Organization Healthcare Address [address] [place] [address] Care Team Providers Care Geoscience Professor Name Role Phone Kip Jordan MD Primary Care Provider [phone] Reason for Visit * Reason Comments Psychiatric Evaluation Encounter Details Date Type Department Care Team (Latest Contact Info) Description 05/27/2025 9:43 PM EDT - 05/28/2025 4:00 PM EDT Hospital Encounter [facility] [address] [place] [address] Zulay Tillman MD [address] [facility] [address] [place] [address] Dementia with psychotic disturbance, unspecified [...] place to sleep or slept in a penitentiary (including now)? No 01/04/2024 Utilities Answer Date [...] 4:00 PM EDT Pt discharged back to [facility], and transported by her family. AVS printed and reviewed and reflects change in medication dose. Belongings inventory (no belongings) signed. Pt wheeled out to family in wheelchair, in good spirits, pleasant and cooperative. Paperwork brought from [facility] returned to family as requested. * Jannet Hurley - Julissa Durbin RN - 05/28/2025 3:48 PM EDT Images from the original note were not included. [id number] Understanding Dementia Dementia is the name for [...] visit. Last Reviewed Date: 2023 00:00:00 ?? [id number] [employer]. All rights reserved. This information is not intended as a substitute for professional medical care. Always follow your healthcare professional's instructions. * Clinician Note - Dianne Fierro - 05/28/2025 9:55 AM EDT SW contacted the patient's son, Gilbert ([phone]) Gilbert reported that the patient has [place] [facility] but they have been having to help her get redirected which is why they thought she may need additional care. Gilbert reported that they have never been told that she has a diagnosis of dementia and that was their hope for Akthia's trip to [facility] to get her diagnosed. Gilbert stated he [...] PCP name and Address: Kip Jordan MD [facility] [address] I received sign-out and accepted care of [...] psychiatric complaint. Patient has been living at [facility] and the family is worried about her [...] with collateral that pt can return to [facility] long term. 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 Recommend to follow up per SW discharge note and/or follow up with outside mental health provider within 72hrs of discharge Recommend also followup with their Primary Care Physician for routine health maintenance. This would also include any follow up for infectious agents as well. You should abstain from all mood-altering substances except those prescribed by a faculty dean. Your primary supports should monitor you for evidence of substance use and should alert your outpatient provider if use is suspected or confirmed. You have received a safety plan was given at the time of discharge which included instructions to return to the nearest ER if patient becomes suicidal, homicidal, manic, psychotic, or develops any other urgent/emergent symptoms, or to call the [phone] line. Continue home medications as directed. Disposition [...] Color, Urine Yellow Clarity, Urine Clear Spec [place], Urine <=1.005 1.005 - 1.030 pH, Urine [...] Normal Normal POC UDS Kit Lot Number [id number] POC UDS Kit Expiration 12/25/2026 POC UDS [...] Insight: fair Judgment: fair Discharge Disposition/Condition Disposition: [place] Condition: Stable (s/sx potential problems absent or [...] psychiatric complaint. Patient has been living at [facility] and the family is worried about her [...] Annette Latham PA 25 mg at 05/27/25 9108 Current Outpatient Medications Medication Sig Dispense Refill [...] in the evening. Annette Latham PA 05/27/25 9944 * ED Notes - Hardeep Bravo RN - 05/27/2025 7:50 PM EDT Patient is a 85 year old female brought in by her family from [facility] in [place]. Patient denies SI, HI, AVH. Per family, [...] Normal Normal POC UDS Kit Lot Number [id number] POC UDS Kit Expiration 12/25/2026 POC UDS Collection Observed? Not Observed Urine 05/28/2025 4:37 AM EDT us Annette JACKSON POINT OF CARE TEST ENTER/ED IT ORDERABLES Final Result * Urine Rooney Panel (05/28/2025 1:47 AM EDT) Extra Reflex urine culture not indicated 05/28/2025 10:01 AM EDT [facility] Comment: Previously prelim verified as [...] Annette JACKSON LAB URINE ORDERABLES Final Result [facility] [address] [place] [address] * Urinalysis with reflex microscopic (Culture NOT Included) (05/28/2025 1:47 AM EDT) Color, Urine Yellow LAB URINALYSIS - AUTOMATED METHOD 05/28/2025 4:41 AM EDT [facility] Clarity, Urine Clear LAB URINALYSIS - AUTOMATED METHOD 05/28/2025 4:41 AM EDT [facility] Spec [place], Urine <=1.005 1.005 - 1.030 LAB URINALYSIS - AUTOMATED METHOD 05/28/2025 4:41 AM EDT [facility] pH, Urine 6.5 5.0 - 8.0 LAB URINALYSIS - AUTOMATED METHOD 05/28/2025 4:41 AM EDT [facility] Protein, Urine Negative Negative mg/dL LAB URINALYSIS - AUTOMATED METHOD 05/28/2025 4:41 AM EDT [facility] Glucose, Urine Negative Negative mg/dL LAB URINALYSIS - AUTOMATED METHOD 05/28/2025 4:41 AM EDT [facility] Ketones, Urine Negative Negative mg/dL LAB URINALYSIS - AUTOMATED METHOD 05/28/2025 4:41 AM EDT [facility] Blood, Urine Negative Negative LAB URINALYSIS - AUTOMATED METHOD 05/28/2025 4:41 AM EDT [facility] Bilirubin, Urine Negative Negative LAB URINALYSIS - AUTOMATED METHOD 05/28/2025 4:41 AM EDT [facility] Urobilinogen, Urine 0.2 0.2 to 1.0 mg/dL LAB URINALYSIS - AUTOMATED METHOD 05/28/2025 4:41 AM EDT [facility] Leukocytes, Urine Negative Negative LAB URINALYSIS - AUTOMATED METHOD 05/28/2025 4:41 AM EDT [facility] Nitrite, Urine Negative Negative LAB URINALYSIS - AUTOMATED METHOD 05/28/2025 4:41 AM EDT [facility] Urine Urine specimen obtained by clean catch procedure / Unknown Non-blood Collection / Unknown 05/28/2025 1:47 AM EDT 05/28/2025 1:48 AM EDT us Annette JACKSON LAB URINE ORDERABLES Final Result [facility] [address] [place] [address] * HIV 1 & 2 Antibody/Antigen Screen (05/27/2025 10:50 PM EDT) Pathologist [facility] HIV 1 & 2 Antibody/Antigen Screen Non Reactive Non Reactive 05/28/2025 12:29 AM EDT [facility] Comment:Screening for HIV 1 & 2 antibodies, and P24 antigen is NONREACTIVE. No confirmatory testing is required. Blood Venous blood specimen / Unknown Venipuncture / Unknown 05/27/2025 10:50 PM EDT 05/27/2025 10:51 PM EDT us Annette JACKSON LAB BLOOD ORDERABLES Final Result [facility] [address] [place] [address] * Hepatitis C Antibody with Reflex to HCV Quant PCR - [facility] (05/27/2025 10:50 PM EDT) Hepatitis C Antibody Negative Negative 05/28/2025 12:29 AM EDT [facility] Blood Venous blood specimen / Unknown Venipuncture / Unknown 05/27/2025 10:50 PM EDT 05/27/2025 10:51 PM EDT us Annette JACKSON LAB BLOOD ORDERABLES Final Result [facility] [address] [place] [address] * Hepatitis B Surface Antigen - [facility] (05/27/2025 10:50 PM EDT) Hepatitis B Surf Antigen Negative Negative 05/28/2025 1:12 AM EDT [facility] Blood Venous blood specimen / Unknown Venipuncture / Unknown 05/27/2025 10:50 PM EDT 05/27/2025 10:51 PM EDT us Annette JACKSON LAB BLOOD ORDERABLES Final Result [facility] [address] [place] [address] documented in this encounter Visit Diagnoses Diagnosis [...] 2026, Until Sun05/28/25 at 1948, Routine, Mild Plus Pain with CPOT DVPRS FLACC PAINAD NPASS NRS Bray-Doan Faces score of 1 or greater OR NIPS score 2 or greater, Moderate Severe Pain with CPOT score of 3 or greater OR FLACC PAINAD NPASS NRS Bray-Doan Faces score of 4 or greater OR DVPRS NIPS score of 5 or greater ALPRAZolam (Xanax) tablet 0.5 mg 0.5 mg, [...] on Sun05/28/25 at 0900, Until Discontinued, Routine 09 (Given - Provid er: Julissa Durbin RN) levothyroxine (Synthroid, Levoxyl) tablet 100 mcg [...] 6 hours PRN, Starting on Sun05/27/25 at 7, Until Sun05/28/25 at 194, Routine, Mild Plus Pain with CPOT DVPRS FLACC PAINAD NPASS NRS Bray-Doan Faces score of 1 or greater OR NIPS score 2 or greater, Moderate Severe Pain with CPOT score of 3 or greater OR FLACC PAINAD NPASS NRS Bray-Doan Faces score of 4 or greater OR DVPRS NIPS score of 5 or greater ALPRAZolam (Xanax) tablet 0.5 mg 0.5 mg, Oral, 4 times daily PRN, Starting on Sun05/27/25 at 2248, Until Sun05/28/25 at 1948, Routine, anxiety aluminum & magnesium hydroxide-simethicone (Mylanta) 200-200-20 MG/5ML oral suspension 10 mL 10 mL, Oral, Every 6 hours PRN, Starting on Sun05/27/25 at 2026, Until Angelita 05/28/25 at 194, Routine, indigestion, heartburn hydrOXYzine pamoate (Vistaril) capsule 50 mg 50 mg, Oral, Every 6 hours PRN, Starting on Sun05/27/25 at 2026, Until Angelita 05/28/25 at 194, Routine, anxiety magnesium hydroxide (Milk of Magnesia) 400 MG/5ML suspension 10 mL 10 mL, Oral, Daily PRN, Starting on Sun05/27/25 at 2026, Until Angelita 05/28/25 at 194, Routine, constipation documented in this encounter Additional Health Concerns Assessment Noted Time A Body Mass Index follow-up plan has been documented for the patient 01/13/2024 9:29 AM EDT documented as of this encounter Care Teams Geoscience Professor Relationship Specialty Start Date End Date Kip Jordan MD [address] [place] [address] PCP - General 01/03/24 documented as of this encounter
--- NOTE | 2025-07-26 00:56 | ECG_ITS ---
APPROVED REPORT Exam: Resting ECG HR:75 bpm ECG Measurements Heart Rate 75 AXES ME 188 P 73 QRSd 89 QRS 78 QT 421 T 60 QTc 450 Conclusion SINUS RHYTHM NORMAL ECG Electronically signed by : RUDOLPH RAMOS, 07/27/2025 05:57:31
--- NOTE | 2025-07-26 23:09 | XR_ITS ---
PROCEDURE INFORMATION: Exam: XR Chest Exam date and time: 07/27/2025 12:51 AM Age: 85 years old Clinical indication: Other: Altered mental status TECHNIQUE: Imaging protocol: Radiologic exam of the chest. Views: 1 view. COMPARISON: CR XR CHEST PORTABLE 07/14/2025 9:57 PM FINDINGS: Lungs: Diffuse interstitial prominence similar to prior comparison without focal consolidation. Some atelectasis and scarring is seen of the lung bases. Pleural spaces: Unremarkable. No pleural effusion. No pneumothorax. Heart/Mediastinum: Unremarkable. No cardiomegaly. Vasculature: Advanced atherosclerotic disease. Bones/joints: Advanced degenerative change of the visualized osseous structures with demineralization. IMPRESSION: No acute findings from prior comparison.
--- NOTE | 2025-07-26 23:10 | CT_ITS ---
PROCEDURE INFORMATION: Exam: CT Head Without Contrast Exam date and time: 07/27/2025 12:48 AM Age: 85 years old Clinical indication: Altered mental status/memory loss TECHNIQUE: Imaging protocol: Computed tomography of the head without contrast. Radiation optimization: All CT scans at this facility use at least one of these dose optimization techniques: automated exposure control; mA and/or kV adjustment per patient size (includes targeted exams where dose is matched to clinical indication); or iterative reconstruction. COMPARISON: CT HEAD/BRAIN WO CON 07/14/2025 10:20 PM FINDINGS: Brain: No acute intracranial hemorrhage, midline shift, or mass effect. Diffuse brain parenchymal volume loss. Similar pattern of hypodensities within the cerebral white matter. Small area of encephalomalacia within the right parietal lobe. Cerebral ventricles: No ventriculomegaly. Paranasal sinuses: Visualized sinuses are unremarkable. No fluid levels. Mastoid air cells: Minimal left mastoid effusion. Bones: Unremarkable. No acute fracture. Soft tissues: Unremarkable. IMPRESSION: No acute intracranial findings.
[2025-07-26 23:15] VITALS: BP 00/00; PULSE 0; RESP 18; TEMP -17.7; TEMP 0; O2SAT 0; BMI 26.4
--- OUTSIDE RECORDS SUMMARY | 2025-07-26 23:17 | XMS_ITS | Clinical Summary ---
Author Organization [facility] Address [address] [place] [address] Care Team Providers Care Vacuum Cleaner Repairer Name Role Phone Kip Jordan MD Primary Care Provider [phone] Allergies Active Allergy Reactions Criticality Noted Date [...] - 05/28/2025 4:00 PM EDT Hospital Encounter [facility] [address] [place] [address] Zulay Tillman MD Dementia with psychotic disturbance, [...] place to sleep or slept in a fpc (including now)? No 01/04/2024 Utilities Answer Date Recorded In the past 12 months has [employer], gas, oil, or water [employer] threatened to shut off services in your [...] or (1 - 1-dose 75+ series) 2017 [id number] Vaccine (2 - season) 2025 10/14/2020 [facility]-Influenza Vaccine (#1) 04/06/202506/06, 06/25/2021, 06/16/2020 [facility]-Zoster Vaccines Completed 05/24/2023, 12/21/2022 HPV Vaccines (No Doses Required) Completed [facility]-HIB Vaccines Aged Out No longer e [...] Normal Normal POC UDS Kit Lot Number [id number] POC UDS Kit Expiration 12/25/2026 POC UDS Collection Observed? Not Observed Urine 05/28/2025 4:37 AM EDT us Annette JACKSON POINT OF CARE TEST ENTER/ED IT ORDERABLES Final Result * Urine Rooney Panel (05/28/2025 1:47 AM EDT) Extra Reflex urine culture not indicated 05/28/2025 10:01 AM EDT [facility] Comment: Previously prelim verified [...] Annette JACKSON LAB URINE ORDERABLES Final Result [facility] [address] [place] [address] * Urinalysis with reflex microscopic (Culture NOT Included) (05/28/2025 1:47 AM EDT) Color, Urine Yellow LAB URINALYSIS - AUTOMATED METHOD 05/28/2025 4:41 AM EDT [facility] Clarity, Urine Clear LAB URINALYSIS - AUTOMATED METHOD 05/28/2025 4:41 AM EDT [facility] Spec [place], Urine <=1.005 1.005 - 1.030 LAB URINALYSIS - AUTOMATED METHOD 05/28/2025 4:41 AM EDT [facility] pH, Urine 6.5 5.0 - 8.0 LAB URINALYSIS - AUTOMATED METHOD 05/28/2025 4:41 AM EDT [facility] Protein, Urine Negative Negative mg/dL LAB URINALYSIS - AUTOMATED METHOD 05/28/2025 4:41 AM EDT [facility] Glucose, Urine Negative Negative mg/dL LAB URINALYSIS - AUTOMATED METHOD 05/28/2025 4:41 AM EDT [facility] Ketones, Urine Negative Negative mg/dL LAB URINALYSIS - AUTOMATED METHOD 05/28/2025 4:41 AM EDT [facility] Blood, Urine Negative Negative LAB URINALYSIS - AUTOMATED METHOD 05/28/2025 4:41 AM EDT [facility] Bilirubin, Urine Negative Negative LAB URINALYSIS - AUTOMATED METHOD 05/28/2025 4:41 AM EDT [facility] Urobilinogen, Urine 0.2 0.2 to 1.0 mg/dL LAB URINALYSIS - AUTOMATED METHOD 05/28/2025 4:41 AM EDT [facility] Leukocytes, Urine Negative Negative LAB URINALYSIS - AUTOMATED METHOD 05/28/2025 4:41 AM EDT [facility] Nitrite, Urine Negative Negative LAB URINALYSIS - AUTOMATED METHOD 05/28/2025 4:41 AM EDT [facility] Urine Urine specimen obtained by clean catch procedure / Unknown Non-blood Collection / Unknown 05/28/2025 1:47 AM EDT 05/28/2025 1:48 AM EDT Annette JACKSON LAB URINE ORDERABLES Final Result Performing Organization Address City/[facility]/ZIP Co de Phone Number [facility] [address] [place] [address] * Hepatitis B Surface Antigen - Empath (05/27/2025 10:50 PM EDT) Hepatitis B Surf Antigen Negative Negative 05/28/2025 1:12 AM EDT [facility] Blood Venous blood specimen / Unknown Venipuncture / Unknown 05/27/2025 10:50 PM EDT 05/27/2025 10:51 PM EDT Annette JACKSON LAB BLOOD ORDERABLES Final Result Performing Organization Address [facility] Co de Phone Number [facility] [address] [place] [address] * Hepatitis C Antibody with Reflex to HCV Quant PCR - Empath (05/27/2025 10:50 PM EDT) Hepatitis C Antibody Negative Negative 05/28/2025 12:29 AM EDT [facility] Blood Venous blood specimen / Unknown Venipuncture / Unknown 05/27/2025 10:50 PM EDT 05/27/2025 10:51 PM EDT us Annette JACKSON LAB BLOOD ORDERABLES Final Result Performing Organization Address City/[facility]/ZIP Co de Phone Number [facility] [address] [place] [address] * HIV 1 & 2 Antibody/Antigen Screen (05/27/2025 10:50 PM EDT) HIV 1 & 2 Antibody/Antigen Screen Non Reactive Non Reactive 05/28/2025 12:29 AM EDT [facility] Comment:Screening for HIV 1 & 2 antibodies, and P24 antigen is NONREACTIVE. No confirmatory testing is required. Blood Venous blood specimen / Unknown Venipuncture / Unknown 05/27/2025 10:50 PM EDT 05/27/2025 10:51 PM EDT us Annette JACKSON LAB BLOOD ORDERABLES Final Result [facility] [address] [place] [address] from Last [address] [place] [address] [place] [address] MEDICARE Advance Directives Documents on File Type Date Recorded Patient Tourist Adviser Expl anation Advance Directives and Livin g [...] Patient has decision-making capacity? Yes Care Teams Vacuum Cleaner Repairer Relationship Specialty Start Date End Date Kip Jordan MD [address] [place] [address] PCP - General 01/03/24
--- OUTSIDE RECORDS SUMMARY | 2025-07-26 23:17 | XMS_ITS | Referral Summary ---
Author Organization [facility] ([place], [place], [place], [place], [place]) Address [address] [place] [address] Care Team Providers Care Operations Research Group Manager Name Role Phone Kip Jordan MD Primary Care Provider Christine Lucia PA-C Unavailable [phone] Encounters Date Type Department Care Team Description 06/08/2025 Telephone [place] [facility] - [place] [address] [place] [address] Gopal Hazel MD Appointment from [...] disease 05/22/2023 Coronary artery disease invo lving [place] coronary artery of [place] heart without angina pectoris 05/22/2023 PVD (peripheral [...] Date Abdirahman rded Speak language other than Honduran at home Not on file 08/17/2023 Want [...] Treatment Not on file Insurance [employer] [id number] MEDICARE PART A B [employer] MEDICARE PPO Care Teams Operations Research Group Manager Relationship Specialty Start Date End Date Kip Jordan MD [address] [place] [address] [place] [address] PCP - General Family Medicine 05/22/23 Christine Lucia, PA-C [address] [facility] [address] [place] [address] Cardiology 12/06/23
--- OUTSIDE RECORDS SUMMARY | 2025-07-26 23:17 | XMS_ITS | Encounter Summary ---
Author Organization [facility] ([place], [place], [place], [place], [place]) Address [address] [place] [address] Care Team Providers Care Steel Analyst Name Role Phone Kip Jordan MD Primary Care Provider [phone] Christine Lucia PA-C Unavailable [phone] Reason for Visit * Reason Onset Date Comments Appointment 06/08/2025 Encounter Details Date Type Department Care Team (Late st Contact Info) Description 06/08/2025 Telephone [place] [facility] - [facility] [address] [place] [address] [address] [place] [address] Gopal Hazel MD [address] [facility] [address] [place] [address] Appointment Social History Tobacco Use [...] Date Abdirahman rded Speak language other than Amharic at home Not on file 08/17/2023 Want [...] was UR/LVM for pt to confirm appt O TECHNICIAN documented in this encounter Plan of Treatment Not on file documented as of this encounter Visit Diagnoses Not on filedocumented in this encounter Care Teams Steel Analyst Relationship Specialty Start Date End Date Kip Jordan MD [address] [place] [address] PCP - General Family Medicine 05/22/23 Christine Lucia PA-C [address] [facility] [address] [place] [address] Cardiology 12/06/23 documented as of this encounter
--- OUTSIDE RECORDS SUMMARY | 2025-07-26 23:17 | XMS_ITS | Clinical Summary ---
Author Organization [facility] Address [address] [place] [address] Care Team Providers Care Visual Merchandising Coordinator Name Role Phone Kip Jordan MD Primary [...] - 2023-2 5 season) 2025 Insurance [id number] MEDICARE A & B Member Subscriber Plan / Payer (Ef fective 2007-Present) Name:Kathia Jordan Member ID:[id number] Relation to Subscriber:Self Name:Kathia Jordan Subscriber ID:[id number] Payer ID:[id number] Group ID:Not on file Type:Not on file Address: [address] Care Teams Visual Merchandising Coordinator Relationship Specialty Start Date End Date Kip Jordan MD [address] [place], [place] [address] [address] PCP - General Family Medicine 12/18/18
--- OUTSIDE RECORDS SUMMARY | 2025-07-26 23:17 | XMS_ITS | Encounter Summary ---
Author Organization [facility] Address [address] [place] [address] Care Team Providers Care Traffic Police Officer Name Role Phone Kip Jordan MD Primary Care Provider [phone] Encounter Details Date Type Department Care Team [...] place to sleep or slept in a retirement (including now)? No 01/04/2024 Utilities Answer Date [...] documented as of this encounter Care Teams Traffic Police Officer Relationship Specialty Start Date End Date Kip Jordan MD [address] [place] [address] PCP - General 01/03/24 documented as of this encounter
--- OUTSIDE RECORDS SUMMARY | 2025-07-26 23:17 | XMS_ITS | Clinical Summary ---
Author Organization [facility] ([place], [place], [place], [place], [place]) Address [address] [place] [address] Care Team Providers Care Sludge Control Attendant Name Role Phone Kip Jordan MD Primary Care Provider [phone] Christine Lucia PA-C Unavailable [phone] Allergies Active Allergy Reactions Criticality Noted Date [...] disease 05/22/2023 Coronary artery disease invo lving [place] coronary artery of [place] heart without angina pectoris 05/22/2023 PVD (peripheral vascular disease) 05/22/2023 Arteriosclerosis of carotid artery 04/28/2021 Hyperlipidemia 04/28/2021 Intermittent claudication 04/28/2021 Hypertension 04/28/2021 Stenosis of subclavian artery 04/28/2021 Encounters Date Type Department Care Team Description 06/08/2025 Telephone [facility] [place] [address] [place] [address] Gopal Hazel MD Appointment from [...] Date Abdirahman rded Speak language other than Welsh at home Not on file 08/17/2023 Want [...] Counseling and Screening (12+) 06/06/2025 06/06/2024 [place] [address] [address] [place] [address] MEDICARE PPO Care Teams Sludge Control Attendant Relationship Specialty Start Date End Date Kip Jordan MD [address] [place] [address] [place] [address] PCP - General Family Medicine 05/22/23 Christine Lucia PA-C [address] [place] [address] [address] Cardiology 12/06/23
--- NOTE | 2025-07-26 23:18 | PC.NURSE ---
Unable to obtain Vitals at this time r/t PT being combative
[2025-07-26] MEDS: HALOPERIDOL LACTATE 5 MG/ML VIAL 3 MG IV ×2 (23:25→23:54)
[2025-07-26 23:27] LABS: Adenovirus,PCR Not Detected (NotDetected); Chlamydophila Pneumoniae, PCR Not Detected (NotDetected); Coronavirus 19, PCR Not Detected (NotDetected); Coronovirus HKU1,PCR Not Detected (NotDetected); Influenza A, PCR Not Detected (NotDetected); Influenza AH1, 2009 Not Detected (NotDetected); Influenza AH1, PCR Not Detected (NotDetected); Influenza AH3,PCR Not Detected (NotDetected); Influenza B, PCR Not Detected (NotDetected); Mycoplasma Pneumoniae, PCR Not Detected (NotDetected); Parainfluenza 1, PCR Not Detected (NotDetected); Parainfluenza 2, PCR Not Detected (NotDetected); Parainfluenza 3, PCR Not Detected (NotDetected); Parainfluenza 4, PCR Not Detected (NotDetected)
[2025-07-26] MEDS: LACTATED RINGERS 1000ML 1,000 ML 999 ML IV (23:29)
--- NOTE | 2025-07-26 23:34 | PC.NURSE ---
seizure pads applied to PT bed r/t pt safety. PT was noted to be putting legs/feet/hands through x2 side rails
[2025-07-26 23:35] LABS: Hematocrit 32.9 % (37.0-47.0); Hemoglobin 10.8 g/dL (12.2-16.2); Immature Granulocytes % 1.0 %; Mean Corpuscular HGB Conc 32.8 g/dL (31.8-35.4); Mean Corpuscular Hemoglobin 28.1 pg (27.0-31.2); Mean Corpuscular Volume 85.7 fl (81-99); Nucleated Red Blood Cells % 0 %; Platelet Count 432 K/mm3 (142-424); Red Blood Count 3.84 M/mm3 (4.20-5.40); Red Cell Distribution Width-SD 54.9 fL; White Blood Count 9.8 K/mm3 (4.8-10.8)
--- NOTE | 2025-07-26 23:36 | PC.NURSE ---
Respiratory called r/t VBG sent to lab
--- NOTE | 2025-07-26 23:41 | PC.NURSE ---
Peter blancas contacted with no answer
[2025-07-26 23:43] LABS: VBG HCO3 25.3 mmol/L (23-30); VBG PCO2 43.9 mmol/L (35-51); VBG PH 7.38 mmol/L (7.31-7.41); VBG PO2 42.4 mmol/L (28-40)
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
[2025-07-26 23:46] LABS: INR 0.94 (0.9-1.1); Prothrombin Time 10.5 seconds (10.1-12.5)
[2025-07-26 23:47] LABS: Lactate Venous 2.1 mmol/L (0.4-2.0)
[2025-07-26 23:48] LABS: Alanine Aminotransferase 14 U/L (12-78); Albumin Level 4.1 g/dl (3.5-5.0); Albumin/Globulin Ratio 1.3 (1.1-1.8); Alkaline Phosphatase 69 U/L (38-126); Anion Gap 10.6 mEq/L (5-15); Aspartate Amino Transferase 37 U/L (14-36); Bilirubin,Total 0.7 mg/dl (0.2-1.3); Blood Urea Nitrogen 30 mg/dl (7-17); Calcium 9.3 mg/dl (8.4-10.2); Carbon Dioxide 28 mmol/L (22.0-30.0); Chloride 104 mmol/L (98-107); Creatine Kinase 228 U/L (30-135); Creatinine Clearance Estimated 31 mL/min (50-200); Creatinine,Serum 1.40 mg/dl (0.52-1.04); Estimated Glomerular Filt Rate 36 ml/min (>60); GFR (African American) 43 ML/MIN (>60); Globulin 3.1 g/dL (1.3-3.2); Glucose 121 mg/dl (74-100); Lipase 84 U/L (23-300); Magnesium 2.0 mg/dl (1.6-2.3); Potassium 4.6 mmoL/L (3.5-5.1); Sodium 138 mmol/L (136-145); Total Protein,Serum 7.2 g/dl (6.3-8.2)
--- NOTE | 2025-07-26 23:57 | PC.NURSE ---
PT noted to be combative and agitated. Provider notified. Unable to obtain VS, EKG, nor UA at this time.
[2025-07-27 00:01] LABS: Troponin I < 0.01 ng/ml (0.00-0.034)
--- NOTE | 2025-07-27 00:04 | HMH.ITSTN ---
Pt was transported back to CT and immediately became combative once moved on to CT table. Pt was unable to lie still for exam with seatbelts used. Pt unable to tolerate test at this time. Informed ER staff and CT to be notified when pt is ready.
--- NOTE | 2025-07-27 00:13 | CT_ITS ---
PROCEDURE INFORMATION: Exam: CT Cervical Spine Without Contrast Exam date and time: 07/27/2025 12:48 AM Age: 85 years old Clinical indication: Other: Altered, possible falls TECHNIQUE: Imaging protocol: Computed tomography of the cervical spine without contrast. Radiation optimization: All CT scans at this facility use at least one of these dose optimization techniques: automated exposure control; mA and/or kV adjustment per patient size (includes targeted exams where dose is matched to clinical indication); or iterative reconstruction. COMPARISON: CT ANGIO NECK 04/13/2025 11:24 PM FINDINGS: Bones: Cervical vertebrae normal in height. No acute fracture. Reversal of normal cervical lordosis. Grade 1 anterolisthesis C2 on C3, C7 on T1 and T1 on T2. Mild retrolisthesis C4 on C5 and C6 on C7. Maintained craniocervical junction. Multilevel degenerative changes. Varying degrees of neural foraminal narrowing. No severe spinal canal stenosis. Lungs: Emphysema. Right lung ground-glass opacities and interlobular septal thickening. Vasculature: Bilateral carotid artery calcifications. Soft tissues: Unremarkable. IMPRESSION: 1. No acute osseous findings. 2. Right lung ground-glass opacities and interlobular septal thickening, findings which can be seen with pulmonary edema or infection in the acute setting.
[2025-07-27 00:14] LABS: Total Cells Counted 100
[2025-07-27 00:15] LABS: RBC Morphology Normal
[2025-07-27 00:18] LABS: Thyroid Stimulating Hormone 46.10 uIU/mL (0.465-4.68)
--- NOTE | 2025-07-27 00:21 | PC.NURSE ---
This nurse attempted to intermittent cath PT. Unsuccessful r/t PT anatomy. Provider notified
[2025-07-27 00:29] LABS: NT Pro Brain Natriuretic Pep. 458 pg/mL (0-450)
[2025-07-27 00:34] LABS: Free T4 (Free Thyroxine) 1.06 ng/dl (0.78-2.19)
[2025-07-27 00:36] VITALS: PULSE 78; RESP 18; O2SAT 93
--- NOTE | 2025-07-27 00:36 | PC.NURSE ---
HR, O2, Temp able to be obtained. PT became combative and agitated.
[2025-07-27 00:41] VITALS: BP 168/76; PULSE 72; O2SAT 96
[2025-07-27] MEDS: MIDAZOLAM 2MG/2ML VIAL 2 MG IV (00:45)
[2025-07-27 00:47] VITALS: PULSE 84; O2SAT 93
--- NOTE | 2025-07-27 01:08 | PC.NURSE ---
Intermittent cath performed, successful this attempt. UA sent to lab.
[2025-07-27 01:09] LABS: Microscopic, Urine URINE MICROSCOPIC (MICROSCOPIC)
[2025-07-27 01:13] LABS: Bilirubin,Urine Negative (Negative); Color,Urine YELLOW (Yellow); Glucose,Urine (UA) Negative (Negative); Ketones,Urine TRACE (Negative); Leukocyte Esterase,Urine Negative (Negative); PH,Urine 6.0 (5.0-8.5); Protein,Urine Negative (Negative); Specific Gravity, Urine 1.020 (1.005-1.030); Urobilinogen,Urine 0.2 EU/dl (0.2)
[2025-07-27 01:30] VITALS: PULSE 76; O2SAT 95
[2025-07-27 01:39] VITALS: BP 168/74; PULSE 82; O2SAT 94
[2025-07-27 01:39] LABS: Benzodiazepines Screen,Urine Negative ng/ml (<200)
[2025-07-27 01:40] LABS: Amphetamine/Metha Screen,Urine Negative ng/ml (<1000)
[2025-07-27 01:41] LABS: Barbiturates Screen,Urine Negative ng/ml (<200)
[2025-07-27 01:42] LABS: Methadone Screen,Urine Negative ng/ml (<300)
[2025-07-27 01:43] LABS: Opiate Screen,Urine Positive ng/ml (<300)
[2025-07-27 01:44] LABS: Phencyclidine Screen,Urine Negative ng/ml (<25)
[2025-07-27 01:47] LABS: Hepatitis C Ab Qual. W/ RFX NEGATIVE (Negative)
[2025-07-27 01:48] LABS: Bacteria,Urine Trace /lpf
--- NOTE | 2025-07-27 01:54 | PC.NURSE ---
Spoke with [facility], they will give us a call back as soon as they are able to find a facility that offers psych and will accept her.
--- NOTE | 2025-07-27 02:20 | PC.NURSE ---
Spoke with [facility] about transferring, they do not have any beds at this time
--- NOTE | 2025-07-27 02:29 | PC.NURSE ---
Spoke with transfer center, speaking with them at this time
[2025-07-27 02:52] VITALS: BP 168/74; PULSE 82; RESP 16; TEMP 36.4; O2SAT 94
--- NOTE | 2025-07-27 03:02 | PC.NURSE ---
PT maroon pants and leggings placed in belongings bags. Will send with EMS upon transport
[2025-07-27] MEDS: MIDAZOLAM 2MG/2ML VIAL 1 MG IV (03:11)
[2025-07-27 03:47] LABS: Reflex Lactic Add Lactic Reflex
== END 2025-07-27 03:15 | disposition short-term general hospital (02) ==
PROVIDERS: Emergency Provider Emergency Medicine; PCP Family Medicine Hospice and Palliative Medicine
DX: F03.911 Unspecified dementia, unspecified severity, with agitation (principal); N17.9 Acute kidney failure, unspecified; M62.82 Rhabdomyolysis; E03.9 Hypothyroidism, unspecified; R45.1 Restlessness and agitation; R45.6 Violent behavior; I11.0 Hypertensive heart disease with heart failure; I50.30 Unspecified diastolic (congestive) heart failure; Z87.891 Personal history of nicotine dependence
CPT/HCPCS: 0223U; 70450; 71045; 72125; 80053; 80307; 81001; 82550; 82803; 83690; 83735; 83880; 84439; 84443; 84484; 85007; 85025; 85610; 86803; 87040; 87389; 93005; 96361; 96374; 96375; 96376; 99285; J1200; J1630; J2250; J7120